=== PATIENT | male | born 1980 | race Caucasian/White ===

== ENCOUNTER 2019-07-07 12:10 | Inpatient (IN) | payer OTHER ==
[2019-07-07] VITALS (29 sets, daily range): BP systolic 104–172; BP diastolic 47–100
[~2019-07-07] VITALS: Ht 177.8 cm; Wt 111.4 kg
[~2019-07-07 12:10] MED LIST: AMLO10TA8 PO; ASPI-655 PO; ATOR40TA PO; IRBE1TAB3 PO; ISRA2.5C PO; METO-238 PO; Magnesium Oxide PO; NALT1TAB PO
[2019-07-07] MEDS ORDERED: CARDIZEM IV ONE ×3 (12:50→17:00)
[2019-07-07] MEDS ORDERED: CARDIZEM ONE ×3 (12:50→22:48)
[2019-07-07] MEDS ORDERED: CARDIZEM PO STA (12:53)
[2019-07-07] MEDS ORDERED: CARDIZEM IV STA ×3 (12:53→14:09)
--- NOTE | 2019-07-07 12:54 | PCM.EKG ---
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1980 Requested By: NIKKI LEGER Order Number: [id number] Reading MD: Nikki Leger Measurements Intervals [place] Rate: 172 P: [place]: QRS: 46 QRSD: 114 T: -28 QT: 307 QTc: 520 Interpretive Statements Atrial fibrillation Paired ventricular premature complexes Incomplete left bundle branch block Low voltage, extremity and precordial leads Minimal ST elevation, lateral leads Prolonged QT interval Baseline wander in lead(s) II,III,aVR,aVF,V6 No previous ECG available for comparison Electronically Signed On 07-13-2019 14:43:03 [employer] by Nikki Leger Please click the below link to view image of tracing.
[2019-07-07 13:00] LABS: BASOPHIL % 0.3 % (0.0-0.2); EOSINOPHIL % 0.1 % (0.0-5.0); LYMPHOCYTES # 1.7 10^3/uL (1.0-4.8); LYMPHOCYTES % 12.6 % (24.0-44.0); MEAN CORP HGB 32.8 pg (26-34); MONOCYTES # 1.6 10^3/uL (0.3-0.8); MONOCYTES % 11.9 % (5.0-12.0); NEUTROPHIL # 10.2 10^3/uL (1.8-7.7); NEUTROPHILS % 74.8 % (41.0-85.0)
--- NOTE | 2019-07-07 13:08 | DIREP ---
PROCEDURE:CHEST 1 VIEW COMPARISON:[facility], CR, XRAY CHEST SINGLE VW, 06/30/2016, 09:18 AM. INDICATIONS:hemoptysis, dyspnea FINDINGS: LUNGS/PLEURA:A right pleural effusion is present. The left lung is clear. No focal consolidation or pneumothorax otherwise noted. VASCULATURE:Normal. Unremarkable pulmonary vasculature. CARDIAC:Borderline cardiomegaly. MEDIASTINUM:Normal. No visible mass or adenopathy. BONES:Mild degenerative change. OTHER:Cardiac leads. CONCLUSION:Right pleural effusion. Dictated by: oJe Santos M.D. on 07/07/2019 at 01:06 PM
--- NOTE | 2019-07-07 13:23 | NUR ---
[facility] OF 1.92 CALLED AND REPORTED AT THIS TIME. DR. LEGER NOTIFIED.
[2019-07-07 13:27] LABS: ALANINE AMINOTRANSFERASE(ML) 33 U/L (12-78); ALKALINE PHOSPHATASE 104 U/L (50-136); ASPARTATE AMINO TRANSFERASE 24 U/L (0-35); CARBON DIOXIDE 24.7 mmol/L (20.0-32); GLUCOSE 115 mg/dL (70-110)
[2019-07-07] MEDS ORDERED: NS 100ML 100 ML IV ONE ×3 (13:49→22:49)
--- NOTE | 2019-07-07 14:27 | DIREP ---
PROCEDURE:CT PULMONARY ANGIOGRAM TECHNIQUE:Following the intravenous administration of contrast material, axial cuts were obtained through the chest. Sagittal and coronal MIP post-processing reconstructions are provided. Satisfactory pulmonary arterial contrast opacification was achieved. The images were viewed at lung and soft tissue settings. The study was reviewed on abdominal, lung, liver and bone windows PICC COMPARISON:[facility], , XRAY CHEST SINGLE VW, 07/07/2019, 12:44 PM. INDICATIONS:R/O PE, DYSPNEA, NEW ONSET AFIB FINDINGS: PULMONARY ARTERIES:No evidence for pulmonary embolism is seen. The CT venogram was not performed. LUNGS:Extensive right lower lobe pneumonia with a moderate-sized right-sided pleural effusion noted. CARDIAC:Normal size heart and normal pulmonary vascularity. THYROID:Normal. THORACIC AORTA:No aortic aneurysm or dissection is seen. The opacifications of aorta is slightly less than optimal. MEDIASTINUM:Small lymph nodes identified in the right hilum, and in the para-aortic region. PLEURA:Normal. BONES:Mild degenerative changes in the spine. OTHER:No additional findings. CONCLUSION: No evidence for pulmonary embolism. The CT venogram was not performed. No aortic aneurysm or dissection is seen. The opacifications of aorta is slightly less than optimal. Extensive right lower lobe pneumonia with a moderate right-sided effusion and lymph nodes identified in the right hilum, para-aortic region. Dictated by: Juma Galeana MD on 07/07/2019 at 02:15 PM
--- NOTE | 2019-07-07 15:36 | NUR ---
UPDATE PATIENTS CARDIZEM INFUSING AT TITRATED UP TO 15MG/HR AT THIS TIME CONTINUES TO HAVE TACHYCARDIA WITH HR AT 114. DR. LEGER NOTIFIED. PATIENT DENIES ANY CHEST PAIN AT THIS TIME AND IS FEELING A LITTLE BETTER THAN WHEN HE CAME TO THE ER.
--- NOTE | 2019-07-07 16:17 | NUR ---
HOSPITALIST ROXANEP SPEAKING WITH HOSPITALIST.
--- NOTE | 2019-07-07 16:32 | ER.PDOC ---
General Chief Complaint: Chest Pain-Cardiac Nature Stated Complaint: CHEST PAIN, FEVER, COUGH, Time seen by MD: 16:00 Source: patient History of Present Illness Initial Comments H/O AFIB, NON COMPLIANT WITH MEDS Timing/Duration: 24 hours Severity/Quality: moderate Radiation: no radiation Activities at Onset: emotional stress Modifying Factors: coughing, exercise Nitro Today/Relief: No Nitro Taken Today Associated Symptoms: cough, palpitations, shortness of breath Prior symptoms/Treatment: Similar symptoms previous Allergies: Coded Allergies: No Known Allergies (Unverified , 06/30/16) Home Meds Active Scripts Aspirin (ASPIRIN EC) 81 Mg Tablet., 81 MG PO DAILY for 30 Days Prov:DAVID DIAMOND MD 12/11/16 [Magnesium Oxide] 400 MG TABLET No Conflict Check, 400 MG PO BID for 30 Days Prov:DAVID DIAMOND MD 12/11/16 Past Medical History Medical History: hypertension, other Surgical History: cardiac cath Social History Alcohol Use: heavy Drug Use: none Reviewed Nursing Reviewed: Vital Signs, Abn. Noted All Other Systems: Reviewed and Negative Physical Exam General Appearance: No Apparent Distress, WD/WN HEENT: PERRL/EOMI, Normal ENT Inspection, TMs Normal, Pharynx Normal Neck: Non-Tender, Full Range of Motion, Supple, Normal Inspection Respiratory: rales Cardiovascular: Tachycardia, Irregularly Irregular Gastrointestinal: Normal Bowel Sounds, No Organomegaly, No Pulsatile Mass, Non Tender, Soft Extremities: Normal Range of Motion, Non-Tender, Normal Inspection, No Pedal Edema, No Calf Tenderness, Normal Capillary Refill Neurologic/Psychiatric: coal chemist II-XII NML as Tested, No Motor/Sensory Deficits, Alert, Normal Mood/Affect, Oriented x 3 Skin: Normal Color, Warm/Dry Results/Orders Results/Orders Orders - NIKKI LEGER MD Diltiazem Hcl (Cardizem) (07/07/19 12:50) Diltiazem Hcl (Cardizem) (07/07/19 12:50) Cbc With Auto Diff (07/07/19 12:52) Comprehensive Metabolic Panel (07/07/19 12:52) Creatine Kinase (07/07/19 12:52) Creatine Kinase Mb (07/07/19 12:52) Troponin I (07/07/19 12:52) Probnp B-Type Spanish Linguist (07/07/19 12:52) PT (07/07/19 12:52) Partial Thromboplastin Time. (07/07/19 12:52) Helicobacter Pylori (07/07/19 12:52) D-Dimer (07/07/19 12:52) Xr Chest 1v (07/07/19 12:52) Ekg-Routine (07/07/19 12:52) Diltiazem Hcl (Cardizem) (07/07/19 12:53) Diltiazem Hcl (Cardizem) (07/07/19 12:53) Diltiazem Hcl (Cardizem) (07/07/19 13:14) Diltiazem Hcl (Cardizem) (07/07/19 13:20) Cta Chest (07/07/19 13:40) Diltiazem Hcl (Cardizem) (07/07/19 13:48) 0.9 % Sodium Chloride (Ns 100ml) (07/07/19 13:49) Diltiazem Hcl (Cardizem) (07/07/19 14:09) Blood Culture (07/07/19 15:58) Ceftriaxone Sodium (Rocephin) (07/07/19 16:00) Vital Signs Date Time Temp Pulse Resp B/P (MAP) Pulse Ox O2 Delivery O2 Flow Rate FiO2 07/07/19 14:10 136 07/07/19 13:28 122 20 130/76 (94) 96 Room Air 07/07/19 13:20 155 07/07/19 13:10 148 20 129/75 (93) 97 Room Air 07/07/19 13:00 171 172/89 07/07/19 13:00 171 07/07/19 12:50 187 18 98 Room Air 07/07/19 12:31 99.3 60 18 07/07/19 12:31 99.3 60 18 172/89 (116) 97 Room Air 07/07/19 12:31 99.3 60 18 97 Administered Medications Medications (Trade) Dose Ordered Sig/Emre Route PRN Reason Start Time Stop Time Status Last Admin Dose Admin Diltiazem HCl (Cardizem) 20 mg STAT STAT IV 07/07/19 12:53 07/07/19 12:55 DC 07/07/19 13:00 20 MG Diltiazem HCl (Cardizem) 25 mg STAT STAT IV 07/07/19 13:20 07/07/19 13:30 DC 07/07/19 13:20 25 MG Diltiazem HCl (Cardizem) 30 mg STAT STAT PO 07/07/19 12:53 07/07/19 12:55 DC 07/07/19 13:00 30 MG Diltiazem HCl (Cardizem) 125 mg STAT STAT IV 07/07/19 14:09 07/07/19 14:11 DC 07/07/19 14:10 125 MG Laboratory Tests Test 07/07/19 12:50 White Blood Count 13.6 10^3/uL (4.5-11.0) H Red Blood Count 5.40 10^6/uL (4.50-5.90) Hemoglobin 17.7 g/dL (13.9-16.3) H Hematocrit 53.0 % (37.0-53.0) Mean Corpuscular Volume 98.1 fL (78-100) Mean Corpuscular Hemoglobin 32.8 pg (26-34) Mean Corpuscular Hemoglobin Concent 33.4 g/dL (33-37) Red Cell Distribution Width 15.0 % (11.5-14.5) H Platelet Count 212 10^3/uL (150-400) Mean Platelet Volume 9.5 fL (7.8-11.0) Neutrophils (%) (Auto) 74.8 % (41.0-85.0) Lymphocytes (%) (Auto) 12.6 % (24.0-44.0) L Monocytes (%) (Auto) 11.9 % (5.0-12.0) Neutrophils # (Auto) 10.2 10^3/uL (1.8-7.7) H Lymphocytes # (Auto) 1.7 10^3/uL (1.0-4.8) Monocytes # (Auto) 1.6 10^3/uL (0.3-0.8) H Absolute Immature Granulocyte (auto 0.04 10^3 u/L (0-2) Immature Granulocytes % 0.30 % (0.00-0.50) Eosinophils % 0.1 % (0.0-5.0) Basophils % 0.3 % (0.0-0.2) H Basophils # 0.0 10^3/uL (0.0-0.1) Eosinophil Count 0.0 10^3/uL (0.0-0.2) Prothrombin Time 12.2 SEC (9.4-11.5) H Prothrombin Time INR (Non-Therap) 1.2 Activated Partial Thromboplast Time 27.1 SEC (24.67-30.72) D-Dimer 1.92 mg/L (0.19-0.49) *H Sodium Level 135 mmol/L (132-145) Potassium Level 3.9 mmol/L (3.6-5.2) Chloride Level 98.0 mmol/L (96-109) Carbon Dioxide Level 24.7 mmol/L (20.0-32) Anion Gap 16.2 Blood Urea Nitrogen 8 mg/dL (7-18) Creatinine 1.20 mg/dL (0.59-1.40) Estimated GFR () 81.6 (>/=60) BUN/Creatinine Ratio 6.0 Glucose Level 115 mg/dL (70-110) H Calcium Level 9.0 mg/dL (8.4-10.5) Total Bilirubin 2.7 mg/dL (0.2-1.0) H Aspartate Amino Transferase (AST) 24 U/L (0-35) Alanine Aminotransferase (ALT) 33 U/L (12-78) Alkaline Phosphatase 104 U/L (50-136) Total Creatine Kinase 18 U/L (39-308) L Creatine Kinase MB < 0.5 ng/mL (0.5-3.6) L Troponin I < 0.02 ng/mL (0.00-0.05) Pro-B-Type Natriuretic Peptide 6401 pg/mL (0-125) H Total Protein 7.2 g/dL (6.4-8.2) Albumin 3.0 g/dL (3.4-5.0) L Globulin 4.2 Helicobacter pylori Screen NEGATIVE (NEGATIVE) EKG/XRAY/CT/US EKG Comments: AFIB, RVR Consult/PCP Time Consult/PCP Called: 14:55 Consult/PCP: DR HUMPHREY Departure Time of Disposition: 17:00 Disposition: 09 ADMITTED INPATIENT Impression: Primary Impression: A-fib Additional Impression: Pneumonia Condition: Improved Referrals: PCP,UNKNOWN (PCP) PRIMARY CARE PROVIDER Duration or Time Spent with Pa: 20m Problem Qualifiers ARSEN,NIKKI S MD Jul 07, 2019 16:32
[2019-07-07] MEDS ORDERED: ROCEPHIN ONE (16:47)
--- NOTE | 2019-07-07 16:53 | NUR ---
UPDATE CALLED REPORT TO SHELLY VANESSA IN ICU.
[2019-07-07] MEDS: ROCEPHIN 1 GM in NS 100ML 100 ML IV SCH (16:55)
[2019-07-07] MEDS ORDERED: ZITHROMAX 500 MG in NS 250ML 250 ML IV SCH (17:00)
--- NOTE | 2019-07-07 17:56 | NUR ---
ARRIVAL PATIENT ARRIVED TO UNIT VIA STRETCHER ON ROOM AIR AND CONNECTED TO PORTABLE TELEMONITOR. CARDIZEM DRIP AT 15MG/HR TO 20 GA TO RIGHT AC. PATIENT TRANSFERRED SELF INTO ICU BED. NO DISTRESS NOTED. PATIENT CONNECTED TO BEDSIDE MINDRAY, TELEMONITOR READING A FIB RATE OF 125. RALES HEARD THROUGHOUT LUNG STEWARD. PATIENT STATED COUGHING UP THICK SPUTUM.. DENIES NO CHEST PAIN. PATIENT ORIENTED TO ICU ROOM, ICU BED, AND CALL LIGHT. PATIENT INSTRUCTED TO CALL FOR ASSISTANCE WHEN UP TO AVOID TRIPPING. ADMISSION PACKET COMPLETED.
--- NOTE | 2019-07-07 18:24 | PCM.HP ---
HISTORY & PHYSICAL HISTORY & PHYSICAL DATE OF ADMISSION: 07/07/2019 CHIEF COMPLAINT: chest pain, sob HISTORY OF PRESENT ILLNESS: 39 y/o male hx of A fib, presents with 1-2 days of worsening R lateral chest and back pain. 10/10, worse with deep breath, and fever/chills. Pt has not been taking medications because he says he can't afford it (lost health insurance). ALLERGIES: NKA CURRENT MEDICATIONS: not taking them PAST MEDICAL HISTORY: A fib SOCIAL HISTORY: denies drugs, +etoh, +tobacco FAMILY HISTORY: non contributory REVIEW OF SYSTEMS: +fever, chills, and nausea. negative for all 11 point system except HPI. PHYSICAL EXAMINATION: GENERAL: NAD, alert, oriented VITAL SIGNS: 154/97 128 96% 16 afebrile HEENT: normocephalic, thyroid smooth LUNGS: decreased sounds on R base, no wheezes, symmetric excursions, non labored HEART: irregular, no murmur ABDOMEN: soft, obese, nontender, BS+ EXTREMITIES: no edema, or clubbing NEUROLOGIC: CN II-XII intact, [facility] DATA: Test 07/07/19 12:50 White Blood Count 13.6 10^3/uL (4.5-11.0) Red Blood Count 5.40 10^6/uL (4.50-5.90) Hemoglobin 17.7 g/dL (13.9-16.3) Hematocrit 53.0 % (37.0-53.0) Mean Corpuscular Volume 98.1 fL (78-100) Mean Corpuscular Hemoglobin 32.8 pg (26-34) Mean Corpuscular Hemoglobin Concent 33.4 g/dL (33-37) Red Cell Distribution Width 15.0 % (11.5-14.5) Platelet Count 212 10^3/uL (150-400) Mean Platelet Volume 9.5 fL (7.8-11.0) Neutrophils (%) (Auto) 74.8 % (41.0-85.0) Lymphocytes (%) (Auto) 12.6 % (24.0-44.0) Monocytes (%) (Auto) 11.9 % (5.0-12.0) Neutrophils # (Auto) 10.2 10^3/uL (1.8-7.7) Lymphocytes # (Auto) 1.7 10^3/uL (1.0-4.8) Monocytes # (Auto) 1.6 10^3/uL (0.3-0.8) Absolute Immature Granulocyte (auto 0.04 10^3 u/L (0-2) Immature Granulocytes % 0.30 % (0.00-0.50) Eosinophils % 0.1 % (0.0-5.0) Basophils % 0.3 % (0.0-0.2) Basophils # 0.0 10^3/uL (0.0-0.1) Eosinophil Count 0.0 10^3/uL (0.0-0.2) Prothrombin Time 12.2 SEC (9.4-11.5) Prothrombin Time INR (Non-Therap) 1.2 Activated Partial Thromboplast Time 27.1 SEC (24.67-30.72) D-Dimer 1.92 mg/L (0.19-0.49) Sodium Level 135 mmol/L (132-145) Potassium Level 3.9 mmol/L (3.6-5.2) Chloride Level 98.0 mmol/L (96-109) Carbon Dioxide Level 24.7 mmol/L (20.0-32) Anion Gap 16.2 Blood Urea Nitrogen 8 mg/dL (7-18) Creatinine 1.20 mg/dL (0.59-1.40) Estimated GFR () 81.6 (>/=60) BUN/Creatinine Ratio 6.0 Glucose Level 115 mg/dL (70-110) Calcium Level 9.0 mg/dL (8.4-10.5) Total Bilirubin 2.7 mg/dL (0.2-1.0) Aspartate Amino Transf (AST/SGOT) 24 U/L (0-35) Alanine Aminotransferase (ALT/SGPT) 33 U/L (12-78) Alkaline Phosphatase 104 U/L (50-136) Total Creatine Kinase 18 U/L (39-308) Creatine Kinase MB < 0.5 ng/mL (0.5-3.6) Troponin I < 0.02 ng/mL (0.00-0.05) Pro-B-Type Natriuretic Peptide 6401 pg/mL (0-125) Total Protein 7.2 g/dL (6.4-8.2) Albumin 3.0 g/dL (3.4-5.0) Globulin 4.2 Helicobacter pylori Screen NEGATIVE (NEGATIVE) IMPRESSION & PLAN: 1) CAP - Rocephin & Zithromax 2) A fib w/RVR - cardizem drip 3) DVT prophylaxis - SCDs JOHANNA HUMPHREY DO Jul 07, 2019 18:23
[2019-07-07] MEDS ORDERED: LOVENOX SQ SCH (18:30)
[2019-07-07] MEDS ORDERED: NS 1000ML 1,000 ML IV ONE (18:30)
[2019-07-07] MEDS ORDERED: NS 250ML 250 ML IV ONE (21:16)
[2019-07-07] MEDS ORDERED: GENASYME PO PRN (21:30)
[2019-07-07] MEDS ORDERED: XANAX PO PRN (21:30)
[2019-07-07] MEDS ORDERED: TYLENOL PO PRN (21:30)
[2019-07-07] MEDS ORDERED: ZOFRAN 4 MG/2 ML VIAL IV PRN (21:30)
[2019-07-07] MEDS ORDERED: BENADRYL PO PRN ×2 (21:30)
[2019-07-07] MEDS ORDERED: MIRALAX PO PRN (21:30)
[2019-07-07] MEDS ORDERED: ULTRAM PO PRN (21:30)
[2019-07-08] VITALS (93 sets, daily range): BP systolic 96–171; BP diastolic 46–116
--- NOTE | 2019-07-08 01:40 | NUR ---
CLARIFICATION ORDER- CARDIZEM GTT IS A CONTINUOUS INFUSION. SPOKE WITH CN, BECAUSE ER PUT IT IN A ONE TIME ORDER. TELEHEALTH CASE MANAGER PULLED CARDIZEM VIAL FROM PHARMACY. SN INFORMED THAT PHARMACY WILL FIX THIS ORDER. NEW BAG HUNG.
--- NOTE | 2019-07-08 03:00 | NUR ---
APNEA- OCCASIONAL 5 SECOND INTERVALS OF APNEA NOTED WHEN SN AT BEDSIDE. PATIENT IS SNORING AND WILL DESAT TO MID 80'S, THEN HAVE A COUGHING SPELL AND WILL BE BACK UP TO MID 90'S.
[2019-07-08] MEDS ORDERED: NS 100ML 100 ML IV ONE ×3 (03:23→15:22)
[2019-07-08 05:24] LABS: MEAN CORP HGB 32.5 pg (26-34)
[2019-07-08 05:33] LABS: CALCIUM 8.7 mg/dL (8.4-10.5); CARBON DIOXIDE 22.3 mmol/L (20.0-32)
[2019-07-08] MEDS ORDERED: NS 1000ML 1,000 ML ONE (08:40)
[2019-07-08] MEDS: ASPIRIN EC PO SCH (08:43)
[2019-07-08] MEDS: NS 1000ML 1,000 ML IV SCH (08:45)
[2019-07-08] MEDS ORDERED: ROCEPHIN 1 GM in NS 100ML 100 ML IV SCH (09:00)
--- NOTE | 2019-07-08 09:11 | PRM.PN ---
Progress Note Subjective Date: Jul 08, 2019 Time: 07:00 Physician Notes: Pt states he feels better, less chest pain, and reduced SOB. No acute events overnight, except periods of apnea and decreased sats observed Objective Review IO, Exams,& Results Vital Signs Date Time Temp Pulse Resp B/P (MAP) Pulse Ox O2 Delivery O2 Flow Rate FiO2 07/08/19 08:24 Room Air 07/08/19 06:15 117 14 137/79 (98) 93 07/08/19 04:00 98.8 Intake and Output 07/08/19 07:00 Intake Total 535 ml Balance 535 ml Intake Oral 240 ml Blood Product IV Normal Saline Flush 20 ml Other 275 ml # Voids 1 Laboratory Tests Test 07/07/19 12:50 07/08/19 05:16 White Blood Count 13.6 10^3/uL 12.6 10^3/uL Red Blood Count 5.40 10^6/uL 4.86 10^6/uL Hemoglobin 17.7 g/dL 15.8 g/dL Hematocrit 53.0 % 47.6 % Mean Corpuscular Volume 98.1 fL 97.9 fL Mean Corpuscular Hemoglobin 32.8 pg 32.5 pg Mean Corpuscular Hemoglobin Concent 33.4 g/dL 33.2 g/dL Red Cell Distribution Width 15.0 % 15.0 % Platelet Count 212 10^3/uL 189 10^3/uL Mean Platelet Volume 9.5 fL 9.5 fL Neutrophils (%) (Auto) 74.8 % Lymphocytes (%) (Auto) 12.6 % Monocytes (%) (Auto) 11.9 % Neutrophils # (Auto) 10.2 10^3/uL Lymphocytes # (Auto) 1.7 10^3/uL Monocytes # (Auto) 1.6 10^3/uL Absolute Immature Granulocyte (auto 0.04 10^3 u/L Immature Granulocytes % 0.30 % Eosinophils % 0.1 % Basophils % 0.3 % Basophils # 0.0 10^3/uL Eosinophil Count 0.0 10^3/uL Prothrombin Time 12.2 SEC Prothrombin Time INR (Non-Therap) 1.2 Activated Partial Thromboplast Time 27.1 SEC D-Dimer 1.92 mg/L Sodium Level 135 mmol/L 137 mmol/L Potassium Level 3.9 mmol/L 3.5 mmol/L Chloride Level 98.0 mmol/L 102.0 mmol/L Carbon Dioxide Level 24.7 mmol/L 22.3 mmol/L Anion Gap 16.2 16.2 Blood Urea Nitrogen 8 mg/dL 8 mg/dL Creatinine 1.20 mg/dL 0.88 mg/dL Estimated GFR () 81.6 116.7 BUN/Creatinine Ratio 6.0 9.0 Glucose Level 115 mg/dL 111 mg/dL Calcium Level 9.0 mg/dL 8.7 mg/dL Total Bilirubin 2.7 mg/dL Aspartate Amino Transf (AST/SGOT) 24 U/L Alanine Aminotransferase (ALT/SGPT) 33 U/L Alkaline Phosphatase 104 U/L Total Creatine Kinase 18 U/L Creatine Kinase MB < 0.5 ng/mL Troponin I < 0.02 ng/mL Pro-B-Type Natriuretic Peptide 6401 pg/mL Total Protein 7.2 g/dL Albumin 3.0 g/dL Globulin 4.2 Helicobacter pylori Screen NEGATIVE Magnesium Level 1.6 mg/dL Current Medications Medications (Trade) Dose Ordered Sig/Emre PRN Reason Start Time Stop Time Status Last Admin Acetaminophen (Tylenol) 650 mg Q4H PRN PAIN 07/07/19 21:30 08/06/19 21:29 Alprazolam (Xanax) 0.25 mg Q6H PRN ANXIETY 07/07/19 21:30 08/06/19 21:29 Aspirin (Aspirin Ec) 81 mg DAILY 07/08/19 09:00 08/07/19 08:59 07/08/19 08:43 Azithromycin 500 mg/Sodium Chloride 250 ml @ 175 mls/hr Q24HRS 07/07/19 17:00 08/06/19 16:59 07/07/19 21:40 Ceftriaxone Sodium 1 gm/ Sodium Chloride 100 ml @ 100 mls/hr Q24HRS 07/07/19 16:00 08/06/19 15:59 07/07/19 16:55 Diphenhydramine HCl (Benadryl) 25 mg Q6HR PRN INSOMNIA 07/07/19 21:30 08/06/19 21:29 Diphenhydramine HCl (Benadryl) 25 mg Q6HR PRN ITCHING 07/07/19 21:30 08/06/19 21:29 Enoxaparin Sodium (Lovenox) 40 mg Q24HRS 07/07/19 18:30 08/06/19 18:29 07/07/19 21:30 Ondansetron HCl (Zofran 4 Mg/2 ml Vial) 4 mg Q4H PRN NAUSEA / VOMITING 07/07/19 21:30 08/06/19 21:29 Polyethylene Glycol (Miralax) 17 gm DAILY PRN CONSTIPATION 07/07/19 21:30 08/06/19 21:29 Simethicone (Genasyme) 80 mg Q6HR PRN GAS 07/07/19 21:30 08/06/19 21:29 Sodium Chloride 1,000 ml @ 80 mls/hr [id number] 07/08/19 09:00 08/07/19 08:59 UNV 07/08/19 08:45 Tramadol HCl (Ultram) 50 mg Q4HR PRN PAIN 4 - 6 07/07/19 21:30 08/06/19 21:29 Maximo - JOHANNA HUMPHREY DO Aspirin (Aspirin Ec) (07/08/19 09:00) Scd's While In Bed (07/07/19 18:13) Enoxaparin Sodium (Lovenox) (07/07/19 18:30) Diphenhydramine Hcl (Benadryl) (07/07/19 21:30) Diphenhydramine Hcl (Benadryl) (07/07/19 21:30) Polyethylene Glycol 3350 (Miralax) (07/07/19 21:30) Simethicone (Genasyme) (07/07/19 21:30) Ondansetron Hcl/Pf (Zofran 4 Mg/2 Ml Via (07/07/19 21:30) Alprazolam (Xanax) (07/07/19 21:30) Tramadol Hcl (Ultram) (07/07/19 21:30) Acetaminophen (Tylenol) (07/07/19 21:30) 0.9 % Sodium Chloride (Ns 1000ml) (07/08/19 09:00) Heart: Normal S2, No murmurs, Gallops Abdomen: Normal bowel sounds, Soft, No tenderness Lungs: Clear to auscultation, Normal air movement Skin: No rashes, No breakdown, No significant lesion Assessment & Plan: Problems/Diagnosis: (1) Chest pain ICD Code: R07.9 - Chest pain, unspecified SNOMED: 94902086 Status: Acute (2) A-fib ICD Code: I48.91 - Unspecified atrial fibrillation SNOMED: 26626251 (3) CAP (community acquired pneumonia) ICD Code: J18.9 - Pneumonia, unspecified organism SNOMED: 292618214 Plan 1) CAP - Rocephin & Zithromax 2) A fib w/RVR - cardizem drip, cardiology consulted. rate controlled much better this AM 3) DVT prophylaxis - SCDs, JOHANNA Carpio DO Jul 08, 2019 09:11
--- NOTE | 2019-07-08 10:48 | NUR ---
Dr. Shoshana Anna at bedside discussing plan of care with patient. New orders received for MAURICE and cardiac catheterization tomorrow morning, Coreg 3.125mg po BID first dose now, Lisinopril 20mg po daily and to administer this afternoon, lasix 40mg IV daily and to wean down cardizem by 5mg as tolerated for a heart rate less than 110. Pt will need life vest at discharge, case management consulted. RBVO.
[2019-07-08] MEDS ORDERED: COREG ONE (10:49)
[2019-07-08] MEDS: COREG PO SCH ×2 (11:00→21:00)
[2019-07-08] MEDS ORDERED: MAGNESIUM SULFATE 50 ML IV ONE (11:00)
[2019-07-08] MEDS: LASIX IV SCH (11:30)
[2019-07-08] MEDS ORDERED: CARDIZEM ONE (12:27)
--- NOTE | 2019-07-08 12:45 | NUR ---
Cardizem gtt Cardizem gtt decreased to 10ml/hr for HR of [address] Shoshana [place].
[2019-07-08] MEDS ORDERED: CARDIZEM 125 MG in NS 100ML 100 ML IV SCH (13:00)
[2019-07-08 13:05] LABS: BASOPHIL % 0.3 % (0.0-0.2); EOSINOPHIL % 0.1 % (0.0-5.0); LYMPHOCYTES # 1.3 10^3/uL (1.0-4.8); LYMPHOCYTES % 11.8 % (24.0-44.0); MEAN CORP HGB 32.9 pg (26-34); MONOCYTES % 9.5 % (5.0-12.0); NEUTROPHIL # 8.4 10^3/uL (1.8-7.7); RED CELL DISTRIBUTION WIDTH 14.9 % (11.5-14.5)
[2019-07-08 13:17] LABS: CALCIUM 9.2 mg/dL (8.4-10.5); CARBON DIOXIDE 26.2 mmol/L (20.0-32)
--- NOTE | 2019-07-08 13:32 | CNH ---
DATE OF CONSULTATION: 07/08/2019 REASON FOR CONSULTATION: Atrial fibrillation with rapid ventricular response. HISTORY OF PRESENT ILLNESS: This is a 39-year-old male who presented to the Emergency Department of [facility] with symptoms of chest pain, which he describes as right sided chest pain, worse with deep breaths with associated chills. On presentation to the ED, EKG done shows atrial fibrillation with rapid ventricular response. He has a history of atrial fibrillation. He was started on Cardizem drip for rate control. He has a history of hypertension. His CHADS-VASc score is 1. EKG shows atrial fibrillation with rapid ventricular response. Chest CTA that was done on admission revealed extensive right lower lobe pneumonia with moderate right sided pleural effusion. Troponins were noted to be negative. PAST MEDICAL HISTORY: He has a past medical history of hypertension. History of atrial fibrillation as well. PAST SURGICAL HISTORY: He denies any past surgical history. ALLERGIES: He has no known drug allergies. SOCIAL HISTORY: He denies illicit drug use, but admits to excessive alcohol intake. Drinks whiskey as well as excessive tobacco use. FAMILY HISTORY: Admits to family history of premature CAD. Denies sudden cardiac . MEDICATIONS: He states that he has not been taking his home medications due to financial issues. REVIEW OF SYSTEMS: As per HPI and as per previous records. All systems reviewed and negative for interval change. PHYSICAL EXAMINATION: VITAL SIGNS: Blood pressure is 149/88, respiratory rate is 18, pulse is 118, pulse ox is 96% on room air. GENERAL: He is in no apparent distress, alert and oriented x 3. HEENT: Normocephalic, atraumatic. Extraocular muscles intact. Pupils are equally round, reactive to light and accommodation. HEART: S1, S2 irregular, positive +3/6 holosystolic murmur. No gallops, rubs or clicks. LUNGS: Decreased breath sounds bilaterally. ABDOMEN: Obese, soft, nontender, nondistended. EXTREMITIES: No cyanosis, no clubbing, no edema. NEUROLOGIC: No neurological deficits. Sensation is intact. IMPRESSION: 1. Atrial fibrillation with rapid ventricular response with a CHADS-VASc score of 1 -- hypertension. 2. Severe tricuspid regurgitation seen on 2D echo done this admission. 3. Left ventricular ejection fraction of 25-30%, seen on 2D echo done on this admission. 4. New cardiomyopathy. 5. Hypertension. 6. History of atrial fibrillation. 7. Community-acquired pneumonia. 8. Moderate size right sided pleural effusion seen on CTA chest. RECOMMENDATION: This is a 39-year-old male who is presenting with atrial fibrillation with rapid ventricular response. He has a CHADS-VASc score of 1. At this time, we will continue with the Cardizem drip for rate control to maintain heart rate less than 110. He is not a candidate for oral anticoagulation with a low CHADS-VASc score. His 2D echo revealed left ventricular ejection fraction of 25-30% with severe tricuspid regurgitation. Given his new cardiomyopathy in the setting of severe valvuloplasty, he is going to be set up for left heart catheterization tomorrow to rule out obstructive coronary artery disease. We would also set him up for a transesophageal echocardiogram to further evaluate his valvular disease. He is going to be n.p.o. after midnight for the procedure set up for tomorrow. In the meantime, we will continue to monitor his blood pressure and his heart rate. We will start him on oral cardiac medications including Coreg 3.125 p.o. b.i.d. as well as lisinopril 20 p.o. daily. Would also put him on Lasix 40 mg IV daily. Given his low ejection fraction, he certainly would benefit from a LifeVest before discharge. I will place a consult out to the psychologist social to arrange for a wearable cardioverter device (LifeVest). He also does have some financial issues and so we would arrange for the psychologist social to address financial issues he may have. He is going to need a repeat 2D echo to reevaluate his LVEF after 3 months of medication therapy. If his left ventricular ejection fraction remains equal to or less than 35% in 3 months' time, he will be set up for AICD implantation at that time. We will continue to monitor him on telemetry. Agree with antibiotics for treatment of pneumonia. Further recommendations will be made based on his overall clinical course. LA NENA MILLER D.O. DR: GENEVA/thom JOB# [id number] CARLOS ALBERTO
--- NOTE | 2019-07-08 14:02 | PCM.EKG ---
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
[2019-07-08] MEDS ORDERED: ROCEPHIN ONE (15:22)
[2019-07-08] MEDS: ROCEPHIN 1 GM in NS 100ML 100 ML IV SCH (15:27)
--- NOTE | 2019-07-08 16:20 | NUR ---
Cardizem Cardizem gtt decreased to 5ml/hr for HR of [address] Shoshana west.
[2019-07-08] MEDS ORDERED: ZESTRIL ONE (17:51)
[2019-07-08] MEDS: ZESTRIL PO SCH (17:56)
[2019-07-08] MEDS: LOVENOX SQ SCH (21:00)
[2019-07-08] MEDS ORDERED: NS 250ML 250 ML IV ONE (21:37)
[2019-07-08] MEDS: ZITHROMAX 500 MG in NS 250ML 250 ML IV SCH (21:40)
[2019-07-09] VITALS (60 sets, daily range): BP systolic 95–153; BP diastolic 45–113
[2019-07-09] MEDS: NS 1000ML 1,000 ML IV SCH ×3 (05:22→22:30)
--- NOTE | 2019-07-09 05:30 | NUR ---
PATIENT AMBULATED TO BATHROOM WITHOUT ANY DIFFICULTY. NORMAL BM PER PATIENT.
--- NOTE | 2019-07-09 06:00 | NUR ---
CHG BATH GIVEN, SHAVED FOR HEART CATH. LINEN CHANGED. IV RESTARTED TO RIGHT AC X 1 ATTEMPT.
[2019-07-09] MEDS ORDERED: XYLOCAINE ONE (07:23)
[2019-07-09] MEDS ORDERED: SUBLIMAZE ONE ×2 (07:23→08:45)
[2019-07-09] MEDS ORDERED: HEPARIN ONE (07:23)
[2019-07-09] MEDS ORDERED: CETACAINE SPRAY TP ONE (07:24)
[2019-07-09] MEDS ORDERED: VERSED ONE (07:32)
[2019-07-09] MEDS: ASPIRIN EC PO SCH (08:24)
[2019-07-09] MEDS: COREG PO SCH ×2 (08:24→21:00)
[2019-07-09] MEDS: ZESTRIL PO SCH (08:24)
[2019-07-09] MEDS: LASIX IV SCH (08:25)
--- NOTE | 2019-07-09 09:45 | NUR ---
DISCHARGE PLAN/LIFE VEST/MEDICATION ASSISTANCE CASE MANAGEMENT VISITED WITH PATIENT WITH EX , LEANDER, AT BEDSIDE WITH HIS PERMISSION. LIVES AT HOME ALONE. INDEPENDENT OF ADLS. PCP- IN [place]. DR. MILLER REQUESTED PATIENT TO HAVE A LIFE VEST BEFORE DISCHARGE. CM PRINTED ORDER FOR LIFE VEST AND LEFT ON CHART IN ICU FOR DR. MILLER TO SIGN WITH KATIE BRAVO AWARE OF NEED FOR SIGNATURE. CHARLES CONTACTED SANCHEZ NAIDU WITH LIFE [employer] @ [phone]. HE STATED THAT LIFE [facility] RECENTLY CHANGED THEIR BUCIO PAY/ASSISTANCE PROGRAM AND IT IS FOLLOWS: THE HOSPITAL CAN PAY A $3,300 LEASE FOR THE LIFE VEST FOR THE PATIENT IF THE PATIENT NEEDS TO DISCHARGE BEFORE THE APPROVAL FOR A LIFE VEST OR THE PATIENT CAN DISCHARGE WITHOUT THE LIFE VEST AND FOLLOW UP AN OUTPATIENT TO OBTAIN THE LIFE VEST IF IT IS NOT URGENT DETERMINED BY THE PHYSICIAN, OR THE PATIENT CAN FILL OUT THE APPLICATION FOR THE ASSISTANCE PROGRAM AND WILL NEED TO SHOW THE LAST PAY STUB, W2, OR TAX INFORMATION. THE APPROVAL PROCESS CAN TAKE UP TO 3 BUSINESS DAYS TO SEE IF THEY QUALIFY. THERE WILL BE A $250 DEPOSIT FOR THE EQUIPMENT AND THAT $250 IS RETURNED WHEN THE EQUIPMENT IS RETURNED AT THE END OF THE NEED IN 3-6MONTHS OR THE LENGTH OF NEED FOR THE DEVICE. CHARLES SPOKE WITH PATIENT AND LEANDER CONCERNING ALL OF THE ABOVE AND THEY ARE ABLE TO PAY THE $250 IF NEEDED FOR THE DEPOSIT. THE PATIENT JUST RECENTLY GOT A NEW JOB AT [employer] AND HAS NOT YET RECEIVED A PAYCHECK TO SUPPLY A PAY STUB, HE DID NOT FILE TAXES FOR 2018 EITHER AND DOES NOT HAVE W2 OR TAX INFORMATION. THE LAST DOCUMENTED WAGE HE RECEIVED WAS IN AUGUST 2018 BY [employer]. LEANDER IS WORKING WITH THE [employer] TO GET DOCUMENTATION OF INCOME FROM THEM. PATIENT WAS LEAVING FLOOR FOR HEART CATH STRETCHER. CHARLES CONTACTED SANCHEZ NAIDU WITH [employer] [facility] BACK AND STATED HE WOULD CALL PATIENT HIMSELF THIS AFTERNOON TO FOLLOW UP WITH HIM AND TALK ABOUT FORMS OF PROOF OF INCOME THAT WOULD QUALIFY. CM NOTIFIED PATIENT AND LEANDER OF SANCHEZ'S PLAN TO FOLLOW UP THIS AFTERNOON. CHARLES ALSO CONTACTED [facility] TO GET COUPON FOR ELIQUIS AND PATIENT ASSIST PROGRAM FOR FUTURE NEED AFTER FREE 30 DAY SUPPLY. DISCHARGE PLAN IS TO DISCHARGE HOME ALONE WITH FAMILY AVAILABLE TO CHECK ON HIM WHEN NEEDED. CM WILL CONTINUE TO FOLLOW FOR DISCHARGE NEEDS.
--- NOTE | 2019-07-09 09:52 | NUR ---
BILATERAL RADIAL SITES SHAVED FOR PRE-CATH PROCEDURE.
[2019-07-09] MEDS ORDERED: NS FLUSH ONE ×2 (09:55→10:05)
--- NOTE | 2019-07-09 10:20 | NUR ---
OFF UNIT TO INSURANCE DEFENSE ATTORNEY
[2019-07-09] MEDS ORDERED: NEXTERONE ONE (10:39)
[2019-07-09] MEDS ORDERED: NEXTERONE 360 MG/200 ML BAG 200 ML IV ONE ×2 (10:39→22:58)
--- NOTE | 2019-07-09 11:51 | PRM.PN ---
Progress Note Subjective Date: Jul 09, 2019 Time: 07:00 Physician Notes: Pt doing well, no acute events overnight. Cath and MAURICE scheduled with cardiology Objective Review IO, Exams,& Results Vital Signs Date Time Temp Pulse Resp B/P (MAP) Pulse Ox O2 Delivery O2 Flow Rate FiO2 07/09/19 09:45 106 24 138/100 (113) 94 07/09/19 08:30 98.1 07/09/19 07:21 Room Air Intake and Output 07/09/19 07:00 Intake Total 1547 ml Output Total 1350 ml Balance 197 ml Intake Oral 920 ml Electrolyte Solution 627 ml Output Urine Total 1350 ml Laboratory Tests Test 07/07/19 12:50 07/08/19 05:16 07/08/19 12:55 White Blood Count 13.6 10^3/uL 12.6 10^3/uL 10.7 10^3/uL Red Blood Count 5.40 10^6/uL 4.86 10^6/uL 5.02 10^6/uL Hemoglobin 17.7 g/dL 15.8 g/dL 16.5 g/dL Hematocrit 53.0 % 47.6 % 49.0 % Mean Corpuscular Volume 98.1 fL 97.9 fL 97.6 fL Mean Corpuscular Hemoglobin 32.8 pg 32.5 pg 32.9 pg Mean Corpuscular Hemoglobin Concent 33.4 g/dL 33.2 g/dL 33.7 g/dL Red Cell Distribution Width 15.0 % 15.0 % 14.9 % Platelet Count 212 10^3/uL 189 10^3/uL 207 10^3/uL Mean Platelet Volume 9.5 fL 9.5 fL 9.3 fL Neutrophils (%) (Auto) 74.8 % 78.0 % Lymphocytes (%) (Auto) 12.6 % 11.8 % Monocytes (%) (Auto) 11.9 % 9.5 % Neutrophils # (Auto) 10.2 10^3/uL 8.4 10^3/uL Lymphocytes # (Auto) 1.7 10^3/uL 1.3 10^3/uL Monocytes # (Auto) 1.6 10^3/uL 1.0 10^3/uL Absolute Immature Granulocyte (auto 0.04 10^3 u/L 0.03 10^3 u/L Immature Granulocytes % 0.30 % 0.30 % Eosinophils % 0.1 % 0.1 % Basophils % 0.3 % 0.3 % Basophils # 0.0 10^3/uL 0.0 10^3/uL Eosinophil Count 0.0 10^3/uL 0.0 10^3/uL Prothrombin Time 12.2 SEC 11.3 SEC Prothrombin Time INR (Non-Therap) 1.2 1.1 Activated Partial Thromboplast Time 27.1 SEC 27.4 SEC D-Dimer 1.92 mg/L Sodium Level 135 mmol/L 137 mmol/L 138 mmol/L Potassium Level 3.9 mmol/L 3.5 mmol/L 3.5 mmol/L Chloride Level 98.0 mmol/L 102.0 mmol/L 101.0 mmol/L Carbon Dioxide Level 24.7 mmol/L 22.3 mmol/L 26.2 mmol/L Anion Gap 16.2 16.2 14.3 Blood Urea Nitrogen 8 mg/dL 8 mg/dL 9 mg/dL Creatinine 1.20 mg/dL 0.88 mg/dL 1.00 mg/dL Estimated GFR () 81.6 116.7 100.7 BUN/Creatinine Ratio 6.0 9.0 9.0 Glucose Level 115 mg/dL 111 mg/dL 134 mg/dL Calcium Level 9.0 mg/dL 8.7 mg/dL 9.2 mg/dL Total Bilirubin 2.7 mg/dL Aspartate Amino Transf (AST/SGOT) 24 U/L Alanine Aminotransferase (ALT/SGPT) 33 U/L Alkaline Phosphatase 104 U/L Total Creatine Kinase 18 U/L Creatine Kinase MB < 0.5 ng/mL Troponin I < 0.02 ng/mL Pro-B-Type Natriuretic Peptide 6401 pg/mL Total Protein 7.2 g/dL Albumin 3.0 g/dL Globulin 4.2 Helicobacter pylori Screen NEGATIVE Magnesium Level 1.6 mg/dL Current Medications Medications (Trade) Dose Ordered Sig/Emre PRN Reason Start Time Stop Time Status Last Admin Acetaminophen (Tylenol) 650 mg Q4H PRN PAIN 07/07/19 21:30 08/06/19 21:29 Alprazolam (Xanax) 0.25 mg Q6H PRN ANXIETY 07/07/19 21:30 08/06/19 21:29 Aspirin (Aspirin Ec) 81 mg DAILY 07/08/19 09:00 08/07/19 08:59 07/09/19 08:24 Azithromycin 500 mg/Sodium Chloride 250 ml @ 175 mls/hr Q24HRS 07/08/19 21:00 08/07/19 20:59 07/08/19 21:40 Carvedilol (Coreg) 3.125 mg BID 07/08/19 11:00 08/07/19 10:59 07/09/19 08:24 Ceftriaxone Sodium 1 gm/ Sodium Chloride 100 ml @ 100 mls/hr Q24HRS 07/07/19 16:00 08/06/19 15:59 07/08/19 15:27 Diltiazem HCl 125 mg/Sodium Chloride 125 ml @ 0 mls/hr IV 07/08/19 13:00 08/07/19 12:59 Diphenhydramine HCl (Benadryl) 25 mg Q6HR PRN INSOMNIA 07/07/19 21:30 08/06/19 21:29 Enoxaparin Sodium (Lovenox) 40 mg Q24HRS 07/08/19 21:00 08/07/19 20:59 07/08/19 21:00 Furosemide (Lasix) 40 mg DAILY 07/08/19 11:30 08/07/19 11:29 07/09/19 08:25 Lisinopril (Zestril) 20 mg DAILY 07/09/19 09:00 08/08/19 08:59 07/09/19 08:24 Ondansetron HCl (Zofran 4 Mg/2 ml Vial) 4 mg Q4H PRN NAUSEA / VOMITING 07/07/19 21:30 08/06/19 21:29 Polyethylene Glycol (Miralax) 17 gm DAILY PRN CONSTIPATION 07/07/19 21:30 08/06/19 21:29 Simethicone (Genasyme) 80 mg Q6HR PRN GAS 07/07/19 21:30 08/06/19 21:29 Sodium Chloride 1,000 ml @ 80 mls/hr [id number] 07/08/19 09:00 08/07/19 08:59 07/09/19 05:22 Tramadol HCl (Ultram) 50 mg Q4HR PRN PAIN 4 - 6 07/07/19 21:30 08/06/19 21:29 Orders - KAM,JOHANNA DO Aspirin (Aspirin Ec) (07/08/19 09:00) Scd's While In Bed (07/07/19 18:13) Diphenhydramine Hcl (Benadryl) (07/07/19 21:30) Polyethylene Glycol 3350 (Miralax) (07/07/19 21:30) Simethicone (Genasyme) (07/07/19 21:30) Ondansetron Hcl/Pf (Zofran 4 Mg/2 Ml Via (07/07/19 21:30) Alprazolam (Xanax) (07/07/19 21:30) Tramadol Hcl (Ultram) (07/07/19 21:30) Acetaminophen (Tylenol) (07/07/19 21:30) 0.9 % Sodium Chloride (Ns 1000ml) (07/08/19 09:00) Diltiazem Hcl (Cardizem) (07/08/19 13:00) Enoxaparin Sodium (Lovenox) (07/08/19 21:00) Azithromycin (Zithromax) (07/08/19 21:00) Potassium Chloride (Potassium Chloride) (07/09/19 12:00) Basic Metabolic Panel (07/10/19 05:00) Heart: Normal S2, No murmurs, Gallops Abdomen: Normal bowel sounds, Soft, No tenderness Lungs: Clear to auscultation, Normal air movement Skin: No rashes, No breakdown, No significant lesion Assessment & Plan: Problems/Diagnosis: (1) A-fib Was this Present on Admission?: YES ICD Code: I48.91 - Unspecified atrial fibrillation SNOMED: 04108562 (2) CAP (community acquired pneumonia) Was this Present on Admission?: YES ICD Code: J18.9 - Pneumonia, unspecified organism SNOMED: 495453172 (3) Hypokalemia ICD Code: E87.6 - Hypokalemia SNOMED: 35450652 (4) Chest pain Was this Present on Admission?: YES ICD Code: R07.9 - Chest pain, unspecified SNOMED: 00219858 Status: Acute Plan 1) CAP - Rocephin & Zithromax 2) A fib w/RVR - cardizem drip, cardiology consulted. rate controlled much better this AM. cath and MAURICE scheduled 3) DVT prophylaxis - SCDs, JOHANNA Carpio DO Jul 09, 2019 11:51
[2019-07-09] MEDS ORDERED: POTASSIUM CHLORIDE PO ONE (12:00)
--- NOTE | 2019-07-09 12:15 | NUR ---
BACK ON UNIT FROM SOCIAL SERVICES ANALYST TR BAND INTACT WITH 12ML OF AIR. NO DRAINAGE OR HEMATOMA NOTED AT INSERTION SITE. PATIENT INSTRUCTED ON USE OF RIGHT ARM AND HAND. REPORT RECEIVED FROM Damaris DE RN.
--- NOTE | 2019-07-09 12:22 | NUR ---
LIFE VEST UPDATE SANCHEZ NAIDU WITH NEW PHONED CHARLES IN ICU AND STATED, "SINCE PATIENT'S FACE SHEET SHOWED HE HAS INSURANCE HE HAS THE APPROVAL TO COME FIT THE PATIENT. SOON HE CAN GET IN CONTACT WITH A NURSE TO COME FIT PATIENT TODAY OR TOMORROW THEY WILL FIT HIM AND HE CAN DISCHARGE FROM THE HOSPITAL IF NEEDED." CHARLES INFORMED SANCHEZ THAT PATIENT DOES NOT HAVE INSURANCE AND THAT THE FACE SHEET HAD NOT BEEN UPDATED. SANCHEZ STATED, "I AM GOING TO GO AHEAD AND GET HIM FITTED AND THEN WE WILL DEAL WITH THE APPLICATION AND THE $250 AFTER THE PATIENT IS DENIED. I AM 99% SURE THE PATIENT WILL QUALIFY FOR THE PATIENT ASSIST PROGRAM, BUT IT COULD TAKE A FEW DAYS AND WE ARE SHORT STAFFED WITH THE HOLIDAYS." CHARLES NOTIFIED KATIE BRAVO THAT SANCHEZ WOULD CALL THE PATIENT IN A "COUPLE OF HOURS TO INFORM PATIENT OF THE STEPS CONCERNED WITH THE LIFE VEST. CHARLES ALSO LEFT THE ELIQUIS 30 DAY FREE COUPON CARD, APPLICATION, AND PRESCRIPTION NEEDED FOR DR. SPIVEY TO SIGN IF HE DECIDES THE PATIENT IS DISCHARGING ON ELIQUIS.
--- NOTE | 2019-07-09 12:33 | PRM.PN ---
Subjective Subjective Date: Jul 09, 2019 Time: 12:27 Review of Systems Constitutional: No: Fever, Chills, Sweats, Weakness, Malaise, Other Eyes: No: Pain, Vision change, Conjunctivae inflammation, Eyelid inflammation, Other, Redness ENT: No: Ear pain, Ear discharge, Nose pain, Nose discharge, Nose congestion, Mouth pain, Mouth swelling, Throat pain, Throat swelling, Other Respiratory: No: Cough, Dry, Shortness of breath, SOB with excertion, Wheezing, Hemoptysis, Pleuritic Pain, Sputum, Wheezing, Other Cardiovascular: No: Chest Pain, Palpitations, Orthopnea, Paroxysmal Noc. Dyspnea, Edema, Lt Headedness, Other Gastrointestinal: No: Nausea, Vomiting, Abdominal Pain, Diarrhea, Constipation, Melena, Hematochezia, Other Musculoskeletal: No: other, neck pain, shoulder pain, arm pain, back pain, hand pain, leg pain, foot pain Neurological: No: Weakness, Numbness, Incoordination, Change in speech, Confusion, Seizures, Other Allergies: Coded Allergies: No Known Allergies (Unverified , 06/30/16) Scheduled Aspirin (Aspirin Ec), 81 MG PO DAILY [Magnesium Oxide], 400 MG PO BID Objective Vitals and I/O Vital Sign - Last 24 Hours 07/08/19 07/08/19 07/08/19 07/08/19 12:30 12:40 12:46 13:00 Temp 97.7 Pulse 100 129 103 Resp 18 20 18 B/P (MAP) 152/97 (115) 147/76 (99) 146/90 (108) Pulse Ox 97 96 O2 Delivery Room Air 07/08/19 07/08/19 07/08/19 07/08/19 13:15 13:30 13:45 14:01 Pulse 100 106 102 95 Resp 18 20 19 B/P (MAP) 147/52 (83) 147/87 (107) 133/83 (100) 112/72 (85) Pulse Ox 94 96 94 94 07/08/19 07/08/19 07/08/19 07/08/19 14:15 14:30 15:02 15:15 Pulse 104 108 105 102 Resp 17 17 15 16 B/P (MAP) 128/82 (97) 132/59 (83) 136/86 (103) 154/71 (98) Pulse Ox 96 94 97 92 07/08/19 07/08/19 07/08/19 07/08/19 15:30 16:17 16:22 16:30 Temp 98.0 Pulse 103 106 103 Resp 16 14 19 B/P (MAP) 128/84 (99) 154/86 (108) 159/97 (117) Pulse Ox 93 96 97 O2 Delivery Room Air 07/08/19 07/08/19 07/08/19 07/08/19 16:45 17:00 17:15 17:30 Pulse 111 111 117 113 Resp 17 14 18 14 B/P (MAP) 142/86 (104) 121/84 (96) 137/93 (108) 146/80 (102) Pulse Ox 93 93 93 94 07/08/19 07/08/19 07/08/19 07/08/19 17:45 17:56 18:00 18:16 Pulse 99 108 103 Resp 12 18 16 B/P (MAP) 135/86 (102) 139/85 139/85 (103) 137/93 (108) Pulse Ox 93 94 95 07/08/19 07/08/19 07/08/19 07/08/19 18:30 18:45 19:00 19:00 Pulse 104 96 114 Resp 19 20 B/P (MAP) 138/83 (101) 136/82 (100) 129/76 (93) Pulse Ox 93 96 95 O2 Delivery Room Air 07/08/19 07/08/19 07/08/19 07/08/19 19:15 19:30 19:45 20:00 Pulse 141 104 100 104 Resp 17 15 17 14 B/P (MAP) 144/82 (102) 132/50 (77) 146/94 (111) 135/96 (109) Pulse Ox 94 94 93 96 07/08/19 07/08/19 07/08/19 07/08/19 20:15 20:30 20:45 21:00 Pulse 110 108 115 112 Resp 22 20 15 B/P (MAP) 132/89 (103) 134/81 (98) 146/85 (105) 137/93 Pulse Ox 96 95 97 07/08/19 07/08/19 07/08/19 07/08/19 21:01 21:15 21:30 21:46 Pulse 104 103 106 110 Resp 25 13 10 19 B/P (MAP) 169/116 (133) 133/89 (104) 131/98 (109) 125/79 (94) Pulse Ox 95 95 96 97 07/08/19 07/08/19 07/08/19 07/08/19 22:00 22:15 22:30 22:45 Pulse 120 114 112 110 Resp 07 03 18 17 B/P (MAP) 148/57 (87) 148/92 (110) 104/54 (71) 108/70 (83) Pulse Ox 95 94 96 95 07/08/19 07/08/19 07/08/19 07/08/19 23:00 23:01 23:15 23:30 Pulse 85 76 103 105 Resp B/P (MAP) 133/96 (108) 124/85 (98) 121/102 (108) Pulse Ox 93 92 93 94 07/08/19 07/09/19 07/09/19 07/09/19 23:45 00:00 00:00 00:15 Temp 98.4 Pulse 109 104 100 Resp B/P (MAP) 120/81 (94) 133/83 (100) 124/76 (92) Pulse Ox 93 94 93 O2 Delivery Room Air 07/09/19 07/09/19 07/09/19 07/09/19 00:30 00:45 01:15 01:30 Pulse 103 94 97 101 Resp 15 21 21 B/P (MAP) 124/73 (90) 140/87 (104) 132/75 (94) 138/90 (106) Pulse Ox 93 88 97 97 07/09/19 07/09/19 07/09/19 07/09/19 01:45 02:00 02:01 02:17 Pulse 93 93 96 101 Resp 21 13 11 13 B/P (MAP) 133/100 (111) 153/76 (101) 137/87 (104) Pulse Ox 98 98 97 97 07/09/19 07/09/19 07/09/19 07/09/19 02:30 02:45 03:00 03:15 Pulse 99 104 94 103 Resp 25 14 20 14 B/P (MAP) 128/101 (110) 135/81 (99) 115/80 (92) 95/49 (64) Pulse Ox 98 97 95 94 07/09/19 07/09/19 07/09/1907/09/19 03:30 03:45 04:00 04:00 Pulse 98 104 105 Resp 24 20 21 B/P (MAP) 107/69 (82) 98/50 (66) 111/67 (82) Pulse Ox 94 94 94 O2 Delivery Room Air 07/09/19 07/09/19 07/09/19 07/09/19 04:15 04:30 04:45 05:00 Temp 98.1 Pulse 90 116 101 104 Resp 13 13 22 34 B/P (MAP) 98/45 (62) 120/74 (89) 133/79 (97) Pulse Ox 94 90 95 07/09/19 07/09/19 07/09/19 07/09/19 05:02 05:15 05:30 06:30 Pulse 107 72 101 116 Resp 23 23 10 15 B/P (MAP) 100/69 (79) 110/58 (75) 133/67 (89) 136/93 (107) Pulse Ox 97 94 97 96 07/09/19 07/09/19 07/09/19 07/09/19 06:45 07:00 07:16 07:21 Pulse 107 101 112 Resp 25 13 16 B/P (MAP) 136/75 (95) 140/98 (112) 135/100 (112) Pulse Ox 92 93 92 O2 Delivery Room Air 07/09/19 07/09/19 07/09/19 07/09/19 07:30 07:45 07:46 08:00 Pulse 126 115 112 96 Resp 21 27 17 B/P (MAP) 131/96 (108) 134/108 (117) 138/98 (111) Pulse Ox 96 96 94 99 07/09/19 07/09/19 07/09/19 07/09/19 08:15 08:24 08:24 08:25 Pulse 107 107 Resp 29 B/P (MAP) 144/66 (92) 144/66 144/66 144/66 Pulse Ox 93 07/09/19 07/09/19 07/09/19 07/09/19 08:30 08:45 09:00 09:16 Temp 98.1 Pulse 121 114 134 117 Resp 20 27 28 B/P (MAP) 130/77 (94) 133/89 (104) 134/89 (104) 141/93 (109) Pulse Ox 90 96 99 93 07/09/19 07/09/19 07/09/19 09:30 09:45 12:23 Pulse 113 106 Resp 25 24 B/P (MAP) 141/90 (107) 138/100 (113) Pulse Ox 94 94 O2 Delivery Room Air Intake and Output 07/08/19 07/08/19 07/09/19 15:00 23:00 07:00 Intake Total 1547 ml Output Total 1350 ml Balance 197 ml General: Alert, Oriented X3 HEENT: Atraumatic, PERRLA, EOMI Lungs: Clear to auscultation, Normal air movement Heart: Normal S1, Normal S2, No murmurs, Gallops Abdomen: Normal bowel sounds, Soft, No tenderness Extremities: No clubbing, No cyanosis Skin: No rashes, No breakdown, No significant lesion All Results(Lab/Rad) Laboratory Tests Test 07/08/19 12:55 White Blood Count 10.7 10^3/uL Red Blood Count 5.02 10^6/uL Hemoglobin 16.5 g/dL Hematocrit 49.0 % Mean Corpuscular Volume 97.6 fL Mean Corpuscular Hemoglobin 32.9 pg Mean Corpuscular Hemoglobin Concent 33.7 g/dL Red Cell Distribution Width 14.9 % Platelet Count 207 10^3/uL Mean Platelet Volume 9.3 fL Neutrophils (%) (Auto) 78.0 % Lymphocytes (%) (Auto) 11.8 % Monocytes (%) (Auto) 9.5 % Neutrophils # (Auto) 8.4 10^3/uL Lymphocytes # (Auto) 1.3 10^3/uL Monocytes # (Auto) 1.0 10^3/uL Absolute Immature Granulocyte (auto 0.03 10^3 u/L Immature Granulocytes % 0.30 % Eosinophils % 0.1 % Basophils % 0.3 % Basophils # 0.0 10^3/uL Eosinophil Count 0.0 10^3/uL Prothrombin Time 11.3 SEC Prothrombin Time INR (Non-Therap) 1.1 Activated Partial Thromboplast Time 27.4 SEC Sodium Level 138 mmol/L Potassium Level 3.5 mmol/L Chloride Level 101.0 mmol/L Carbon Dioxide Level 26.2 mmol/L Glucose Level 134 mg/dL Blood Urea Nitrogen 9 mg/dL Creatinine 1.00 mg/dL Calcium Level 9.2 mg/dL Anion Gap 14.3 Estimated GFR () 100.7 BUN/Creatinine Ratio 9.0 Current Medications Medications (Trade) Dose Ordered Sig/Emre Route PRN Reason Start Time Stop Time Status Last Admin Dose Admin Diltiazem HCl (Cardizem) 60 mg STK-MED ONCE .ROUTE 07/07/19 12:50 07/07/19 12:52 DC Diltiazem HCl (Cardizem) 25 mg STK-MED ONCE IV 07/07/19 12:50 07/07/19 12:52 DC Diltiazem HCl (Cardizem) 20 mg STAT STAT IV 07/07/19 12:53 07/07/19 12:55 DC 07/07/19 13:00 Diltiazem HCl (Cardizem) 30 mg STAT STAT PO 07/07/19 12:53 07/07/19 12:55 DC 07/07/19 13:00 Diltiazem HCl (Cardizem) 25 mg STK-MED ONCE IV 07/07/19 13:14 07/07/19 13:16 DC Diltiazem HCl (Cardizem) 25 mg STAT STAT IV 07/07/19 13:20 07/07/19 13:30 DC 07/07/19 13:20 Diltiazem HCl (Cardizem) 125 mg STK-MED ONCE .ROUTE 07/07/19 13:48 07/07/19 13:49 DC Sodium Chloride 100 ml @ ud STK-MED ONCE IV 07/07/19 13:49 07/07/19 13:51 DC Diltiazem HCl (Cardizem) 125 mg STAT STAT IV 07/07/19 14:09 07/07/19 14:11 DC 07/07/19 14:10 Ceftriaxone Sodium 1 gm/ Sodium Chloride 100 ml @ 100 mls/hr Q24HRS IV 07/07/19 16:00 08/06/19 15:59 07/08/19 15:27 Ceftriaxone Sodium (Rocephin) 1 gm STK-MED ONCE .ROUTE 07/07/19 16:47 07/07/19 16:48 DC Sodium Chloride 100 ml @ ud STK-MED ONCE IV 07/07/19 16:47 07/07/19 16:49 DC Diltiazem HCl (Cardizem) 125 mg OT ONCE IV 07/07/19 17:00 07/07/19 17:01 DC 07/07/19 23:00 Ceftriaxone Sodium 1 gm/ Sodium Chloride 100 ml @ 100 mls/hr DAILY IV 07/08/19 09:00 07/07/19 20:42 DC Azithromycin 500 mg/Sodium Chloride 250 ml @ 175 mls/hr Q24HRS IV 07/07/19 17:00 07/08/19 16:46 DC 07/07/19 21:40 Aspirin (Aspirin Ec) 81 mg DAILY PO 07/08/19 09:00 08/07/19 08:59 07/09/19 08:24 Enoxaparin Sodium (Lovenox) 40 mg Q24HRS SQ 07/07/19 18:30 07/08/19 15:03 DC 07/07/19 21:30 Sodium Chloride 1,000 ml @ 80 mls/hr [id number] ONCE IV 07/07/19 18:30 07/08/19 06:59 DC Sodium Chloride 250 ml @ ud STK-MED ONCE IV 07/07/19 21:16 07/07/19 21:18 DC Diphenhydramine HCl (Benadryl) 25 mg Q6HR PRN PO INSOMNIA 07/07/19 21:30 08/06/19 21:29 Diphenhydramine HCl (Benadryl) 25 mg Q6HR PRN PO ITCHING 07/07/19 21:30 07/08/19 09:12 DC Polyethylene Glycol (Miralax) 17 gm DAILY PRN PO CONSTIPATION 07/07/19 21:30 08/06/19 21:29 Simethicone (Genasyme) 80 mg Q6HR PRN PO GAS 07/07/19 21:30 08/06/19 21:29 Ondansetron HCl (Zofran 4 Mg/2 ml Vial) 4 mg Q4H PRN IV NAUSEA / VOMITING 07/07/19 21:30 08/06/19 21:29 Alprazolam (Xanax) 0.25 mg Q6H PRN PO ANXIETY 07/07/19 21:30 08/06/19 21:29 Tramadol HCl (Ultram) 50 mg Q4HR PRN PO PAIN 4 - 6 07/07/19 21:30 08/06/19 21:29 Acetaminophen (Tylenol) 650 mg Q4H PRN PO PAIN 07/07/19 21:30 08/06/19 21:29 Diltiazem HCl (Cardizem) 125 mg STK-MED ONCE .ROUTE 07/07/19 22:48 07/07/19 22:50 DC Sodium Chloride 100 ml @ ud STK-MED ONCE IV 07/07/19 22:49 07/07/19 22:51 DC Sodium Chloride 100 ml @ ud STK-MED ONCE IV 07/08/19 03:23 07/08/19 03:25 DC Sodium Chloride 1,000 ml @ ud STK-MED ONCE .ROUTE 07/08/19 08:40 07/08/19 08:41 DC Sodium Chloride 1,000 ml @ 80 mls/hr [id number] IV 07/08/19 09:00 08/07/19 08:59 07/09/19 05:22 Magnesium Sulfate 50 ml @ 50 mls/hr OT ONCE IV 07/08/19 11:00 07/08/19 11:59 DC 07/08/19 12:15 Carvedilol (Coreg) 3.125 mg STK-MED ONCE .ROUTE 07/08/19 10:49 07/08/19 10:51 DC Carvedilol (Coreg) 3.125 mg BID PO 07/08/19 11:00 08/07/19 10:59 07/09/19 08:24 Lisinopril (Zestril) 20 mg DAILY PO 07/09/19 09:00 08/08/19 08:59 07/09/19 08:24 Furosemide (Lasix) 40 mg DAILY IV 07/08/19 11:30 08/07/19 11:29 07/09/19 08:25 Diltiazem HCl (Cardizem) 125 mg STK-MED ONCE .ROUTE 07/08/19 12:27 07/08/19 12:29 DC Sodium Chloride 100 ml @ ud STK-MED ONCE IV 07/08/19 12:28 07/08/19 12:30 DC Diltiazem HCl 125 mg/Sodium Chloride 125 ml @ 0 mls/hr IV 07/08/19 13:00 08/07/19 12:59 Enoxaparin Sodium (Lovenox) 40 mg Q24HRS SQ 07/08/19 21:00 08/07/19 20:59 07/08/19 21:00 Sodium Chloride 100 ml @ ud STK-MED ONCE IV 07/08/19 15:22 07/08/19 15:24 DC Ceftriaxone Sodium (Rocephin) 1 gm STK-MED ONCE .ROUTE 07/08/19 15:22 07/08/19 15:24 DC Azithromycin 500 mg/Sodium Chloride 250 ml @ 175 mls/hr Q24HRS IV 07/08/19 21:00 08/07/19 20:59 07/08/19 21:40 Lisinopril (Zestril) 20 mg STK-MED ONCE .ROUTE 07/08/19 17:51 07/08/19 17:53 DC Sodium Chloride 250 ml @ ud STK-MED ONCE IV 07/08/19 21:37 07/08/19 21:39 DC Heparin Sodium/ Sodium Chloride 1,500 ml @ ud STK-MED ONCE IV 07/09/19 07:23 07/09/19 07:25 DC Heparin Sodium (Porcine) (Heparin) 5,000 unit STK-MED ONCE .ROUTE 07/09/19 07:23 07/09/19 07:25 DC Fentanyl Citrate (Sublimaze) 100 mcg STK-MED ONCE .ROUTE 07/09/19 07:23 07/09/19 07:25 DC Lidocaine HCl (Xylocaine) 20 mg STK-MED ONCE .ROUTE 07/09/19 07:23 07/09/19 07:25 DC Benzocaine/ Butamben/ Tetracaine HCl (Cetacaine [place]) 0.199808 sprays STK-MED ONCE TP 07/09/19 07:24 07/09/19 07:26 DC Fentanyl Citrate (Sublimaze) 100 mcg STK-MED ONCE .ROUTE 07/09/19 08:45 07/09/19 08:47 DC Amiodarone HCl (Nexterone) 150 mg STK-MED ONCE .ROUTE 07/09/19 10:39 07/09/19 10:41 DC Amiodarone HCL/ Dextrose 200 ml @ ud STK-MED ONCE IV 07/09/19 10:39 07/09/19 10:42 DC Potassium Chloride (Potassium Chloride) 60 meq OT ONCE PO 07/09/19 12:00 07/09/19 12:07 DC Assessment/Plan Assessment/Plan Assessment/Plan Patient underwent MAURICE today which revealed moderate TR with LVEF 25-30% LHC revealed 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 He will need lifevest before discharge--addiction social worker has been consulted Currently on amiodarone gtt for rate control Will switch to PO amiodarone in AM Will wean off cardizem gtt Continue coreg, lisinopril and aspirin Anticipate d/c tomorrow AFTER lifevest has been fitted. LA NENA MILLER DO Jul 09, 2019 12:33
--- NOTE | 2019-07-09 13:25 | [facility] ---
DATE OF SERVICE: 07/09/2019 INDICATION FOR PROCEDURE: New cardiomyopathy. This is a 39-year-old male who presented to [facility] with atrial fibrillation and rapid ventricular response. He is currently being treated for pneumonia as well. On presentation, a 2D echo shows a left ventricular ejection fraction of 25-30%. Given the new cardiomyopathy, he was setup for cardiac catheterization to rule out obstructive CAD. Informed consents were obtained and the patient was taken to the cardiac catheterization suite. DIAGNOSES: 1. New cardiomyopathy with an LVEF of 25-30% as seen on 2D echo. 2. Atrial fibrillation with rapid ventricular response. 3. Hypertension. 4. Hyperlipidemia. 5. Obesity. 6. Alcohol abuse. DESCRIPTION OF PROCEDURE: Access was obtained using a 6-Belarusian glide sheath to cannulate the right radial artery. Diagnostic angiography was carried out using the Embudo 4 catheter to engage the left main. The left main was noted to be short and angiographically normal. It bifurcates into the left anterior descending artery and the left circumflex artery. The left anterior descending artery was noted to have mild luminal irregularities. It runs in the interventricular groove to the apex to form a type 2 LAD. It gives off 2 diagonal branches. There are noted to have mild luminal irregularities. SOILA 2 flow is visualized in the left system suggestive of microvascular disease. Left circumflex artery is noted to be a nondominant with mild luminal irregularities. It gives off a high obtuse marginal branch. Obtuse marginal 1 branch that has mild luminal irregularities. This obtuse marginal 2 branch was also noted to have mild luminal irregularities. A Embudo 4 catheter was then used to engage the RCA. The RCA was noted to be dominant with mild luminal irregularities. It bifurcates distally to an RPL and RPDA branch, both noted to have mild luminal irregularities. Again, SOILA 2 flow was observed in the RCA suspicious of microvascular disease. The Embudo 4 catheter was then exchanged for a pigtail catheter, which was used to cross the aortic valve into the left ventricle. Left ventriculography was performed. LVEF was noted to be 30%. Upon pullback of the catheter, there was no gradient across the aortic valve. The pigtail catheter was then removed and hemostasis was established using the TR band. The patient left the lab engineer in stable condition. There were no complications. IMPRESSION: 1. 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 2. Nonobstructive coronary artery disease. 3. Selective coronary angiography. 4. Left ventriculography. 5. LVEF of 30%. 6. LVEDP of 14. 7. Hemostasis is established using a TR band. RECOMMENDATIONS: No coronary intervention is necessary at this time. Would optimize cardiac medications. The patient will certainly benefit from a LifeVest before discharge. Lifestyle modification factors including tobacco as well as alcohol cessation has been strongly advised. LA NENA MILLER D.O. DR: Yolanda JOB# [id number]
--- NOTE | 2019-07-09 16:27 | NUR ---
TR BAND REMOVED COVERED WITH 4X4 GAUZE AND TEGADERM HEMOSTATIC PATCH PER 'S ORDER IS UNAVAILABLE. NO HEMATOMA, BLEEDING REDNESS AT INSERTION SITE. Addendum: 07/09/19 at 1628 by Willem Arnold RN - LINK TRAINER OPERATOR SEE HEART CATH INTERVENTION
--- NOTE | 2019-07-09 17:00 | NUR ---
Gauze and tegaderm removed from radial insertion site. surgicel absorbable hemostat applied to site and covered with tegaderm.
[2019-07-09] MEDS: ROCEPHIN 1 GM in NS 100ML 100 ML IV SCH (17:23)
--- NOTE | 2019-07-09 18:20 | NUR ---
NEW THOMAS BELL CLERK AT BEDSIDE
--- NOTE | 2019-07-09 19:50 | NUR ---
Dr. Anna at bedside. Verbal order to continue cardizem and amiodarone drip. May titrate cardizem down if HR stays below 110bpm. Patient denies pain or needs at this time. Life vest in place.
[2019-07-09] MEDS: LOVENOX SQ SCH (21:00)
[2019-07-09] MEDS: ZITHROMAX 500 MG in NS 250ML 250 ML IV SCH (21:00)
[2019-07-10] VITALS (17 sets, daily range): BP systolic 76–138; BP diastolic 45–90
[2019-07-10] MEDS ORDERED: NS 100ML 100 ML IV ONE (00:04)
[2019-07-10] MEDS ORDERED: CARDIZEM ONE (00:05)
[2019-07-10] MEDS ORDERED: NEXTERONE 360 MG/200 ML BAG 200 ML IV ONE (04:53)
[2019-07-10 05:10] LABS: CALCIUM 8.5 mg/dL (8.4-10.5)
--- NOTE | 2019-07-10 07:15 | NUR ---
Dr. Ronal Villeda at bedside discussing plan of care with patient. No new orders received.
[2019-07-10] MEDS ORDERED: POTASSIUM CHLORIDE PO ONE (07:30)
--- NOTE | 2019-07-10 08:20 | PRM.DC ---
Discharge Summary Date of Discharge: Jul 10, 2019 Hospital Course Pt has hx of non-complaince with medications for heart failure, and was admitted for CAP, and AFIB w/RVR. Pt was admitted to ICU and placed on cardizem gtt. Cardiology was consulted: Patient underwent MAURICE which revealed moderate TR with LVEF 25-30% LHC revealed 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 He will need lifevest before discharge--elementary school social worker has been consulted Currently on amiodarone gtt for rate control Will switch to PO amiodarone on D/C wean off cardizem gtt Continue coreg, lisinopril and aspirin Patient History: FH: esophageal cancer 32 MOTHER, FH: suicide 33 FATHER, , Age:30's - 40 Scheduled Aspirin (Aspirin Ec), 81 MG PO DAILY [Magnesium Oxide], 400 MG PO BID Sepsis Evaluation @ Discharge 07/09/19 19:00 Course Sepsis Screening Results: Posi: NEGATIVE Sepsis Qualifier/Stage: NO DEFINITE RISK Duration or Total Time Spent w: 20m Vitals & review Data Vital Sign - Last 24 Hours 07/09/19 07/09/19 07/09/19 07/09/19 08:24 08:24 08:25 08:30 Temp 98.1 Pulse 107 121 Resp 20 B/P (MAP) 144/66 144/66 144/66 130/77 (94) Pulse Ox 90 07/09/19 07/09/19 07/09/19 07/09/19 08:45 09:00 09:16 09:30 Pulse 114 134 117 113 Resp 27 28 25 B/P (MAP) 133/89 (104) 134/89 (104) 141/93 (109) 141/90 (107) Pulse Ox 96 99 93 94 07/09/19 07/09/19 07/09/19 07/09/19 09:45 12:23 12:29 12:46 Pulse 106 98 119 Resp 24 22 B/P (MAP) 138/100 (113) 115/59 (77) 121/68 (85) Pulse Ox 94 96 92 O2 Delivery Room Air 07/09/19 07/09/19 07/09/19 07/09/19 13:00 13:15 13:30 13:47 Temp 98.6 Pulse 109 127 Resp 9 22 10 25 B/P (MAP) 115/75 (88) 108/72 (84) 143/67 (92) 127/113 (118) Pulse Ox 95 94 95 96 07/09/19 07/09/19 07/09/19 07/09/19 14:06 14:30 14:45 15:00 Pulse 122 98 100 107 Resp 19 17 B/P (MAP) 98/61 (73) 106/69 (81) 106/70 (82) Pulse Ox 95 96 95 94 07/09/19 07/09/19 07/09/19 07/09/19 15:30 15:45 16:00 16:15 Pulse 108 111 101 105 Resp 25 17 24 B/P (MAP) 122/75 (91) 116/71 (86) Pulse Ox 95 93 92 93 07/09/19 07/09/19 07/09/19 07/09/19 16:29 16:30 16:45 17:00 Temp 99.7 Pulse 108 96 99 Resp 21 B/P (MAP) 112/79 (90) 112/75 (87) Pulse Ox 92 93 94 O2 Delivery Room Air 07/09/19 07/09/19 07/09/19 07/09/19 17:15 17:30 17:45 18:00 Pulse 113 107 96 107 Resp 20 B/P (MAP) 127/83 (98) 128/87 (101) Pulse Ox 92 94 07/09/19 07/09/19 07/09/19 07/09/19 18:15 18:30 19:00 20:00 Pulse 115 111 110 Resp 21 67 B/P (MAP) 123/79 (94) Pulse Ox 94 94 97 O2 Delivery Room Air 07/09/19 07/09/19 07/09/19 07/09/19 20:02 20:31 21:00 21:00 Pulse 108 124 111 109 Resp 20 19 B/P (MAP) 151/84 (106) 108/68 (81) 123/79 Pulse Ox 97 95 95 07/09/19 07/09/19 07/09/19 07/09/19 21:01 21:32 21:42 22:00 Pulse 103 119 107 100 Resp 28 15 31 B/P (MAP) 130/95 (107) 113/69 (84) 110/69 (83) Pulse Ox 95 95 96 94 07/09/19 07/09/19 07/09/1919 22:30 23:00 23:30 00:00 Pulse 100 85 92 94 Resp 21 30 29 B/P (MAP) 115/83 (94) 111/72 (85) 109/56 (73) 119/78 (92) Pulse Ox 94 92 93 93 07/10/19 07/10/19 07/10/19 07/10/19 00:00 00:30 01:00 01:30 Pulse 96 95 113 Resp 12 9 29 B/P (MAP) 138/73 (94) 106/67 (80) 113/54 (73) Pulse Ox 94 93 92 O2 Delivery Room Air 07/10/19 07/10/19 07/10/19 07/10/19 02:00 02:01 02:30 02:33 Pulse 102 105 80 117 Resp 26 20 B/P (MAP) 76/45 (55) Pulse Ox 90 92 07/10/19 07/10/19 07/10/19 07/10/19 03:00 03:30 04:00 04:00 Pulse 99 101 102 Resp 22 22 22 Pulse Ox 91 93 90 O2 Delivery Room Air 07/10/19 07/10/19 07/10/19 07/10/19 04:08 04:30 04:32 05:07 Pulse 104 112 Resp 26 B/P (MAP) 109/67 (81) 128/76 (93) Pulse Ox 93 97 93 07/10/19 07/10/19 07/10/19 05:30 06:00 06:30 Pulse 103 100 102 Resp 25 97 Pulse Ox 96 94 Intake and Output 07/09/19 07/09/19 07/10/19 15:00 23:00 07:00 Intake Total 2013 ml 1700 ml Output Total 2625 ml 800 ml Balance -612 ml 900 ml Laboratory Tests Test 07/08/19 12:55 07/10/19 04:50 White Blood Count 10.7 10^3/uL Red Blood Count 5.02 10^6/uL Hemoglobin 16.5 g/dL Hematocrit 49.0 % Mean Corpuscular Volume 97.6 fL Mean Corpuscular Hemoglobin 32.9 pg Mean Corpuscular Hemoglobin Concent 33.7 g/dL Red Cell Distribution Width 14.9 % Platelet Count 207 10^3/uL Mean Platelet Volume 9.3 fL Neutrophils (%) (Auto) 78.0 % Lymphocytes (%) (Auto) 11.8 % Monocytes (%) (Auto) 9.5 % Neutrophils # (Auto) 8.4 10^3/uL Lymphocytes # (Auto) 1.3 10^3/uL Monocytes # (Auto) 1.0 10^3/uL Absolute Immature Granulocyte (auto 0.03 10^3 u/L Immature Granulocytes % 0.30 % Eosinophils % 0.1 % Basophils % 0.3 % Basophils # 0.0 10^3/uL Eosinophil Count 0.0 10^3/uL Prothrombin Time 11.3 SEC Prothrombin Time INR (Non-Therap) 1.1 Activated Partial Thromboplast Time 27.4 SEC Sodium Level 138 mmol/L 138 mmol/L Potassium Level 3.5 mmol/L 3.3 mmol/L Chloride Level 101.0 mmol/L 105.0 mmol/L Carbon Dioxide Level 26.2 mmol/L 23.0 mmol/L Glucose Level 134 mg/dL 112 mg/dL Blood Urea Nitrogen 9 mg/dL 10 mg/dL Creatinine 1.00 mg/dL 0.89 mg/dL Calcium Level 9.2 mg/dL 8.5 mg/dL Anion Gap 14.3 13.3 Estimated GFR () 100.7 115.1 BUN/Creatinine Ratio 9.0 11.0 Current Medications Medications (Trade) Dose Ordered Sig/Emre PRN Reason Start Time Stop Time Status Last Admin Acetaminophen (Tylenol) 650 mg Q4H PRN PAIN 07/07/19 21:30 08/06/19 21:29 Alprazolam (Xanax) 0.25 mg Q6H PRN ANXIETY 07/07/19 21:30 08/06/19 21:29 Aspirin (Aspirin Ec) 81 mg DAILY 07/08/19 09:00 08/07/19 08:59 07/09/19 08:24 Azithromycin 500 mg/Sodium Chloride 250 ml @ 175 mls/hr Q24HRS 07/08/19 21:00 08/07/19 20:59 07/09/19 21:00 Carvedilol (Coreg) 3.125 mg BID 07/08/19 11:00 08/07/19 10:59 07/09/19 21:00 Ceftriaxone Sodium 1 gm/ Sodium Chloride 100 ml @ 100 mls/hr Q24HRS 07/07/19 16:00 08/06/19 15:59 07/09/19 17:23 Diltiazem HCl 125 mg/Sodium Chloride 125 ml @ 0 mls/hr IV 07/08/19 13:00 08/07/19 12:59 07/10/19 05:07 Diphenhydramine HCl (Benadryl) 25 mg Q6HR PRN INSOMNIA 07/07/19 21:30 08/06/19 21:29 Enoxaparin Sodium (Lovenox) 40 mg Q24HRS 07/08/19 21:00 08/07/19 20:59 07/09/19 21:00 Furosemide (Lasix) 40 mg DAILY 07/08/19 11:30 08/07/19 11:29 07/09/19 08:25 Lisinopril (Zestril) 20 mg DAILY 07/09/19 09:00 08/08/19 08:59 07/09/19 08:24 Ondansetron HCl (Zofran 4 Mg/2 ml Vial) 4 mg Q4H PRN NAUSEA / VOMITING 07/07/19 21:30 08/06/19 21:29 Polyethylene Glycol (Miralax) 17 gm DAILY PRN CONSTIPATION 07/07/19 21:30 08/06/19 21:29 Simethicone (Genasyme) 80 mg Q6HR PRN GAS 07/07/19 21:30 08/06/19 21:29 Sodium Chloride 1,000 ml @ 80 mls/hr [id number] 07/08/19 09:00 08/07/19 08:59 07/09/19 21:26 Tramadol HCl (Ultram) 50 mg Q4HR PRN PAIN 4 - 6 07/07/19 21:30 08/06/19 21:29 LEVEL 1 SEPSIS INFECTION CRITE: ABX Therapy LEVEL 2-SIRS (LIST ALL THAT AP: HR>90/min Cardiovascular Evidence: Not Assessed or None Hematologic Evidence: None/Not assessed Hepatic Evidence: None/Not assessed Metabolic Evidence: None/Not assessed Neurological Evidence: None/Not assessed Respiratory Evidence: None/Not assessed Renal Evidence: None/Not assessed O2 Sat by Pulse Oximetry: 94 LAB RESULTS Laboratory Tests Test 07/10/19 04:50 Sodium Level 138 mmol/L Potassium Level 3.3 mmol/L Chloride Level 105.0 mmol/L Carbon Dioxide Level 23.0 mmol/L Glucose Level 112 mg/dL Blood Urea Nitrogen 10 mg/dL Creatinine 0.89 mg/dL Calcium Level 8.5 mg/dL Anion Gap 13.3 Estimated GFR () 115.1 BUN/Creatinine Ratio 11.0 Current Medications Medications (Trade) Dose Ordered Sig/Emre Route PRN Reason Start Time Stop Time Status Last Admin Dose Admin Diltiazem HCl (Cardizem) 60 mg STK-MED ONCE .ROUTE 07/07/19 12:50 07/07/19 12:52 DC Diltiazem HCl (Cardizem) 25 mg STK-MED ONCE IV 07/07/19 12:50 07/07/19 12:52 DC Diltiazem HCl (Cardizem) 20 mg STAT STAT IV 07/07/19 12:53 07/07/19 12:55 DC 07/07/19 13:00 Diltiazem HCl (Cardizem) 30 mg STAT STAT PO 07/07/19 12:53 07/07/19 12:55 DC 07/07/19 13:00 Diltiazem HCl (Cardizem) 25 mg STK-MED ONCE IV 07/07/19 13:14 07/07/19 13:16 DC Diltiazem HCl (Cardizem) 25 mg STAT STAT IV 07/07/19 13:20 07/07/19 13:30 DC 07/07/19 13:20 Diltiazem HCl (Cardizem) 125 mg STK-MED ONCE .ROUTE 07/07/19 13:48 07/07/19 13:49 DC Sodium Chloride 100 ml @ ud STK-MED ONCE IV 07/07/19 13:49 07/07/19 13:51 DC Diltiazem HCl (Cardizem) 125 mg STAT STAT IV 07/07/19 14:09 07/07/19 14:11 DC 07/07/19 14:10 Ceftriaxone Sodium 1 gm/ Sodium Chloride 100 ml @ 100 mls/hr Q24HRS IV 07/07/19 16:00 08/06/19 15:59 07/09/19 17:23 Ceftriaxone Sodium (Rocephin) 1 gm STK-MED ONCE .ROUTE 07/07/19 16:47 07/07/19 16:48 DC Sodium Chloride 100 ml @ ud STK-MED ONCE IV 07/07/19 16:47 07/07/19 16:49 DC Diltiazem HCl (Cardizem) 125 mg OT ONCE IV 07/07/19 17:00 07/07/19 17:01 DC 07/07/19 23:00 Ceftriaxone Sodium 1 gm/ Sodium Chloride 100 ml @ 100 mls/hr DAILY IV 07/08/19 09:00 07/07/19 20:42 DC Azithromycin 500 mg/Sodium Chloride 250 ml @ 175 mls/hr Q24HRS IV 07/07/19 17:00 07/08/19 16:46 DC 07/07/19 21:40 Aspirin (Aspirin Ec) 81 mg DAILY PO 07/08/19 09:00 08/07/19 08:59 07/09/19 08:24 Enoxaparin Sodium (Lovenox) 40 mg Q24HRS SQ 07/07/19 18:30 07/08/19 15:03 DC 07/07/19 21:30 Sodium Chloride 1,000 ml @ 80 mls/hr [id number] ONCE IV 07/07/19 18:30 07/08/19 06:59 DC Sodium Chloride 250 ml @ STK-MED ONCE IV 07/07/19 21:16 07/07/19 21:18 DC Diphenhydramine HCl (Benadryl) 25 mg Q6HR PRN PO INSOMNIA 07/07/19 21:30 08/06/19 21:29 Diphenhydramine HCl (Benadryl) 25 mg Q6HR PRN PO ITCHING 07/07/19 21:30 07/08/19 09:12 DC Polyethylene Glycol (Miralax) 17 gm DAILY PRN PO CONSTIPATION 07/07/19 21:30 08/06/19 21:29 Simethicone (Genasyme) 80 mg Q6HR PRN PO GAS 07/07/19 21:30 08/06/19 21:29 Ondansetron HCl (Zofran 4 Mg/2 ml Vial) 4 mg Q4H PRN IV NAUSEA / VOMITING 07/07/19 21:30 08/06/19 21:29 Alprazolam (Xanax) 0.25 mg Q6H PRN PO ANXIETY 07/07/19 21:30 08/06/19 21:29 Tramadol HCl (Ultram) 50 mg Q4HR PRN PO PAIN 4 - 6 07/07/19 21:30 08/06/19 21:29 Acetaminophen (Tylenol) 650 mg Q4H PRN PO PAIN 07/07/19 21:30 08/06/19 21:29 Diltiazem HCl (Cardizem) 125 mg STK-MED ONCE .ROUTE 07/07/19 22:48 07/07/19 22:50 DC Sodium Chloride 100 ml @ ud STK-MED ONCE IV 07/07/19 22:49 07/07/19 22:51 DC Sodium Chloride 100 ml @ ud STK-MED ONCE IV 07/08/19 03:23 07/08/19 03:25 DC Sodium Chloride 1,000 ml @ ud STK-MED ONCE .ROUTE 07/08/19 08:40 07/08/19 08:41 DC Sodium Chloride 1,000 ml @ 80 mls/hr [id number] IV 07/08/19 09:00 08/07/19 08:59 07/09/19 21:26 Magnesium Sulfate 50 ml @ 50 mls/hr OT ONCE IV 07/08/19 11:00 07/08/19 11:59 DC 07/08/19 12:15 Carvedilol (Coreg) 3.125 mg STK-MED ONCE .ROUTE 07/08/19 10:49 07/08/19 10:51 DC Carvedilol (Coreg) 3.125 mg BID PO 07/08/19 11:00 08/07/19 10:59 07/09/19 21:00 Lisinopril (Zestril) 20 mg DAILY PO 07/09/19 09:00 08/08/19 08:59 07/09/19 08:24 Furosemide (Lasix) 40 mg DAILY IV 07/08/19 11:30 08/07/19 11:29 07/09/19 08:25 Diltiazem HCl (Cardizem) 125 mg STK-MED ONCE .ROUTE 07/08/19 12:27 07/08/19 12:29 DC Sodium Chloride 100 ml @ ud STK-MED ONCE IV 07/08/19 12:28 07/08/19 12:30 DC Diltiazem HCl 125 mg/Sodium Chloride 125 ml @ 0 mls/hr IV 07/08/19 13:00 08/07/19 12:59 07/10/19 05:07 Enoxaparin Sodium (Lovenox) 40 mg Q24HRS SQ 07/08/19 21:00 08/07/19 20:59 07/09/19 21:00 Sodium Chloride 100 ml @ ud STK-MED ONCE IV 07/08/19 15:22 07/08/19 15:24 DC Ceftriaxone Sodium (Rocephin) 1 gm STK-MED ONCE .ROUTE 07/08/19 15:22 07/08/19 15:24 DC Azithromycin 500 mg/Sodium Chloride 250 ml @ 175 mls/hr Q24HRS IV 07/08/19 21:00 08/07/19 20:59 07/09/19 21:00 Lisinopril (Zestril) 20 mg STK-MED ONCE .ROUTE 07/08/19 17:51 07/08/19 17:53 DC Sodium Chloride 250 ml @ ud STK-MED ONCE IV 07/08/19 21:37 07/08/19 21:39 DC Heparin Sodium/ Sodium Chloride 1,500 ml @ ud STK-MED ONCE IV 07/09/19 07:23 07/09/19 07:25 DC Heparin Sodium (Porcine) (Heparin) 5,000 unit STK-MED ONCE .ROUTE 07/09/19 07:23 07/09/19 07:25 DC Fentanyl Citrate (Sublimaze) 100 mcg STK-MED ONCE .ROUTE 07/09/19 07:23 07/09/19 07:25 DC Lidocaine HCl (Xylocaine) 20 mg STK-MED ONCE .ROUTE 07/09/19 07:23 07/09/19 07:25 DC Benzocaine/ Butamben/ Tetracaine HCl (Cetacaine Evans) 0.403187 sprays STK-MED ONCE TP 07/09/19 07:24 07/09/19 07:26 DC Fentanyl Citrate (Sublimaze) 100 mcg STK-MED ONCE .ROUTE 07/09/19 08:45 07/09/19 08:47 DC Amiodarone HCl (Nexterone) 150 mg STK-MED ONCE .ROUTE 07/09/19 10:39 07/09/19 10:41 DC Amiodarone HCL/ Dextrose 200 ml @ ud STK-MED ONCE IV 07/09/19 10:39 07/09/19 10:42 DC Potassium Chloride (Potassium Chloride) 60 meq OT ONCE PO 07/09/19 12:00 07/09/19 12:07 DC 07/09/19 13:05 Amiodarone HCL/ Dextrose 200 ml @ ud STK-MED ONCE IV 07/09/19 22:58 07/09/19 23:01 DC Sodium Chloride 100 ml @ ud STK-MED ONCE IV 07/10/19 00:04 07/10/19 00:07 DC Diltiazem HCl (Cardizem) 125 mg STK-MED ONCE .ROUTE 07/10/19 00:05 07/10/19 00:07 DC Amiodarone HCL/ Dextrose 200 ml @ ud STK-MED ONCE IV 07/10/19 04:53 07/10/19 04:55 DC Potassium Chloride (Potassium Chloride) 80 meq STAT ONCE PO 07/10/19 07:30 07/10/19 07:31 UNV 07/10/19 07:21 Plan Problems: (1) CAP (community acquired pneumonia) Status: Acute ICD Code: J18.9 - Pneumonia, unspecified organism SNOMED: 510911609 (2) Hypokalemia Status: Resolved ICD Code: E87.6 - Hypokalemia SNOMED: 08325342 (3) A-fib ICD Code: I48.91 - Unspecified atrial fibrillation SNOMED: 62046009 Plan Patient underwent MAURICE which revealed moderate TR with LVEF 25-30% LHC revealed 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 needed lifevest before discharge converted to PO amiodarone Continue coreg, lisinopril and aspirin f/u with Cardiology JOHANNA HUMPHREY DO Jul 10, 2019 08:20
[2019-07-10] MEDS ORDERED: APIX5TAB PO (08:25)
[2019-07-10] MEDS ORDERED: CARV3.122 PO ×2 (08:25→11:57)
[2019-07-10] MEDS ORDERED: LISI-410 PO (08:25)
[2019-07-10] MEDS ORDERED: ASPI-655 PO (08:25)
[2019-07-10] MEDS ORDERED: AMIO200T4 PO (08:27)
[2019-07-10] MEDS: ASPIRIN EC PO SCH (08:30)
[2019-07-10] MEDS: ZESTRIL PO SCH (08:30)
[2019-07-10] MEDS: COREG PO SCH (08:31)
[2019-07-10] MEDS: LASIX IV SCH (08:31)
--- NOTE | 2019-07-10 10:11 | NUR ---
Dr. Shoshana Anna on phone to verify gtt instructions. Updated on current vital signs. New orders received to administer Eliquis 5mg po x1, Amiodarone 200mg po x1 and to stop admiodarone gtt and wean Cardizem gtt off. RBTO.
--- NOTE | 2019-07-10 10:25 | NUR ---
Amiodarone Amiodarone gtt off at this time per Dr. Shoshana west.
[2019-07-10] MEDS ORDERED: ELIQUIS PO SCH (10:30)
[2019-07-10] MEDS ORDERED: CORDARONE PO SCH (10:30)
--- NOTE | 2019-07-10 10:30 | NUR ---
Cardizem Cardizem gtt decreased to 5ml/hr.
[2019-07-10] MEDS: NS 1000ML 1,000 ML IV SCH (11:00)
[2019-07-10 11:03] LABS: CALCIUM 9.2 mg/dL (8.4-10.5); CARBON DIOXIDE 28.4 mmol/L (20.0-32)
--- NOTE | 2019-07-10 11:12 | NUR ---
Dr. Ronal Villeda notified of patients lab results. New order received to discharge patient. RBTO.
--- NOTE | 2019-07-10 11:20 | NUR ---
Cardizem Cardizem off at this time per Dr. Shoshana west.
--- NOTE | 2019-07-10 11:39 | NUR ---
DISCHARGE FOLLOW UP CM WENT THROUGH PROCESS FOR OF ACTIVATING Adimab 30 DAY FREE COUPON CARD WITH PATIENT. THE CARD IS NOW ACTIVATED AND HE KNOWS TO TAKE IT TO [facility] TO HEALTHCARE ACCOUNT MANAGER HIS MEDICATIONS. HIS MEDICATION FOR LISINOPRIL, COREG, AND AMIODARONE WILL BE $16. PATIENT STATED, "THAT ISN'T TOO BAD. I CAN DO THAT." AUDELIA CRUZ RN STATED SHE WOULD CALL THE MEDICATIONS INTO [facility] IN [place] FOR PT. CM ALSO WENT THROUGH PROCESS OF COMPLETING THE PATIENT APPLICATION FOR [employer] SUPERVISOR [employer] PATIENT ASSISTANCE PROGRAM AND LEFT CONTACT INFORMATION IF HE NEEDED ASSISTANCE AFTER DISCHARGE. PATIENT VOICED UNDERSTANDING. FOLLOW UP APPOINTMENT WAS MADE BY CHARLES WITH DR. MILLER FOR SATURDAY, June, AND DOCUMENTED IN NOTES. CM ALSO SPOKE WITH MICHELET DONNELLY FACE MAN FOR PM TO SET UP PAYMENT PLAN FOR PATIENT CONCERNING CARDIOLOGY OFFICE VISITS. DENIES FURTHER QUESTIONS AT THIS TIME. CM WILL CONTINUE TO FOLLOW FOR DISCHARGE NEEDS.
--- NOTE | 2019-07-10 12:00 | NUR ---
Discharge Discharge instructions given to pt. Educated pt on importance of follow up apt with Dr. Anna, pt verbalized understanding. Educated pt on post-heart cath discharge instructions related to right radial site, pt verbalized understanding. Educated pt on new medications and side effects, pt verbalized understanding. Instructed pt to wear lifevest at all times besides when showering, pt verbalized understanding. Discontinued IVs, catheter tips intact. No edema, redness, heat or pain noted. Covered site with cotton ball and coban. Answered all of pts questions. Excuse from work note provided. Medications called in to [facility]. Pt transferred off unit via wheelchair to private vehicle. No s/s of distress noted.
== END 2019-07-10 12:00 | disposition home or self-care (01) | DRG 286 ==
LOC: ER 12:10 → UNDOADMIN 16:23 → ICU 16:23
PROVIDERS: ADMIT Internal Medicine; ATTEND Internal Medicine
PROC: 4A023N7 Measurement of Cardiac Sampling and Pressure, Left Heart, Percutaneous Approach (ICD-10-PCS; principal; 2019-07-09)
PROC: B2111ZZ Fluoroscopy of Multiple Coronary Arteries using Low Osmolar Contrast (ICD-10-PCS; 2019-07-09)
PROC: B2151ZZ Fluoroscopy of Left Heart using Low Osmolar Contrast (ICD-10-PCS; 2019-07-09)
DX: I25.10 Atherosclerotic heart disease of native coronary artery without angina pectoris (principal); J18.9 Pneumonia, unspecified organism; I48.20 Chronic atrial fibrillation, unspecified; I42.6 Alcoholic cardiomyopathy; I50.9 Heart failure, unspecified; I11.0 Hypertensive heart disease with heart failure; I07.1 Rheumatic tricuspid insufficiency; E87.6 Hypokalemia; E78.5 Hyperlipidemia, unspecified; E66.9 Obesity, unspecified; F10.10 Alcohol abuse, uncomplicated; Z71.41 Alcohol abuse counseling and surveillance of alcoholic; Z91.14 Patient's other noncompliance with medication regimen; Z79.01 Long term (current) use of anticoagulants; Z82.49 Family history of ischemic heart disease and other diseases of the circulatory system; Z68.35 Body mass index [BMI] 35.0-35.9, adult
CPT/HCPCS: 36415; 71045; 71275; 80048; 80053; 82550; 82553; 83735; 83880; 84484; 85025; 85027; 85379; 85610; 85730; 86677; 87040; 93005; 93306; 93318; 93458; 99152; 99153; 99285; C1769; C1887; C1894; G0378; J0282; J0456; J0696; J1644; J1650; J1940; J2250; J3010; J3475; J3490; J7030; J7050; Q9965; Q9967

== ENCOUNTER 2019-11-27 06:49 | Inpatient (IN) | payer OTHER, SELFPAY ==
[2019-11-27] VITALS (59 sets, daily range): BP systolic 97–156; BP diastolic 52–112
[~2019-11-27] VITALS: Ht 175.3 cm; Wt 102.1 kg
[~2019-11-27 06:49] MED LIST changes: +AMIO200T4 PO; +APIX5TAB PO; +CARV3.122 PO; +LISI-410 PO; +SOTA80TA PO
[2019-11-27] MEDS ORDERED: OMEP20TA62 PO (07:05)
[2019-11-27] MEDS ORDERED: CARDIZEM ONE (07:06)
--- NOTE | 2019-11-27 07:06 | NUR ---
ARRIVAL PATIENT ARRIVED TO ED2 AMBULATORY, C/O OF AFIB TODAY WITH MINIMAL SHORTNESS OF BREATH, DOES HAVE A HISTORY AND SEE DOCTOR ANGELA, CAME TO THE ED FOR EVAL, DOCTOR SHEMAR IN ROOM AT THIS TIME TALKING WITH PATIENT.
[2019-11-27] MEDS ORDERED: CARDIZEM IV STA (07:10)
[2019-11-27] MEDS ORDERED: LANOXIN IV STA (07:13)
--- NOTE | 2019-11-27 07:13 | PCM.EKG ---
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
--- NOTE | 2019-11-27 07:15 | ER.PDOC ---
General Chief Complaint: Chest Pain-Cardiac Nature Stated Complaint: A-FIB Time seen by MD: 07:12 Source: patient Exam Limitations: no limitations History of Present Illness Initial Comments Palpitations this morning, patient has chronic A fib. Timing/Duration: 4-6 hours Quality: fast, irregular Activities at Onset: none Associated Symptoms: chest pain/discomfort Prior symptoms/Treatment: Similar symptoms previous, Recenly Seen, Treated by Doctor, Recently Hospitalized Allergies: Coded Allergies: No Known Allergies (Unverified , 06/30/16) Home Meds Active Scripts Sotalol Hcl (SOTALOL) 80 Mg Tablet, 0.5 TAB PO BID, #30 TAB 3 Refills Prov:LA NENA ANNA DO 07/30/19 Apixaban (Eliquis) 5 Mg Tablet, 5 MG PO BID for 30 Days, #60 3 Refills Prov:JOHANNA HUMPHREY DO 07/10/19 Lisinopril (LISINOPRIL) 20 Mg Tablet, 20 MG PO DAILY for 30 Days, #30 TAB Prov:JOHANNA HUMPHREY DO 07/10/19 Reported Medications Omeprazole Magnesium (PRILOSEC OTC) 20 Mg Tablet.dr, 1 TAB PO QD for 30 Days, #3 0 TAB 0 Refills 11/27/19 Past Medical History Medical History: cardiac problems, hypertension Surgical History: cardiac cath Social History Alcohol Use: occassionally Drug Use: marijuana Constitutional: no symptoms reported Respiratory: no symptoms reported Cardiovascular: see HPI Gastrointestinal: no symptoms reported Genitourinary: no symptoms reported All Other Systems: Reviewed and Negative Physical Exam General Appearance: No Apparent Distress, WD/WN Neck: Non-Tender, Full Range of Motion, Supple, Normal Inspection Respiratory: chest non-tender, lungs clear, normal breath sounds, no respiratory distress, no accessory muscle use Cardiovascular: No Edema, No Gallop, No JVD, No Murmur, Tachycardia, Irregularly Irregular Gastrointestinal: Normal Bowel Sounds, No Organomegaly, No Pulsatile Mass, Non Tender, Soft Extremities: Normal Range of Motion, Non-Tender, Normal Inspection, No Pedal Edema, No Calf Tenderness, Normal Capillary Refill Neurologic/Psychiatric: neurology hospitalist II-XII NML as Tested, No Motor/Sensory Deficits, Alert, Normal Mood/Affect, Oriented x 3 Skin: Normal Color, Warm/Dry Results/Orders Results/Orders Vital Signs Date Time Temp Pulse Resp B/P (MAP) Pulse Ox O2 Delivery O2 Flow Rate FiO2 11/27/19 07:04 98.5 157 21 156/107 (123) 100 Room Air 11/27/19 07:01 98.5 157 21 100 11/27/19 07:01 98.5 157 21 EKG/XRAY/CT/US EKG Comments: A fib with RVR XRAY: chest (No active disease) Departure Time of Disposition: 08:22 Disposition: ADMITTED INPATIENT Impression: Primary Impression: Atrial fibrillation with rapid ventricular response Condition: Stable Referrals: PCP,UNKNOWN (PCP) PRIMARY CARE PROVIDER Comments Admitted to Dr. Brothers, spoke with Dr. Anna who will consult. Duration or Time Spent with Pa: 60 min Critical Care Note Total Time (mins): 60 JONY STATON MD November 27, 2019 07:15
[2019-11-27 07:17] LABS: BASOPHIL # 0.1 10^3/uL (0.0-0.1); BASOPHIL % 1.1 % (0.0-0.2); EOSINOPHIL # 0.1 10^3/uL (0.0-0.2); EOSINOPHIL % 1.1 % (0.0-5.0); LYMPHOCYTES # 1.88 10^3/uL1 (1.0-4.8); LYMPHOCYTES % 30.1 % (24.0-44.0); MONOCYTES % 15.7 % (5.0-12.0); NEUTROPHIL # 3.2 10^3/uL (1.8-7.7); NEUTROPHILS % 51.7 % (41.0-85.0); PLATELET COUNT 205 10^3/uL (150-400)
--- NOTE | 2019-11-27 07:34 | DIREP ---
PROCEDURE:CHEST 1 VIEW COMPARISON:[facility], CR, XRAY CHEST SINGLE VW, 07/07/2019, 12:44 PM. [facility], CR, XRAY CHEST SINGLE VW, 06/30/2016, 09:18 AM. INDICATIONS:Palpitations FINDINGS: LUNGS/PLEURA:No significant pulmonary parenchymal abnormalities. No effusions. VASCULATURE:Normal. Unremarkable pulmonary vasculature. CARDIAC:Normal. No cardiac silhouette abnormality or cardiomegaly. MEDIASTINUM:Normal. No visible mass or adenopathy. BONES:Normal. No fracture or visible bony lesion. OTHER:Negative. CONCLUSION:No acute airspace disease Dictated by: Monico Nix DO on 11/27/2019 at 07:32 AM
[2019-11-27 07:39] LABS: ALANINE AMINOTRANSFERASE(ML) 64 U/L (12-78); ALKALINE PHOSPHATASE 66 U/L (50-136); ASPARTATE AMINO TRANSFERASE 108 U/L (0-35); CARBON DIOXIDE 24.2 mmol/L (20.0-32); GLUCOSE 104 mg/dL (70-110)
--- NOTE | 2019-11-27 08:03 | NUR ---
DR ANGELA MOORE MBA ON THE PHONE WITH DR MILLER.
--- NOTE | 2019-11-27 08:11 | NUR ---
SAMMIE DOCTOR SHEMAR ON THE PHONE WITH DOCTOR COCHRAN DISCUSSING ADMISSION.
--- NOTE | 2019-11-27 08:45 | NUR ---
ARRIVED TO ICU VIA STRETCHER. AMBULATED TO BED. NO DISTRESS NOTED. CONNECTED TO BEDSIDE MONITOR. RECEIVED REPORT FROM Damaris ALLISON RN. ASSUMED CARE. ADMISSION ASSESSMENT COMPLETED CHARTED.
[2019-11-27] MEDS: BETAPACE PO SCH ×2 (09:46→21:00)
--- NOTE | 2019-11-27 10:11 | NUR ---
DR. MILLER AT BEDSIDE. NEW ORDERS RECEIVED FOR ECHO, LASIX 20MG IV OT, CONTINUE HOME MEDICATIONS, ALCOHOL LEVEL. RBVO.
[2019-11-27] MEDS ORDERED: LASIX IV STA (10:29)
[2019-11-27] MEDS: ELIQUIS PO SCH ×2 (11:00→21:00)
[2019-11-27] MEDS: ZESTRIL PO SCH (11:00)
--- NOTE | 2019-11-27 12:52 | PCM.HP ---
HISTORY & PHYSICAL HISTORY & PHYSICAL DATE: November 27, 2019 Patient is admitted to ICU as an inpatient ADMITTING DIAGNOSES: Rapid atrial fibrillation, nonischemic cardiomyopathy, hypertension CHIEF COMPLAINT: Palpitations HISTORY OF PRESENT ILLNESS: 39-year-old gentleman with atrial fibrillation and nonischemic cardiomyopathy who presents to the ER feeling that his heart is racing and having palpitations. He was found to be in rapid A. fib at the time and medications were initiated in the ER. He denies any chest pain to me currently and he feels fine. He states that he does wear a LifeVest at home since June 2019 and is scheduled to be seen by his line helper Dr. Anna. PAST MEDICAL HISTORY: Hypertension, nonischemic cardiomyopathy, atrial fibrillation PAST SURGICAL HISTORY: Heart caths ALLERGIES: No known drug allergies MEDICATIONS: I have reviewed his home medication list in General Compression SOCIAL HISTORY: He does have a history of alcohol use, he does smoke FAMILY HISTORY: Noncontributory for this admission PHYSICAL EXAMINATION: VITAL SIGNS: Temperature 98.4, pulse 100 and it is irregular, respirations 15, blood pressure 139/90, O2 sat of 97% HEENT: Oropharynx is clear, moist mucous membranes NECK: Supple HEART: S1 and S2 audible, irregular rhythm LUNGS: CTA bilaterally ABDOMEN: Bowel sounds present, soft abdomen, no masses EXTREMITIES: No pitting edema, no cyanosis, 2+ distal pulses noted LABORATORY DATA: CBC normal, sodium 135, potassium 4.5, BUN 23, creatinine 1.63, AST 108, total bilirubin 1.3, proBNP 2703, troponin I less than 0.02, coags normal, serum alcohol level less than 3 EKG in the ER: Atrial fibrillation with rapid ventricular response noted Chest x-ray: No acute cardiopulmonary issues noted ASSESSMENT: We have this young gentleman with rapid A. fib with underlying nonischemic cardiomyopathy PLAN: His heart rate is improved at this point and will continue his home medications. Cardiology has been consulted and echo has been performed. EDGAR COCHRAN MD November 27, 2019 12:52
--- NOTE | 2019-11-27 15:05 | NUR ---
DISCHARGE PLAN CASE MANAGEMENT VISITED WITH PATIENT CONCERNING DISCHARGE PLAN AND NEEDS. LIVES AT HOME ALONE. INDEPENDENT OF ADLS. HE HAS DME INCLUDING A LIFE VEST. PATIENT STATED, "I ONLY WEAR IT WHEN IM WORKING." PATIENT ALSO STATED, "I GET MY ELIQUIS FOR FREE. IT IS DELIVERED TO MY HOUSE EVERY MONTH. I DO TAKE MY MEDICATIONS." DENIES OTHER NEEDS AT THIS TIME. DISCHARGE PLAN IS TO DISCHARGE HOME AND CONTINUE SELF CARE. CM LEFT CONTACT INFORMATION AT BEDSIDE AND WILL CONTINUE TO FOLLOW FOR DISCHARGE NEEDS.
[2019-11-27] MEDS: CARDIZEM PO SCH ×2 (15:27→21:00)
--- NOTE | 2019-11-27 16:06 | CNH ---
DATE OF CONSULTATION: 11/27/2019 REASON FOR CONSULTATION: Atrial fibrillation with rapid ventricular response/acute decompensated heart failure. HISTORY OF PRESENT ILLNESS: This is a 39-year-old male well known to my service, who presented to the Emergency Department with symptoms of persistent palpitations with associated shortness of breath. On presentation to the ED, EKG revealed atrial fibrillation with rapid ventricular response. He denies any chest pain. His BNP was noted to be 2703. Troponin was negative x 1. He was given 20 mg of Cardizem IV in the ED that brought his rate down to the 90s to 110. Consultation has been placed to Cardiology service for evaluation. PAST MEDICAL HISTORY: Significant for: 1. Nonischemic cardiomyopathy -- the patient was put on a LifeVest 06/2019, but has been noncompliant with LifeVest usage. He is currently not wearing his LifeVest. 2. Chronic atrial fibrillation. 3. Hypertension. 4. Chronic systolic heart failure. 5. Anxiety/depression. 6. Hyperlipidemia. 7. Obstructive sleep apnea. 8. GERD. PAST SURGICAL HISTORY: Cardiac catheterization done 06/2019, which revealed nonischemic cardiomyopathy with left ventricular ejection fraction noted to be 25-30% in 06/2019. ALLERGIES: No known drug allergies. MEDICATIONS: He takes at home include sotalol 40 mg p.o. b.i.d., Eliquis 5 mg b.i.d., Prilosec 20 mg OTC, lisinopril 20 mg daily. SOCIAL HISTORY: Uses alcohol socially. Denies illicit drug use. Admits to tobacco use. FAMILY HISTORY: Admits the family history of premature CAD, but denies sudden cardiac . REVIEW OF SYSTEMS: As per HPI and as per previous records. All systems reviewed and negative for interval change. PHYSICAL EXAMINATION: VITAL SIGNS: Blood pressure is 114/52, respiratory rate is 20, pulse is 115, O2 sat is 97% on room air. GENERAL: He is in no apparent distress, alert and oriented x 3. HEENT: Normocephalic, atraumatic. Extraocular muscles intact. Pupils equally round, reactive to light and accommodation. No thyromegaly. No jugular venous distention is seen. HEART: S1, S2. No gallops, murmurs, rubs, or clicks. LUNGS: Decreased breath sounds bilaterally. ABDOMEN: Soft, nontender, nondistended. Positive bowel sounds in all 4 quadrants. Obese. EXTREMITIES: No cyanosis, no clubbing, no edema. NEUROLOGIC: No neurological deficits. Sensation is intact. IMPRESSION: 1. Atrial fibrillation with rapid ventricular response. 2. Mild decompensated systolic heart failure. 3. Nonischemic cardiomyopathy with a left ventricular ejection fraction of 25-30%, seen on 2D echo done 06/2019. 4. Left heart catheterization done 06/2019 revealed nonobstructive coronary artery disease. 5. History of chronic systolic heart failure. 6. Hypertension. 7. Anxiety/depression. 8. Obesity. 9. Hyperlipidemia. 10. Obstructive sleep apnea. 11. Gastroesophageal reflux disease. RECOMMENDATION: This is a 39-year-old male who presented to [facility] with persistent palpitations and shortness of breath, was found to be in rapid atrial fibrillation with mildly decompensated heart failure. Lasix 20 mg IV has been given. He is going to be started on his home medications including sotalol 40 mg p.o. b.i.d. as well as Eliquis 5 mg p.o. b.i.d. I am also going to start him on Cardizem 60 mg p.o. t.i.d. for optimization of his rate control meds. He has a known history of nonischemic cardiomyopathy with an LVEF of 25-30%. He was initially put on a LifeVest in 06/2019; however, he is extremely noncompliant with LifeVest usage. I will repeat a 2D echo this admission to reevaluate his LVEF. If his LVEF is less than or equal to 35%, he would benefit from AICD implantation. In the interim, I will continue his cardiac medications. He will be kept in the ICU for close monitoring. Further recommendations will be made based on his overall clinical course. LA NENA MILLER D.O. DR: GENEVA/thom JOB# [id number]
--- NOTE | 2019-11-27 18:38 | NUR ---
REPORT GIVEN TO ONCOMING SHIFT. RELINQUISHED CARE.
--- NOTE | 2019-11-27 18:40 | NUR ---
SBAR REPORT RECEIVED FROM KYUNG BRAVO. INTRODUCED SELF, ASSUMED CARE. NO NEEDS VOICED AT THIS TIME.
[2019-11-28] VITALS (50 sets, daily range): BP systolic 84–154; BP diastolic 38–113
--- NOTE | 2019-11-28 06:48 | NUR ---
RECEIVED REPORT FROM Damaris CELAYA RN. [facility].
[2019-11-28] MEDS ORDERED: PROTONIX PO SCH (09:00)
[2019-11-28] MEDS: ELIQUIS PO SCH (09:41)
[2019-11-28] MEDS: BETAPACE PO SCH (09:41)
[2019-11-28] MEDS: CARDIZEM PO SCH (09:42)
[2019-11-28] MEDS: ZESTRIL PO SCH (09:42)
--- NOTE | 2019-11-28 11:20 | NUR ---
DR. COCHRAN AT BEDSIDE NEW ORDERS RECEIVED TO DISCHARGE.
[2019-11-28] MEDS ORDERED: DILT60TA3 PO (11:37)
--- NOTE | 2019-11-28 11:40 | PRM.DC ---
DISCHARGE SUMMARY DISCHARGE SUMMARY DATE OF ADMISSION: November 27, 2019 DATE OF DISCHARGE: November 28, 2019 ADMITTING DIAGNOSES: Rapid atrial fibrillation with history of nonischemic cardiomyopathy DISCHARGE DIAGNOSES: Atrial fibrillation with history of nonischemic cardiomyopathy DISCHARGE DISPOSITION: Patient is discharged to home DISCHARGE CONDITION: Stable HOSPITAL COURSE: 39-year-old gentleman with history of nonischemic cardiomyopathy and chronic atrial fibrillation who came in in rapid A. fib. He has been taking his regular cardiac medications at home and cardiology was consulted and started him on Cardizem. His heart rate is improved and he is having no chest pains. An echo showed an EF around 40% which is improved from 25% from the last time he was in for rapid A. fib. At this point he feels fine and wants to go home. DIET: Cardiac ACTIVITY: As tolerated MEDICATIONS: 1. Resume home medications 2. Cardizem 60 mg p.o. 3 times daily FOLLOW-UP: Follow-up with Dr. Anna in 2 weeks EDGAR COCHRAN MD November 28, 2019 11:40
--- NOTE | 2019-11-28 12:08 | NUR ---
DISCHARGE INSTRUCTIONS AND NEW PRESCRIPTION REVIEWED. VERBALIZED UNDERSTANDING. PRESCRIPTION CALLED IN TO [facility]. IV CATHETER DISCONTINUED. PATIENT DRESSED SELF AND GATHERED BELONGINGS.
--- NOTE | 2019-11-28 12:15 | NUR ---
DISCHARGE TRANSPORTED TO PASSENGER SIDE OF PRIVATE VEHICLE. NO DISTRESS NOTED.
--- NOTE | 2019-11-28 12:27 | NUR ---
PATIENT CALLED UNIT AND STATED [facility] DID NOT HAVE PRESCRIPTION IN STOCK. ASKED TO CALL PRESCRIPTION IN TO [facility]. CALLED [facility] AND LEFT VOICEMAIL. CALLED [facility] TO CANCEL PRESCRIPTION.
== END 2019-11-28 12:08 | disposition home or self-care (01) | DRG 308 ==
LOC: ER 06:49 → ICU 08:23
PROVIDERS: ADMIT Internal Medicine Interventional Cardiology; ATTEND Internal Medicine Interventional Cardiology
DX: I48.20 Chronic atrial fibrillation, unspecified (principal); I50.23 Acute on chronic systolic (congestive) heart failure; E66.9 Obesity, unspecified; I42.8 Other cardiomyopathies; E78.5 Hyperlipidemia, unspecified; F12.90 Cannabis use, unspecified, uncomplicated; F32.9 Major depressive disorder, single episode, unspecified; F41.9 Anxiety disorder, unspecified; G47.33 Obstructive sleep apnea (adult) (pediatric); I11.0 Hypertensive heart disease with heart failure; I25.10 Atherosclerotic heart disease of native coronary artery without angina pectoris; K21.9 Gastro-esophageal reflux disease without esophagitis; Z82.49 Family history of ischemic heart disease and other diseases of the circulatory system; Z87.891 Personal history of nicotine dependence; Z91.19 Patient's noncompliance with other medical treatment and regimen; Z68.33 Body mass index [BMI] 33.0-33.9, adult
CPT/HCPCS: 36415; 71045; 80053; 80320; 82550; 82553; 83880; 84484; 85025; 85610; 85730; 93005; 93306; 99291; G0378; J1160; J1940; J3490

== ENCOUNTER 2021-02-10 09:22 | Observation (INO) | payer OTHER ==
[~2021-02-10] VITALS: Ht 177.8 cm; Wt 98.9 kg
[~2021-02-10 09:22] MED LIST changes: -AMIO200T4 PO; +AMIO200T6 PO; +AMLO-170 PO; -AMLO10TA8 PO; -ASPI-655 PO; +ASPI-929 PO; +DILT60TA3 PO; -LISI-410 PO; +LISI20TA21 PO; +OMEP20TA62 PO
[2021-02-10] MEDS ORDERED: BETAPACE PO ONE (09:23)
[2021-02-10 09:25] VITALS: BP 137/86
[2021-02-10] MEDS ORDERED: LANOXIN ONE (09:38)
[2021-02-10] MEDS ORDERED: NS 1000ML 1,000 ML ONE (09:39)
[2021-02-10] MEDS ORDERED: CARDIZEM IV ONE (09:39)
[2021-02-10] MEDS ORDERED: CARDIZEM IV STA (09:44)
[2021-02-10] MEDS ORDERED: LOVENOX SQ STA (09:44)
[2021-02-10] MEDS ORDERED: NS 1000ML 1,000 ML IV STA (09:44)
[2021-02-10] MEDS ORDERED: CARDIZEM 125 MG in NS 100ML 100 ML IV STA (09:44)
[2021-02-10] MEDS ORDERED: LANOXIN IV STA (09:44)
[2021-02-10] MEDS ORDERED: LOVENOX SQ ONE (09:55)
[2021-02-10] MEDS ORDERED: CARDIZEM ONE ×2 (09:55→10:36)
[2021-02-10] MEDS ORDERED: NS 100ML 100 ML IV ONE (09:55)
[2021-02-10 09:57] LABS: BASOPHIL % 0.7 % (0.0-0.2); EOSINOPHIL # 0.1 10^3/uL (0.0-0.2); EOSINOPHIL % 1.2 % (0.0-5.0); LYMPHOCYTES # 1.71 10^3/uL1 (1.0-4.8); LYMPHOCYTES % 29.5 % (24.0-44.0); MEAN CORP HGB 34.3 pg (26-34); MONOCYTES # 0.6 10^3/uL (0.3-0.8); MONOCYTES % 10.2 % (5.0-12.0); NEUTROPHIL # 3.4 10^3/uL (1.8-7.7); NEUTROPHILS % 58.2 % (41.0-85.0); PLATELET COUNT 183 10^3/uL (150-400); RED CELL DISTRIBUTION WIDTH 13.7 % (11.5-14.5)
[2021-02-10] MEDS ORDERED: LOPRESSER ONE (09:59)
[2021-02-10] MEDS ORDERED: LOPRESSER IVP STA (09:59)
--- NOTE | 2021-02-10 10:03 | PCM.EKG ---
[facility] Test Date: 2021-02-10 Test Time: 09:55:19 Pat Name: DANAY BLANKENSHIP Department: Room: 330 Gender: M Director Of Video Analytics: CRYSTAL : 1980 Requested By: JONY STATON Order Number: [id number] Reading MD: Jony STATON Measurements Intervals [place] Rate: 137 P: OK: QRS: 51 QRSD: 80 T: 24 QT: 322 QTc: 487 Interpretive Statements Atrial fibrillation Baseline wander in lead(s) V4 Compared to ECG 11/27/2019 06:51:15 Early repolarization no longer present Electronically Signed On 02-11-2021 19:40:29 CDT by Jony STATON Please click the below link to view image of tracing.
--- NOTE | 2021-02-10 10:23 | DIREP ---
PROCEDURE:CHEST 1 VIEW COMPARISON:[facility], CR, XRAY CHEST SINGLE VW, 11/27/2019, 07:11 AM. [facility], CT, CTA CHEST, 07/07/2019, 01:54 PM. [facility], CR, XRAY CHEST SINGLE VW, 07/07/2019, 12:44 PM. INDICATIONS:Palpitations FINDINGS: LUNGS/PLEURA:No significant pulmonary parenchymal abnormalities. No effusions. VASCULATURE:Normal. Unremarkable pulmonary vasculature. CARDIAC:Normal. No cardiac silhouette abnormality or cardiomegaly. MEDIASTINUM:Normal. No visible mass or adenopathy. BONES:Normal. No fracture or visible bony lesion. OTHER:EKG leads overlie the chest. CONCLUSION:No acute cardiopulmonary abnormalities. There is no significant change as compared with the previous examination. Dictated by: Jarett Garcia M.D. on 02/10/2021 at 10:19 AM
[2021-02-10 10:25] LABS: ALANINE AMINOTRANSFERASE(ML) 21 U/L (12-78); ALKALINE PHOSPHATASE 111 U/L (50-136); ASPARTATE AMINO TRANSFERASE 29 U/L (0-35); CALCIUM 8.7 mg/dL (8.4-10.5); CARBON DIOXIDE 24.4 mmol/L (20.0-32); GLUCOSE 106 mg/dL (70-110)
[2021-02-10] MEDS ORDERED: ZOFRAN ODT ONE (10:36)
[2021-02-10 11:11] VITALS: BP 128/105
--- NOTE | 2021-02-10 11:49 | ER.PDOC ---
General Chief Complaint: Palpitations Stated Complaint: A-FIB Time seen by MD: 09:45 Source: patient Exam Limitations: no limitations History of Present Illness Initial Comments Palpitations today, patient stopped taking his medications for A. fib since 3 weeks ago. He is not able to afford his medications. No chest pain or shortness of breath. Quality: fast Activities at Onset: none Associated Symptoms: denies symptoms Prior symptoms/Treatment: Similar symptoms previous, Recenly Seen, Treated by Doctor, Recently Hospitalized Allergies: Coded Allergies: No Known Allergies (Unverified , 06/30/16) Home Meds Active Scripts Diltiazem Hcl (CARDIZEM) 60 Mg Tablet, 60 MG PO TID, #90 TAB 6 Refills Prov:EDGAR COCHRAN MD 11/28/19 Sotalol Hcl (SOTALOL) 80 Mg Tablet, 0.5 TAB PO BID, #30 TAB 3 Refills Prov:LA NENA MILLER DO 07/30/19 Apixaban (Eliquis) 5 Mg Tablet, 5 MG PO BID for 30 Days, #60 3 Refills Prov:JOHANNA HUMPHREY DO 07/10/19 Lisinopril (LISINOPRIL) 20 Mg Tablet, 20 MG PO DAILY for 30 Days, #30 TAB Prov:JOHANNA HUMPHREY DO 07/10/19 Reported Medications Omeprazole Magnesium (PRILOSEC OTC) 20 Mg Tablet.dr, 1 TAB PO QD for 30 Days, #30 TAB 0 Refills 11/27/19 Past Medical History Medical History: arrhythmia Surgical History: no surgical history Family History Significant Family History: no pertinent family hx Social History Alcohol Use: occassionally Drug Use: none Constitutional: no symptoms reported Respiratory: no symptoms reported Cardiovascular: see HPI Gastrointestinal: no symptoms reported Genitourinary: no symptoms reported All Other Systems: Reviewed and Negative Physical Exam General Appearance: No Apparent Distress, WD/WN Neck: Non-Tender, Full Range of Motion, Supple, Normal Inspection Respiratory: chest non-tender, lungs clear, normal breath sounds, no respiratory distress, no accessory muscle use Cardiovascular: Normal Peripheral Pulses, Tachycardia, Irregularly Irregular Gastrointestinal: Normal Bowel Sounds, No Organomegaly, No Pulsatile Mass, Non Tender, Soft Extremities: Normal Range of Motion, Non-Tender, Normal Inspection, No Pedal Edema, No Calf Tenderness, Normal Capillary Refill 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, No Motor/Sensory Deficits, Alert, Normal Mood/Affect, Oriented x 3 Skin: Normal Color, Warm/Dry Lymphatic: No Adenopathy Results/Orders Results/Orders Orders - JONY STATON MD Digoxin (Lanoxin) (02/10/21 09:38) Diltiazem Hcl (Cardizem) (02/10/21 09:39) 0.9 % Sodium Chloride (Ns 1000ml) (02/10/21 09:39) Diltiazem Hcl (Cardizem) (02/10/21 09:44) Diltiazem Hcl (Cardizem) (02/10/21 09:44) Enoxaparin Sodium (Lovenox) (02/10/21 09:44) Digoxin (Lanoxin) (02/10/21 09:44) Cbc With Auto Diff (02/10/21 09:44) Comprehensive Metabolic Panel (02/10/21 09:44) Creatine Kinase (02/10/21 09:44) Creatine Kinase Mb (02/10/21 09:44) Troponin I (02/10/21 09:44) Probnp B-Type Polo Coach (02/10/21 09:44) PT (02/10/21 09:44) Partial Thromboplastin Time. (02/10/21 09:44) Xr Chest 1v (02/10/21 09:44) Ekg-Routine (02/10/21 09:44) 0.9 % Sodium Chloride (Ns 1000ml) (02/10/21 09:44) 0.9 % Sodium Chloride (Ns 100ml) (02/10/21 09:55) Enoxaparin Sodium (Lovenox) (02/10/21 09:55) Diltiazem Hcl (Cardizem) (02/10/21 09:55) Metoprolol Tartrate (Lopresser) (02/10/21 09:59) Metoprolol Tartrate (Lopresser) (02/10/21 09:59) Diltiazem Hcl (Cardizem) (02/10/21 10:36) Ondansetron (Zofran Odt) (02/10/21 10:36) Covid19 Antigen Sia Mckenna (02/10/21 10:42) Vital Signs Date Time Temp Pulse Resp B/P (MAP) Pulse Ox O2 Delivery O2 Flow Rate FiO2 02/10/21 11:11 98.7 120 18 128/105 (113) 95 Room Air 02/10/21 10:11 122 130/86 02/10/21 10:11 122 02/10/21 09:54 145 02/10/21 09:25 98.7 166 20 99 02/10/21 09:25 98.7 166 18 02/10/21 09:25 98.7 166 18 137/86 (103) 99 Room Air Administered Medications Medications (Trade) Dose Ordered Sig/Emre Route PRN Reason Start Time Stop Time Status Last Admin Dose Admin Digoxin (Lanoxin) 250 mcg STAT STAT IV 02/10/21 09:44 02/10/21 09:49 DC 02/10/21 09:54 250 MCG Diltiazem HCl (Cardizem) 20 mg STAT STAT IV 02/10/21 09:44 02/10/21 09:49 DC 02/10/21 09:54 20 MG Diltiazem HCl 125 mg/Sodium Chloride 125 ml @ 0 mls/hr STAT IV 02/10/21 09:44 02/10/21 09:49 DC 02/10/21 10:11 5 MLS/HR Enoxaparin Sodium (Lovenox) 100 mg STAT STAT SQ 02/10/21 09:44 02/10/21 09:49 DC 02/10/21 10:10 100 MG Metoprolol Tartrate (Lopresser) 5 mg STAT STAT IVP 02/10/21 09:59 02/10/21 10:00 DC 02/10/21 10:11 5 MG Sodium Chloride 1,000 ml @ 100 mls/hr Q10H STAT IV 02/10/21 09:44 02/10/21 19:43 02/10/21 09:54 100 MLS/HR Laboratory Tests Test 02/10/21 09:44 02/10/21 10:53 White Blood Count 5.8 10^3/uL (4.5-11.0) Red Blood Count 4.81 10^6/uL (4.50-5.90) Hemoglobin 16.5 g/dL (13.9-16.3) H Hematocrit 49.5 % (37.0-53.0) Mean Corpuscular Volume 102.9 fL (78-100) H Mean Corpuscular Hemoglobin 34.3 pg (26-34) H Mean Corpuscular Hemoglobin Concent 33.3 g/dL (33-36.5) Red Cell Distribution Width 13.7 % (11.5-14.5) Platelet Count 183 10^3/uL (150-400) Mean Platelet Volume 8.9 fL (7.8-11.0) Neutrophils (%) (Auto) 58.2 % (41.0-85.0) Lymphocytes (%) (Auto) 29.5 % (24.0-44.0) Monocytes (%) (Auto) 10.2 % (5.0-12.0) Neutrophils # (Auto) 3.4 10^3/uL (1.8-7.7) Lymphocytes # (Auto) 1.71 10^3/uL1 (1.0-4.8) Monocytes # (Auto) 0.6 10^3/uL (0.3-0.8) Absolute Immature Granulocyte (auto 0.01 10^3 u/L (0-2) Absolute Eosinophils (auto) 0.1 10^3/uL (0.0-0.2) Immature Granulocytes % 0.20 % (0.00-0.50) Eosinophils % 1.2 % (0.0-5.0) Basophils % 0.7 % (0.0-0.2) H Basophils # 0.0 10^3/uL (0.0-0.1) Prothrombin Time 11.0 SEC (9.6-12.0) Prothrombin Time INR (Non-Therap) 1.0 Activated Partial Thromboplast Time 24.1 SEC (24.67-30.72) Sodium Level 143 mmol/L (132-145) Potassium Level 3.9 mmol/L (3.6-5.2) Chloride Level 106.0 mmol/L (96-109) Carbon Dioxide Level 24.4 mmol/L (20.0-32) Anion Gap 16.5 Blood Urea Nitrogen 6 mg/dL (7-18) L Creatinine 0.86 mg/dL (0.59-1.40) Estimated GFR () 119.2 (>/=60) Est GFR (CKD-EPI)(Non-Afr Ecuadorean) 98.5 (>/=60) BUN/Creatinine Ratio 6.0 Glucose Level 106 mg/dL (70-110) Calcium Level 8.7 mg/dL (8.4-10.5) Total Bilirubin 1.0 mg/dL (0.2-1.0) Aspartate Amino Transferase (AST) 29 U/L (0-35) Alanine Aminotransferase (ALT) 21 U/L (12-78) Alkaline Phosphatase 111 U/L (50-136) Total Creatine Kinase 55 U/L (39-308) Creatine Kinase MB 0.7 ng/mL (0.5-3.6) Troponin I < 0.02 ng/mL (0.00-0.05) Pro-B-Type Natriuretic Peptide 1047 pg/mL (0-125) H Total Protein 7.4 g/dL (6.4-8.2) Albumin 3.5 g/dL (3.4-5.0) Globulin 3.9 Albumin/Globulin Ratio 0.897 SARS-CoV-2 Antigen (Rapid) NEGATIVE (NEGATIVE) EKG/XRAY/CT/US EKG: no ST T wave changes EKG Comments: HR 137, A fib with RVR XRAY: chest (No active disease) ER DEPART Departure Time of Disposition: 11:47 Disposition: 01 HOME / SELF CARE / HOMELESS Impression: Primary Impression: Atrial fibrillation with rapid ventricular response Additional Impression: Non compliance with medical treatment Condition: Stable Referrals: PCP,UNKNOWN (PCP) PRIMARY CARE PROVIDER Comments Admitted to Dr. Millan Duration or Time Spent with Pa: 60 min Critical Care Note Total Time (mins): 60 Problem Qualifiers JONY STATON MD Feb 10, 2021 11:49
[2021-02-10 11:56] VITALS: BP 125/68
[2021-02-10] MEDS ORDERED: BETAPACE PO STA (12:14)
[2021-02-10] MEDS ORDERED: CARDIZEM PO STA (12:14)
[2021-02-10 12:53] VITALS: BP 137/94
[2021-02-10] MEDS: PROTONIX PO SCH (13:44)
--- NOTE | 2021-02-10 13:47 | PCM.HP ---
History of Present Illness Reason for Visit: Palpitations History of Present Illness 40-year-old male with past medical history of atrial fibrillation, cigarette smoker, noncompliance with medications presented to the emergency room with palpitations that started earlier today. Patient was found to be in A. fib with RVR. Heart rate was in the 180s. Patient was given IVDiltiazemin the emergency room. Patient then was started on IV diltiazem drip. Patient admits that he stopped taking his medications 3 weeks ago. He said that he got Covid 19 3 weeks ago and since then he stopped taking his heart medications. COVID-19 test today is negative. Patient is not hypoxic. Chest x-ray unremarkable. IV dil tiazem drip stopped and patient was started on Oral diltiazem, and sotalol. Patient is being admitted hospital for further management Past Medical History Cardiac: AFIB, CAD Past Surgical History: No pertinent hx Past Social History Smoke: 1 pack per day Alcohol: social Travel Hx EBOLA RISK:Travel to/contact w: No Review of Systems Constitutional: No: Fever, Chills Eyes: No: Pain ENT: No: Ear pain, Ear discharge Respiratory: No: Cough, Dry, Shortness of breath Cardiovascular: Palpitations; No: Chest Pain Gastrointestinal: No: Nausea Genitourinary: No Dysuria Musculoskeletal: No: other, neck pain Skin: No: Rash, Lesions Neurological: No: Weakness, Numbness Allergies: Coded Allergies: No Known Allergies (Unverified , 06/30/16) Scheduled Apixaban (Eliquis), 5 MG PO BID Diltiazem Hcl (Cardizem), 60 MG PO TID Lisinopril (Lisinopril), 20 MG PO DAILY Omeprazole Magnesium (Prilosec Otc), 1 TAB PO QD, (Reported) Sotalol Hcl (Sotalol), 0.5 TAB PO BID Exam Vital Signs Vital Signs Date Time Temp Pulse Resp B/P (MAP) Pulse Ox O2 Delivery O2 Flow Rate FiO2 02/10/21 12:58 Room Air 02/10/21 12:53 98.2 85 18 137/94 (108) 96 General Appearance: Alert, Oriented X3 HEENT: Atraumatic, PERRLA Respiratory: Clear to auscultation, Normal air movement Cardiovascular: Other Abdominal: Normal bowel sounds, Soft, No tenderness Extremities: No clubbing, No cyanosis Skin: No rash, No lesions Neuro: Normal gait, Normal speech Psych/Mental Status: Mental status NL, Mood NL Assessment/Plan Assessment/Plan Assessment/Plan 40-year-old male with past medical history of atrial fibrillation, cigarette smoker, noncompliance with medications presented to the emergency room with palpitations that started earlier today. Patient was found to be in A. fib with RVR. Heart rate was in the 180s. Patient was given IVDiltiazemin the emergency room. Patient then was started on IV diltiazem drip. Patient admits that he stopped taking his medications 3 weeks ago. He said that he got Covid 19 3 weeks ago and since then he stopped taking his heart medications. COVID-19 test today is negative. Patient is not hypoxic. Chest x-ray unremarkable. IV diltiazem drip stopped and patient was started on Oral diltiazem, and sotalol. Patient is being admitted hospital for further management Problems: (1) Atrial fibrillation with rapid ventricular response ICD Code: I48.91 - Unspecified atrial fibrillation SNOMED: 665014248477539 (2) Non compliance with medical treatment Status: Acute ICD Code: Z91.19 - Patient's noncompliance with other medical treatment and regimen SNOMED: 0472911 (3) History of COVID-19 ICD Code: Z86.16 - Personal history of COVID-19 SNOMED: 428031948, [id number] (4) Cigarette smoker ICD Code: F17.210 - Nicotine dependence, cigarettes, uncomplicated SNOMED: 43763384 Patient History: FH: esophageal cancer 32 MOTHER, FH: suicide 33 FATHER, , Age:30's - 40 Plan Plan Admit Telemetry monitoring Restart the patient on cardiac medications sotalol and Cardizem Anticoagulation with Eliquis We will monitor patient overnight, Possible discharge in a.m. if remains stable. CONSTANZA CUNNINGHAM MD Feb 10, 2021 13:47
[2021-02-10] MEDS: CARDIZEM PO SCH ×2 (15:20→20:24)
[2021-02-10 17:36] VITALS: BP 119/87
[2021-02-10] MEDS ORDERED: ELIQUIS PO ONE (19:52)
[2021-02-10] MEDS ORDERED: BETAPACE ONE (19:53)
[2021-02-10 20:03] VITALS: BP 139/98
[2021-02-10] MEDS: BETAPACE PO SCH (20:24)
[2021-02-10] MEDS: ELIQUIS PO SCH (20:24)
[2021-02-11 00:27] VITALS: BP 125/92
[2021-02-11 04:25] VITALS: BP 115/74
[2021-02-11 06:31] LABS: BASOPHIL % 0.4 % (0.0-0.2); EOSINOPHIL # 0.1 10^3/uL (0.0-0.2); EOSINOPHIL % 1.9 % (0.0-5.0); LYMPHOCYTES # 1.51 10^3/uL1 (1.0-4.8); LYMPHOCYTES % 31.8 % (24.0-44.0); MEAN CORP HGB 34.7 pg (26-34); MONOCYTES # 0.4 10^3/uL (0.3-0.8); MONOCYTES % 9.1 % (5.0-12.0); NEUTROPHIL # 2.7 10^3/uL (1.8-7.7); NEUTROPHILS % 56.8 % (41.0-85.0); PLATELET COUNT 161 10^3/uL (150-400); RED CELL DISTRIBUTION WIDTH 13.5 % (11.5-14.5)
[2021-02-11] MEDS ORDERED: ZESTRIL PO SCH (09:00)
[2021-02-11 09:20] VITALS: BP 135/74
[2021-02-11] MEDS: PROTONIX PO SCH (09:31)
[2021-02-11] MEDS: ELIQUIS PO SCH (09:31)
[2021-02-11] MEDS: CARDIZEM PO SCH (09:31)
[2021-02-11] MEDS: BETAPACE PO SCH (09:31)
[2021-02-11] MEDS ORDERED: LISI20TA21 PO (11:32)
[2021-02-11] MEDS ORDERED: SOTA80TA PO (11:32)
[2021-02-11] MEDS ORDERED: DILT60TA3 PO (11:32)
[2021-02-11] MEDS ORDERED: APIX5TAB PO (11:32)
[2021-02-11] MEDS ORDERED: OMEP20TA62 PO (11:32)
--- NOTE | 2021-02-11 11:39 | PRM.DC ---
Discharge Summary Date of Discharge: Feb 11, 2021 Time of Request to Discharge: 09:00 Hospital Course 40-year-old male with past medical history of atrial fibrillation, cigarette smoker, noncompliance with medications presented to the emergency room with palpitations that started earlier today. Patient was found to be in A. fib with RVR. Heart rate was in the 180s. Patient was given IVDiltiazemin the emergency room. Patient then was started on IV diltiazem drip. Patient admits that he stopped taking his medications 3 weeks ago. He said that he got Covid 19 3 weeks ago and since then he stopped taking his heart medications. COVID-19 test today is negative. Patient is not hypoxic. Chest x-ray unremarkable. IV diltiazem drip stopped and patient was started on Oral diltiazem, and sotalol. Patient Was admitted hospital for further management Patient was restarted on his home medications. Heart rate remains under control. This morning patient is feeling better, denies palpitations or chest pain. Prescriptions given to the patient and patient was advised the importance of compliance. Patient need to establish care with a primary care physician, list will be provided to the patient of primary care physicians. Also to follow this cardiology in 2 to 3 weeks. Patient discharged home. Patient discharged in stable condition. Activity as tolerated. Diet cardiac. Patient History: FH: esophageal cancer 32 MOTHER, FH: suicide 33 FATHER, , Age:30's - 40 Exam/Vitals Blood pressure 115/75, heart rate 90, respiratory rate 18, temperature 98. General: Alert, Oriented X3 HEENT: Atraumatic, PERRLA Neck: Supple, No JVD Lungs: Clear to auscultation, Normal air movement Heart: Other (Irregularly irregular) Abdomen: Normal bowel sounds, Soft, No tenderness Extremities: No clubbing, No cyanosis Skin: No breakdown, No significant lesion Neuro: Strength at 5/5 X4 ext, Normal tone Psych/Mental Status: Mental status NL, Mood NL Scheduled Apixaban (Eliquis), 5 MG PO BID Diltiazem Hcl (Cardizem), 60 MG PO TID Lisinopril (Lisinopril), 20 MG PO DAILY Omeprazole Magnesium (Prilosec Otc), 1 TAB PO QD Sotalol Hcl (Sotalol), 0.5 TAB PO BID Sepsis Evaluation @ Discharge 02/11/21 10:34 Plan Problems: (1) Atrial fibrillation with rapid ventricular response ICD Code: I48.91 - Unspecified atrial fibrillation SNOMED: 260463886925917 (2) Non compliance with medical treatment Status: Acute ICD Code: Z91.19 - Patient's noncompliance with other medical treatment and regimen SNOMED: 9361012 (3) History of COVID-19 ICD Code: Z86.16 - Personal history of COVID-19 SNOMED: 430914730, [id number] Discharge Date: Feb 11, 2021 Discharge Disposition: Stable Plan 40-year-old male with past medical history of atrial fibrillation, cigarette smoker, noncompliance with medications presented to the emergency room with palpitations that started earlier today. Patient was found to be in A. fib with RVR. Heart rate was in the 180s. Patient was given IVDiltiazemin the emergency room. Patient then was started on IV diltiazem drip. Patient admits that he stopped taking his medications 3 weeks ago. He said that he got Covid 19 3 weeks ago and since then he stopped taking his heart medications. COVID-19 test today is negative. Patient is not hypoxic. Chest x-ray unremarkable. IV diltiazem drip stopped and patient was started on Oral diltiazem, and sotalol. Patient Was admitted hospital for further management Patient was restarted on his home medications. Heart rate remains under control . This morning patient is feeling better, denies palpitations or chest pain. Prescriptions given to the patient and patient was advised the importance of compliance. Patient need to establish care with a primary care physician, list will be provided to the patient of primary care physicians. Also to follow this cardiology in 2 to 3 weeks. Patient discharged home. Patient discharged in stable condition. Activity as tolerated. Diet cardiac. CONSTANZA CUNNINGHAM MD Feb 11, 2021 11:39
[2021-02-11 13:22] LABS: CALCIUM 8.7 mg/dL (8.4-10.5)
== END 2021-02-11 14:45 | disposition home or self-care (01) ==
LOC: ER 09:22 → MS 11:55
PROVIDERS: ADMIT Internal Medicine; ATTEND Internal Medicine
DX: I48.20 Chronic atrial fibrillation, unspecified (principal); Z20.822 Contact with and (suspected) exposure to COVID-19; I25.10 Atherosclerotic heart disease of native coronary artery without angina pectoris; F17.210 Nicotine dependence, cigarettes, uncomplicated; Z91.19 Patient's noncompliance with other medical treatment and regimen; Z86.16 Personal history of COVID-19; Z91.14 Patient's other noncompliance with medication regimen; Z79.899 Other long term (current) drug therapy
CPT/HCPCS: 36415 ×2; 71045; 80048; 80053; 82550; 82553; 83880; 84484; 85025 ×2; 85610; 85730; 87426; 93005; 96365; 96372; 96375; 99291; G0378 ×27; J1160; J1650; J3490 ×2; J7030

== ENCOUNTER 2021-04-20 06:50 | Inpatient (IN) | payer OTHER ==
[~2021-04-20] VITALS: Ht 177.8 cm; Wt 99.0 kg
--- NOTE | 2021-04-20 07:53 | NUR ---
1ST CALL ATTEMPTED TO CALL PATIENT, NOT IN WAITING AREA, ADMITTED STATES PATIENT STEPPED OUTSIDE WILL NOTIFY ED WHEN PATIENT RETURNS
[2021-04-20 08:15] VITALS: BP 153/75
[2021-04-20] MEDS ORDERED: DUO 0.5-3(2.5) MG/3 ML IH STA (08:34)
[2021-04-20 08:42] LABS: BASOPHIL # 0.1 10^3/uL (0.0-0.1); EOSINOPHIL # 0.2 10^3/uL (0.0-0.2); EOSINOPHIL % 2.9 % (0.0-5.0); LYMPHOCYTES # 2.07 10^3/uL1 (1.0-4.8); MEAN CORP HGB 35.4 pg (26-34); MONOCYTES # 0.7 10^3/uL (0.3-0.8); MONOCYTES % 9.1 % (5.0-12.0); NEUTROPHIL # 4.1 10^3/uL (1.8-7.7); RED CELL DISTRIBUTION WIDTH 14.6 % (11.5-14.5)
[2021-04-20] MEDS ORDERED: DUO 0.5-3(2.5) MG/3 ML IH ONE (08:52)
[2021-04-20 09:05] LABS: ALANINE AMINOTRANSFERASE(ML) 31 U/L (12-78); ALKALINE PHOSPHATASE 183 U/L (50-136); ASPARTATE AMINO TRANSFERASE 54 U/L (0-35); CALCIUM 8.8 mg/dL (8.4-10.5); CARBON DIOXIDE 29.9 mmol/L (20.0-32); GLUCOSE 87 mg/dL (70-110)
--- NOTE | 2021-04-20 09:14 | NUR ---
CRITICAL LAB D-DIMER 6.09, DOCTOR NOTIFIED
--- NOTE | 2021-04-20 09:44 | ER.PDOC ---
General Chief Complaint: Extremities Stated Complaint: SWOLLEN RT LEG Time seen by MD: 08:32 Source: patient Exam Limitations: no limitations History of Present Illness Initial Comments 40-year-old male presenting with right lower extremity swelling, hemoptysis, and left-sided chest pain. Patient explains that he was diagnosed with COVID-19 a few months ago. Since then he had been okay and then he noticed that his left leg was swelling and that he had some pain to the left side. Patient states that he also has a history of A. fib and is supposed be on Eliquis but has not taken his medication due to the lloyd of the prescription drugs. Patient also endorses shortness of breath on exertion. Denies any history of PEs or DVTs in the past. No anticoagulation use at this time. States that lower extremity swelling and pain worsens with exertion or utilization. No other complaints at this time patient denies any travel, recent surgery, no hormone use, no history of cancer Modifying Factors: improves with activity Associated Symptoms: chest pain, edema Allergies: Coded Allergies: No Known Allergies (Unverified , 06/30/16) Home Meds Active Scripts Diltiazem Hcl (CARDIZEM) 60 Mg Tablet, 60 MG PO TID, #90 TAB 6 Refills Prov:CONSTANZA CUNNINGHAM MD 02/11/21 Omeprazole Magnesium (PRILOSEC OTC) 20 Mg Tablet.dr, 1 TAB PO QD for 30 Days, #30 TAB 0 Refills Prov:CONSTANZA CUNNIGNHAM MD 02/11/21 Sotalol Hcl (SOTALOL) 80 Mg Tablet, 0.5 TAB PO BID, #30 TAB 3 Refills Prov:CONSTANZA CUNNINGHAM MD 02/11/21 Apixaban (Eliquis) 5 Mg Tablet, 5 MG PO BID for 30 Days, #60 TAB 3 Refills Prov:CONSTANZA CUNNINGHAM MD 02/11/21 Lisinopril (LISINOPRIL) 20 Mg Tablet, 20 MG PO DAILY for 30 Days, #30 TAB Prov:CONSTANZA CUNNINGHAM MD 02/11/21 Past Medical History Medical History: arrhythmia, hypertension Surgical History: cardiac cath Social History Alcohol Use: rarely Drug Use: marijuana Review of Systems Respiratory: see HPI Cardiovascular: see HPI Musculoskeletal: see HPI Physical Exam General Appearance: No Apparent Distress, WD/WN HEENT: PERRL/EOMI, Normal ENT Inspection, TMs Normal, Pharynx Normal Neck: Non-Tender, Full Range of Motion, Supple, Normal Inspection Respiratory: chest non-tender, no respiratory distress, no accessory muscle use, wheezing Cardiovascular: Normal Peripheral Pulses, No JVD, Tachycardia, Irregularly Irregular Gastrointestinal: Normal Bowel Sounds, No Organomegaly, No Pulsatile Mass, Non Tender, Soft Rectal: Normal Exam Extremities: Normal Range of Motion, Non-Tender, Normal Inspection, Normal Capillary Refill, Calf Tenderness, Pedal Edema (Nonpitting edema to the right lower extremity, right lower extremity is double the size of the left. Some dusky color toThe leg) Neurologic/Psychiatric: Alert, Normal Mood/Affect, Oriented x 3 Skin: Warm/Dry, Cyanosis (to right leg ) Lymphatic: No Adenopathy Results/Orders Results/Orders Orders - EJESIEME,COLT C DO Cbc With Auto Diff (04/20/21 08:28) Comprehensive Metabolic Panel (04/20/21 08:28) Troponin I (04/20/21 08:28) Probnp B-Type Ore Washer (04/20/21 08:28) PT (04/20/21 08:28) Partial Thromboplastin Time. (04/20/21 08:28) D-Dimer (04/20/21 08:28) Ekg-Routine (04/20/21 08:28) Saline Lock (04/20/21 08:28) Cta Chest (04/20/21 08:28) Us Bilat Lower Ext Venous Dopp (04/20/21 08:28) Ipratropium/Albuterol Sulfate (Duo 0.5-3 (04/20/21 08:34) Ipratropium/Albuterol Sulfate (Duo 0.5-3 (04/20/21 08:52) Covid19 Antigen Sia Mckenna (04/20/21 10:02) Heparin Sodium,Porcine/D5w (Heparin-D5w (04/20/21 10:53) Heparin Sodium,Porcine/D5w (Heparin-D5w (04/20/21 11:00) Heparin Sodium,Porcine (Heparin Sodium) (04/20/21 10:58) Diltiazem Hcl (Cardizem) (04/20/21 11:00) Heparin Sodium,Porcine/D5w (Heparin-D5w (04/20/21 11:09) Heparin Sodium,Porcine (Heparin) (04/20/21 11:09) Routine Vital Signs (04/20/21 11:09) Bedrest (04/20/21 11:09) Regular Diet (04/20/21 Lunch) Dietary Screen (04/20/21 Dinner) Intake & Output (04/20/21 11:09) Troponin I (04/20/21 11:09) PT (04/21/21 05:00) Partial Thromboplastin Time. (04/21/21 05:00) Admit Orders (04/20/21 11:09) Bed Alarm (04/20/21 11:09) Request For Echo (04/20/21 11:09) Vital Signs Date Time Temp Pulse Resp B/P (MAP) Pulse Ox O2 Delivery O2 Flow Rate FiO2 04/20/21 10:48 77 148/72 (97) 99 04/20/21 08:15 98.7 70 18 95 04/20/21 08:15 98.7 70 18 153/75 (101) 95 Room Air 04/20/21 08:15 98.7 70 18 Administered Medications Medications (Trade) Dose Ordered Sig/Emre Route PRN Reason Start Time Stop Time Status Last Admin Dose Admin Albuterol/ Ipratropium (Duo 0.5-3(2.5) Mg/3 ml) 3 ml STAT STAT IH 04/20/21 08:34 04/20/21 08:35 DC 04/20/21 08:52 3 ML Laboratory Tests Test 04/20/21 08:27 04/20/21 10:09 White Blood Count 7.1 10^3/uL (4.5-11.0) Red Blood Count 5.40 10^6/uL (4.50-5.90) Hemoglobin 19.1 g/dL (13.9-16.3) H Hematocrit 58.1 % (37.0-53.0) H Mean Corpuscular Volume 107.6 fL (78-100) H Mean Corpuscular Hemoglobin 35.4 pg (26-34) H Mean Corpuscular Hemoglobin Concent 32.9 g/dL (33-36.5) L Red Cell Distribution Width 14.6 % (11.5-14.5) H Platelet Count 387 10^3/uL (150-400) Mean Platelet Volume 8.1 fL (7.8-11.0) Neutrophils (%) (Auto) 57.0 % (41.0-85.0) Lymphocytes (%) (Auto) 29.0 % (24.0-44.0) Monocytes (%) (Auto) 9.1 % (5.0-12.0) Neutrophils # (Auto) 4.1 10^3/uL (1.8-7.7) Lymphocytes # (Auto) 2.07 10^3/uL1 (1.0-4.8) Monocytes # (Auto) 0.7 10^3/uL (0.3-0.8) Absolute Immature Granulocyte (auto 0.03 10^3 u/L (0-2) Absolute Eosinophils (auto) 0.2 10^3/uL (0.0-0.2) Immature Granulocytes % 0.40 % (0.00-0.50) Eosinophils % 2.9 % (0.0-5.0) Basophils % 2.0 % (0.0-0.2) H Basophils # 0.1 10^3/uL (0.0-0.1) Prothrombin Time 10.6 SEC (9.6-12.0) Prothrombin Time INR (Non-Therap) 1.0 Activated Partial Thromboplast Time 23.9 SEC (24.67-30.72) D-Dimer 6.09 mg/L (0.19-0.49) *H Sodium Level 143 mmol/L (132-145) Potassium Level 3.3 mmol/L (3.6-5.2) L Chloride Level 105.0 mmol/L (96-109) Carbon Dioxide Level 29.9 mmol/L (20.0-32) Anion Gap 11.4 Blood Urea Nitrogen 5 mg/dL (7-18) L Creatinine 0.78 mg/dL (0.59-1.40) Estimated GFR () 133.4 (>/=60) Est GFR (CKD-EPI)(Non-Afr Stateless) 110.2 (>/=60) BUN/Creatinine Ratio 6.0 Glucose Level 87 mg/dL (70-110) Calcium Level 8.8 mg/dL (8.4-10.5) Total Bilirubin 0.3 mg/dL (0.2-1.0) Aspartate Amino Transferase (AST) 54 U/L (0-35) H Alanine Aminotransferase (ALT) 31 U/L (12-78) Alkaline Phosphatase 183 U/L (50-136) H Troponin I < 0.02 ng/mL (0.00-0.05) Pro-B-Type Natriuretic Peptide 296 pg/mL (0-125) H Total Protein 7.9 g/dL (6.4-8.2) Albumin 3.0 g/dL (3.4-5.0) L Globulin 4.9 Albumin/Globulin Ratio 0.612 SARS-CoV-2 Antigen (Rapid) NEGATIVE (NEGATIVE) Progress Progress PT has a large DVT and PE. Will place on heparin , diltiazem for a fib and monitor Time is 11:[address] Ismael Bryson who will admit the patient at this time to inpatient telemetry. Informed him of patient's heparin drip and bolus of diltiazem. Informed patient of his admission. Patient resting complaint bed, no chest pain, no respiratory distress. Normal BP at this time EKG/XRAY/CT/US EKG: rhythm (Atrial fibrillation with rapid ventricular response, QTC 508, no STEMI, normal axis) ER DEPART Departure Time of Disposition: 11:17 Disposition: 09 ADMITTED INPATIENT Impression: Primary Impression: Pulmonary embolism Additional Impressions: Right leg DVT Atrial fibrillation with RVR Condition: Improved Referrals: PCP,UNKNOWN (PCP) PRIMARY CARE PROVIDER Duration or Time Spent with Pa: 45 min Problem Qualifiers COLT ROSAS DO Apr 20, 2021 09:44
--- NOTE | 2021-04-20 10:16 | PCM.EKG ---
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
--- NOTE | 2021-04-20 10:32 | DIREP ---
PROCEDURE:US VENOUS IMAGING BILAT COMPARISON:None. INDICATIONS:concern for DVT, Right leg swelling TECHNIQUE:The lower extremities were evaluated utilizing de la torre scale images with segmental compression, color Doppler, and spectral Doppler with respiratory variation and augmentation. FINDINGS: RIGHT External iliac vein: Not shown. Common femoral vein:Partially occlusive thrombus Profunda femoris: Partially occlusive thrombus Superficial femoral vein:Partially occlusive thrombus Popliteal vein:Partially occlusive thrombus Posterior tibial vein:Partially occlusive thrombus Peroneal vein: Patent Greater saphenous vein:Partially occlusive thrombus Subcutaneous edema is noted in the right lower extremity. Waveforms: Within normal limits. LEFT External iliac vein: Not shown. Common femoral vein:Patent Profunda femoris: Patent Superficial femoral vein:Patent Popliteal vein:Patent Posterior tibial vein:Patent Peroneal vein: Patent Anterior tibial vein:Patent Greater saphenous vein:Patent Waveforms: Within normal limits. CONCLUSION: 1. Findings are positive for DVT in the veins of the right lower extremity, as described above. Dictated by: FREDY Physician on 04/20/2021 at 10:01 AM jorge luis
[2021-04-20 10:48] VITALS: BP 148/72
[2021-04-20] MEDS ORDERED: HEPARIN-D5W 20,000 UNIT/500 ML 500 ML IV STA (10:53)
[2021-04-20] MEDS ORDERED: HEPARIN SODIUM IV STA (10:58)
--- NOTE | 2021-04-20 10:58 | DIREP ---
PROCEDURE:CTA - CHEST (NON CORONARY) COMPARISON:[facility], CT, CTA CHEST, 07/07/2019, 01:54 PM. [facility], US, US VENOUS IMAGING BILAT, 04/20/2021, 09:10 AM. INDICATIONS:concern for PE, DVT, COUGHING UP BLOOD TECHNIQUE:After obtaining the patient's consent, CTA images were obtained without and with non-ionic intravenous contrast material. Multi-planar MIP/3-D images were created to optimize visualization of vascular anatomy. FINDINGS: VASCULATURE:Filling defects compatible with pulmonary emboli in the bilateral lower lobes and left upper lobe pulmonary arteries. THORACIC AORTA:Normal. LUNGS:Rounded infiltrates in the right upper lobe, left upper lobe/lingula, and left lower lobe. MEDIASTINUM/AUDREY:Normal. CARDIAC:Normal. PLEURA:Small left pleural effusion. CHEST WALL:Normal. LIMITED ABDOMEN:Normal. BONES:Normal. OTHER:Normal. CONCLUSION:Pulmonary emboli in the bilateral lower lobes and left upper lobe pulmonary arteries. Rounded infiltrates in the right upper lobe, left upper lobe/lingula, and left lower lobe, may be due to multifocal pneumonia or less likely, pulmonary infarction. Small left pleural effusion. Dictated by: Kurt Sumner M.D. on 04/20/2021 at 10:45 AM
[2021-04-20] MEDS ORDERED: CARDIZEM IV STA (11:00)
[2021-04-20] MEDS ORDERED: HEPARIN-D5W 20,000 UNIT/500 ML 500 ML IV SCH (11:00)
[2021-04-20] MEDS ORDERED: HEPARIN-D5W 20,000 UNIT/500 ML 500 ML IV ONE (11:09)
[2021-04-20] MEDS ORDERED: HEPARIN ONE (11:09)
[2021-04-20] MEDS ORDERED: CARDIZEM IV ONE (11:15)
[2021-04-20 14:49] VITALS: BP 148/68
--- NOTE | 2021-04-20 15:00 | NUR ---
ARRIVAL PATIENT ARRIVED ON MED-SURG UNIT AT THIS TIME TO ROOM #329. RECEIVED REPORT, ASSUMED CARE FOR PATIENT AT THIS TIME.
[2021-04-20] MEDS ORDERED: TYLENOL PO PRN (16:30)
[2021-04-20] MEDS ORDERED: AMBIEN PO PRN (16:30)
[2021-04-20] MEDS ORDERED: NORCO 5MG PO PRN (16:30)
--- NOTE | 2021-04-20 16:40 | PCM.HP ---
History of Present Illness Reason for Visit: Shortness of breath History of Present Illness 40-year-old male presenting with right lower extremity swelling, hemoptysis, and left-sided chest pain. Patient explains that he was diagnosed with COVID-19 a few months ago. Since then he had been okay and then he noticed that his left leg was swelling and that he had some pain to the left side. Patient states that he also has a history of A. fib and is supposed be on Eliquis but has not taken his medication due to the lloyd of the prescription drugs. Patient also endorses shortness of breath on exertion. Denies any history of PEs or DVTs in the past. No anticoagulation use at this time. States that lower extremity swelling and pain worsens with exertion or utilization. No other complaints at this time patient denies any travel, recent surgery, no hormone use, no history of cancer Work-up in the emergency room patient was found to have significant swelling of the right lower extremity, initial work including venous ultrasound patient was found to have deep venous thrombosis of the right lower extremity, CTA of the chest showed bilateral pulmonary embolism. Patient was found to be in A. fib with RVR, given IV diltiazem in the ED. Heart rate was controlled. Patient started on IV heparin drip. Patient admitted to the hospital for further management. Patient has history of A. fib, supposed to be on Eliquis but he cannot afford it. Past Medical History Cardiac: AFIB, CAD, HTN Past Surgical History: No pertinent hx Past Social History Smoke: 1 pack per day Alcohol: social Travel Hx EBOLA RISK:Travel to/contact w: No Review of Systems Respiratory: Shortness of breath, SOB with excertion Cardiovascular: Chest Pain, Palpitations, Other Musculoskeletal: other (Right leg swelling and pain) Allergies: Coded Allergies: No Known Allergies (Unverified , 06/30/16) Scheduled Apixaban (Eliquis), 5 MG PO BID Diltiazem Hcl (Cardizem), 60 MG PO TID Lisinopril (Lisinopril), 20 MG PO DAILY Omeprazole Magnesium (Prilosec Otc), 1 TAB PO QD Sotalol Hcl (Sotalol), 0.5 TAB PO BID VTE VTE Risk Total Score: 1 VTE Risk Score VTE Risk: Score 0-1 = Low Risk (Aggressive mobilization; early ambulation; no VTE prophylaxis required) Score 2: Moderate Risk (Intermittent/Pneumatic Compression Device OR Lovenox/Heparin/Coumadin) Score 3-4: High Risk (Intermittent/Pneumatic Compression Device AND Lovenox/Heparin/Coumadin) Score > or =5: Highest Risk (Intermittent/Pneumatic Compression Device AND Lovenox/Heparin/Coumadin) VTE VTE Present on Admission: No Currently receiving anticoagul: Yes VTE Risk Total Score: 1 Exam Vital Signs Vital Signs Date Time Temp Pulse Resp B/P (MAP) Pulse Ox O2 Delivery O2 Flow Rate FiO2 04/20/21 14:49 75 148/68 (94) 98 04/20/21 08:15 98.7 18 04/20/21 08:15 Room Air General Appearance: Alert, Oriented X3, moderate distress HEENT: Atraumatic, PERRLA Respiratory: Other (Fair bilateral air entry) Cardiovascular: Other (Irregular irregular) Abdominal: Normal bowel sounds, Soft Extremities: No clubbing, Other (Right leg swollen, tender and warm) Skin: Other (Erythema of the right leg) Neuro: Normal speech, Strength at 5/5 X4 ext, Sensation intact Psych/Mental Status: Mental status NL, Mood NL Assessment/Plan Assessment/Plan Assessment/Plan 40-year-old male with history of atrial fibrillation, CAD, presented emergency room with right leg swelling and chest pain, hemoptysis. Work-up patient was fo und to have PE, DVT, A. fib with RVR. Plan Admit Continue IV heparin drip Continue home medications including diltiazem, sotalol Telemetry monitoring Reconcile home meds GI prophylaxis DVT prophylaxis patient on heparin We will consult case management, patient cannot afford Eliquis, I discussed with the patient that the patient probably will need warfarin but he will need to go to the lab to get his INR checked, patient will need long-term anticoagulation because of his A. fib and the new diagnosis of DVT and PE. Problems: (1) Pulmonary embolism ICD Code: I26.99 - Other pulmonary embolism without acute cor pulmonale SNOMED: 12188239 (2) Right leg DVT Status: Acute ICD Code: I82.401 - Acute embolism and thrombosis of unspecified deep veins of right lower extremity SNOMED: 227662514 (3) Atrial fibrillation with RVR ICD Code: I48.91 - Unspecified atrial fibrillation SNOMED: 941199142100135 Patient History: FH: esophageal cancer 32 MOTHER, FH: suicide 33 FATHER, , Age:30's - 40 CONSTANZA CUNNINGHAM MD Apr 20, 2021 16:40
[2021-04-20 16:49] VITALS: BP 136/90
[2021-04-20] MEDS ORDERED: CARDIZEM PO SCH (18:00)
[2021-04-20] MEDS ORDERED: NS 100ML 100 ML IV ONE (18:35)
[2021-04-20] MEDS ORDERED: ROCEPHIN ONE (18:35)
[2021-04-20] MEDS ORDERED: NS 250ML 250 ML ONE (18:35)
[2021-04-20] MEDS: ROCEPHIN 1,000 MG in NS 100ML 100 ML IV SCH (18:52)
--- NOTE | 2021-04-20 18:53 | NUR ---
REPORT REPORT GIVEN TO TERRA TRACY. COMMUNICATED THAT HEPARIN DRIP IS CURRENTLY GOING AT 1,100 AND THE NEXT APTT IS DUE AT 2130. RELINQUISHED CARE FOR PATIENT AT THIS TIME.
[2021-04-20 20:18] VITALS: BP 142/94
[2021-04-20] MEDS: BETAPACE PO SCH (20:24)
[2021-04-20] MEDS: CARDIZEM PO SCH (20:25)
--- NOTE | 2021-04-20 22:22 | NUR ---
HEPARIN DRIP aPTT IS 27 INCREASED HEPARIN BY 100 UNITS ACCORDING TO PROTOCOL NOW RUNNING AT 1200 UNITS @ 30mL/hr WITNESSED BY BROCK RN NEXT aPTT LAB DRAW ORDERED FOR 21904/21/21
[2021-04-21 00:10] VITALS: BP 150/99
--- NOTE | 2021-04-21 03:20 | NUR ---
HEPARIN DRIP aPTT IS 29.2 INCREASED HEPARIN BY 100 UNITS ACCORDING TO PROTOCOL NOW RUNNING AT 1300 UNITS @ 32.5mL/hr WITNESSED BY SHELLY CRUZ NEXT aPTT LAB DRAW ORDERED FOR 71904/21/21
[2021-04-21 04:31] VITALS: BP 133/98
[2021-04-21 07:28] LABS: BASOPHIL # 0.1 10^3/uL (0.0-0.1); BASOPHIL % 1.1 % (0.0-0.2); EOSINOPHIL # 0.1 10^3/uL (0.0-0.2); EOSINOPHIL % 1.7 % (0.0-5.0); LYMPHOCYTES # 1.29 10^3/uL1 (1.0-4.8); LYMPHOCYTES % 20.2 % (24.0-44.0); MONOCYTES # 0.6 10^3/uL (0.3-0.8); MONOCYTES % 8.6 % (5.0-12.0); NEUTROPHIL # 4.3 10^3/uL (1.8-7.7); NEUTROPHILS % 68.1 % (41.0-85.0); PLATELET COUNT 308 10^3/uL (150-400); RED CELL DISTRIBUTION WIDTH 13.9 % (11.5-14.5)
[2021-04-21 07:34] VITALS: BP 143/97
[2021-04-21 07:44] LABS: CALCIUM 8.2 mg/dL (8.4-10.5); CARBON DIOXIDE 30.2 mmol/L (20.0-32)
[2021-04-21] MEDS: PROTONIX PO SCH (09:40)
[2021-04-21] MEDS: BETAPACE PO SCH ×2 (09:40→20:37)
[2021-04-21] MEDS: ZESTRIL PO SCH (09:41)
[2021-04-21] MEDS: CARDIZEM PO SCH ×3 (09:41→20:37)
[2021-04-21 12:25] VITALS: BP 139/79
[2021-04-21] MEDS ORDERED: LOVENOX SQ ONE (13:40)
[2021-04-21] MEDS: LOVENOX SQ SCH ×2 (13:41→20:36)
--- NOTE | 2021-04-21 14:54 | PRM.PN ---
Subjective Subjective Date: Apr 21, 2021 Time: 09:00 Subjective Chest pain improved, hemoptysis improved. Still having right leg pain but better. Currently patient is on IV heparin drip. Patient History: FH: esophageal cancer 32 MOTHER, FH: suicide 33 FATHER, , Age:30's - 40 VTE VTE Risk Total Score: 1 VTE Risk Score VTE Risk: Score 0-1 = Low Risk (Aggressive mobilization; early ambulation; no VTE prophylaxis required) Score 2: Moderate Risk (Intermittent/Pneumatic Compression Device OR Lovenox/Heparin/Coumadin) Score 3-4: High Risk (Intermittent/Pneumatic Compression Device AND Lovenox/Heparin/Coumadin) Score > or =5: Highest Risk (Intermittent/Pneumatic Compression Device AND Lovenox/Heparin/Coumadin) Antico:Hep/LMWH/Coum/Xarelto: Yes Review of Systems Respiratory: Shortness of breath, SOB with excertion Cardiovascular: Chest Pain, Palpitations, Other Musculoskeletal: other (Right leg swelling and pain) Allergies: Coded Allergies: No Known Allergies (Unverified , 06/30/16) Scheduled Apixaban (Eliquis), 5 MG PO BID Diltiazem Hcl (Cardizem), 60 MG PO TID Lisinopril (Lisinopril), 20 MG PO DAILY Omeprazole Magnesium (Prilosec Otc), 1 TAB PO QD Sotalol Hcl (Sotalol), 0.5 TAB PO BID Objective Vitals and I/O Vital Sign - Last 24 Hours 04/20/21 04/20/21 04/20/21 04/20/21 16:49 18:21 19:34 20:18 Temp 98.3 98.4 Pulse 120 72 Resp 20 18 B/P (MAP) 142/94 (110) Pulse Ox 97 94 O2 Delivery Room Air Room Air Nasal [place] 04/20/21 04/20/21 04/21/21 04/21/21 20:25 21:00 00:10 04:31 Temp 98.0 98.1 Pulse 74 101 76 Resp 18 18 B/P (MAP) 144/90 150/99 (116) 133/98 (110) Pulse Ox 97 95 O2 Delivery Room Air Room Air 04/21/21 04/21/21 04/21/21 04/21/21 07:34 08:00 09:41 09:41 Temp 98.4 Pulse 73 73 Resp 18 B/P (MAP) 143/97 (112) 143/97 143/97 Pulse Ox 98 O2 Delivery Room Air 04/21/21 12:25 Temp 98.0 Pulse 98 Resp 16 B/P (MAP) 139/79 (99) Pulse Ox 99 Intake and Output 04/21/21 07:00 Intake Total 370 ml Output Total 400 ml Balance -30 ml General: Alert, Oriented X3, moderate distress HEENT: Atraumatic, PERRLA Lungs: Other (Fair bilateral air entry) Heart: Other (Irregular irregular) Abdomen: Normal bowel sounds, Soft Extremities: No clubbing, Other (Right leg swollen, tender and warm) Neuro: Normal speech, Strength at 5/5 X4 ext, Sensation intact Psych/Mental Status: Mental status NL, Mood NL All Results(Lab/Rad) Laboratory Tests Test 04/20/21 17:05 04/20/21 21:37 04/21/21 02:29 04/21/21 07:18 Activated Partial Thromboplast Time 25.9 SEC 27.0 SEC 29.2 SEC 26.7 SEC White Blood Count 6.4 10^3/uL Red Blood Count 5.05 10^6/uL Hemoglobin 17.7 g/dL Hematocrit 53.2 % Mean Corpuscular Volume 105.3 fL Mean Corpuscular Hemoglobin 35.0 pg Mean Corpuscular Hemoglobin Concent 33.3 g/dL Red Cell Distribution Width 13.9 % Platelet Count 308 10^3/uL Mean Platelet Volume 8.4 fL Neutrophils (%) (Auto) 68.1 % Lymphocytes (%) (Auto) 20.2 % Monocytes (%) (Auto) 8.6 % Neutrophils # (Auto) 4.3 10^3/uL Lymphocytes # (Auto) 1.29 10^3/uL1 Monocytes # (Auto) 0.6 10^3/uL Absolute Immature Granulocyte (auto 0.02 10^3 u/L Absolute Eosinophils (auto) 0.1 10^3/uL Immature Granulocytes % 0.30 % Eosinophils % 1.7 % Basophils % 1.1 % Basophils # 0.1 10^3/uL Sodium Level 139 mmol/L Potassium Level 4.0 mmol/L Chloride Level 103.0 mmol/L Carbon Dioxide Level 30.2 mmol/L Anion Gap 9.8 Blood Urea Nitrogen 4 mg/dL Creatinine 0.88 mg/dL Estimated GFR () 116.1 Est GFR (CKD-EPI)(Non-Afr [place]) 95.9 BUN/Creatinine Ratio 4.0 Glucose Level 109 mg/dL Calcium Level 8.2 mg/dL Total Bilirubin 0.8 mg/dL Aspartate Amino Transf (AST/SGOT) 30 U/L Alanine Aminotransferase (ALT/SGPT) 19 U/L Alkaline Phosphatase 152 U/L Total Protein 6.5 g/dL Albumin 2.4 g/dL Globulin 4.1 Albumin/Globulin Ratio 0.585 Test 04/21/21 12:17 Activated Partial Thromboplast Time 25.2 SEC Current Medications Medications (Trade) Dose Ordered Sig/Emre Route PRN Reason Start Time Stop Time Status Last Admin Dose Admin Albuterol/ Ipratropium (Duo 0.5-3(2.5) Mg/3 ml) 3 ml STAT STAT IH 04/20/21 08:34 04/20/21 08:35 DC 04/20/21 08:52 Albuterol/ Ipratropium (Duo 0.5-3(2.5) Mg/3 ml) 3 ml STK-MED ONCE IH 04/20/21 08:52 04/20/21 08:52 DC Heparin Sodium/ Dextrose 500 ml @ 0 mls/hr TITRATE STAT IV 04/20/21 10:53 04/20/21 10:58 DC 04/20/21 11:23 Heparin Sodium/ Dextrose 500 ml @ 0 mls/hr TITRATE IV 04/20/21 11:00 04/21/21 09:24 DC Heparin Sodium (Porcine) (Heparin Sodium) 1,764 unit OT STAT IV 04/20/21 10:58 04/20/21 11:00 DC 04/20/21 11:24 Diltiazem HCl (Cardizem) 25 mg STAT STAT IV 04/20/21 11:00 04/20/21 11:02 DC 04/20/21 11:24 Heparin Sodium/ Dextrose 500 ml @ ud STK-MED ONCE IV 04/20/21 11:09 04/20/21 11:09 DC Heparin Sodium (Porcine) (Heparin) 5,000 unit STK-MED ONCE .ROUTE 04/20/21 11:09 04/20/21 11:09 DC Diltiazem HCl (Cardizem) 50 mg STK-MED ONCE IV 04/20/21 11:15 04/20/21 11:16 DC Acetaminophen (Tylenol) 1,000 mg Q6H PRN PO PAIN 1 - 3 04/20/21 16:30 05/20/21 16:29 Zolpidem Tartrate (Ambien) 5 mg HS PRN PO INSOMNIA 04/20/21 16:30 05/20/21 16:29 Acetaminophen/ Hydrocodone Bitart ([place] 5mg) 1 ea Q4H PRN PO PAIN 4 - 6 04/20/21 16:30 05/20/21 16:29 Diltiazem HCl (Cardizem) 30 mg Q6HR PO 04/20/21 18:00 04/20/21 16:36 DC Diltiazem HCl (Cardizem) 60 mg TID PO 04/20/21 21:00 05/20/21 20:59 04/21/21 09:41 Lisinopril (Zestril) 20 mg DAILY PO 04/21/21 09:00 05/21/21 08:59 04/21/21 09:41 Sotalol HCl (Betapace) 40 mg BID PO 04/20/21 21:00 05/20/21 20:59 04/21/21 09:40 Pantoprazole Sodium (Protonix) 40 mg DAILY PO 04/21/21 09:00 05/21/21 08:59 04/21/21 09:40 Ceftriaxone Sodium 1000 mg/ Sodium Chloride 100 ml @ 100 mls/hr Q24HRS IV 04/20/21 17:00 05/20/21 16:59 04/20/21 18:52 Sodium Chloride 100 ml @ ud STK-MED ONCE IV 04/20/21 18:35 04/20/21 18:35 DC Ceftriaxone Sodium (Rocephin) 1,000 mg STK-MED ONCE .ROUTE 04/20/21 18:35 04/20/21 18:35 DC Sodium Chloride 250 ml @ ud STK-MED ONCE .ROUTE 04/20/21 18:35 04/20/21 18:36 DC Enoxaparin Sodium (Lovenox) 100 mg Q12HR SQ 04/21/21 21:00 05/21/21 20:59 04/21/21 13:41 Enoxaparin Sodium (Lovenox) 100 mg STK-MED ONCE SQ 04/21/21 13:40 04/21/21 13:40 DC Warfarin Sodium (Coumadin) 7.5 mg DAILY24 PO 04/21/21 14:30 05/21/21 14:29 UNV Assessment/Plan Assessment/Plan Assessment/Plan 40-year-old male with history of atrial fibrillation, CAD, presented emergency room with right leg swelling and chest pain, hemoptysis. Work-up patient was found to have PE, DVT, A. fib with RVR. Plan We will switch the patient to Lovenox We will start the patient on warfarin, Daily INR/CBC We will continue Lovenox until INR therapeutic Problems: (1) Right leg DVT Status: Acute ICD Code: I82.401 - Acute embolism and thrombosis of unspecified deep veins of right lower extremity SNOMED: 744050598 (2) Pulmonary embolism ICD Code: I26.99 - Other pulmonary embolism without acute cor pulmonale SNOMED: 23575531 (3) Atrial fibrillation with RVR ICD Code: I48.91 - Unspecified atrial fibrillation SNOMED: 590021131860901 (4) CAD (coronary artery disease) ICD Code: I25.10 - Atherosclerotic heart disease of [place] coronary artery without angina pectoris SNOMED: 04846267 CONSTANZA CUNNINGHAM MD Apr 21, 2021 14:54
[2021-04-21 15:23] VITALS: BP 135/79
[2021-04-21] MEDS ORDERED: COUMADIN ONE ×2 (15:32)
[2021-04-21] MEDS: COUMADIN PO SCH (15:33)
[2021-04-21] MEDS: ROCEPHIN 1,000 MG in NS 100ML 100 ML IV SCH (17:20)
[2021-04-21 20:29] VITALS: BP 130/94
[2021-04-22 00:05] VITALS: BP 137/93
--- NOTE | 2021-04-22 01:55 | PCM.ECHO ---
APPROVED REPORT EXAM: Comprehensive 2D, Doppler, and color-flow Echocardiogram. Patient Location: IN-PATIENT Indications Large Pulmonary Embolism, assess RV 2D Dimensions LVOT Diameter 2.38 (1.8-2.4cm) LVEF(%) 57.80 (>50%) M-Mode Dimensions RVDd 2.20 (2.1-3.2cm) Left Atrium(MM) 4.85 (2.5-4.0cm) IVSd 1.20 (0.7-1.1cm) Aortic Root 3.70 (2.2-3.7cm) LVDd 4.90 (4.0-5.6cm) Aortic Cusp Exc 2.25 (1.5-2.0cm) PWd 0.60 (0.7-1.1cm) MV EPSS 0.62 (<0.5cm) IVSs 1.50 cm FS (%) 27.95 % LVDs 3.50 (2.0-3.8cm) ESV(Teich) 52.12 ml PWs 1.30 cm LVEF(%) 53.99 (>50%) Volumes Biplane 2D LV Volumes Biplane 2D LA Volumes LVEDv A4C 135.01 mL LA ESV Index LVESv A4C 56.98 mL Aortic Valve AoV Peak Ok. 1.10 m/s AoV VTI 19.70 cm AO Peak GR. 5.10 mmHg AO Mean GR. 3.05 mmHg LVOT VTI 18.59 cm LVOT Peak Ok. 0.86 m/s GABBY(VTI)/BSA 4.19 cm2/m2 GABBY (VTI) 4.19 cm2 AI P 1/2 Time 579.60 ms Mitral Valve MR Peak Gr. 13.35mmHg TDI Lateral E' P. V 0.06m/s Medial E' P. V 0.07m/s Pulmonary Valve PV Peak Velocity 0.80m/s PV Peak Grad. 2.70mmHg RVOT VTI 17.37cm Tricuspid Valve TR P. Velocity 1.55m/s RAP ESTIMATE 10.00mmHg TR Peak Gr. 9.86mmHg RVSP 19.86mmHg LEFT VENTRICLE The left ventricle is normal size. The left ventricular systolic function is normal. The left ventricular ejection fraction is within the normal range. There is normal left ventricular wall thickness. There is normal LV segmental wall motion. There is no ventricular septal defect visualized. No left ventricle thrombus noted on this study. LVEF is 55-60%. RIGHT VENTRICLE The right ventricle is normal size. The right ventricular systolic function is normal. There is normal right ventricular wall thickness. ATRIA The left atrium size is normal. The right atrium size is normal. The interatrial septum is intact with no evidence for an atrial septal defect. AORTIC VALVE The aortic valve is normal in structure. There is no aortic valvular stenosis. Moderate to severe aortic regurgitation There is no aortic valvular vegetation. MITRAL VALVE The mitral valve is normal in structure. There is no mitral valve stenosis. Mild mitral regurgitation. There is no evidence of mitral valve vegetations. TRICUSPID VALVE The tricuspid valve is normal in structure. There is no tricuspid valve stenosis. Mild tricuspid regurgitation. There is no tricuspid valve vegetations. PULMONIC VALVE Pulmonic valve is not well visualized. There is no pulmonic valvular stenosis. There is no pulmonic valvular regurgitation. GREAT VESSELS The aortic root is normal in size. Pulmonary artery is not well visualized. Aortic arch is not well visualized. The IVC is normal in size and collapses >50% with inspiration. PERICARDIUM There is no pericardial effusion. There is no pleural effusion. Other Information Study Quality: Fair <Conclusion> The left ventricular systolic function is normal. LVEF is 55-60%. Mild mitral regurgitation. Moderate to severe aortic regurgitation Mild tricuspid regurgitation. Electronically signed by : LA NENA MILLER. 04/22/2021 01:54:43
[2021-04-22 04:02] VITALS: BP 128/91
[2021-04-22 06:22] LABS: BASOPHIL # 0.1 10^3/uL (0.0-0.1); BASOPHIL % 1.1 % (0.0-0.2); EOSINOPHIL # 0.2 10^3/uL (0.0-0.2); EOSINOPHIL % 2.4 % (0.0-5.0); LYMPHOCYTES # 1.84 10^3/uL1 (1.0-4.8); MEAN CORP HGB 35.5 pg (26-34); MONOCYTES # 0.5 10^3/uL (0.3-0.8); MONOCYTES % 8.6 % (5.0-12.0); NEUTROPHIL # 3.5 10^3/uL (1.8-7.7); NEUTROPHILS % 57.9 % (41.0-85.0); PLATELET COUNT 309 10^3/uL (150-400)
[2021-04-22 06:34] LABS: CALCIUM 8.5 mg/dL (8.4-10.5); CARBON DIOXIDE 28.7 mmol/L (20.0-32)
[2021-04-22 08:07] VITALS: BP 134/92
[2021-04-22] MEDS: CARDIZEM PO SCH ×3 (09:00→20:42)
[2021-04-22] MEDS: LOVENOX SQ SCH ×2 (09:48→20:38)
[2021-04-22] MEDS: ZESTRIL PO SCH (09:49)
[2021-04-22] MEDS: PROTONIX PO SCH (09:49)
[2021-04-22] MEDS: BETAPACE PO SCH ×2 (09:50→20:39)
[2021-04-22 14:10] VITALS: BP 125/98
[2021-04-22] MEDS: COUMADIN PO SCH (15:45)
--- NOTE | 2021-04-22 16:16 | PRM.PN ---
Subjective Subjective Date: Apr 22, 2021 Time: 09:00 Subjective Patient is feeling better, chest pain improved, currently on Lovenox, warfarin started yesterday. Patient unable to afford Eliquis or new oral anticoagulants. Patient History: FH: esophageal cancer 32 MOTHER, FH: suicide 33 FATHER, , Age:30's - 40 VTE VTE Risk Total Score: 1 VTE Risk Score VTE Risk: Score 0-1 = Low Risk (Aggressive mobilization; early ambulation; no VTE prophylaxis required) Score 2: Moderate Risk (Intermittent/Pneumatic Compression Device OR Lovenox/Heparin/Coumadin) Score 3-4: High Risk (Intermittent/Pneumatic Compression Device AND Lovenox/Heparin/Coumadin) Score > or =5: Highest Risk (Intermittent/Pneumatic Compression Device AND Lovenox/Heparin/Coumadin) Antico:Hep/LMWH/Coum/Xarelto: Yes Review of Systems Respiratory: Shortness of breath, SOB with excertion Cardiovascular: Chest Pain, Palpitations, Other Musculoskeletal: other (Right leg swelling and pain) Allergies: Coded Allergies: No Known Allergies (Unverified , 06/30/16) Scheduled Apixaban (Eliquis), 5 MG PO BID Diltiazem Hcl (Cardizem), 60 MG PO TID Lisinopril (Lisinopril), 20 MG PO DAILY Omeprazole Magnesium (Prilosec Otc), 1 TAB PO QD Sotalol Hcl (Sotalol), 0.5 TAB PO BID Objective Vitals and I/O Vital Sign - Last 24 Hours 04/21/21 04/21/21 04/22/21 04/22/21 20:29 20:37 00:05 02:18 Temp 98.2 98.3 Pulse 80 80 67 Resp 18 16 B/P (MAP) 130/94 (106) 130/94 137/93 (108) Pulse Ox 99 96 O2 Delivery Room Air 04/22/21 04/22/21 04/22/21 04/22/21 04:02 08:07 09:00 09:49 Temp 98.4 98.0 Pulse 68 58 64 Resp 16 16 B/P (MAP) 128/91 (103) 134/92 (106) 134/92 134/92 Pulse Ox 97 98 O2 Delivery Room Air 04/22/21 04/22/21 04/22/21 09:58 14:10 15:00 Temp 98.4 Pulse 58 58 Resp 18 B/P (MAP) 125/98 (107) 125/98 Pulse Ox 99 O2 Delivery Room Air Room Air Intake and Output 04/22/21 07:00 Intake Total 2350 ml Balance 2350 ml General: Alert, Oriented X3, moderate distress HEENT: Atraumatic, PERRLA Lungs: Other (Fair bilateral air entry) Heart: Other (Irregular irregular) Abdomen: Normal bowel sounds, Soft Extremities: No clubbing, Other (Right leg swollen, tender and warm) Neuro: Normal speech, Strength at 5/5 X4 ext, Sensation intact Psych/Mental Status: Mental status NL, Mood NL All Results(Lab/Rad) Laboratory Tests Test 04/20/21 17:05 04/20/21 21:37 04/21/21 02:29 04/21/21 07:18 Activated Partial Thromboplast Time 25.9 SEC 27.0 SEC 29.2 SEC 26.7 SEC White Blood Count 6.4 10^3/uL Red Blood Count 5.05 10^6/uL Hemoglobin 17.7 g/dL Hematocrit 53.2 % Mean Corpuscular Volume 105.3 fL Mean Corpuscular Hemoglobin 35.0 pg Mean Corpuscular Hemoglobin Concent 33.3 g/dL Red Cell Distribution Width 13.9 % Platelet Count 308 10^3/uL Mean Platelet Volume 8.4 fL Neutrophils (%) (Auto) 68.1 % Lymphocytes (%) (Auto) 20.2 % Monocytes (%) (Auto) 8.6 % Neutrophils # (Auto) 4.3 10^3/uL Lymphocytes # (Auto) 1.29 10^3/uL1 Monocytes # (Auto) 0.6 10^3/uL Absolute Immature Granulocyte (auto 0.02 10^3 u/L Absolute Eosinophils (auto) 0.1 10^3/uL Immature Granulocytes % 0.30 % Eosinophils % 1.7 % Basophils % 1.1 % Basophils # 0.1 10^3/uL Sodium Level 139 mmol/L Potassium Level 4.0 mmol/L Chloride Level 103.0 mmol/L Carbon Dioxide Level 30.2 mmol/L Anion Gap 9.8 Blood Urea Nitrogen 4 mg/dL Creatinine 0.88 mg/dL Estimated GFR () 116.1 Est GFR (CKD-EPI)(Non-Afr [place]) 95.9 BUN/Creatinine Ratio 4.0 Glucose Level 109 mg/dL Calcium Level 8.2 mg/dL Total Bilirubin 0.8 mg/dL Aspartate Amino Transf (AST/SGOT) 30 U/L Alanine Aminotransferase (ALT/SGPT) 19 U/L Alkaline Phosphatase 152 U/L Total Protein 6.5 g/dL Albumin 2.4 g/dL Globulin 4.1 Albumin/Globulin Ratio 0.585 Test 04/21/21 12:17 Activated Partial Thromboplast Time 25.2 SEC Current Medications Medications (Trade) Dose Ordered Sig/Emre Route PRN Reason Start Time Stop Time Status Last Admin Dose Admin Albuterol/ Ipratropium (Duo 0.5-3(2.5) Mg/3 ml) 3 ml STAT STAT IH 04/20/21 08:34 04/20/21 08:35 DC 04/20/21 08:52 Albuterol/ Ipratropium (Duo 0.5-3(2.5) Mg/3 ml) 3 ml STK-MED ONCE IH 04/20/21 08:52 04/20/21 08:52 DC Heparin Sodium/ Dextrose 500 ml @ 0 mls/hr TITRATE STAT IV 04/20/21 10:53 04/20/21 10:58 DC 04/20/21 11:23 Heparin Sodium/ Dextrose 500 ml @ 0 mls/hr TITRATE IV 04/20/21 11:00 04/21/21 09:24 DC Heparin Sodium (Porcine) (Heparin Sodium) 1,764 unit OT STAT IV 04/20/21 10:58 04/20/21 11:00 DC 04/20/21 11:24 Diltiazem HCl (Cardizem) 25 mg STAT STAT IV 04/20/21 11:00 04/20/21 11:02 DC 04/20/21 11:24 Heparin Sodium/ Dextrose 500 ml @ ud STK-MED ONCE IV 04/20/21 11:09 04/20/21 11:09 DC Heparin Sodium (Porcine) (Heparin) 5,000 unit STK-MED ONCE .ROUTE 04/20/21 11:09 04/20/21 11:09 DC Diltiazem HCl (Cardizem) 50 mg STK-MED ONCE IV 04/20/21 11:15 04/20/21 11:16 DC Acetaminophen (Tylenol) 1,000 mg Q6H PRN PO PAIN 1 - 3 04/20/21 16:30 05/20/21 16:29 Zolpidem Tartrate (Ambien) 5 mg HS PRN PO INSOMNIA 04/20/21 16:30 05/20/21 16:29 Acetaminophen/ Hydrocodone Bitart ([place] 5mg) 1 ea Q4H PRN PO PAIN 4 - 6 04/20/21 16:30 05/20/21 16:29 Diltiazem HCl (Cardizem) 30 mg Q6HR PO 04/20/21 18:00 04/20/21 16:36 DC Diltiazem HCl (Cardizem) 60 mg TID PO 04/20/21 21:00 05/20/21 20:59 04/21/21 09:41 Lisinopril (Zestril) 20 mg DAILY PO 04/21/21 09:00 05/21/21 08:59 04/21/21 09:41 Sotalol HCl (Betapace) 40 mg BID PO 04/20/21 21:00 05/20/21 20:59 04/21/21 09:40 Pantoprazole Sodium (Protonix) 40 mg DAILY PO 04/21/21 09:00 05/21/21 08:59 04/21/21 09:40 Ceftriaxone Sodium 1000 mg/ Sodium Chloride 100 ml @ 100 mls/hr Q24HRS IV 04/20/21 17:00 05/20/21 16:59 04/20/21 18:52 Sodium Chloride 100 ml @ ud STK-MED ONCE IV 04/20/21 18:35 04/20/21 18:35 DC Ceftriaxone Sodium (Rocephin) 1,000 mg STK-MED ONCE .ROUTE 04/20/21 18:35 04/20/21 18:35 DC Sodium Chloride 250 ml @ ud STK-MED ONCE .ROUTE 04/20/21 18:35 04/20/21 18:36 DC Enoxaparin Sodium (Lovenox) 100 mg Q12HR SQ 04/21/21 21:00 05/21/21 20:59 04/21/21 13:41 Enoxaparin Sodium (Lovenox) 100 mg STK-MED ONCE SQ 10/8/21 13:40 04/21/21 13:40 DC Warfarin Sodium (Coumadin) 7.5 mg DAILY24 PO 04/21/21 14:30 05/21/21 14:29 UNV Assessment/Plan Assessment/Plan Assessment/Plan 40-year-old male with history of atrial fibrillation, CAD, presented emergency room with right leg swelling and chest pain, hemoptysis. Work-up patient was found to have PE, DVT, A. fib with RVR. Plan Started on warfarin, patient cannot afford to pay for [employer], for now Check INR daily Continue current meds Plan patient to be discharged home once INR is therapeutic, patient will be discharged on oral warfarin Problems: (1) Pulmonary embolism ICD Code: I26.99 - Other pulmonary embolism without acute cor pulmonale SNOMED: 78794070 (2) Right leg DVT Status: Acute ICD Code: I82.401 - Acute embolism and thrombosis of unspecified deep veins of right lower extremity SNOMED: 391887504 (3) CAD (coronary artery disease) ICD Code: I25.10 - Atherosclerotic heart disease of [place] coronary artery without angina pectoris SNOMED: 56247359 (4) Atrial fibrillation with RVR ICD Code: I48.91 - Unspecified atrial fibrillation SNOMED: 919776096466541 (5) Atrial fibrillation with rapid ventricular response ICD Code: I48.91 - Unspecified atrial fibrillation SNOMED: [id number] CONSTANZA CUNNINGHAM MD Apr 22, 2021 16:16
[2021-04-22] MEDS ORDERED: NS 100ML 100 ML IV ONE (16:25)
[2021-04-22] MEDS: ROCEPHIN 1,000 MG in NS 100ML 100 ML IV SCH (17:00)
[2021-04-22 20:00] VITALS: BP 123/86
[2021-04-23 00:01] VITALS: BP 123/80
[2021-04-23 04:00] VITALS: BP 122/79
[2021-04-23 07:35] VITALS: BP 119/77
[2021-04-23 07:41] LABS: BASOPHIL # 0.1 10^3/uL (0.0-0.1); BASOPHIL % 1.3 % (0.0-0.2); EOSINOPHIL # 0.1 10^3/uL (0.0-0.2); EOSINOPHIL % 2.3 % (0.0-5.0); LYMPHOCYTES # 1.69 10^3/uL1 (1.0-4.8); LYMPHOCYTES % 30.2 % (24.0-44.0); MEAN CORP HGB 36.1 pg (26-34); MONOCYTES # 0.6 10^3/uL (0.3-0.8); MONOCYTES % 10.2 % (5.0-12.0); NEUTROPHIL # 3.1 10^3/uL (1.8-7.7); PLATELET COUNT 283 10^3/uL (150-400); RED CELL DISTRIBUTION WIDTH 14.2 % (11.5-14.5)
[2021-04-23 07:58] LABS: CALCIUM 8.5 mg/dL (8.4-10.5); CARBON DIOXIDE 29.1 mmol/L (20.0-32)
[2021-04-23] MEDS: PROTONIX PO SCH (08:29)
[2021-04-23] MEDS: LOVENOX SQ SCH ×2 (08:29→20:26)
[2021-04-23] MEDS: ZESTRIL PO SCH (08:29)
[2021-04-23] MEDS: BETAPACE PO SCH ×2 (08:29→20:26)
[2021-04-23] MEDS: CARDIZEM PO SCH ×3 (08:29→20:26)
[2021-04-23 10:55] VITALS: BP 118/75
[2021-04-23] MEDS: COUMADIN PO SCH (14:30)
[2021-04-23 16:40] VITALS: BP 122/76
[2021-04-23] MEDS: ROCEPHIN 1,000 MG in NS 100ML 100 ML IV SCH (17:01)
--- NOTE | 2021-04-23 18:49 | PRM.PN ---
Subjective Subjective Date: Apr 23, 2021 Time: 09:20 Subjective Patient resting in bed in no acute distress. Reports the "swelling in my leg is 10 x better today". Denies any shortness of breath, chest pain or palpitation Patient History: FH: esophageal cancer 32 MOTHER, FH: suicide 33 FATHER, , Age:30's - 40 VTE VTE Risk Total Score: 1 VTE Risk Score VTE Risk: Score 0-1 = Low Risk (Aggressive mobilization; early ambulation; no VTE prophylaxis required) Score 2: Moderate Risk (Intermittent/Pneumatic Compression Device OR Lovenox/Heparin/Coumadin) Score 3-4: High Risk (Intermittent/Pneumatic Compression Device AND Lovenox/Heparin/Coumadin) Score > or =5: Highest Risk (Intermittent/Pneumatic Compression Device AND Lovenox/Heparin/Coumadin) Antico:Hep/LMWH/Coum/Xarelto: Yes Review of Systems Constitutional: No: Fever, Chills, Sweats, Weakness Eyes: No: Pain, Vision change ENT: No: Ear pain, Ear discharge, Nose pain, Nose discharge, Mouth pain Respiratory: Shortness of breath, SOB with excertion Cardiovascular: Chest Pain, Palpitations, Other Gastrointestinal: No: Nausea, Vomiting, Abdominal Pain, Diarrhea, Constipation, Melena, Hematochezia Genitourinary: No Dysuria, No Frequency, No Hematuria Musculoskeletal: other (Right leg swelling and pain) Skin: Other (right leg swelling) Neurological: No: Weakness, Numbness, Incoordination Allergies: Coded Allergies: No Known Allergies (Unverified , 06/30/16) Scheduled Apixaban (Eliquis), 5 MG PO BID Diltiazem Hcl (Cardizem), 60 MG PO TID Lisinopril (Lisinopril), 20 MG PO DAILY Omeprazole Magnesium (Prilosec Otc), 1 TAB PO QD Sotalol Hcl (Sotalol), 0.5 TAB PO BID Objective Vitals and I/O Vital Sign - Last 24 Hours 04/23/21 04/23/21 04/23/21 04/23/21 07:35 08:29 08:29 10:25 Temp 98.3 Pulse 68 68 Resp 15 B/P (MAP) 119/77 (91) 119/77 119/77 Pulse Ox 100 O2 Delivery Room Air 04/23/21 04/23/21 04/23/21 10:55 15:50 16:40 Temp 97.9 98.4 Pulse 64 64 60 Resp 16 16 B/P (MAP) 118/75 (89) 118/75 122/76 (91) Pulse Ox 100 95 O2 Delivery Room Air General: Alert, Oriented X3, No acute distress, moderate distress HEENT: Atraumatic, PERRLA Lungs: Other (Fair bilateral air entry) Heart: Other (Irregular irregular) Abdomen: Normal bowel sounds, Soft Extremities: No clubbing, Other (Right leg swollen, tender and warm) Neuro: Normal speech, Strength at 5/5 X4 ext, Sensation intact Psych/Mental Status: Mental status NL, Mood NL All Results(Lab/Rad) Laboratory Tests Test 04/20/21 17:05 04/20/21 21:37 04/21/21 02:29 04/21/21 07:18 Activated Partial Thromboplast Time 25.9 SEC 27.0 SEC 29.2 SEC 26.7 SEC White Blood Count 6.4 10^3/uL Red Blood Count 5.05 10^6/uL Hemoglobin 17.7 g/dL Hematocrit 53.2 % Mean Corpuscular Volume 105.3 fL Mean Corpuscular Hemoglobin 35.0 pg Mean Corpuscular Hemoglobin Concent 33.3 g/dL Red Cell Distribution Width 13.9 % Platelet Count 308 10^3/uL Mean Platelet Volume 8.4 fL Neutrophils (%) (Auto) 68.1 % Lymphocytes (%) (Auto) 20.2 % Monocytes (%) (Auto) 8.6 % Neutrophils # (Auto) 4.3 10^3/uL Lymphocytes # (Auto) 1.29 10^3/uL1 Monocytes # (Auto) 0.6 10^3/uL Absolute Immature Granulocyte (auto 0.02 10^3 u/L Absolute Eosinophils (auto) 0.1 10^3/uL Immature Granulocytes % 0.30 % Eosinophils % 1.7 % Basophils % 1.1 % Basophils # 0.1 10^3/uL Sodium Level 139 mmol/L Potassium Level 4.0 mmol/L Chloride Level 103.0 mmol/L Carbon Dioxide Level 30.2 mmol/L Anion Gap 9.8 Blood Urea Nitrogen 4 mg/dL Creatinine 0.88 mg/dL Estimated GFR () 116.1 Est GFR (CKD-EPI)(Non-Afr Hungarian) 95.9 BUN/Creatinine Ratio 4.0 Glucose Level 109 mg/dL Calcium Level 8.2 mg/dL Total Bilirubin 0.8 mg/dL Aspartate Amino Transf (AST/SGOT) 30 U/L Alanine Aminotransferase (ALT/SGPT) 19 U/L Alkaline Phosphatase 152 U/L Total Protein 6.5 g/dL Albumin 2.4 g/dL Globulin 4.1 Albumin/Globulin Ratio 0.585 Test 04/21/21 12:17 Activated Partial Thromboplast Time 25.2 SEC Current Medications Medications (Trade) Dose Ordered Sig/Emre Route PRN Reason Start Time Stop Time Status Last Admin Dose Admin Albuterol/ Ipratropium (Duo 0.5-3(2.5) Mg/3 ml) 3 ml STAT STAT IH 04/20/21 08:34 04/20/21 08:35 DC 04/20/21 08:52 Albuterol/ Ipratropium (Duo 0.5-3(2.5) Mg/3 ml) 3 ml STK-MED ONCE IH 04/20/21 08:52 04/20/21 08:52 DC Heparin Sodium/ Dextrose 500 ml @ 0 mls/hr TITRATE STAT IV 04/20/21 10:53 04/20/21 10:58 DC 04/20/21 11:23 Heparin Sodium/ Dextrose 500 ml @ 0 mls/hr TITRATE IV 04/20/21 11:00 04/21/21 09:24 DC Heparin Sodium (Porcine) (Heparin Sodium) 1,764 unit OT STAT IV 04/20/21 10:58 04/20/21 11:00 DC 04/20/21 11:24 Diltiazem HCl (Cardizem) 25 mg STAT STAT IV 04/20/21 11:00 04/20/21 11:02 DC 04/20/21 11:24 Heparin Sodium/ Dextrose 500 ml @ ud STK-MED ONCE IV 04/20/21 11:09 04/20/21 11:09 DC Heparin Sodium (Porcine) (Heparin) 5,000 unit STK-MED ONCE .ROUTE 04/20/21 11:09 04/20/21 11:09 DC Diltiazem HCl (Cardizem) 50 mg STK-MED ONCE IV 04/20/21 11:15 04/20/21 11:16 DC Acetaminophen (Tylenol) 1,000 mg Q6H PRN PO PAIN 1 - 3 04/20/21 16:30 05/20/21 16:29 Zolpidem Tartrate (Ambien) 5 mg HS PRN PO INSOMNIA 04/20/21 16:30 05/20/21 16:29 Acetaminophen/ Hydrocodone Bitart ([place] 5mg) 1 ea Q4H PRN PO PAIN 4 - 6 04/20/21 16:30 05/20/21 16:29 Diltiazem HCl (Cardizem) 30 mg Q6HR PO 04/20/21 18:00 04/20/21 16:36 DC Diltiazem HCl (Cardizem) 60 mg TID PO 04/20/21 21:00 05/20/21 20:59 04/21/21 09:41 Lisinopril (Zestril) 20 mg DAILY PO 04/21/21 09:00 05/21/21 08:59 04/21/21 09:41 Sotalol HCl (Betapace) 40 mg BID PO 04/20/21 21:00 05/20/21 20:59 04/21/21 09:40 Pantoprazole Sodium (Protonix) 40 mg DAILY PO 04/21/21 09:00 05/21/21 08:59 04/21/21 09:40 Ceftriaxone Sodium 1000 mg/ Sodium Chloride 100 ml @ 100 mls/hr Q24HRS IV 04/20/21 17:00 05/20/21 16:59 04/20/21 18:52 Sodium Chloride 100 ml @ ud STK-MED ONCE IV 04/20/21 18:35 04/20/21 18:35 DC Ceftriaxone Sodium (Rocephin) 1,000 mg STK-MED ONCE .ROUTE 04/20/21 18:35 04/20/21 18:35 DC Sodium Chloride 250 ml @ ud STK-MED ONCE .ROUTE 04/20/21 18:35 04/20/21 18:36 DC Enoxaparin Sodium (Lovenox) 100 mg Q12HR SQ 04/21/21 21:00 05/21/21 20:59 04/21/21 13:41 Enoxaparin Sodium (Lovenox) 100 mg STK-MED ONCE SQ 04/21/21 13:40 04/21/21 13:40 DC Warfarin Sodium (Coumadin) 7.5 mg DAILY24 PO 04/21/21 14:30 05/21/21 14:29 UNV Course Sepsis Screening Results: Posi: NEGATIVE Sepsis Qualifier/Stage: NO DEFINITE RISK DATE SEEN BY PHYSICIAN: Apr 23, 2021 TIME SEEN BY PROVIDER: 09:20 Duration or Total Time Spent w: 45 min Vitals & review Data Vital Sign - Last 24 Hours 04/23/21 04/23/21 04/23/21 04/23/21 07:35 08:29 08:29 10:25 Temp 98.3 Pulse 68 68 Resp 15 B/P (MAP) 119/77 (91) 119/77 119/77 Pulse Ox 100 O2 Delivery Room Air 04/23/21 04/23/21 04/23/21 10:55 15:50 16:40 Temp 97.9 98.4 Pulse 64 64 60 Resp 16 16 B/P (MAP) 118/75 (89) 118/75 122/76 (91) Pulse Ox 100 95 O2 Delivery Room Air Laboratory Tests Test 04/22/21 05:12 04/23/21 06:39 White Blood Count 6.1 10^3/uL 5.6 10^3/uL Red Blood Count 4.53 10^6/uL 4.49 10^6/uL Hemoglobin 16.1 g/dL 16.2 g/dL Hematocrit 47.9 % 48.6 % Mean Corpuscular Volume 105.7 fL 108.2 fL Mean Corpuscular Hemoglobin 35.5 pg 36.1 pg Mean Corpuscular Hemoglobin Concent 33.6 g/dL 33.3 g/dL Red Cell Distribution Width 14.0 % 14.2 % Platelet Count 309 10^3/uL 283 10^3/uL Mean Platelet Volume 9.1 fL 9.2 fL Neutrophils (%) (Auto) 57.9 % 56.0 % Lymphocytes (%) (Auto) 30.0 % 30.2 % Monocytes (%) (Auto) 8.6 % 10.2 % Neutrophils # (Auto) 3.5 10^3/uL 3.1 10^3/uL Lymphocytes # (Auto) 1.84 10^3/uL1 1.69 10^3/uL1 Monocytes # (Auto) 0.5 10^3/uL 0.6 10^3/uL Absolute Immature Granulocyte (auto 0.03 10^3 u/L 0.04 10^3 u/L Absolute Eosinophils (auto) 0.2 10^3/uL 0.1 10^3/uL Immature Granulocytes % 0.50 % 0.70 % Eosinophils % 2.4 % 2.3 % Basophils % 1.1 % 1.3 % Basophils # 0.1 10^3/uL 0.1 10^3/uL Prothrombin Time 11.0 SEC 11.3 SEC Prothrombin Time INR (Non-Therap) 1.0 1.1 Sodium Level 138 mmol/L 141 mmol/L Potassium Level 3.7 mmol/L 3.7 mmol/L Chloride Level 103.0 mmol/L 106.0 mmol/L Carbon Dioxide Level 28.7 mmol/L 29.1 mmol/L Glucose Level 100 mg/dL 90 mg/dL Blood Urea Nitrogen 5 mg/dL 5 mg/dL Creatinine 0.83 mg/dL 1.04 mg/dL Calcium Level 8.5 mg/dL 8.5 mg/dL Anion Gap 10.0 9.6 Estimated GFR () 124.2 95.7 Est GFR (CKD-EPI)(Non-Afr Hungarian) 102.6 79.1 BUN/Creatinine Ratio 6.0 4.0 Current Medications Medications (Trade) Dose Ordered Sig/Emre PRN Reason Start Time Stop Time Status Last Admin Diltiazem HCl (Cardizem) 60 mg TID 04/20/21 21:00 05/20/21 20:59 04/23/21 15:50 Enoxaparin Sodium (Lovenox) 100 mg Q12HR 04/21/21 21:00 05/21/21 20:59 04/23/21 08:29 Lisinopril (Zestril) 20 mg DAILY 04/21/21 09:00 05/21/21 08:59 04/23/21 08:29 Nicotine (Nicotine 7mg Patch) 1 each DAILY 04/24/21 09:00 05/24/21 08:59 UNV Pantoprazole Sodium (Protonix) 40 mg DAILY 04/21/21 09:00 05/21/21 08:59 04/23/21 08:29 Sotalol HCl (Betapace) 40 mg BID 04/20/21 21:00 05/20/21 20:59 04/23/21 08:29 Warfarin Sodium (Coumadin) 7.5 mg DAILY24 04/21/21 14:30 05/21/21 14:29 04/23/21 14:30 LEVEL 1 SEPSIS INFECTION CRITE: Cough/Shortness of Breath LEVEL 2-SIRS (LIST ALL THAT AP: None/Not assessed Cardiovascular Evidence: Not Assessed or None Hematologic Evidence: None/Not assessed Hepatic Evidence: None/Not assessed Metabolic Evidence: None/Not assessed Neurological Evidence: None/Not assessed Respiratory Evidence: None/Not assessed Renal Evidence: None/Not assessed O2 Sat by Pulse Oximetry: 95 Assessment/Plan Assessment/Plan Assessment/Plan 40-year-old male with history of atrial fibrillation, CAD, admitted for right leg swelling and chest pain, hemoptysis. Work-up patient was found to have PE, DVT, A. fib with RVR. ASSESSMENT PE, DVT, A. fib with RVR. PLAN Started on warfarin, patient cannot afford to pay for Eliquis On Rocephin 1g qd Continue Lovenox, for now continue Sotatol for arrhythmia continue Lisinopril Check INR daily (INR 1.1 on 04/23/21) Continue current meds Disposition: Plan patient to be discharged home once INR is therapeutic, patient will be discharged on oral warfarin JOCE BHAGAT NP Apr 23, 2021 18:49
[2021-04-23] MEDS: NICOTINE 7MG PATCH TD SCH (19:38)
[2021-04-23 20:57] VITALS: BP 148/98
[2021-04-24 00:21] VITALS: BP 137/86
[2021-04-24 03:56] VITALS: BP 131/81
[2021-04-24 06:18] LABS: BASOPHIL # 0.1 10^3/uL (0.0-0.1); BASOPHIL % 1.2 % (0.0-0.2); EOSINOPHIL # 0.2 10^3/uL (0.0-0.2); EOSINOPHIL % 2.6 % (0.0-5.0); LYMPHOCYTES % 29.2 % (24.0-44.0); MEAN CORP HGB 34.7 pg (26-34); MONOCYTES # 0.7 10^3/uL (0.3-0.8); MONOCYTES % 11.5 % (5.0-12.0); NEUTROPHIL # 3.2 10^3/uL (1.8-7.7); NEUTROPHILS % 55.2 % (41.0-85.0); PLATELET COUNT 285 10^3/uL (150-400); RED CELL DISTRIBUTION WIDTH 14.2 % (11.5-14.5)
[2021-04-24 06:19] LABS: CARBON DIOXIDE 28.1 mmol/L (20.0-32)
[2021-04-24 06:20] LABS: CALCIUM 8.7 mg/dL (8.4-10.5)
[2021-04-24 08:27] VITALS: BP 132/88
[2021-04-24] MEDS: CARDIZEM PO SCH ×3 (09:00→20:53)
[2021-04-24] MEDS: LOVENOX SQ SCH ×2 (09:00→20:52)
[2021-04-24] MEDS: PROTONIX PO SCH (09:00)
[2021-04-24] MEDS: BETAPACE PO SCH ×2 (09:00→20:52)
[2021-04-24] MEDS: ZESTRIL PO SCH (09:00)
[2021-04-24 11:38] VITALS: BP 131/88
[2021-04-24] MEDS: COUMADIN PO SCH (14:30)
[2021-04-24] MEDS: ROCEPHIN 1,000 MG in NS 100ML 100 ML IV SCH (17:04)
[2021-04-24] MEDS ORDERED: NS 250ML 250 ML ONE (17:05)
[2021-04-24 17:37] VITALS: BP 131/90
--- NOTE | 2021-04-24 18:25 | PRM.PN ---
Subjective Subjective Date: Apr 24, 2021 Time: 09:15 Subjective Patient resting in bed in no acute distress. Reports the "swelling in my leg is 10 x better today". Denies any shortness of breath, chest pain or palpitation Patient History: FH: esophageal cancer 32 MOTHER, FH: suicide 33 FATHER, , Age:30's - 40 VTE VTE Risk Total Score: 1 VTE Risk Score VTE Risk: Score 0-1 = Low Risk (Aggressive mobilization; early ambulation; no VTE prophylaxis required) Score 2: Moderate Risk (Intermittent/Pneumatic Compression Device OR Lovenox/Heparin/Coumadin) Score 3-4: High Risk (Intermittent/Pneumatic Compression Device AND Lovenox/Heparin/Coumadin) Score > or =5: Highest Risk (Intermittent/Pneumatic Compression Device AND Lovenox/Heparin/Coumadin) Antico:Hep/LMWH/Coum/Xarelto: Yes Review of Systems Constitutional: No: Fever, Chills, Sweats, Weakness Eyes: No: Pain, Vision change ENT: No: Ear pain, Ear discharge, Nose pain, Nose discharge, Mouth pain Respiratory: Shortness of breath, SOB with excertion Cardiovascular: Chest Pain, Palpitations, Other Gastrointestinal: No: Nausea, Vomiting, Abdominal Pain, Diarrhea, Constipation, Melena, Hematochezia Genitourinary: No Dysuria, No Frequency, No Hematuria Musculoskeletal: other (Right leg swelling and pain) Skin: Other (right leg swelling) Neurological: No: Weakness, Numbness, Incoordination Allergies: Coded Allergies: No Known Allergies (Unverified , 06/30/16) Scheduled Apixaban (Eliquis), 5 MG PO BID Diltiazem Hcl (Cardizem), 60 MG PO TID Lisinopril (Lisinopril), 20 MG PO DAILY Omeprazole Magnesium (Prilosec Otc), 1 TAB PO QD Sotalol Hcl (Sotalol), 0.5 TAB PO BID Objective Vitals and I/O Vital Sign - Last 24 Hours 04/24/21 04/24/21 04/24/21 04/24/21 08:27 09:00 09:00 11:38 Temp 97.8 98.1 Pulse 57 57 59 Resp 17 18 B/P (MAP) 132/88 (103) 132/88 132/88 131/88 (102) Pulse Ox 98 97 04/24/21 04/24/21 04/24/21 13:15 15:53 17:37 Temp 98.2 Pulse 59 58 Resp 18 B/P (MAP) 131/88 131/90 (104) Pulse Ox 98 O2 Delivery Room Air Intake and Output 04/24/21 07:00 Intake Total 240 ml Balance 240 ml General: Alert, Oriented X3, No acute distress, moderate distress HEENT: Atraumatic, PERRLA Lungs: Other (Fair bilateral air entry) Heart: Other (Irregular irregular) Abdomen: Normal bowel sounds, Soft Extremities: No clubbing, Other (Right leg swollen, tender and warm) Neuro: Normal speech, Strength at 5/5 X4 ext, Sensation intact Psych/Mental Status: Mental status NL, Mood NL All Results(Lab/Rad) Laboratory Tests Test 04/20/21 17:05 04/20/21 21:37 04/21/21 02:29 04/21/21 07:18 Activated Partial Thromboplast Time 25.9 SEC 27.0 SEC 29.2 SEC 26.7 SEC White Blood Count 6.4 10^3/uL Red Blood Count 5.05 10^6/uL Hemoglobin 17.7 g/dL Hematocrit 53.2 % Mean Corpuscular Volume 105.3 fL Mean Corpuscular Hemoglobin 35.0 pg Mean Corpuscular Hemoglobin Concent 33.3 g/dL Red Cell Distribution Width 13.9 % Platelet Count 308 10^3/uL Mean Platelet Volume 8.4 fL Neutrophils (%) (Auto) 68.1 % Lymphocytes (%) (Auto) 20.2 % Monocytes (%) (Auto) 8.6 % Neutrophils # (Auto) 4.3 10^3/uL Lymphocytes # (Auto) 1.29 10^3/uL1 Monocytes # (Auto) 0.6 10^3/uL Absolute Immature Granulocyte (auto 0.02 10^3 u/L Absolute Eosinophils (auto) 0.1 10^3/uL Immature Granulocytes % 0.30 % Eosinophils % 1.7 % Basophils % 1.1 % Basophils # 0.1 10^3/uL Sodium Level 139 mmol/L Potassium Level 4.0 mmol/L Chloride Level 103.0 mmol/L Carbon Dioxide Level 30.2 mmol/L Anion Gap 9.8 Blood Urea Nitrogen 4 mg/dL Creatinine 0.88 mg/dL Estimated GFR () 116.1 Est GFR (CKD-EPI)(Non-Afr British) 95.9 BUN/Creatinine Ratio 4.0 Glucose Level 109 mg/dL Calcium Level 8.2 mg/dL Total Bilirubin 0.8 mg/dL Aspartate Amino Transf (AST/SGOT) 30 U/L Alanine Aminotransferase (ALT/SGPT) 19 U/L Alkaline Phosphatase 152 U/L Total Protein 6.5 g/dL Albumin 2.4 g/dL Globulin 4.1 Albumin/Globulin Ratio 0.585 Test 04/21/21 12:17 Activated Partial Thromboplast Time 25.2 SEC Current Medications Medications (Trade) Dose Ordered Sig/Emre Route PRN Reason Start Time Stop Time Status Last Admin Dose Admin Albuterol/ Ipratropium (Duo 0.5-3(2.5) Mg/3 ml) 3 ml STAT STAT IH 04/20/21 08:34 04/20/21 08:35 DC 04/20/21 08:52 Albuterol/ Ipratropium (Duo 0.5-3(2.5) Mg/3 ml) 3 ml STK-MED ONCE IH 04/20/21 08:52 04/20/21 08:52 DC Heparin Sodium/ Dextrose 500 ml @ 0 mls/hr TITRATE STAT IV 04/20/21 10:53 04/20/21 10:58 DC 04/20/21 11:23 Heparin Sodium/ Dextrose 500 ml @ 0 mls/hr TITRATE IV 04/20/21 11:00 04/21/21 09:24 DC Heparin Sodium (Porcine) (Heparin Sodium) 1,764 unit OT STAT IV 04/20/21 10:58 04/20/21 11:00 DC 04/20/21 11:24 Diltiazem HCl (Cardizem) 25 mg STAT STAT IV 04/20/21 11:00 04/20/21 11:02 DC 04/20/21 11:24 Heparin Sodium/ Dextrose 500 ml @ ud STK-MED ONCE IV 04/20/21 11:09 04/20/21 11:09 DC Heparin Sodium (Porcine) (Heparin) 5,000 unit STK-MED ONCE .ROUTE 04/20/21 11:09 04/20/21 11:09 DC Diltiazem HCl (Cardizem) 50 mg STK-MED ONCE IV 04/20/21 11:15 04/20/21 11:16 DC Acetaminophen (Tylenol) 1,000 mg Q6H PRN PO PAIN 1 - 3 04/20/21 16:30 05/20/21 16:29 Zolpidem Tartrate (Ambien) 5 mg HS PRN PO INSOMNIA 04/20/21 16:30 05/20/21 16:29 Acetaminophen/ Hydrocodone Bitart ([place] 5mg) 1 ea Q4H PRN PO PAIN 4 - 6 04/20/21 16:30 05/20/21 16:29 Diltiazem HCl (Cardizem) 30 mg Q6HR PO 04/20/21 18:00 04/20/21 16:36 DC Diltiazem HCl (Cardizem) 60 mg TID PO 04/20/21 21:00 05/20/21 20:59 04/21/21 09:41 Lisinopril (Zestril) 20 mg DAILY PO 04/21/21 09:00 05/21/21 08:59 04/21/21 09:41 Sotalol HCl (Betapace) 40 mg BID PO 04/20/21 21:00 05/20/21 20:59 04/21/21 09:40 Pantoprazole Sodium (Protonix) 40 mg DAILY PO 04/21/21 09:00 05/21/21 08:59 04/21/21 09:40 Ceftriaxone Sodium 1000 mg/ Sodium Chloride 100 ml @ 100 mls/hr Q24HRS IV 04/20/21 17:00 05/20/21 16:59 04/20/21 18:52 Sodium Chloride 100 ml @ ud STK-MED ONCE IV 04/20/21 18:35 04/20/21 18:35 DC Ceftriaxone Sodium (Rocephin) 1,000 mg STK-MED ONCE .ROUTE 04/20/21 18:35 04/20/21 18:35 DC Sodium Chloride 250 ml @ ud STK-MED ONCE .ROUTE 04/20/21 18:35 04/20/21 18:36 DC Enoxaparin Sodium (Lovenox) 100 mg Q12HR SQ 04/21/21 21:00 05/21/21 20:59 04/21/21 13:41 Enoxaparin Sodium (Lovenox) 100 mg STK-MED ONCE SQ 04/21/21 13:40 04/21/21 13:40 DC Warfarin Sodium (Coumadin) 7.5 mg DAILY24 PO 04/21/21 14:30 05/21/21 14:29 UNV Course Sepsis Screening Results: Posi: NEGATIVE Sepsis Qualifier/Stage: NO DEFINITE RISK DATE SEEN BY PHYSICIAN: Apr 24, 2021 TIME SEEN BY PROVIDER: 09:15 Duration or Total Time Spent w: 20 Vitals & review Data Vital Sign - Last 24 Hours 04/23/21 04/23/21 04/23/21 04/23/21 07:35 08:29 08:29 10:25 Temp 98.3 Pulse 68 68 Resp 15 B/P (MAP) 119/77 (91) 119/77 119/77 Pulse Ox 100 O2 Delivery Room Air 04/23/21 04/23/21 04/23/21 10:55 15:50 16:40 Temp 97.9 98.4 Pulse 64 64 60 Resp 16 16 B/P (MAP) 118/75 (89) 118/75 122/76 (91) Pulse Ox 100 95 O2 Delivery Room Air Laboratory Tests Test 04/22/21 05:12 04/23/21 06:39 White Blood Count 6.1 10^3/uL 5.6 10^3/uL Red Blood Count 4.53 10^6/uL 4.49 10^6/uL Hemoglobin 16.1 g/dL 16.2 g/dL Hematocrit 47.9 % 48.6 % Mean Corpuscular Volume 105.7 fL 108.2 fL Mean Corpuscular Hemoglobin 35.5 pg 36.1 pg Mean Corpuscular Hemoglobin Concent 33.6 g/dL 33.3 g/dL Red Cell Distribution Width 14.0 % 14.2 % Platelet Count 309 10^3/uL 283 10^3/uL Mean Platelet Volume 9.1 fL 9.2 fL Neutrophils (%) (Auto) 57.9 % 56.0 % Lymphocytes (%) (Auto) 30.0 % 30.2 % Monocytes (%) (Auto) 8.6 % 10.2 % Neutrophils # (Auto) 3.5 10^3/uL 3.1 10^3/uL Lymphocytes # (Auto) 1.84 10^3/uL1 1.69 10^3/uL1 Monocytes # (Auto) 0.5 10^3/uL 0.6 10^3/uL Absolute Immature Granulocyte (auto 0.03 10^3 u/L 0.04 10^3 u/L Absolute Eosinophils (auto) 0.2 10^3/uL 0.1 10^3/uL Immature Granulocytes % 0.50 % 0.70 % Eosinophils % 2.4 % 2.3 % Basophils % 1.1 % 1.3 % Basophils # 0.1 10^3/uL 0.1 10^3/uL Prothrombin Time 11.0 SEC 11.3 SEC Prothrombin Time INR (Non-Therap) 1.0 1.1 Sodium Level 138 mmol/L 141 mmol/L Potassium Level 3.7 mmol/L 3.7 mmol/L Chloride Level 103.0 mmol/L 106.0 mmol/L Carbon Dioxide Level 28.7 mmol/L 29.1 mmol/L Glucose Level 100 mg/dL 90 mg/dL Blood Urea Nitrogen 5 mg/dL 5 mg/dL Creatinine 0.83 mg/dL 1.04 mg/dL Calcium Level 8.5 mg/dL 8.5 mg/dL Anion Gap 10.0 9.6 Estimated GFR () 124.2 95.7 Est GFR (CKD-EPI)(Non-Afr British) 102.6 79.1 BUN/Creatinine Ratio 6.0 4.0 Current Medications Medications (Trade) Dose Ordered Sig/Emre PRN Reason Start Time Stop Time Status Last Admin Diltiazem HCl (Cardizem) 60 mg TID 04/20/21 21:00 05/20/21 20:59 04/23/21 15:50 Enoxaparin Sodium (Lovenox) 100 mg Q12HR 04/21/21 21:00 05/21/21 20:59 04/23/21 08:29 Lisinopril (Zestril) 20 mg DAILY 04/21/21 09:00 05/21/21 08:59 04/23/21 08:29 Nicotine (Nicotine 7mg Patch) 1 each DAILY 04/24/21 09:00 05/24/21 08:59 UNV Pantoprazole Sodium (Protonix) 40 mg DAILY 04/21/21 09:00 05/21/21 08:59 04/23/21 08:29 Sotalol HCl (Betapace) 40 mg BID 04/20/21 21:00 05/20/21 20:59 04/23/21 08:29 Warfarin Sodium (Coumadin) 7.5 mg DAILY24 04/21/21 14:30 05/21/21 14:29 04/23/21 14:30 LEVEL 1 SEPSIS INFECTION CRITE: Flu-Pneumonia LEVEL 2-SIRS (LIST ALL THAT AP: None/Not assessed Cardiovascular Evidence: Not Assessed or None Hematologic Evidence: None/Not assessed Hepatic Evidence: None/Not assessed Metabolic Evidence: None/Not assessed Neurological Evidence: None/Not assessed Respiratory Evidence: None/Not assessed Renal Evidence: None/Not assessed O2 Sat by Pulse Oximetry: 98 Assessment/Plan Assessment/Plan Assessment/Plan 40-year-old male with history of atrial fibrillation, CAD, admitted for right leg swelling and chest pain, hemoptysis. Work-up patient was found to have PE, DVT, A. fib with RVR. ASSESSMENT PE, DVT, A. fib with RVR. PLAN Started on warfarin, patient cannot afford to pay for [employer] On Rocephin 1g qd Continue Lovenox, for now continue Sotatol for arrhythmia continue Lisinopril Check INR daily (INR 1.1 on 04/23/21) Continue current meds Disposition: Plan patient to be discharged home once INR is therapeutic, patient will be discharged on oral warfarin JOCE BHAGAT NP Apr 24, 2021 18:25
[2021-04-25 04:00] VITALS: BP 132/85
[2021-04-25 04:43] VITALS: BP 137/93
[2021-04-25 05:18] LABS: BASOPHIL # 0.1 10^3/uL (0.0-0.1); BASOPHIL % 0.9 % (0.0-0.2); EOSINOPHIL # 0.1 10^3/uL (0.0-0.2); EOSINOPHIL % 2.2 % (0.0-5.0); LYMPHOCYTES # 2.09 10^3/uL1 (1.0-4.8); LYMPHOCYTES % 32.3 % (24.0-44.0); MEAN CORP HGB 35.7 pg (26-34); MONOCYTES # 0.7 10^3/uL (0.3-0.8); NEUTROPHIL # 3.5 10^3/uL (1.8-7.7); NEUTROPHILS % 53.6 % (41.0-85.0); PLATELET COUNT 278 10^3/uL (150-400); RED CELL DISTRIBUTION WIDTH 13.9 % (11.5-14.5)
[2021-04-25] MEDS: CARDIZEM PO SCH ×2 (08:45→14:36)
[2021-04-25] MEDS: NICOTINE 7MG PATCH TD SCH (08:45)
[2021-04-25] MEDS: PROTONIX PO SCH (08:45)
[2021-04-25] MEDS: BETAPACE PO SCH (08:45)
[2021-04-25] MEDS: LOVENOX SQ SCH (08:45)
[2021-04-25] MEDS: ZESTRIL PO SCH (08:45)
[2021-04-25 08:54] VITALS: BP 135/86
[2021-04-25 12:05] VITALS: BP 152/96
[2021-04-25] MEDS: COUMADIN PO SCH (14:37)
[2021-04-25] MEDS ORDERED: WARF10TA PO (14:49)
--- NOTE | 2021-04-25 15:03 | NUR ---
DISCHARGE PLANNING CM VISITED WITH PATIENT ABOUT DISCHARGE PLANS AND NEEDS. PATIENT CURRENTLY LIVES HOME WITH HIS BROTHER AND IND WITH [facility] PRIOR TO HOSPITAL VISIT. NO DME IN PLACE. PATIENT DOES NOT HAVE A PCP AND PCP LIST GIVEN. PATIENT REPORTS EX JUST SET HIM UP WITH [facility] ATTENDANT IN [place] - YOUSIF TREVINO NP. PATIENT ALSO GIVEN INFORMATION ON [facility] FOR RESOURCES. PLAN TO DISCHARGE HOME TO SELF CARE AND STAY WITH HIS BROTHER AND FOLLOW UP WITH YOUSIF TREVINO NP.
--- NOTE | 2021-04-25 15:10 | PRM.DC ---
Discharge Summary Date of Discharge: Apr 25, 2021 Time of Request to Discharge: 15:05 Reason for Visit: Shortness of breath Patient History: FH: esophageal cancer 32 MOTHER, FH: suicide 33 FATHER, , Age:30's - 40 General: Alert, Oriented X3, Cooperative, No acute distress HEENT: Atraumatic, Mucous membr. moist/pink Neck: Supple, No thyromegaly Lungs: Clear to auscultation Heart: Normal S1, Normal S2, Other (non pitting edema +1 RLE, [place] in color) Abdomen: Normal bowel sounds, No tenderness Extremities: No clubbing, No cyanosis, Normal pulses, Other (Edema +1 RLE) Skin: No rashes, No breakdown Neuro: Normal gait, Normal speech, Normal tone Psych/Mental Status: Mental status NL, Mood NL Scheduled Apixaban (Eliquis), 5 MG PO BID Diltiazem Hcl (Cardizem), 60 MG PO TID Lisinopril (Lisinopril), 20 MG PO DAILY Omeprazole Magnesium (Prilosec Otc), 1 TAB PO QD Sotalol Hcl (Sotalol), 0.5 TAB PO BID Warfarin Sodium (Warfarin Sodium), 10 MG PO DAILY24 Sepsis Evaluation @ Discharge Vital Sign - Last 24 Hours 04/23/21 04/23/21 04/23/21 04/23/21 07:35 08:29 08:29 10:25 Temp 98.3 Pulse 68 68 Resp 15 B/P (MAP) 119/77 (91) 119/77 119/77 Pulse Ox 100 O2 Delivery Room Air 04/23/21 04/23/21 04/23/21 10:55 15:50 16:40 Temp 97.9 98.4 Pulse 64 64 60 Resp 16 16 B/P (MAP) 118/75 (89) 118/75 122/76 (91) Pulse Ox 100 95 O2 Delivery Room Air Laboratory Tests Test 04/22/21 05:12 04/23/21 06:39 White Blood Count 6.1 10^3/uL 5.6 10^3/uL Red Blood Count 4.53 10^6/uL 4.49 10^6/uL Hemoglobin 16.1 g/dL 16.2 g/dL Hematocrit 47.9 % 48.6 % Mean Corpuscular Volume 105.7 fL 108.2 fL Mean Corpuscular Hemoglobin 35.5 pg 36.1 pg Mean Corpuscular Hemoglobin Concent 33.6 g/dL 33.3 g/dL Red Cell Distribution Width 14.0 % 14.2 % Platelet Count 309 10^3/uL 283 10^3/uL Mean Platelet Volume 9.1 fL 9.2 fL Neutrophils (%) (Auto) 57.9 % 56.0 % Lymphocytes (%) (Auto) 30.0 % 30.2 % Monocytes (%) (Auto) 8.6 % 10.2 % Neutrophils # (Auto) 3.5 10^3/uL 3.1 10^3/uL Lymphocytes # (Auto) 1.84 10^3/uL1 1.69 10^3/uL1 Monocytes # (Auto) 0.5 10^3/uL 0.6 10^3/uL Absolute Immature Granulocyte (auto 0.03 10^3 u/L 0.04 10^3 u/L Absolute Eosinophils (auto) 0.2 10^3/uL 0.1 10^3/uL Immature Granulocytes % 0.50 % 0.70 % Eosinophils % 2.4 % 2.3 % Basophils % 1.1 % 1.3 % Basophils # 0.1 10^3/uL 0.1 10^3/uL Prothrombin Time 11.0 SEC 11.3 SEC Prothrombin Time INR (Non-Therap) 1.0 1.1 Sodium Level 138 mmol/L 141 mmol/L Potassium Level 3.7 mmol/L 3.7 mmol/L Chloride Level 103.0 mmol/L 106.0 mmol/L Carbon Dioxide Level 28.7 mmol/L 29.1 mmol/L Glucose Level 100 mg/dL 90 mg/dL Blood Urea Nitrogen 5 mg/dL 5 mg/dL Creatinine 0.83 mg/dL 1.04 mg/dL Calcium Level 8.5 mg/dL 8.5 mg/dL Anion Gap 10.0 9.6 Estimated GFR () 124.2 95.7 Est GFR (CKD-EPI)(Non-Afr Argentine) 102.6 79.1 BUN/Creatinine Ratio 6.0 4.0 Current Medications Medications (Trade) Dose Ordered Sig/Emre PRN Reason Start Time Stop Time Status Last Admin Diltiazem HCl (Cardizem) 60 mg TID 04/20/21 21:00 05/20/21 20:59 04/23/21 15:50 Enoxaparin Sodium (Lovenox) 100 mg Q12HR 04/21/21 21:00 05/21/21 20:59 04/23/21 08:29 Lisinopril (Zestril) 20 mg DAILY 04/21/21 09:00 05/21/21 08:59 04/23/21 08:29 Nicotine (Nicotine 7mg Patch) 1 each DAILY 04/24/21 09:00 05/24/21 08:59 UNV Pantoprazole Sodium (Protonix) 40 mg DAILY 04/21/21 09:00 05/21/21 08:59 04/23/21 08:29 Sotalol HCl (Betapace) 40 mg BID 04/20/21 21:00 05/20/21 20:59 04/23/21 08:29 Warfarin Sodium (Coumadin) 7.5 mg DAILY24 04/21/21 14:30 05/21/21 14:29 04/23/21 14:30 Stroke Discharge Summary Discharge on Antcoagulation Th: Yes Course Sepsis Screening Results: Posi: NEGATIVE Sepsis Qualifier/Stage: NO DEFINITE RISK DATE SEEN BY PHYSICIAN: Apr 25, 2021 TIME SEEN BY PROVIDER: 15:09 Duration or Total Time Spent w: 25 Vitals & review Data Vital Sign - Last 24 Hours 04/23/21 04/23/21 04/23/21 04/23/21 07:35 08:29 08:29 10:25 Temp 98.3 Pulse 68 68 Resp 15 B/P (MAP) 119/77 (91) 119/77 119/77 Pulse Ox 100 O2 Delivery Room Air 04/23/21 04/23/21 04/23/21 10:55 15:50 16:40 Temp 97.9 98.4 Pulse 64 64 60 Resp 16 16 B/P (MAP) 118/75 (89) 118/75 122/76 (91) Pulse Ox 100 95 O2 Delivery Room Air Laboratory Tests Test 04/22/21 05:12 04/23/21 06:39 White Blood Count 6.1 10^3/uL 5.6 10^3/uL Red Blood Count 4.53 10^6/uL 4.49 10^6/uL Hemoglobin 16.1 g/dL 16.2 g/dL Hematocrit 47.9 % 48.6 % Mean Corpuscular Volume 105.7 fL 108.2 fL Mean Corpuscular Hemoglobin 35.5 pg 36.1 pg Mean Corpuscular Hemoglobin Concent 33.6 g/dL 33.3 g/dL Red Cell Distribution Width 14.0 % 14.2 % Platelet Count 309 10^3/uL 283 10^3/uL Mean Platelet Volume 9.1 fL 9.2 fL Neutrophils (%) (Auto) 57.9 % 56.0 % Lymphocytes (%) (Auto) 30.0 % 30.2 % Monocytes (%) (Auto) 8.6 % 10.2 % Neutrophils # (Auto) 3.5 10^3/uL 3.1 10^3/uL Lymphocytes # (Auto) 1.84 10^3/uL1 1.69 10^3/uL1 Monocytes # (Auto) 0.5 10^3/uL 0.6 10^3/uL Absolute Immature Granulocyte (auto 0.03 10^3 u/L 0.04 10^3 u/L Absolute Eosinophils (auto) 0.2 10^3/uL 0.1 10^3/uL Immature Granulocytes % 0.50 % 0.70 % Eosinophils % 2.4 % 2.3 % Basophils % 1.1 % 1.3 % Basophils # 0.1 10^3/uL 0.1 10^3/uL Prothrombin Time 11.0 SEC 11.3 SEC Prothrombin Time INR (Non-Therap) 1.0 1.1 Sodium Level 138 mmol/L 141 mmol/L Potassium Level 3.7 mmol/L 3.7 mmol/L Chloride Level 103.0 mmol/L 106.0 mmol/L Carbon Dioxide Level 28.7 mmol/L 29.1 mmol/L Glucose Level 100 mg/dL 90 mg/dL Blood Urea Nitrogen 5 mg/dL 5 mg/dL Creatinine 0.83 mg/dL 1.04 mg/dL Calcium Level 8.5 mg/dL 8.5 mg/dL Anion Gap 10.0 9.6 Estimated GFR () 124.2 95.7 Est GFR (CKD-EPI)(Non-Afr Argentine) 102.6 79.1 BUN/Creatinine Ratio 6.0 4.0 Current Medications Medications (Trade) Dose Ordered Sig/Emre PRN Reason Start Time Stop Time Status Last Admin Diltiazem HCl (Cardizem) 60 mg TID 04/20/21 21:00 05/20/21 20:59 04/23/21 15:50 Enoxaparin Sodium (Lovenox) 100 mg Q12HR 04/21/21 21:00 05/21/21 20:59 04/23/21 08:29 Lisinopril (Zestril) 20 mg DAILY 04/21/21 09:00 05/21/21 08:59 04/23/21 08:29 Nicotine (Nicotine 7mg Patch) 1 each DAILY 04/24/21 09:00 05/24/21 08:59 UNV Pantoprazole Sodium (Protonix) 40 mg DAILY 04/21/21 09:00 05/21/21 08:59 04/23/21 08:29 Sotalol HCl (Betapace) 40 mg BID 04/20/21 21:00 05/20/21 20:59 04/23/21 08:29 Warfarin Sodium (Coumadin) 7.5 mg DAILY24 04/21/21 14:30 05/21/21 14:29 04/23/21 14:30 LEVEL 1 SEPSIS INFECTION CRITE: Flu-Pneumonia LEVEL 2-SIRS (LIST ALL THAT AP: None/Not assessed Cardiovascular Evidence: Not Assessed or None Hematologic Evidence: None/Not assessed Hepatic Evidence: None/Not assessed Metabolic Evidence: None/Not assessed Neurological Evidence: None/Not assessed Respiratory Evidence: None/Not assessed Renal Evidence: None/Not assessed O2 Sat by Pulse Oximetry: 98 Plan Discharge Disposition: Stable LEOLA,PRUDENCE C IP ARCHITECT Apr 25, 2021 15:10
[2021-04-25 16:03] VITALS: BP 151/85
--- NOTE | 2021-04-25 16:35 | NUR ---
DISCHARGE PT DISCHARGED AT THIS TIME IN STABLE CONDITION TO PRIVATE AUTO. PT IS AMBULATORY. PT PROVIDED TEACHING REGARDING F/U APPTS TO BE MADE WITH PCP FOR PT/INR LABS. DISCHARGED ON WARFARIN 10 MG PO QD. CALLED IN TO [facility]. LABS AND VITALS REVIEWED WITH PT. IV DISCONTINUED. PT TOLERATED WELL. PRESSURE HELD FOR 1 MINUTE TO STOP BLEEDING. DRESSED WITH GAUZE AND COBAN. PT STATES NO FURTHER QUESTIONS AT THIS TIME. THIS NURSE RELINQUISHES CARE AT THIS TIME.
[2021-04-25 16:42] VITALS: BP 151/85
== END 2021-04-25 16:35 | disposition home or self-care (01) | DRG 299 ==
LOC: ER 06:50 → MS 14:19
PROVIDERS: ADMIT Internal Medicine; ATTEND Internal Medicine
DX: I82.401 Acute embolism and thrombosis of unspecified deep veins of right lower extremity (principal); I26.99 Other pulmonary embolism without acute cor pulmonale; F12.90 Cannabis use, unspecified, uncomplicated; F17.210 Nicotine dependence, cigarettes, uncomplicated; Z20.822 Contact with and (suspected) exposure to COVID-19; I10 Essential (primary) hypertension; I25.10 Atherosclerotic heart disease of native coronary artery without angina pectoris; I48.91 Unspecified atrial fibrillation; Z80.0 Family history of malignant neoplasm of digestive organs; Z79.01 Long term (current) use of anticoagulants
CPT/HCPCS: 36415; 71275; 80048; 80053; 83880; 84484; 85025; 85379; 85610; 85730; 87426; 93005; 93306; 93970; 99285; G0378; J0696; J1644; J1650; J3490; J7050; Q9965

== ENCOUNTER 2021-12-14 10:15 | Inpatient (IN) | payer OTHER, SELFPAY ==
[~2021-12-14] VITALS: Ht 175.3 cm; Wt 127.1 kg
[2021-12-14] VITALS (41 sets, daily range): BP systolic 86–185; BP diastolic 45–109
[~2021-12-14 10:15] MED LIST changes: +AMIO200T55 PO; -AMIO200T6 PO; +WARF10TA PO
--- NOTE | 2021-12-14 10:15 | NUR ---
ARRIVAL PATIENT ARRIVED TO ED4 AMBULATORY, C/O SHORTNESS OF BREATH AND BILATERAL LEG SWELLING, PATIENT STATES HE HAS BEEN OUT OF HIS MEDICATIONS AND LIVING IN HIS CAR FOR THE PAST SEVERAL WEEKS, TODAY THE SWELLING SHORTNESS OF BREATH CONTINUES TO GET WORSE, DECIDED TO COME TO THE ED FOR EVAL, VITAL SIGNS TAKEN AND DOCTOR CARLOS NOTIFIED OF PATIENT'S ARRIVAL.
--- NOTE | 2021-12-14 10:49 | PCM.EKG ---
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
[2021-12-14 10:50] LABS: BASOPHIL # 0.1 10^3/uL (0.0-0.1); BASOPHIL % 0.6 % (0.0-0.2); EOSINOPHIL # 0.1 10^3/uL (0.0-0.2); EOSINOPHIL % 1.5 % (0.0-5.0); LYMPHOCYTES # 1.97 10^3/uL1 (1.0-4.8); LYMPHOCYTES % 24.6 % (24.0-44.0); MEAN CORP HGB 33.4 pg (26-34); MONOCYTES # 0.7 10^3/uL (0.3-0.8); MONOCYTES % 8.4 % (5.0-12.0); NEUTROPHIL # 5.2 10^3/uL (1.8-7.7); NEUTROPHILS % 64.8 % (41.0-85.0); PLATELET COUNT 176 10^3/uL (150-400)
[2021-12-14] MEDS ORDERED: CARDIZEM IV STA (10:51)
[2021-12-14] MEDS ORDERED: LASIX IV STA ×2 (10:51→17:13)
--- NOTE | 2021-12-14 10:57 | DIREP ---
PROCEDURE:CHEST 1 VIEW COMPARISON:[facility], CT, CTA CHEST, 04/20/2021, 10:25 AM. [facility], CR, XRAY CHEST SINGLE VW, 02/10/2021, 09:39 AM. INDICATIONS:sob FINDINGS: LUNGS/PLEURA:No significant pulmonary parenchymal abnormalities. No effusions. VASCULATURE:Normal. Unremarkable pulmonary vasculature. CARDIAC:Moderate cardiomegaly. MEDIASTINUM:Normal. No visible mass or adenopathy. BONES:Normal. No fracture or visible bony lesion. OTHER:Negative. CONCLUSION:Cardiomegaly. Otherwise no acute cardiopulmonary abnormalities. Dictated by: Jarett Garcia M.D. on 12/14/2021 at 10:54 AM
[2021-12-14] MEDS ORDERED: VENTOLIN IH ONE ×2 (11:00→11:06)
[2021-12-14] MEDS ORDERED: LASIX ONE (11:01)
[2021-12-14] MEDS ORDERED: CARDIZEM ONE (11:01)
[2021-12-14] MEDS ORDERED: CORDARONE ONE (11:15)
[2021-12-14 11:18] LABS: CARBON DIOXIDE 25.4 mmol/L (20.0-32)
--- NOTE | 2021-12-14 11:22 | NUR ---
CRITICAL LAB DDIMER 2.16, NOTIFIED AT THIS TIME.
[2021-12-14] MEDS ORDERED: CORDARONE IV ONE (11:30)
[2021-12-14] MEDS ORDERED: NEXTERONE 360 MG/200 ML BAG 200 ML IV ONE (11:44)
[2021-12-14] MEDS: NEXTERONE 360 MG/200 ML BAG 200 ML IV SCH ×2 (11:48→21:19)
--- NOTE | 2021-12-14 11:55 | NUR ---
ANGELA GONZALEZ ATTEMPTED TO CONTACT DOCTOR ANGELA, AWAITING CALL BACK
--- NOTE | 2021-12-14 11:56 | NUR ---
CONSTANZA GONZALEZ ON THE PHONE WITH DOCTOR APODACA AT THIS TIME
[2021-12-14] MEDS ORDERED: LOVENOX SQ STA (11:57)
[2021-12-14] MEDS ORDERED: LOVENOX SQ ONE (12:04)
--- NOTE | 2021-12-14 12:09 | ER.PDOC ---
General Chief Complaint: Dyspnea/Respdistress Stated Complaint: SOB/SWELLING TRAVEL OUT OF US: No Time seen by MD: 10:30 Source: patient Exam Limitations: no limitations History of Present Illness Initial Comments 41-year-old male with history of atrial fibrillation comes here with several weeks of worsening leg edema as well as progressive shortness of breath. The edema is in both legs. The shortness of breath is progressive and worse with activity and laying down. He is got history of A. fib but unfortunately not taking any medication right now. No fever and no cough. No chest pain. The patient has seen one of the local solar energy technician in the past. Shortness of breath described as 8 out of 10 in intensity. 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 fib, obesity) Surgical History: cardiac cath LMP (females 10-50): N/A Not applicalbe Family History Significant Family History: no pertinent family hx Social History Smoking: non-smoker Alcohol Use: none Drug Use: marijuana Reviewed Nursing Reviewed: Vital Signs, Abn. Noted, Nursing Assessment Review of Systems Constitutional: denies no symptoms reported, denies see HPI, denies chills, denies diaphoresis, denies fever, denies malaise, denies weakness, denies other EENTM: denies no symptoms reported, denies see HPI, denies eye pain, denies blurred vision, denies tearing, denies double vision, denies ear pain, denies ear discharge, denies nose pain, denies nose congestion, denies throat pain, denies throat swelling, denies mouth pain, denies mouth swelling, denies other Respiratory: denies no symptoms reported, denies see HPI, denies cough; orthopnea, shortness of breath; denies stridor; wheezing; denies other Cardiovascular: denies no symptoms reported, denies see HPI, denies chest pain, denies edema, denies palpitations, denies syncope, denies other Gastrointestinal: denies no symptoms reported, denies see HPI, denies abdominal pain, denies constipation, denies diarrhea, denies nausea, denies vomiting, denies other Genitourinary: denies no symptoms reported, denies see HPI, denies discharge, denies dysuria, denies frequency, denies hematuria, denies pain, denies other Musculoskeletal: denies no symptoms reported, denies see HPI, denies back pain, denies gout, denies joint pain, denies joint swelling, denies muscle pain, denies muscle stiffness, denies neck pain, denies other Skin: denies no symptoms reported, denies see HPI, denies change in color, denies change in hair/nails, denies dryness, denies lesions, denies lumps, denies rash, denies other Psychiatric/Neurological: denies no symptoms reported, denies see HPI, denies anxiety, denies depressed, denies emotional problems, denies headache, denies numbness, denies paresthesia, denies pre-existing deficit, denies seizure, denie s tingling, denies tremors, denies weakness, denies other Hematologic/Lymphatic: denies no symptoms reported, denies see HPI, denies anemia, denies blood clots, denies easy bleeding, denies easy bruising, denies swollen glands, denies other Immunological/Allergic: denies no symptoms reported, denies see HPI, denies food allergy, denies grass allergy, denies mold allergy, denies pollen allergy, denies HIV/AIDS, denies transplant All Other Systems: Reviewed and Negative Physical Exam General Appearance: Moderate Distress EENT: eyes nml inspection, nml ENT inspection, pharynx nml Neck: Non-Tender, Full Range of Motion, Supple, Normal Inspection Respiratory: chest non-tender, no accessory muscle use, decreased breath sounds, crackles, rales, wheezing CVS: tachycardia, slow capillary refill (Weak pulses, irregular rhythm) Gastrointestinal: Normal Bowel Sounds, No Organomegaly, No Pulsatile Mass, Non Tender, Soft Back: Normal Inspection, No CVA Tenderness Extremities: Normal Range of Motion, Non-Tender, Pedal Edema, Slow Capillary Refill Neurologic/Psychiatric: deburring technician II-XII NML as Tested, No Motor/Sensory Deficits, Alert, Normal Mood/Affect, Oriented x 3 Skin: Normal Color, Warm/Dry, Cyanosis Lymphatic: No Adenopathy Results/Orders Results/Orders Orders - LADI GONZALEZ MD Cbc With Auto Diff (12/14/21 10:34) Comprehensive Metabolic Panel (12/14/21 10:34) Probnp B-Type Shared Services Representative (12/14/21 10:34) D-Dimer (12/14/21 10:34) Xr Chest 1v (12/14/21 10:34) PT (12/14/21 10:34) Partial Thromboplastin Time. (12/14/21 10:34) Ekg-Routine (12/14/21 10:34) Troponin I High Sensitivity (12/14/21 10:34) Thyroid Stimulating Horm(Ml) (12/14/21 10:34) Diltiazem Hcl (Cardizem) (12/14/21 10:51) Furosemide (Lasix) (12/14/21 10:51) Albuterol Sulfate (Ventolin) (12/14/21 11:00) Furosemide (Lasix) (12/14/21 11:01) Diltiazem Hcl (Cardizem) (12/14/21 11:01) Albuterol Sulfate (Ventolin) (12/14/21 11:06) Amiodarone Hcl (Cordarone) (12/14/21 11:30) Amiodarone Hcl (Cordarone) (12/14/21 11:15) Amiodarone In Dextrose,Iso-Osm (Nexteron (12/14/21 12:00) Amiodarone In Dextrose,Iso-Osm (Nexteron (12/14/21 11:44) Drug Scrn Med W Confirmation (12/14/21 11:46) Enoxaparin Sodium (Lovenox) (12/14/21 11:57) Resuscitation Status (12/14/21 11:57) Routine Vital Signs (12/14/21 11:57) Bedrest (12/14/21 11:57) Cardiac Diet (12/14/21 Dinner) Intake & Output (12/14/21 11:57) Troponin I High Sensitivity (12/14/21 16:00) Troponin I High Sensitivity (12/14/21 18:00) Magnesium (12/14/21 11:57) Vital Signs Date Time Temp Pulse Resp B/P (MAP) Pulse Ox O2 Delivery O2 Flow Rate FiO2 12/14/21 11:55 97.6 143 20 120/98 (105) 99 Room Air* 0 21 12/14/21 11:24 97.6 132 24 142/90 (107) 99 Room Air* 0 21 12/14/21 11:07 150/105 12/14/21 11:04 187 12/14/21 11:00 144 24 98 Room Air* 0 21 12/14/21 11:00 148 22 98 Room Air* 0 21 12/14/21 10:15 97.6 69 24 12/14/21 10:15 97.6 69 24 185/72 (109) 100 Room Air* 0 12/14/21 10:15 97.6 69 24 100 Administered Medications Medications (Trade) Dose Ordered Sig/Emre Route PRN Reason Start Time Stop Time Status Last Admin Dose Admin Albuterol Sulfate (Ventolin) 2.5 mg OT ONCE IH 12/14/21 11:00 12/14/21 11:01 DC 12/14/21 11:12 2.5 MG Amiodarone HCl (Cordarone) 150 mg OT ONCE IV 12/14/21 11:30 12/14/21 11:31 DC 12/14/21 11:19 150 MG Amiodarone HCL/ Dextrose 200 ml @ 0 mls/hr IV 12/14/21 12:00 01/13/22 11:59 12/14/21 11:48 34 MLS/HR Diltiazem HCl (Cardizem) 20 mg STAT STAT IV 12/14/21 10:51 12/14/21 10:53 DC 12/14/21 11:04 20 MG Furosemide (Lasix) 40 mg STAT STAT IV 12/14/21 10:51 12/14/21 10:53 DC 12/14/21 11:07 40 MG Laboratory Tests Test 12/14/21 10:44 White Blood Count 8.0 10^3/uL (4.5-11.0) Red Blood Count 5.09 10^6/uL (4.50-5.90) Hemoglobin 17.0 g/dL (13.9-16.3) H Hematocrit 51.2 % (37.0-53.0) Mean Corpuscular Volume 100.6 fL (78-100) H Mean Corpuscular Hemoglobin 33.4 pg (26-34) Mean Corpuscular Hemoglobin Concent 33.2 g/dL (33-36.5) Red Cell Distribution Width 15.0 % (11.5-14.5) H Platelet Count 176 10^3/uL (150-400) Mean Platelet Volume 10.2 fL (7.8-11.0) Neutrophils (%) (Auto) 64.8 % (41.0-85.0) Lymphocytes (%) (Auto) 24.6 % (24.0-44.0) Monocytes (%) (Auto) 8.4 % (5.0-12.0) Neutrophils # (Auto) 5.2 10^3/uL (1.8-7.7) Lymphocytes # (Auto) 1.97 10^3/uL1 (1.0-4.8) Monocytes # (Auto) 0.7 10^3/uL (0.3-0.8) Absolute Immature Granulocyte (auto 0.01 10^3 u/L (0-2) Absolute Eosinophils (auto) 0.1 10^3/uL (0.0-0.2) Immature Granulocytes % 0.10 % (0.00-0.50) Eosinophils % 1.5 % (0.0-5.0) Basophils % 0.6 % (0.0-0.2) H Basophils # 0.1 10^3/uL (0.0-0.1) Prothrombin Time 13.8 SEC (9.1-11.5) H Prothrombin Time INR (Non-Therap) 1.4 Activated Partial Thromboplast Time 25.2 SEC (22.5-33.1) D-Dimer 2.16 mg/L (0.19-0.49) *H Sodium Level 136 mmol/L (132-145) Potassium Level 4.3 mmol/L (3.6-5.2) Chloride Level 104.0 mmol/L (96-109) Carbon Dioxide Level 25.4 mmol/L (20.0-32) Anion Gap 10.9 Blood Urea Nitrogen 17 mg/dL (7-18) Creatinine 1.22 mg/dL (0.59-1.40) Estimated GFR () 79.2 (>/=60) Est GFR (CKD-EPI)(Non-Afr Luxembourger) 65.5 (>/=60) BUN/Creatinine Ratio 13.0 Glucose Level 115 mg/dL (70-110) H Calcium Level 8.7 mg/dL (8.4-10.5) Total Bilirubin 1.9 mg/dL (0.2-1.0) H Aspartate Amino Transferase (AST) 20 U/L (0-35) Alanine Aminotransferase (ALT) 14 U/L (12-78) Alkaline Phosphatase 117 U/L (50-136) Troponin I High Sensitivity 24 ng/L (0-75) Pro-B-Type Natriuretic Peptide 43006 pg/mL (0-125) H Total Protein 6.7 g/dL (6.4-8.2) Albumin 3.2 g/dL (3.4-5.0) L Globulin 3.5 Albumin/Globulin Ratio 0.914 Thyroid Stimulating Hormone (TSH) 5.218 mIU/mL (0.358-3.740) Progress Progress Patient will need to be admitted to the ICU on amiodarone drip. No improvement with IV Cardizem. Given some IV Lasix. Case discussed with cardiology and also the hospitalist. EKG/XRAY/CT/US EKG Comments: A. fib rate 165, QRS 87, lateral T wave inversions XRAY Comments: Chest x-ray showed no acute disease ER DEPART Departure Time of Disposition: 12:09 Disposition: 09 ADMITTED INPATIENT Impression: Primary Impression: Congestive heart failure Additional Impressions: A-fib Atrial fibrillation with RVR Condition: Critical Referrals: PCP,UNKNOWN (PCP) PRIMARY CARE PROVIDER Duration or Time Spent with Pa: 60 Critical Care Note Total Time (mins): 60 Comments 60 minutes total critical care which include multiple bedside visits. Physical exam. Ordering labs and medications. Reviewed the result of this labs and imaging. Discussed with the admitting and consulting doctors. Problem Qualifiers LADI GONZALEZ MD Dec 14, 2021 12:09
--- NOTE | 2021-12-14 13:15 | NUR ---
ARRIVAL REPORT RECEIVED FROM JB BRAVO. TRANSFERRED FROM ER TO ICU ROOM 2 VIA WHEEL CHAIR. AMBULATED FROM WHEEL CHAIR TO BED WITHOUT ASSISTANCE AND WITHOUT DIFFICULTY. CONNECTED TO BEDSIDE MONITORING. CONTINUES TO BE IN A-FIB WITH RATE IN THE 120'S. ORIENTED TO ROOM AND DISCUSSED PLAN OF CARE. DENIES NEEDS OR CONCERNS. NO S/S OF ACUTE DISTRESS NOTED.
--- NOTE | 2021-12-14 13:56 | PCM.HP ---
History of Present Illness Reason for Visit: Shortness of breath and edema History of Present Illness 41-year-old male with history of atrial fibrillation comes here with several weeks of worsening leg edema as well as progressive shortness of breath. The edema is in both legs. The shortness of breath is progressive and worse with activity and laying down. He is got history of A. fib but unfortunately not taking any medication right now. No fever and no cough. No chest pain. The patient has seen one of the local deck lid fitter in the past. Shortness of breath described as 8 out of 10 in intensity. And work-up in the emergency room patient was found to be in atrial fibrillation with RVR. Patient was also found to have significant leg edema and, short of breath, orthopneic.Denies chest pain, nausea vomiting fever or chills.Initially patient was given diltiazem, remained in A. fib with RVR. Patient was started on IV amiodarone drip. Given IV Lasix. Placed on supplemental oxygen. Patient admitted to intensive care unit for further management.Biblical Studies Professor consulted. Past Medical History Cardiac: AFIB, CAD, HTN Past Surgical History: No pertinent hx Past Social History Smoke: 1 pack per day Alcohol: social Travel Hx EBOLA RISK:Travel to/contact w: No Review of Systems Respiratory: Shortness of breath, SOB with excertion, Other (Edema) Cardiovascular: Chest Pain, Palpitations, Other Gastrointestinal: Other (Abdominal distention) Musculoskeletal: other (Edema) Skin: Other Other Review of other 14 systems negative except was mentioned above. Allergies: Coded Allergies: No Known Allergies (Unverified , 06/30/16) Scheduled Diltiazem Hcl (Cardizem), 60 MG PO TID Lisinopril (Lisinopril), 20 MG PO DAILY Omeprazole Magnesium (Prilosec Otc), 1 TAB PO QD Sotalol Hcl (Sotalol), 0.5 TAB PO BID Warfarin Sodium (Warfarin Sodium), 10 MG PO DAILY24 VTE VTE Risk Total Score: 1 VTE Risk Score VTE Risk: Score 0-1 = Low Risk (Aggressive mobilization; early ambulation; no VTE prophylaxis required) Score 2: Moderate Risk (Intermittent/Pneumatic Compression Device OR Lovenox/Heparin/Coumadin) Score 3-4: High Risk (Intermittent/Pneumatic Compression Device AND Lovenox/Heparin/Coumadin) Score > or =5: Highest Risk (Intermittent/Pneumatic Compression Device AND Lovenox/Heparin/Coumadin) Antico:Hep/LMWH/Coum/Xarelto: Yes VTE VTE Present on Admission: Yes Currently receiving anticoagul: Yes VTE Risk Total Score: 1 Antico:Hep/LMWH/Coum/Xarelto: Yes Exam Vital Signs Vital Signs Date Time Temp Pulse Resp B/P (MAP) Pulse Ox O2 Delivery O2 Flow Rate FiO2 12/14/21 13:32 125 15 134/73 (93) 99 Room Air* 0 21 12/14/21 12:49 97.6 General Appearance: Alert, Oriented X3, moderate distress, Other (Orthopneic) HEENT: Atraumatic, PERRLA Respiratory: Other (Bibasilar crackles, respirations labored) Cardiovascular: Other (Irregular irregular tachycardic) Abdominal: No tenderness, Other (Distended) Extremities: No clubbing, No cyanosis, Other (Bilateral edema) Skin: No lesions Neuro: Normal speech, Normal tone Psych/Mental Status: Mental status NL, Mood NL Assessment/Plan Assessment/Plan Assessment/Plan 41-year-old male with history of atrial fibrillation comes here with several we eks of worsening leg edema as well as progressive shortness of breath. The edema is in both legs. The shortness of breath is progressive and worse with activity and laying down. He is got history of A. fib but unfortunately not taking any medication right now. No fever and no cough. No chest pain. The patient has seen one of the local deck lid fitter in the past. Shortness of breath described as 8 out of 10 in intensity. And work-up in the emergency room patient was found to be in atrial fibrillation with RVR. Patient was also found to have significant leg edema and, short of breath, orthopneic.Denies chest pain, nausea vomiting fever or chills.Initially patient was given diltiazem, remained in A. fib with RVR. Patient was started on IV amiodarone drip. Given IV Lasix. Placed on supplemental oxygen. Patient admitted to intensive care unit for further management.Biblical Studies Professor consulted. Plan AdmitTo ICU Telemetry monitoring Continue with IV amiodarone IV diuresis Monitor kidney function urine output Monitor and correct electrolytes Anticoagulation Biblical Studies Professor consulted for evaluation further commendations Venous Doppler of lower extremities GI prophylaxisSpine DVT prophylaxis low molecular weight Expect length of stay more than 1 midnight Patient presenting with potentially life-threatening condition.Critical care time spent examining the patient, reviewing chart, history, images, labs, discussing the case with SENIOR MECHANICAL PROJECT ENGINEER and documentation 71 minutes. Case discussed with patient and family. Problems: (1) Atrial fibrillation with rapid ventricular response ICD Code: I48.91 - Unspecified atrial fibrillation SNOMED: 820297530891240 (2) Acute exacerbation of congestive heart failure ICD Code: I50.9 - Heart failure, unspecified SNOMED: 686235517, 81107536205320 (3) Noncompliance with medications ICD Code: Z91.14 - Patient's other noncompliance with medication regimen SNOMED: 154995055 (4) CAD (coronary artery disease) ICD Code: I25.10 - Atherosclerotic heart disease of [place] coronary artery without angina pectoris SNOMED: 26991941 Patient History: FH: esophageal cancer 32 MOTHER, FH: suicide 33 FATHER, , Age:30's - 40 CONSTANZA CUNNINGHAM MD Dec 14, 2021 13:56
[2021-12-14] MEDS ORDERED: BETAPACE PO STA (14:00)
[2021-12-14] MEDS ORDERED: TYLENOL PO PRN (14:00)
[2021-12-14] MEDS ORDERED: LOVENOX SQ SCH (14:00)
--- NOTE | 2021-12-14 14:00 | NUR ---
ORDER CHANGES TELEPHONE ORDERS RECEIVED FROM DR. MILLER TO DECREASE AMIODARONE TO 0.5 MG/MIN AND BEGIN SOTOLOL 80MG PO NOW AND BID. DISCONTINUE AMIODARONE WITHIN 1-2 HOURS AFTER DECREASING RATE AND GIVING SOTOLOL. MAINTAIN HEART RATE UNDER 120. 1415 - AMIODARONE RATE DECREASED TO 17ML/HR
--- NOTE | 2021-12-14 14:58 | NUR ---
AMIODARONE DR. MILLER AT BEDSIDE. ORDERS RECEIVED TO CONTINUE AMIODARONE @ 0.5MG INFUSION UNTIL HEART RATE IS SUSTAINED LESS THAN 120/MIN
--- NOTE | 2021-12-14 16:15 | NUR ---
DISCHARGE PLANNING CM VISITED WITH PATIENT ABOUT DISCHARGE PLANS AND NEEDS. PATIENT CURRENTLY LIVES IN HIS TRUCK AND IS IND OF ADL'S. 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 HE HAS NO DME IN PLACE. PATIENT ORDERED A LIFE VEST IN A PRIOR VISIT AND HE STATED HE TURNED IT BACK IN AND HE DID NOT NEED IT. PATIENT DOES NOT HAVE A PCP, SO PROVIDER LIST GIVEN. PATIENT STATED HE HAS APPLIED FOR DISABILITY. PATIENT WAS GIVEN A PACKET WITH INFORMATION ON [facility], [employer] AND [employer] $4.00 LIST. NO FURTHER NEEDS NOTED. DISCHARGE PLAN IS FOR PATIENT TO D/C BACK TO LIVING IN HIS TRUCK. CM WILL CONTINUE TO MONITOR FOR ANY ADDITIONAL NEEDS OR RESOURCE INFORMATION.
--- NOTE | 2021-12-14 19:38 | NUR ---
TELEPHONE ORDER FOR FLUID RESTRICTION PER DR MILLER - 1500ML PER 24HRS. PER MD TO D/C AMIODARONE GTT WHEN HEART RATE IS CONSISTENTLY BELOW 120. TELEPHONE ORDER RBAV.
[2021-12-14] MEDS: ELIQUIS PO SCH (20:29)
[2021-12-14] MEDS ORDERED: BETAPACE PO SCH (21:00)
[2021-12-14] MEDS ORDERED: TUMS PO PRN (21:30)
--- NOTE | 2021-12-14 21:56 | NUR ---
VOMITING: PT IS VOMITING. MD NOTIFIED. TELEPHONE ORDER PER DR CRUZ FOR ZOFRAN 4MG IV Q6HR PRN. TELEPHONE ORDER RBAV.
[2021-12-14] MEDS ORDERED: ZOFRAN IV PRN (22:00)
[2021-12-15] VITALS (16 sets, daily range): BP systolic 104–173; BP diastolic 60–115
[2021-12-15] MEDS ORDERED: BETAPACE PO STA (01:05)
--- NOTE | 2021-12-15 01:05 | NUR ---
TELEPHONE ORDER PER DR MILLER TO D/C AMIODARONE GTT. ADMIN 40MG SOTALOL OT PO NOW AND CHANGE ORDER TO 120MG PO BID. TELEPHONE ORDER RBAV.
[2021-12-15 04:51] LABS: BASOPHIL # 0.1 10^3/uL (0.0-0.1); BASOPHIL % 0.5 % (0.0-0.2); EOSINOPHIL % 0.2 % (0.0-5.0); LYMPHOCYTES # 1.75 10^3/uL1 (1.0-4.8); LYMPHOCYTES % 17.9 % (24.0-44.0); MEAN CORP HGB 32.7 pg (26-34); MONOCYTES # 0.9 10^3/uL (0.3-0.8); MONOCYTES % 9.3 % (5.0-12.0); NEUTROPHIL # 7.1 10^3/uL (1.8-7.7); NEUTROPHILS % 72.1 % (41.0-85.0); PLATELET COUNT 167 10^3/uL (150-400); RED CELL DISTRIBUTION WIDTH 15.4 % (11.5-14.5)
[2021-12-15 04:54] LABS: CARBON DIOXIDE 17.7 mmol/L (20.0-32)
--- NOTE | 2021-12-15 06:30 | NUR ---
REPORT TO ONCOMING SHIFT. PT CARE RELINQUISHED.
[2021-12-15] MEDS ORDERED: ZESTRIL PO SCH (09:00)
[2021-12-15] MEDS: ELIQUIS PO SCH ×2 (09:21→20:21)
[2021-12-15] MEDS: LASIX IV SCH (09:21)
[2021-12-15] MEDS: PROTONIX PO SCH (09:21)
[2021-12-15] MEDS: BETAPACE PO SCH ×2 (09:22→20:21)
--- NOTE | 2021-12-15 09:38 | NUR ---
Decreased from 3lpm to 2lpm nc; spo2 98%; pat does not wear 02 at home Addendum: 12/15/21 at 0939 by Sophia De Santiago RRT, Contract RT Amended: Links added.
--- NOTE | 2021-12-15 11:26 | PRM.PN ---
Subjective Subjective Date: Dec 15, 2021 Time: 09:00 Subjective Patient is feeling somewhat better this morning. Less shortness of breath. Patient was seen by pre press proofer and was started on sotalol, oral anticoagulant, and lisinopril.Creatinine went up to 1.8 today. Patient History: FH: esophageal cancer 32 MOTHER, FH: suicide 33 FATHER, , Age:30's - 40 VTE VTE Risk Total Score: >5 VTE Risk Score VTE Risk: Score 0-1 = Low Risk (Aggressive mobilization; early ambulation; no VTE prophylaxis required) Score 2: Moderate Risk (Intermittent/Pneumatic Compression Device OR Lovenox/Heparin/Coumadin) Score 3-4: High Risk (Intermittent/Pneumatic Compression Device AND Lovenox/Heparin/Coumadin) Score > or =5: Highest Risk (Intermittent/Pneumatic Compression Device AND Lovenox/Heparin/Coumadin) Antico:Hep/LMWH/Coum/Xarelto: Yes Review of Systems Respiratory: Shortness of breath, SOB with excertion, Other (Edema) Cardiovascular: Chest Pain, Palpitations, Other Gastrointestinal: Other (Abdominal distention) Musculoskeletal: other (Edema) Skin: Other Allergies: Coded Allergies: No Known Allergies (Unverified , 06/30/16) Scheduled Diltiazem Hcl (Cardizem), 60 MG PO TID Lisinopril (Lisinopril), 20 MG PO DAILY Omeprazole Magnesium (Prilosec Otc), 1 TAB PO QD Sotalol Hcl (Sotalol), 0.5 TAB PO BID Warfarin Sodium (Warfarin Sodium), 10 MG PO DAILY24 Objective Vitals and I/O Vital Sign - Last 24 Hours 12/14/21 12/14/21 12/14/21 12/14/21 11:24 11:55 12:49 13:28 Temp 97.6 97.6 97.6 Pulse 132 143 123 135 Resp 24 20 20 37 B/P (MAP) 142/90 (107) 120/98 (105) 128/91 (103) 132/106 (115) Pulse Ox 99 99 97 99 O2 Delivery Room Air* Room Air* Room Air* Room Air* O2 Flow Rate 0 0 0 0 FiO2 21 21 21 21 12/14/21 12/14/21 12/14/21 12/14/21 13:30 13:32 13:45 14:00 Pulse 136 125 122 113 Resp 39 15 21 27 B/P (MAP) 134/73 (93) 121/95 (104) 114/81 (92) Pulse Ox 98 99 97 97 O2 Delivery Room Air* Room Air* Room Air* Room Air* O2 Flow Rate 0 0 0 0 FiO2 21 21 21 21 12/14/21 12/14/21 12/14/21 12/14/21 14:15 14:30 14:45 14:46 Pulse 119 119 125 Resp 27 20 18 B/P (MAP) 119/90 (100) 109/87 (94) 134/96 (109) Pulse Ox 99 98 96 O2 Delivery Room Air* Room Air* Room Air* Room Air O2 Flow Rate 0 0 0 FiO2 12/14/21 12/14/21 12/14/21 12/14/21 15:00 15:15 15:26 16:00 Pulse 136 130 125 Resp 26 16 22 B/P (MAP) 101/75 (84) 98/52 (67) 131/98 (109) Pulse Ox 97 98 99 O2 Delivery Room Air* Room Air* Room Air* Room Air O2 Flow Rate 0 0 0 FiO2 21 12/14/21 12/14/21 12/14/21 12/14/21 16:00 16:01 16:15 16:30 Pulse 121 117 113 122 Resp 21 12 11 30 B/P (MAP) 106/87 (93) 120/77 (91) Pulse Ox 98 98 97 O2 Delivery Room Air* Room Air* Room Air* Room Air* O2 Flow Rate 0 0 0 0 FiO2 21 12/14/21 12/14/21 12/14/21 12/14/21 16:31 16:45 17:00 17:15 Pulse 119 116 134 113 Resp 22 18 11 16 B/P (MAP) 113/72 (86) 91/47 (62) 93/45 (61) 113/75 (88) Pulse Ox 97 98 99 99 O2 Delivery Room Air* Room Air* Room Air* Room Air* O2 Flow Rate 0 0 0 0 FiO2 21 12/14/21 12/14/21 12/14/21 12/14/21 17:20 17:22 17:22 17:30 Pulse 103 109 106 Resp 23 28 14 B/P (MAP) 113/67 (82) 114/74 114/74 (87) Pulse Ox 91 94 O2 Delivery Room Air* Room Air* Room Air* O2 Flow Rate 0 0 0 FiO2 12/14/21 12/14/21 12/14/21 12/14/21 17:32 17:45 17:47 17:52 Pulse 121 113 118 110 Resp 20 18 11 16 B/P (MAP) 107/84 (92) Pulse Ox 92 92 90 92 O2 Delivery Room Air* Room Air* Room Air* Room Air* O2 Flow Rate 0 0 0 0 FiO2 21 12/14/21 12/14/21 12/14/21 12/14/21 17:54 17:56 18:00 18:02 Pulse 120 112 115 117 Resp 34 26 23 21 B/P (MAP) 97/65 (76) 136/64 (88) Pulse Ox 96 95 94 97 O2 Delivery Room Air* Room Air* Room Air* Room Air* O2 Flow Rate 0 0 0 0 FiO2 12/14/21 12/14/21 12/14/21 12/14/21 18:05 18:45 19:00 19:15 Pulse 128 124 115 110 Resp 30 22 9 23 B/P (MAP) 111/75 (87) 101/83 (89) 86/71 (76) 104/64 (77) Pulse Ox 97 100 O2 Delivery Room Air* Room Air* Room Air* Room Air* O2 Flow Rate 0 0 0 0 FiO2 12/14/21 12/14/21 12/14/21 12/14/21 19:30 19:45 20:02 20:15 Pulse 114 111 119 Resp 21 35 33 B/P (MAP) 136/109 (118) 136/92 (107) 102/84 (90) O2 Delivery Room Air* Room Air* Room Air* Room Air O2 Flow Rate 0 0 0 FiO2 12/14/21 12/14/21 12/14/21 12/14/21 20:15 20:30 20:45 21:00 Temp 97.9 Pulse 114 112 109 122 Resp 21 56 24 25 B/P (MAP) 109/88 (95) 112/56 (74) 110/82 (91) 101/82 (88) Pulse Ox 96 94 O2 Delivery Room Air* Room Air* Room Air* Room Air* O2 Flow Rate 0 0 0 0 FiO2 21 21 21 21 12/14/21 12/14/21 12/14/21 12/14/21 21:16 21:40 21:46 22:34 Pulse 121 120 116 127 Resp 13 10 22 24 B/P (MAP) 105/83 (90) 111/70 (84) 105/64 (78) 111/85 (94) Pulse Ox 93 O2 Delivery Room Air* Room Air* Room Air* Nasal Cannula* O2 Flow Rate 0 0 0 2 FiO2 21 21 28 12/14/21 12/14/21 12/14/21 12/15/21 23:22 23:30 23:56 00:02 Temp 97.7 Pulse 115 110 116 Resp 22 14 25 B/P (MAP) 112/71 (85) Pulse Ox 87 95 87 O2 Delivery Nasal Cannula Nasal Cannula* Nasal Cannula* Nasal Cannula* O2 Flow Rate 2.00 2 2 2 FiO2 28 28 28 12/15/21 12/15/21 12/15/21 12/15/21 00:45 01:00 01:03 01:45 Pulse 130 133 135 109 Resp 17 37 18 24 B/P (MAP) 173/92 (119) 112/73 (86) Pulse Ox 93 87 90 O2 Delivery Nasal Cannula* Nasal Cannula* Nasal Cannula* Nasal Cannula* O2 Flow Rate 2 2 2 2 FiO2 28 28 28 28 12/15/21 12/15/21 12/15/21 12/15/21 02:02 02:15 02:30 02:45 Pulse 113 112 101 99 Resp 22 32 15 B/P (MAP) 113/60 (77) Pulse Ox 85 93 88 89 O2 Delivery Nasal Cannula* Nasal Cannula* Nasal Cannula* Nasal Cannula* O2 Flow Rate 2 2 2 2 FiO2 28 28 28 28 12/15/21 12/15/21 12/15/21 12/15/21 03:00 03:15 03:30 03:40 Pulse 101 111 111 Resp 21 26 18 B/P (MAP) 128/93 (105) Pulse Ox 88 89 78 O2 Delivery Nasal Cannula* Nasal Cannula* Nasal Cannula* Nasal Cannula O2 Flow Rate 3 3 3 3.00 FiO2 32 32 32 12/15/21 12/15/21 12/15/21 12/15/21 03:45 04:00 04:30 04:45 Temp 97.8 Pulse 109 97 109 106 Resp 15 19 25 20 B/P (MAP) 147/115 (126) Pulse Ox 85 94 96 O2 Delivery Nasal Cannula* Nasal Cannula* Nasal Cannula* Nasal Cannula* O2 Flow Rate 3 3 3 3 FiO2 32 32 32 32 12/15/21 12/15/21 12/15/21 12/15/21 05:00 05:15 05:30 05:45 Pulse 94 103 93 96 Resp 24 34 23 27 B/P (MAP) 107/71 (83) Pulse Ox 87 93 81 92 O2 Delivery Nasal Cannula* Nasal Cannula* Nasal Cannula* Nasal Cannula* O2 Flow Rate 3 3 3 3 FiO2 32 32 32 32 12/15/21 12/15/21 12/15/21 12/15/21 06:00 06:15 06:30 06:45 Pulse 100 112 113 89 Resp 21 27 32 15 Pulse Ox 87 89 93 96 O2 Delivery Nasal Cannula* Nasal Cannula* Nasal Cannula* Nasal Cannula* O2 Flow Rate 3 3 3 3 FiO2 32 32 32 32 12/15/21 12/15/21 12/15/21 12/15/21 07:00 07:01 07:15 07:30 Pulse 81 90 92 92 Resp 13 6 B/P (MAP) 105/75 (85) Pulse Ox 95 100 94 100 O2 Delivery Nasal Cannula* Nasal Cannula* Nasal Cannula* Nasal Cannula* O2 Flow Rate 3 3 3 3 FiO2 32 32 32 32 12/15/21 12/15/21 12/15/21 12/15/21 07:45 08:00 08:00 08:01 Pulse 112 99 103 Resp 30 7 15 B/P (MAP) 119/71 (87) Pulse Ox 96 99 99 O2 Delivery Nasal Cannula* Nasal Cannula* Nasal Cannula Nasal Cannula* O2 Flow Rate 2 2 3.00 2 FiO2 28 28 28 12/15/21 12/15/21 12/15/21 12/15/21 08:15 08:30 08:45 09:00 Pulse 93 96 112 104 Resp 20 25 B/P (MAP) 104/76 (85) Pulse Ox 96 87 94 95 O2 Delivery Nasal Cannula* Nasal Cannula* Nasal Cannula* Nasal Cannula* O2 Flow Rate 2 2 2 2 FiO2 28 28 28 28 12/15/21 12/15/21 12/15/21 12/15/21 09:15 09:21 09:30 09:33 Pulse 95 97 93 Resp 6 18 18 B/P (MAP) 104/76 Pulse Ox 98 95 98 O2 Delivery Nasal Cannula* Nasal Cannula* Nasal Cannula* O2 Flow Rate 2 2 3 FiO2 28 28 32 12/15/21 12/15/21 12/15/21 12/15/21 09:45 10:00 10:15 10:30 Pulse 93 98 92 93 Resp 23 20 19 29 B/P (MAP) 115/77 (90) Pulse Ox 96 90 99 95 O2 Delivery Nasal Cannula* Nasal Cannula* Nasal Cannula* Nasal Cannula* O2 Flow Rate 2 2 2 2 FiO2 28 28 28 28 12/15/21 10:45 Pulse 117 Resp 19 Pulse Ox 95 O2 Delivery Nasal Cannula* O2 Flow Rate 2 FiO2 28 Intake and Output 12/15/21 07:00 Intake Total 1748 ml Output Total 1000 ml Balance 748 ml General: Alert, Oriented X3, moderate distress, Other (Orthopneic) HEENT: Atraumatic, PERRLA Lungs: Other (Bibasilar crackles, respirations labored) Heart: Other (Irregular irregular tachycardic) Abdomen: No tenderness, Other (Distended) Extremities: No clubbing, No cyanosis, Other (Bilateral edema) Neuro: Normal speech, Normal tone Psych/Mental Status: Mental status NL, Mood NL All Results(Lab/Rad) Laboratory Tests Test 12/14/21 12:14 12/14/21 16:16 12/15/21 04:05 Urine Opiates Screen NEGATIVE Urine Methadone Screen NEGATIVE Urine Barbiturates Screen NEGATIVE Urine Phencyclidine Screen NEGATIVE Ur Amphetamine/Methamphetamine NEGATIVE Urine MDMA Screen (Ecstasy) NEGATIVE Urine Benzodiazepines Screen NEGATIVE Urine Cocaine Metabolite Screen NEGATIVE Ur Tetrahydrocannabinol (THC) Scrn PRESUMPTIVE POSITIVE Troponin I High Sensitivity 27 ng/L White Blood Count 9.8 10^3/uL Red Blood Count 5.02 10^6/uL Hemoglobin 16.4 g/dL Hematocrit 50.7 % Mean Corpuscular Volume 101.0 fL Mean Corpuscular Hemoglobin 32.7 pg Mean Corpuscular Hemoglobin Concent 32.3 g/dL Red Cell Distribution Width 15.4 % Platelet Count 167 10^3/uL Mean Platelet Volume 10.7 fL Neutrophils (%) (Auto) 72.1 % Lymphocytes (%) (Auto) 17.9 % Monocytes (%) (Auto) 9.3 % Neutrophils # (Auto) 7.1 10^3/uL Lymphocytes # (Auto) 1.75 10^3/uL1 Monocytes # (Auto) 0.9 10^3/uL Absolute Immature Granulocyte (auto 0.01 10^3 u/L Absolute Eosinophils (auto) 0.0 10^3/uL Immature Granulocytes % 0.10 % Eosinophils % 0.2 % Basophils % 0.5 % Basophils # 0.1 10^3/uL Sodium Level 133 mmol/L Potassium Level 4.8 mmol/L Chloride Level 103.0 mmol/L Carbon Dioxide Level 17.7 mmol/L Anion Gap 17.1 Blood Urea Nitrogen 21 mg/dL Creatinine 1.81 mg/dL Estimated GFR () 50.2 Est GFR (CKD-EPI)(Non-Afr [place]) 41.5 BUN/Creatinine Ratio 11.0 Glucose Level 111 mg/dL Calcium Level 8.8 mg/dL Total Bilirubin 1.8 mg/dL Aspartate Amino Transf (AST/SGOT) 39 U/L Alanine Aminotransferase (ALT/SGPT) 20 U/L Alkaline Phosphatase 102 U/L Total Protein 6.2 g/dL Albumin 2.8 g/dL Globulin 3.4 Albumin/Globulin Ratio 0.823 Current Medications Medications (Trade) Dose Ordered Sig/Emre Route PRN Reason Start Time Stop Time Status Last Admin Dose Admin Diltiazem HCl (Cardizem) 20 mg STAT STAT IV 12/14/21 10:51 12/14/21 10:53 DC 12/14/21 11:04 Furosemide (Lasix) 40 mg STAT STAT IV 12/14/21 10:51 12/14/21 10:53 DC 12/14/21 11:07 Albuterol Sulfate (Ventolin) 2.5 mg OT ONCE IH 12/14/21 11:00 12/14/21 11:01 DC 12/14/21 11:12 Furosemide (Lasix) 40 mg STK-MED ONCE .ROUTE 12/14/21 11:01 12/14/21 11:02 DC Diltiazem HCl (Cardizem) 125 mg STK-MED ONCE .ROUTE 12/14/21 11:01 12/14/21 11:02 DC Albuterol Sulfate (Ventolin) 2.5 mg STK-MED ONCE IH 12/14/21 11:06 12/14/21 11:06 DC Amiodarone HCl (Cordarone) 150 mg OT ONCE IV 12/14/21 11:30 12/14/21 11:31 DC 12/14/21 11:19 Amiodarone HCl (Cordarone) 150 mg STK-MED ONCE .ROUTE 12/14/21 11:15 12/14/21 11:15 DC Amiodarone HCL/ Dextrose 200 ml @ 0 mls/hr IV 12/14/21 12:00 01/13/22 11:59 12/14/21 21:19 Amiodarone HCL/ Dextrose 200 ml @ ud STK-MED ONCE IV 12/14/21 11:44 12/14/21 11:44 DC Enoxaparin Sodium (Lovenox) 100 mg STAT STAT SQ 12/14/21 11:57 12/14/21 12:02 DC 12/14/21 12:06 Enoxaparin Sodium (Lovenox) 100 mg STK-MED ONCE SQ 12/14/21 12:04 12/14/21 12:04 DC Acetaminophen (Tylenol) 1,000 mg Q6H PRN PO PAIN 1 - 3 12/14/21 14:00 01/13/22 13:59 12/15/21 00:49 Pantoprazole Sodium (Protonix) 40 mg DAILY PO 12/15/21 09:00 01/14/22 08:59 12/15/21 09:21 Enoxaparin Sodium (Lovenox) 120 mg Q12H SQ 12/14/21 14:00 12/14/21 14:04 DC Sotalol HCl (Betapace) 80 mg STAT STAT PO 12/14/21 14:00 12/14/21 14:31 DC 12/14/21 14:16 Sotalol HCl (Betapace) 80 mg BID PO 12/14/21 21:00 12/15/21 01:07 DC 12/14/21 20:29 Furosemide (Lasix) 40 mg STAT STAT IV 12/14/21 17:13 12/14/21 20:33 DC 12/14/21 17:22 Furosemide (Lasix) 40 mg DAILY IV 12/15/21 09:00 01/14/22 08:59 12/15/21 09:21 Lisinopril (Zestril) 20 mg DAILY PO 12/15/21 09:00 7/3/22 08:59 Calcium Carbonate/ Glycine (Tums) 500 mg Q4HR PRN PO HEARTBURN 12/14/21 21:30 12/15/21 11:00 DC 12/14/21 21:19 Ondansetron HCl (Zofran) 4 mg Q6HR PRN IV NAUSEA / VOMITING 12/14/21 22:00 01/13/22 21:59 12/14/21 22:24 Sotalol HCl (Betapace) 120 mg BID PO 12/15/21 09:00 01/14/22 08:59 12/15/21 09:22 Sotalol HCl (Betapace) 40 mg STAT STAT PO 12/15/21 01:05 12/15/21 01:51 DC 12/15/21 01:10 Assessment/Plan Assessment/Plan Assessment/Plan 41-year-old male with history of atrial fibrillation comes here with several weeks of worsening leg edema as well as progressive shortness of breath. The edema is in both legs. The shortness of breath is progressive and worse with activity and laying down. He is got history of A. fib but unfortunately not taking any medication right now. No fever and no cough. No chest pain. The patient has seen one of the local pre press proofer in the past. Shortness of breath described as 8 out of 10 in intensity. And work-up in the emergency room patient was found to be in atrial fibrillation with RVR. Patient was also found to have significant leg edema and, short of breath, orthopneic.Denies chest pain, nausea vomiting fever or chills.Initially patient was given diltiazem, remained in A. fib with RVR. Patient was started on IV amiodarone drip. Given IV Lasix. Placed on supplemental oxygen. Patient admitted to intensive care unit for further management.Gis Programmer consulted. Plan Patient started on sotalol Blood pressure is soft, will hold lisinopril for now Continue IV diuresis Continue to monitor kidney function urine output Monitor and correct electrolytes Venous Doppler of lower extremities Appreciate cardiology input and help GI and DVT prophylaxis Case discussed with HOTEL CASINO FLOORPERSON Problems: (1) Atrial fibrillation with RVR ICD Code: I48.91 - Unspecified atrial fibrillation SNOMED: 591759982871595 (2) CAD (coronary artery disease) ICD Code: I25.10 - Atherosclerotic heart disease of [place] coronary artery without angina pectoris SNOMED: 25038096 (3) Acute exacerbation of congestive heart failure ICD Code: I50.9 - Heart failure, unspecified SNOMED: 326956700, 15688500878690 (4) Noncompliance with medications ICD Code: Z91.14 - Patient's other noncompliance with medication regimen SNOMED: 346293554 (5) History of COVID-19 ICD Code: Z86.16 - Personal history of COVID-19 SNOMED: 145822175, [id number] CONSTANZA CUNNINGHAM MD Dec 15, 2021 11:26
--- NOTE | 2021-12-15 11:58 | DIREP ---
PROCEDURE:US VENOUS IMAGING BILAT COMPARISON:[facility], [place], US VENOUS IMAGING BILAT, 04/20/2021, 09:10 AM. INDICATIONS:bilateral lower extremity edema TECHNIQUE:The lower extremities were evaluated utilizing de la torre scale images with segmental compression, color Doppler, and spectral Doppler with respiratory variation and augmentation. FINDINGS: RIGHT Common femoral vein:Patent Profunda femoris: Occlusive thrombus Superficial femoral vein:Occlusive thrombus Popliteal vein:Occlusive thrombus Posterior tibial vein:Patent Peroneal vein: Patent Greater saphenous vein:Patent LEFT Common femoral vein:Patent Profunda femoris: Patent Superficial femoral vein:Patent Popliteal vein:Partially occlusive thrombus Posterior tibial vein:Patent Peroneal vein: Patent Greater saphenous vein:Patent CONCLUSION: 1. Right femoral-popliteal occlusive DVT. 2. Left popliteal partially occlusive DVT. Dictated by: Hollie Peters MD on 12/15/2021 at 11:53 AM
--- NOTE | 2021-12-15 14:38 | PRM.PN ---
Subjective Subjective Date: Dec 15, 2021 Time: 14:32 Subjective He denies any chest pain . He states his shortness of breath is significantly better from yesterday and is no longer feeling palpitations like before. VTE VTE Risk Total Score: >5 VTE Risk Score VTE Risk: Score 0-1 = Low Risk (Aggressive mobilization; early ambulation; no VTE prophylaxis required) Score 2: Moderate Risk (Intermittent/Pneumatic Compression Device OR Lovenox/Heparin/Coumadin) Score 3-4: High Risk (Intermittent/Pneumatic Compression Device AND Lovenox/Heparin/Coumadin) Score > or =5: Highest Risk (Intermittent/Pneumatic Compression Device AND Lovenox/Heparin/Coumadin) Antico:Hep/LMWH/Coum/Xarelto: Yes Review of Systems Constitutional: Weakness, Other (fatigue); No: Fever, Sweats Eyes: No: Pain ENT: No: Ear pain, Nose pain, Throat pain Respiratory: SOB with excertion; No: Cough, Shortness of breath, Other Cardiovascular: No: Chest Pain, Palpitations, Paroxysmal Noc. Dyspnea, Other Gastrointestinal: No: Nausea, Abdominal Pain Genitourinary: No Frequency, No Incontinence Musculoskeletal: No: neck pain, shoulder pain, arm pain Neurological: Weakness Allergies: Coded Allergies: No Known Allergies (Unverified , 06/30/16) Scheduled Diltiazem Hcl (Cardizem), 60 MG PO TID Lisinopril (Lisinopril), 20 MG PO DAILY Omeprazole Magnesium (Prilosec Otc), 1 TAB PO QD Sotalol Hcl (Sotalol), 0.5 TAB PO BID Warfarin Sodium (Warfarin Sodium), 10 MG PO DAILY24 Objective Vitals and I/O Vital Sign - Last 24 Hours 12/14/21 12/14/21 12/14/21 12/14/21 14:45 14:46 15:00 15:15 Pulse 125 136 130 Resp 18 26 16 B/P (MAP) 134/96 (109) 101/75 (84) 98/52 (67) Pulse Ox 96 97 98 O2 Delivery Room Air* Room Air Room Air* Room Air* O2 Flow Rate 0 0 0 FiO2 12/14/21 12/14/21 12/14/21 12/14/21 15:26 16:00 16:00 16:01 Pulse 125 121 117 Resp 22 21 12 B/P (MAP) 131/98 (109) 106/87 (93) Pulse Ox 99 98 98 O2 Delivery Room Air* Room Air Room Air* Room Air* O2 Flow Rate 0 0 0 FiO2 21 12/14/21 12/14/21 12/14/21 12/14/21 16:15 16:30 16:31 16:45 Pulse 113 122 119 116 Resp 11 30 22 18 B/P (MAP) 120/77 (91) 113/72 (86) 91/47 (62) Pulse Ox 97 97 98 O2 Delivery Room Air* Room Air* Room Air* Room Air* O2 Flow Rate 0 0 0 0 FiO2 12/14/21 12/14/21 12/14/21 12/14/21 17:00 17:15 17:20 17:22 Pulse 134 113 103 Resp 11 16 23 B/P (MAP) 93/45 (61) 113/75 (88) 113/67 (82) 114/74 Pulse Ox 99 99 91 O2 Delivery Room Air* Room Air* Room Air* O2 Flow Rate 0 0 0 FiO2 12/14/21 12/14/21 12/14/21 12/14/21 17:22 17:30 17:32 17:45 Pulse 109 106 121 113 Resp 28 14 20 18 B/P (MAP) 114/74 (87) 107/84 (92) Pulse Ox 94 92 92 O2 Delivery Room Air* Room Air* Room Air* Room Air* O2 Flow Rate 0 0 0 0 FiO2 12/14/21 12/14/21 12/14/21 12/14/21 17:47 17:52 17:54 17:56 Pulse 118 110 120 112 Resp 11 16 34 26 B/P (MAP) 97/65 (76) Pulse Ox 90 92 96 95 O2 Delivery Room Air* Room Air* Room Air* Room Air* O2 Flow Rate 0 0 0 0 FiO2 21 12/14/21 12/14/21 12/14/21 12/14/21 18:00 18:02 18:05 18:45 Pulse 115 117 128 124 Resp 23 21 30 22 B/P (MAP) 136/64 (88) 111/75 (87) 101/83 (89) Pulse Ox 94 97 97 O2 Delivery Room Air* Room Air* Room Air* Room Air* O2 Flow Rate 0 0 0 0 FiO2 21 12/14/21 12/14/21 12/14/21 12/14/21 19:00 19:15 19:30 19:45 Pulse 115 110 114 111 Resp 9 23 21 35 B/P (MAP) 86/71 (76) 104/64 (77) 136/109 (118) 136/92 (107) Pulse Ox 100 O2 Delivery Room Air* Room Air* Room Air* Room Air* O2 Flow Rate 0 0 0 0 FiO2 21 12/14/21 12/14/21 12/14/21 12/14/21 20:02 20:15 20:15 20:30 Temp 97.9 Pulse 119 114 112 Resp 33 21 56 B/P (MAP) 102/84 (90) 109/88 (95) 112/56 (74) Pulse Ox 96 O2 Delivery Room Air* Room Air Room Air* Room Air* O2 Flow Rate 0 0 0 FiO2 12/14/21 12/14/21 12/14/21 12/14/21 20:45 21:00 21:16 21:40 Pulse 109 122 121 120 Resp 24 25 13 10 B/P (MAP) 110/82 (91) 101/82 (88) 105/83 (90) 111/70 (84) Pulse Ox 94 O2 Delivery Room Air* Room Air* Room Air* Room Air* O2 Flow Rate 0 0 0 0 FiO2 12/14/21 12/14/21 12/14/21 12/14/21 21:46 22:34 23:22 23:30 Pulse 116 127 115 Resp 22 24 22 B/P (MAP) 105/64 (78) 111/85 (94) Pulse Ox 93 87 O2 Delivery Room Air* Nasal Cannula* Nasal Cannula Nasal Cannula* O2 Flow Rate 0 2 2.00 2 FiO2 21 28 12/14/21 12/15/21 12/15/21 12/15/21 23:56 00:02 00:45 01:00 Temp 97.7 Pulse 110 116 130 133 Resp 14 25 17 37 B/P (MAP) 112/71 (85) 173/92 (119) Pulse Ox 95 87 93 87 O2 Delivery Nasal Cannula* Nasal Cannula* Nasal Cannula* Nasal Cannula* O2 Flow Rate 2 2 2 2 FiO2 28 28 28 28 12/15/21 12/15/21 12/15/21 12/15/21 01:03 01:45 02:02 02:15 Pulse 135 109 113 112 Resp 18 24 22 32 B/P (MAP) 112/73 (86) 113/60 (77) Pulse Ox 90 85 93 O2 Delivery Nasal Cannula* Nasal Cannula* Nasal Cannula* Nasal Cannula* O2 Flow Rate 2 2 2 2 FiO2 28 28 28 28 12/15/21 12/15/21 12/15/21 12/15/21 02:30 02:45 03:00 03:15 Pulse 101 99 101 111 Resp 26 B/P (MAP) 128/93 (105) Pulse Ox 88 89 88 89 O2 Delivery Nasal Cannula* Nasal Cannula* Nasal Cannula* Nasal Cannula* O2 Flow Rate 2 2 3 3 FiO2 28 28 32 32 12/15/21 12/15/21 12/15/21 12/15/21 03:30 03:40 03:45 04:00 Temp 97.8 Pulse 111 109 97 Resp 19 B/P (MAP) 147/115 (126) Pulse Ox 78 85 O2 Delivery Nasal Cannula* Nasal Cannula Nasal Cannula* Nasal Cannula* O2 Flow Rate 3 3.00 3 3 FiO2 32 32 32 12/15/21 12/15/21 12/15/21 12/15/21 04:30 04:45 05:00 05:15 Pulse 109 106 94 103 Resp 24 34 B/P (MAP) 107/71 (83) Pulse Ox 94 96 87 93 O2 Delivery Nasal Cannula* Nasal Cannula* Nasal Cannula* Nasal Cannula* O2 Flow Rate 3 3 3 3 FiO2 32 32 32 32 12/15/21 12/15/21 12/15/21 12/15/21 05:30 05:45 06:00 06:15 Pulse 93 96 100 112 Resp 23 27 21 27 Pulse Ox 81 92 87 89 O2 Delivery Nasal Cannula* Nasal Cannula* Nasal Cannula* Nasal Cannula* O2 Flow Rate 3 3 3 3 FiO2 32 32 32 32 12/15/21 12/15/21 12/15/21 12/15/21 06:30 06:45 07:00 07:01 Pulse 113 89 81 90 Resp 32 15 13 B/P (MAP) 105/75 (85) Pulse Ox 93 96 95 100 O2 Delivery Nasal Cannula* Nasal Cannula* Nasal Cannula* Nasal Cannula* O2 Flow Rate 3 3 3 3 FiO2 32 32 32 32 6/3/22 6/3/22 6/3/22 6/3/22 07:15 07:30 07:45 08:00 Pulse 92 92 112 99 Resp 6 30 7 Pulse Ox 94 100 96 99 O2 Delivery Nasal Cannula* Nasal Cannula* Nasal Cannula* Nasal Cannula* O2 Flow Rate 3 3 2 2 FiO2 32 32 28 28 12/15/21 12/15/21 12/15/21 12/15/21 08:00 08:01 08:15 08:30 Pulse 103 93 96 Resp 15 20 B/P (MAP) 119/71 (87) Pulse Ox 99 96 87 O2 Delivery Nasal Cannula Nasal Cannula* Nasal Cannula* Nasal Cannula* O2 Flow Rate 3.00 2 2 2 FiO2 28 28 28 12/15/21 12/15/21 12/15/21 12/15/21 08:45 09:00 09:15 09:21 Pulse 112 104 95 Resp 25 6 B/P (MAP) 104/76 (85) 104/76 Pulse Ox 94 95 98 O2 Delivery Nasal Cannula* Nasal Cannula* Nasal Cannula* O2 Flow Rate 2 2 2 FiO2 28 28 28 12/15/21 12/15/21 12/15/21 12/15/21 09:30 09:33 09:45 10:00 Pulse 97 93 93 98 Resp 18 18 23 20 B/P (MAP) 115/77 (90) Pulse Ox 95 98 96 90 O2 Delivery Nasal Cannula* Nasal Cannula* Nasal Cannula* Nasal Cannula* O2 Flow Rate 2 3 2 2 FiO2 28 32 28 28 12/15/21 12/15/21 12/15/21 12/15/21 10:15 10:30 10:45 11:00 Pulse 92 93 117 102 Resp 19 29 19 13 B/P (MAP) 105/69 (81) Pulse Ox 99 95 95 96 O2 Delivery Nasal Cannula* Nasal Cannula* Nasal Cannula* Nasal Cannula* O2 Flow Rate 2 2 2 2 FiO2 28 28 28 28 12/15/21 12/15/21 12/15/21 12/15/21 11:15 11:30 11:45 12:00 Pulse 97 99 113 110 Resp 19 11 19 50 B/P (MAP) 115/65 (82) Pulse Ox 96 96 96 94 O2 Delivery Nasal Cannula* Nasal Cannula* Nasal Cannula* Nasal Cannula* O2 Flow Rate 2 2 2 2 FiO2 28 28 28 28 12/15/21 12/15/21 12/15/21 12/15/21 12:15 12:30 12:45 13:00 Pulse 118 98 90 94 Resp 18 20 14 23 B/P (MAP) 113/71 (85) Pulse Ox 93 95 96 95 O2 Delivery Nasal Cannula* Nasal Cannula* Nasal Cannula* Nasal Cannula* O2 Flow Rate 2 2 2 2 FiO2 28 28 28 28 12/15/21 12/15/21 13:15 13:51 Pulse 94 102 Resp 27 22 Pulse Ox 95 97 O2 Delivery Nasal Cannula* Nasal Cannula* O2 Flow Rate 2 2 FiO2 28 28 Intake and Output 12/15/21 07:00 Intake Total 1748 ml Output Total 1000 ml Balance 748 ml General: Alert, Oriented X3, No acute distress HEENT: Atraumatic, PERRLA, Mucous membr. moist/pink Neck: Supple Lungs: Normal air movement, Other (02 @ 2LNC ; scattered crackles) Heart: Regular rate Abdomen: No tenderness Extremities: No clubbing, Other (Bilateral lower extremity edema) Skin: No rashes Neuro: Normal speech, Normal tone Psych/Mental Status: Mental status NL, Mood NL All Results(Lab/Rad) Laboratory Tests Test 12/14/21 12:14 12/14/21 16:16 12/15/21 04:05 Urine Opiates Screen NEGATIVE Urine Methadone Screen NEGATIVE Urine Barbiturates Screen NEGATIVE Urine Phencyclidine Screen NEGATIVE Ur Amphetamine/Methamphetamine NEGATIVE Urine MDMA Screen (Ecstasy) NEGATIVE Urine Benzodiazepines Screen NEGATIVE Urine Cocaine Metabolite Screen NEGATIVE Ur Tetrahydrocannabinol (THC) Scrn PRESUMPTIVE POSITIVE Troponin I High Sensitivity 27 ng/L White Blood Count 9.8 10^3/uL Red Blood Count 5.02 10^6/uL Hemoglobin 16.4 g/dL Hematocrit 50.7 % Mean Corpuscular Volume 101.0 fL Mean Corpuscular Hemoglobin 32.7 pg Mean Corpuscular Hemoglobin Concent 32.3 g/dL Red Cell Distribution Width 15.4 % Platelet Count 167 10^3/uL Mean Platelet Volume 10.7 fL Neutrophils (%) (Auto) 72.1 % Lymphocytes (%) (Auto) 17.9 % Monocytes (%) (Auto) 9.3 % Neutrophils # (Auto) 7.1 10^3/uL Lymphocytes # (Auto) 1.75 10^3/uL1 Monocytes # (Auto) 0.9 10^3/uL Absolute Immature Granulocyte (auto 0.01 10^3 u/L Absolute Eosinophils (auto) 0.0 10^3/uL Immature Granulocytes % 0.10 % Eosinophils % 0.2 % Basophils % 0.5 % Basophils # 0.1 10^3/uL Sodium Level 133 mmol/L Potassium Level 4.8 mmol/L Chloride Level 103.0 mmol/L Carbon Dioxide Level 17.7 mmol/L Anion Gap 17.1 Blood Urea Nitrogen 21 mg/dL Creatinine 1.81 mg/dL Estimated GFR () 50.2 Est GFR (CKD-EPI)(Non-Afr Nauruan) 41.5 BUN/Creatinine Ratio 11.0 Glucose Level 111 mg/dL Calcium Level 8.8 mg/dL Total Bilirubin 1.8 mg/dL Aspartate Amino Transf (AST/SGOT) 39 U/L Alanine Aminotransferase (ALT/SGPT) 20 U/L Alkaline Phosphatase 102 U/L Total Protein 6.2 g/dL Albumin 2.8 g/dL Globulin 3.4 Albumin/Globulin Ratio 0.823 Current Medications Medications (Trade) Dose Ordered Sig/Emre Route PRN Reason Start Time Stop Time Status Last Admin Dose Admin Diltiazem HCl (Cardizem) 20 mg STAT STAT IV 12/14/21 10:51 12/14/21 10:53 DC 12/14/21 11:04 Furosemide (Lasix) 40 mg STAT STAT IV 12/14/21 10:51 12/14/21 10:53 DC 12/14/21 11:07 Albuterol Sulfate (Ventolin) 2.5 mg OT ONCE IH 12/14/21 11:00 12/14/21 11:01 DC 12/14/21 11:12 Furosemide (Lasix) 40 mg STK-MED ONCE .ROUTE 12/14/21 11:01 12/14/21 11:02 DC Diltiazem HCl (Cardizem) 125 mg STK-MED ONCE .ROUTE 12/14/21 11:01 12/14/21 11:02 DC Albuterol Sulfate (Ventolin) 2.5 mg STK-MED ONCE IH 12/14/21 11:06 12/14/21 11:06 DC Amiodarone HCl (Cordarone) 150 mg OT ONCE IV 12/14/21 11:30 12/14/21 11:31 DC 12/14/21 11:19 Amiodarone HCl (Cordarone) 150 mg STK-MED ONCE .ROUTE 12/14/21 11:15 12/14/21 11:15 DC Amiodarone HCL/ Dextrose 200 ml @ 0 mls/hr IV 12/14/21 12:00 01/13/22 11:59 12/14/21 21:19 Amiodarone HCL/ Dextrose 200 ml @ ud STK-MED ONCE IV 12/14/21 11:44 12/14/21 11:44 DC Enoxaparin Sodium (Lovenox) 100 mg STAT STAT SQ 12/14/21 11:57 12/14/21 12:02 DC 12/14/21 12:06 Enoxaparin Sodium (Lovenox) 100 mg STK-MED ONCE SQ 12/14/21 12:04 12/14/21 12:04 DC Acetaminophen (Tylenol) 1,000 mg Q6H PRN PO PAIN 1 - 3 12/14/21 14:00 01/13/22 13:59 12/15/21 00:49 Pantoprazole Sodium (Protonix) 40 mg DAILY PO 12/15/21 09:00 01/14/22 08:59 12/15/21 09:21 Enoxaparin Sodium (Lovenox) 120 mg Q12H SQ 12/14/21 14:00 12/14/21 14:04 DC Sotalol HCl (Betapace) 80 mg STAT STAT PO 12/14/21 14:00 12/14/21 14:31 DC 12/14/21 14:16 Sotalol HCl (Betapace) 80 mg BID PO 12/14/21 21:00 12/15/21 01:07 DC 12/14/21 20:29 Furosemide (Lasix) 40 mg STAT STAT IV 12/14/21 17:13 12/14/21 20:33 DC 12/14/21 17:22 Furosemide (Lasix) 40 mg DAILY IV 12/15/21 09:00 01/14/22 08:59 12/15/21 09:21 Lisinopril (Zestril) 20 mg DAILY PO 12/15/21 09:00 01/14/22 08:59 Calcium Carbonate/ Glycine (Tums) 500 mg Q4HR PRN PO HEARTBURN 12/14/21 21:30 12/15/21 11:00 DC 12/14/21 21:19 Ondansetron HCl (Zofran) 4 mg Q6HR PRN IV NAUSEA / VOMITING 12/14/21 22:00 01/13/22 21:59 12/14/21 22:24 Sotalol HCl (Betapace) 120 mg BID PO 12/15/21 09:00 01/14/22 08:59 12/15/21 09:22 Sotalol HCl (Betapace) 40 mg STAT STAT PO 12/15/21 01:05 12/15/21 01:51 DC 12/15/21 01:10 Assessment/Plan Assessment/Plan Assessment/Plan 1. Hx of Nonischemic cardiomyopathy 2. Chronic atrial fibrillation 3. Hypertension. 4. Acute on Chronic systolic heart failure. 5. Anxiety/depression. 6. Hyperlipidemia. 7. Obstructive sleep apnea. 8. GERD 9. Non compliance with medications 10. Non compliance with outpatient office visits 11. Tobacco use 12. Most recent echo done April 2021 showed LVEF of 55-60% Dr. Miller: Continue cardiac meds:Lisinopril 20 mg PO daily, Lasix 40 mg IV daily, KCL 20 meq daily, Sotalol 120 mg PO BID, and Eliquis 5 mg PO BID. Heart rate is currently controlled. (Goal is <120bpm) Fluid restriction to 1.5L/day Strict I and O's Daily weights Na restriction 2D echo is not available at the hospital at this time. Would benefit from SGLT2 inh and Entresto-however cannot afford meds due to financial burden No invasive w/up planned at this time Patient agrees to follow up in clinic upon discharge. Lifestyle modification factors have been strongly advised. Will sign off. Duration Duration or Time Spent with Pa: 30 JULITA SHAFFER APRN, NP Dec 15, 2021 14:38 LA NENA MILLER DO Dec 15, 2021 16:59
--- NOTE | 2021-12-15 18:40 | NUR ---
REPORT RECEIVED FROM SHELLY MENDOZA. ASSUMED PT CARE.
--- NOTE | 2021-12-15 20:13 | CNH ---
DATE OF CONSULTATION: 12/14/2021 DICTATOR NAME: LA NENA MILLER DO REASON FOR CONSULTATION: Atrial fibrillation with rapid ventricular response/acute decompensated heart failure secondary to systolic and diastolic dysfunction. HISTORY OF PRESENT ILLNESS: This is a 41-year-old male who presented to the Emergency Room with progressively worsening shortness of breath with orthopnea and paroxysmal nocturnal dyspnea. He was also experiencing persistent palpitations. He has a history of chronic congestive heart failure secondary to systolic and diastolic dysfunction as well as chronic AFib. He is noncompliant to medication as well as noncompliant to office followup visits. Upon presentation to the ED, his proBNP was noted to be 12,450. High-sensitive troponin was negative x2. EKG revealed atrial fibrillation with rapid ventricular response with a heart rate of 165 beats per minute. A consultation has been placed to Cardiology service for evaluation for AFib with RVR as well as decompensated heart failure. PAST MEDICAL HISTORY: Significant for: 1. Chronic congestive heart failure. 2. Chronic atrial fibrillation. 3. Nonischemic dilated cardiomyopathy. 4. Hypertension. 5. Anxiety/depression. 6. Hyperlipidemia. 7. Obstructive sleep apnea. 8. GERD. PAST SURGICAL HISTORY: 1. Cardiac catheterization done 06/2019 revealed nonischemic cardiomyopathy with a left ventricular ejection fraction of 25-30%. 2. Repeat 2D echo, however, revealed left ventricular ejection fraction of 55-60%. This was done 04/2021. ALLERGIES: No known drug allergies. MEDICATIONS: The patient is noncompliant to home medications, however, he is supposed to be on sotalol 80 mg p.o. b.i.d., Eliquis 5 mg p.o. b.i.d., Lasix 40 mg p.o. every day. SOCIAL HISTORY: He uses alcohol socially. Denies illicit drug use. Admits to tobacco abuse. FAMILY HISTORY: He admits to family history of premature coronary artery disease, but denies sudden cardiac . REVIEW OF SYSTEMS: As per HPI and as per previous records. All systems are reviewed and negative for interval change. PHYSICAL EXAMINATION: VITAL SIGNS: Blood pressure is 110/82, respiratory rate is 24, pulse is 109, temperature is 97.9, pulse oximetry is 96% on room air. GENERAL: He is in no apparent distress, alert and oriented x3. HEENT: Normocephalic, atraumatic. Extraocular muscles intact. Pupils equally round, reactive to light and accommodation. CARDIAC: S1, S2 irregularly irregular. No gallops, murmurs, rubs, or clicks. LUNGS: Clear to auscultation bilaterally. No wheezing, rhonchi or rales. ABDOMEN: Soft, nontender, nondistended, obese. Positive bowel sounds in all 4 quadrants. EXTREMITIES: No cyanosis, no clubbing, +2 pitting edema bilaterally. NEUROLOGIC: No neurological deficits. Sensation is intact. IMPRESSION: 1. Acute decompensated heart failure secondary to unknown etiology at this time. 2. Atrial fibrillation with rapid ventricular response. 3. History of nonischemic dilated cardiomyopathy. 4. Left ventricular ejection fraction of 55-60% on 2D echo done 04/2021. 5. Left heart catheterization done 06/2019 revealed nonobstructive coronary artery disease. 6. Hypertension. 7. Anxiety/depression. 8. Chronic congestive heart failure. 9. Hyperlipidemia. 10. Obstructive sleep apnea. 11. Gastroesophageal reflux disease. 12. Morbid obesity. 13. Family history of premature coronary artery disease. 14. Tobacco abuse. RECOMMENDATIONS: This is a 41-year-old male who presented to the Emergency Room with progressively worsening shortness of breath with orthopnea and paroxysmal nocturnal dyspnea. He was also noted to be in atrial fibrillation with rapid ventricular response. The patient has a long history of poor medication compliance as well as poor compliance to follow up in the office setting. He states that he ran out of his meds about 2-3 weeks ago. I am going to restart him on sotalol 80 mg p.o. b.i.d. He is currently on amiodarone drip. I would wean him off amiodarone drip. I would also restart him on oral anticoagulation. He will be started on Eliquis 5 mg p.o. b.i.d. I would recommend strict I's and O's, daily weights, fluid as well as sodium restriction. He will be started on Lasix 40 mg IV every day as well as lisinopril 20 mg p.o. every day. A 2D echocardiography is not available at the hospital at this time. Most recent echo done 04/2021 revealed left ventricular ejection fraction of 55-60%. High sensitive troponin is negative x2. He denies any angina. His heart rate goal is less than 120 beats per minute. If his heart rate is controlled by the morning, he can be discharged home from my standpoint to follow up with me in the office in 2-3 weeks. I have written out a prescription for all his cardiac medications. No invasive cardiac workup is planned at this time. Madhav COOPER D.O. DR: KA/MUK TID: [id number] RECEIPT: [id number]
[2021-12-16 04:40] VITALS: BP 126/74
[2021-12-16 05:37] LABS: BASOPHIL # 0.1 10^3/uL (0.0-0.1); EOSINOPHIL # 0.1 10^3/uL (0.0-0.2); EOSINOPHIL % 1.7 % (0.0-5.0); LYMPHOCYTES # 2.38 10^3/uL1 (1.0-4.8); LYMPHOCYTES % 30.5 % (24.0-44.0); MEAN CORP HGB 32.6 pg (26-34); MONOCYTES # 0.8 10^3/uL (0.3-0.8); MONOCYTES % 10.2 % (5.0-12.0); NEUTROPHIL # 4.4 10^3/uL (1.8-7.7); NEUTROPHILS % 56.3 % (41.0-85.0); PLATELET COUNT 171 10^3/uL (150-400); RED CELL DISTRIBUTION WIDTH 15.2 % (11.5-14.5)
[2021-12-16 05:52] LABS: CARBON DIOXIDE 24.7 mmol/L (20.0-32)
--- NOTE | 2021-12-16 06:48 | NUR ---
REPORT TO ONCOMING SHIFT. PT CARE RELINQUISHED.
[2021-12-16] MEDS ORDERED: MAGNESIUM SULFATE 50 ML IV ONE (08:00)
[2021-12-16 08:15] VITALS: BP 116/76
[2021-12-16] MEDS: ELIQUIS PO SCH ×2 (09:00→20:44)
[2021-12-16] MEDS: BETAPACE PO SCH ×2 (09:00→20:45)
[2021-12-16] MEDS: LASIX IV SCH (09:00)
[2021-12-16] MEDS: PROTONIX PO SCH (09:00)
--- NOTE | 2021-12-16 09:34 | PRM.PN ---
Subjective Subjective Date: Dec 16, 2021 Time: 09:00 Subjective Patient is breathing better this morning. Heart rate low 100s/high 90s. Magnesium is low at 1.7. Creatinine is trending up 2.02.Patient in negative fluid balance.Venous Doppler positive for bilateral DVT. Patient History: FH: esophageal cancer 32 MOTHER, FH: suicide 33 FATHER, , Age:30's - 40 Review of Systems Constitutional: Weakness, Other (fatigue); No: Fever, Sweats Eyes: No: Pain ENT: No: Ear pain, Nose pain, Throat pain Respiratory: SOB with excertion; No: Cough, Shortness of breath, Other Cardiovascular: No: Chest Pain, Palpitations, Paroxysmal Noc. Dyspnea, Other Gastrointestinal: No: Nausea, Abdominal Pain Genitourinary: No Frequency, No Incontinence Musculoskeletal: No: neck pain, shoulder pain, arm pain Neurological: Weakness Allergies: Coded Allergies: No Known Allergies (Unverified , 06/30/16) Scheduled Diltiazem Hcl (Cardizem), 60 MG PO TID Lisinopril (Lisinopril), 20 MG PO DAILY Omeprazole Magnesium (Prilosec Otc), 1 TAB PO QD Sotalol Hcl (Sotalol), 0.5 TAB PO BID Warfarin Sodium (Warfarin Sodium), 10 MG PO DAILY24 Objective Vitals and I/O Vital Sign - Last 24 Hours 12/15/21 12/15/21 12/15/21 12/15/21 09:30 09:33 09:45 10:00 Pulse 97 93 93 98 Resp 18 18 23 20 B/P (MAP) 115/77 (90) Pulse Ox 95 98 96 90 O2 Delivery Nasal Cannula* Nasal Cannula* Nasal Cannula* Nasal Cannula* O2 Flow Rate 2 3 2 2 FiO2 28 32 28 28 12/15/21 12/15/21 12/15/21 12/15/21 10:15 10:30 10:45 11:00 Pulse 92 93 117 102 Resp 19 29 19 13 B/P (MAP) 105/69 (81) Pulse Ox 99 95 95 96 O2 Delivery Nasal Cannula* Nasal Cannula* Nasal Cannula* Nasal Cannula* O2 Flow Rate 2 2 2 2 FiO2 28 28 28 28 12/15/21 12/15/21 12/15/21 12/15/21 11:15 11:30 11:45 12:00 Pulse 97 99 113 110 Resp 19 11 19 50 B/P (MAP) 115/65 (82) Pulse Ox 96 96 96 94 O2 Delivery Nasal Cannula* Nasal Cannula* Nasal Cannula* Nasal Cannula* O2 Flow Rate 2 2 2 2 FiO2 28 28 28 28 12/15/21 12/15/21 12/15/21 12/15/21 12:15 12:30 12:45 13:00 Pulse 118 98 90 94 Resp 18 20 14 23 B/P (MAP) 113/71 (85) Pulse Ox 93 95 96 95 O2 Delivery Nasal Cannula* Nasal Cannula* Nasal Cannula* Nasal Cannula* O2 Flow Rate 2 2 2 2 FiO2 28 28 28 28 12/15/21 12/15/21 12/15/21 12/15/21 13:15 13:30 13:45 13:51 Pulse 94 100 106 102 Resp 27 16 22 Pulse Ox 95 97 91 97 O2 Delivery Nasal Cannula* Nasal Cannula* Nasal Cannula* Nasal Cannula* O2 Flow Rate 2 2 2 2 FiO2 28 28 28 12/15/21 12/15/21 12/15/21 12/15/21 14:00 14:01 14:15 14:30 Pulse 99 102 101 86 Resp 19 26 27 19 B/P (MAP) 120/71 (87) Pulse Ox 91 92 88 95 O2 Delivery Nasal Cannula* Nasal Cannula* Nasal Cannula* Nasal Cannula* O2 Flow Rate 2 2 2 2 FiO2 28 28 28 28 12/15/21 12/15/21 12/15/21 12/15/21 14:45 15:00 15:02 15:15 Temp 97.5 Pulse 90 83 95 99 Resp 19 25 8 10 Pulse Ox 82 O2 Delivery Nasal Cannula* Nasal Cannula* Nasal Cannula* Nasal Cannula* O2 Flow Rate 2 2 2 2 FiO2 28 28 28 28 12/15/21 12/15/21 12/15/21 12/15/21 15:30 15:45 16:00 16:02 Pulse 106 96 96 91 Resp 28 19 28 20 O2 Delivery Nasal Cannula* Nasal Cannula* Nasal Cannula* Nasal Cannula* O2 Flow Rate 2 2 2 2 FiO2 28 28 28 28 12/15/21 12/15/21 12/15/21 12/15/21 16:15 16:30 19:15 19:53 Temp 98.0 Pulse 90 92 90 92 Resp 17 16 18 16 B/P (MAP) 124/89 (101) Pulse Ox 99 99 O2 Delivery Nasal Cannula* Nasal Cannula* Nasal Cannula* Nasal Cannula* O2 Flow Rate 2 2 2 3 FiO2 28 28 28 32 12/15/21 12/15/21 12/16/21 12/16/21 20:06 23:31 04:40 08:20 Temp 98.2 97.7 Pulse 91 96 71 Resp 16 14 18 B/P (MAP) 124/90 (101) 126/74 (91) Pulse Ox 98 98 89 O2 Delivery Nasal Cannula Nasal Cannula* Nasal Cannula* Room Air* O2 Flow Rate 2.00 2 2 0 FiO2 28 28 21 12/16/21 09:00 B/P (MAP) 117/76 Intake and Output 12/16/21 07:00 Intake Total 1160 ml Output Total 1700 ml Balance -540 ml General: Alert, Oriented X3, No acute distress HEENT: Atraumatic, PERRLA, Mucous membr. moist/pink Neck: Supple Lungs: Normal air movement, Other (02 @ 2LNC ; scattered crackles) Heart: Regular rate Abdomen: No tenderness Extremities: No clubbing, Other (Bilateral lower extremity edema) Skin: No rashes Neuro: Normal speech, Normal tone Psych/Mental Status: Mental status NL, Mood NL All Results(Lab/Rad) Laboratory Tests Test 12/14/21 12:14 12/14/21 16:16 12/15/21 04:05 Urine Opiates Screen NEGATIVE Urine Methadone Screen NEGATIVE Urine Barbiturates Screen NEGATIVE Urine Phencyclidine Screen NEGATIVE Ur Amphetamine/Methamphetamine NEGATIVE Urine MDMA Screen (Ecstasy) NEGATIVE Urine Benzodiazepines Screen NEGATIVE Urine Cocaine Metabolite Screen NEGATIVE Ur Tetrahydrocannabinol (THC) Scrn PRESUMPTIVE POSITIVE Troponin I High Sensitivity 27 ng/L White Blood Count 9.8 10^3/uL Red Blood Count 5.02 10^6/uL Hemoglobin 16.4 g/dL Hematocrit 50.7 % Mean Corpuscular Volume 101.0 fL Mean Corpuscular Hemoglobin 32.7 pg Mean Corpuscular Hemoglobin Concent 32.3 g/dL Red Cell Distribution Width 15.4 % Platelet Count 167 10^3/uL Mean Platelet Volume 10.7 fL Neutrophils (%) (Auto) 72.1 % Lymphocytes (%) (Auto) 17.9 % Monocytes (%) (Auto) 9.3 % Neutrophils # (Auto) 7.1 10^3/uL Lymphocytes # (Auto) 1.75 10^3/uL1 Monocytes # (Auto) 0.9 10^3/uL Absolute Immature Granulocyte (auto 0.01 10^3 u/L Absolute Eosinophils (auto) 0.0 10^3/uL Immature Granulocytes % 0.10 % Eosinophils % 0.2 % Basophils % 0.5 % Basophils # 0.1 10^3/uL Sodium Level 133 mmol/L Potassium Level 4.8 mmol/L Chloride Level 103.0 mmol/L Carbon Dioxide Level 17.7 mmol/L Anion Gap 17.1 Blood Urea Nitrogen 21 mg/dL Creatinine 1.81 mg/dL Estimated GFR () 50.2 Est GFR (CKD-EPI)(Non-Afr [place]) 41.5 BUN/Creatinine Ratio 11.0 Glucose Level 111 mg/dL Calcium Level 8.8 mg/dL Total Bilirubin 1.8 mg/dL Aspartate Amino Transf (AST/SGOT) 39 U/L Alanine Aminotransferase (ALT/SGPT) 20 U/L Alkaline Phosphatase 102 U/L Total Protein 6.2 g/dL Albumin 2.8 g/dL Globulin 3.4 Albumin/Globulin Ratio 0.823 Current Medications Medications (Trade) Dose Ordered Sig/Emre Route PRN Reason Start Time Stop Time Status Last Admin Dose Admin Diltiazem HCl (Cardizem) 20 mg STAT STAT IV 12/14/21 10:51 12/14/21 10:53 DC 12/14/21 11:04 Furosemide (Lasix) 40 mg STAT STAT IV 12/14/21 10:51 12/14/21 10:53 DC 12/14/21 11:07 Albuterol Sulfate (Ventolin) 2.5 mg OT ONCE IH 12/14/21 11:00 12/14/21 11:01 DC 12/14/21 11:12 Furosemide (Lasix) 40 mg STK-MED ONCE .ROUTE 12/14/21 11:01 12/14/21 11:02 DC Diltiazem HCl (Cardizem) 125 mg STK-MED ONCE .ROUTE 12/14/21 11:01 12/14/21 11:02 DC Albuterol Sulfate (Ventolin) 2.5 mg STK-MED ONCE IH 12/14/21 11:06 12/14/21 11:06 DC Amiodarone HCl (Cordarone) 150 mg OT ONCE IV 12/14/21 11:30 12/14/21 11:31 DC 12/14/21 11:19 Amiodarone HCl (Cordarone) 150 mg STK-MED ONCE .ROUTE 12/14/21 11:15 12/14/21 11:15 DC Amiodarone HCL/ Dextrose 200 ml @ 0 mls/hr IV 12/14/21 12:00 01/13/22 11:59 12/14/21 21:19 Amiodarone HCL/ Dextrose 200 ml @ ud STK-MED ONCE IV 12/14/21 11:44 12/14/21 11:44 DC Enoxaparin Sodium (Lovenox) 100 mg STAT STAT SQ 12/14/21 11:57 12/14/21 12:02 DC 12/14/21 12:06 Enoxaparin Sodium (Lovenox) 100 mg STK-MED ONCE SQ 12/14/21 12:04 12/14/21 12:04 DC Acetaminophen (Tylenol) 1,000 mg Q6H PRN PO PAIN 1 - 3 12/14/21 14:00 01/13/22 13:59 12/15/21 00:49 Pantoprazole Sodium (Protonix) 40 mg DAILY PO 12/15/21 09:00 01/14/22 08:59 12/15/21 09:21 Enoxaparin Sodium (Lovenox) 120 mg Q12H SQ 12/14/21 14:00 12/14/21 14:04 DC Sotalol HCl (Betapace) 80 mg STAT STAT PO 12/14/21 14:00 12/14/21 14:31 DC 12/14/21 14:16 Sotalol HCl (Betapace) 80 mg BID PO 12/14/21 21:00 12/15/21 01:07 DC 12/14/21 20:29 Furosemide (Lasix) 40 mg STAT STAT IV 12/14/21 17:13 12/14/21 20:33 DC 12/14/21 17:22 Furosemide (Lasix) 40 mg DAILY IV 12/15/21 09:00 01/14/22 08:59 12/15/21 09:21 Lisinopril (Zestril) 20 mg DAILY PO 12/15/21 09:00 01/14/22 08:59 Calcium Carbonate/ Glycine (Tums) 500 mg Q4HR PRN PO HEARTBURN 12/14/21 21:30 12/15/21 11:00 DC 12/14/21 21:19 Ondansetron HCl (Zofran) 4 mg Q6HR PRN IV NAUSEA / VOMITING 12/14/21 22:00 01/13/22 21:59 12/14/21 22:24 Sotalol HCl (Betapace) 120 mg BID PO 12/15/21 09:00 01/14/22 08:59 12/15/21 09:22 Sotalol HCl (Betapace) 40 mg STAT STAT PO 12/15/21 01:05 12/15/21 01:51 DC 12/15/21 01:10 Assessment/Plan Assessment/Plan Assessment/Plan Seen by cardiology appreciate input: 1. Hx of Nonischemic cardiomyopathy 2. Chronic atrial fibrillation 3. Hypertension. 4. Acute on Chronic systolic heart failure. 5. Anxiety/depression. 6. Hyperlipidemia. 7. Obstructive sleep apnea. 8. GERD 9. Non compliance with medications 10. Non compliance with outpatient office visits 11. Tobacco use 12. Most recent echo done April 2021 showed LVEF of 55-60% Dr. Anna: Continue cardiac meds:Lisinopril 20 mg PO daily, Lasix 40 mg IV daily, KCL 20 meq daily, Sotalol 120 mg PO BID, and Eliquis 5 mg PO BID. Heart rate is currently controlled. (Goal is <120bpm) Fluid restriction to 1.5L/day Strict I and O's Daily weights Na restriction 2D echo is not available at the hospital at this time. Would benefit from SGLT2 inh and Entresto-however cannot afford meds due to financial burden No invasive w/up planned at this time Patient agrees to follow up in clinic upon discharge. Lifestyle modification factors have been strongly advised. Plan 12/16/21 We will keep the patient an extra night to continue to monitor kidney function. Creatinine trending up today. We will switch IV Lasix to p.o. Will hold SHARONA inhibitor Strict I's and O's Replace magnesium Monitor and correct electrolytes Anticoagulation, Eliquis no invasive work-up planned at this time as per deodorizer operator Discussed with the patient regarding importance of compliance with his medications. Possible discharge in a.m. if if kidney function/creatinine stabilize And clinically stable. Problems: (1) Atrial fibrillation with RVR ICD Code: I48.91 - Unspecified atrial fibrillation SNOMED: 405634260617787 (2) Acute exacerbation of congestive heart failure ICD Code: I50.9 - Heart failure, unspecified SNOMED: 105950668, 58401575551341 (3) Noncompliance with medications ICD Code: Z91.14 - Patient's other noncompliance with medication regimen SNOMED: 047295959 (4) Hypomagnesemia ICD Code: E83.42 - Hypomagnesemia SNOMED: 323780238 (5) DVT (deep venous thrombosis) ICD Code: I82.409 - Acute embolism and thrombosis of unspecified deep veins of unspecified lower extremity SNOMED: 207966115 CONSTANZA CUNNINGHAM MD Dec 16, 2021 09:33
--- NOTE | 2021-12-16 10:08 | DIET.OP ---
Nutrition Asmt/Malnutrit 2-17 Actual Date of Review: Dec 16, 2021 Actual Time Reviewed Asmt: 10:01 Nutritional Screening: Malnutr/Diet Consult Diagnosis: Atrial Fibrilaiton w/RVR, Acure Exacerbation of CHF, CAD Pertinent Medical Hx/Surgical: GERD, Sleep Apnea, Hyperlipidemia, HTN Subjective Information: 41 yo m, presented w/worsening leg edema last two weeks, SOB, is noncompliant with meds, has negative fluid balance per MD notes Current Diet Order/Nutrition S: Cardiac, 1500 ml fluid restriction Patient /S.O: Not Indicated Pertinent Meds Protonix, Tylenol, Lasix, Zofran, Betapace Pertinent Labs Hgb 16.0, Hct 49.2, Na+ 14, K+ 4.3, BUN 29H, Cr 2.02, Glu 101, Ca+ 8.5, TP 6.0L, Alb 2.9L Height (Inches): 69 Current Weight: 276 %IBW: 173 Recent Weight Change: No Weight Status: Morbid Obese GI Comments Dx of GERD Cultural/Ethnic/Moravian Judith: unknown Usual Diet at Home: unable to obtain Skin Integrity/Comment: Yes (skin intact, significant BLE edema per MD notes) Current %PO: Good(75-100%) (88% 4 meals) BEE in Kcals: Use Current Weight Calories/Kcals/K-14 Kcals Calculated: 0720-6940 Protein: Use Current Weight Protein g/k.0-1.3 Protein Calculated: 125-162 Fluid: ml: 9864-7136 or per MD order current 1500 ml fluid restriction Nutritional Problem: Nutr. Problems Present Problems: Overweight/Obesity Etiology: Excessive Energy Intake Signs/Symptoms: BMI above normative for age gender, morbid obesity 40.8 Fluid Accumulation (Severe): Mod to Severe Retention Protein-Calorie Malnutrition: N/A Is there a minimum of two crit: No Malnutrition related to morbid: BMI>or equal to 40 Malnutrition Related to Morbid: No RD Comments: PO intake good, BLE edema, 1500 ml fluid restriction Expected Outcomes stable w/adequate hydration, labs WNL, skin integrity, nutrition needs met within 3 days Serum Albumin g/dl: 2.4-3.0 Moderate) Malnutrtion/Nutrition Risk Edu: No low nutrition risk RD Follow-Up Date: Dec 23, 2021 Notificiation Needed?: No CHEPE HILLMAN Dec 16, 2021 10:08
[2021-12-16 12:35] VITALS: BP 126/75
[2021-12-16 16:03] VITALS: BP 111/77
--- NOTE | 2021-12-16 18:00 | NUR ---
transfer pt transferred to room 330 via w/c, no s/s fo distress noted. report given to selene benavides rn. relinquished care of pt.
[2021-12-16 20:14] VITALS: BP 124/93
[2021-12-17 00:49] VITALS: BP 101/70
[2021-12-17 04:36] VITALS: BP 110/78
[2021-12-17 06:08] LABS: CARBON DIOXIDE 26.3 mmol/L (20.0-32)
[2021-12-17 07:09] VITALS: BP 107/71
[2021-12-17] MEDS ORDERED: LASIX PO SCH (09:00)
[2021-12-17] MEDS: BETAPACE PO SCH (09:25)
[2021-12-17] MEDS: PROTONIX PO SCH (09:26)
[2021-12-17] MEDS: ELIQUIS PO SCH (09:26)
[2021-12-17] MEDS ORDERED: FURO40TA4 PO (09:43)
[2021-12-17] MEDS ORDERED: APIX5TAB PO (09:43)
--- NOTE | 2021-12-17 09:45 | PRM.DC ---
Discharge Summary HPI and Diagnostic Evaluation Pt seen and examined today. He is doing well and is eager to go home. Renal function improved today. Plan to f/u with cardiology tomorrow in office and discuss ECHO. He will be prescribed medications and will f/u with cardiology tomorrow. No acute events overnight. Patient History: FH: esophageal cancer 32 MOTHER, FH: suicide 33 FATHER, , Age:30's - 40 Allergies: Coded Allergies: No Known Allergies (Unverified , 06/30/16) Findings General: Alert, Oriented X3, No acute distress HEENT: Atraumatic, PERRLA, Mucous membr. moist/pink Neck: Supple Lungs: Normal air movement, RA Heart: tachycardic in 110's, irregularly irregular rhythm Abdomen: No tenderness Extremities: No clubbing, Other (Bilateral lower extremity edema) Skin: No rashes Neuro: Normal speech, Normal tone Psych/Mental Status: Mental status NL, Mood NL Scheduled Apixaban (Eliquis), 5 MG PO BID Diltiazem Hcl (Cardizem), 60 MG PO TID Furosemide (Furosemide), 40 MG PO DAILY Lisinopril (Lisinopril), 20 MG PO DAILY Omeprazole Magnesium (Prilosec Otc), 1 TAB PO QD Potassium Chloride (Potassium Chloride), 20 MEQ PO DAILY24 Sotalol Hcl (Sotalol), 0.5 TAB PO BID Warfarin Sodium (Warfarin Sodium), 10 MG PO DAILY24 Consultations Cardiology - Dr Anna Procedures Laboratory Tests Test 12/14/21 00:00 12/14/21 10:44 12/14/21 12:14 12/14/21 16:16 SARS-CoV-2 Antigen (Rapid) NEGATIVE (NEGATIVE) White Blood Count 8.0 10^3/uL (4.5-11.0) Red Blood Count 5.09 10^6/uL (4.50-5.90) Hemoglobin 17.0 g/dL (13.9-16.3) Hematocrit 51.2 % (37.0-53.0) Mean Corpuscular Volume 100.6 fL (78-100) Mean Corpuscular Hemoglobin 33.4 pg (26-34) Mean Corpuscular Hemoglobin Concent 33.2 g/dL (33-36.5) Red Cell Distribution Width 15.0 % (11.5-14.5) Platelet Count 176 10^3/uL (150-400) Mean Platelet Volume 10.2 fL (7.8-11.0) Neutrophils (%) (Auto) 64.8 % (41.0-85.0) Lymphocytes (%) (Auto) 24.6 % (24.0-44.0) Monocytes (%) (Auto) 8.4 % (5.0-12.0) Neutrophils # (Auto) 5.2 10^3/uL (1.8-7.7) Lymphocytes # (Auto) 1.97 10^3/uL1 (1.0-4.8) Monocytes # (Auto) 0.7 10^3/uL (0.3-0.8) Absolute Immature Granulocyte (auto 0.01 10^3 u/L (0-2) Absolute Eosinophils (auto) 0.1 10^3/uL (0.0-0.2) Immature Granulocytes % 0.10 % (0.00-0.50) Eosinophils % 1.5 % (0.0-5.0) Basophils % 0.6 % (0.0-0.2) Basophils # 0.1 10^3/uL (0.0-0.1) Prothrombin Time 13.8 SEC (9.1-11.5) Prothrombin Time INR (Non-Therap) 1.4 Activated Partial Thromboplast Time 25.2 SEC (22.5-33.1) D-Dimer 2.16 mg/L (0.19-0.49) Sodium Level 136 mmol/L (132-145) Potassium Level 4.3 mmol/L (3.6-5.2) Chloride Level 104.0 mmol/L (96-109) Carbon Dioxide Level 25.4 mmol/L (20.0-32) Anion Gap 10.9 Blood Urea Nitrogen 17 mg/dL (7-18) Creatinine 1.22 mg/dL (0.59-1.40) Estimated GFR () 79.2 (>/=60) Est GFR (CKD-EPI)(Non-Afr [place]) 65.5 (>/=60) BUN/Creatinine Ratio 13.0 Glucose Level 115 mg/dL (70-110) Calcium Level 8.7 mg/dL (8.4-10.5) Magnesium Level 1.8 mg/dL (1.8-2.4) Total Bilirubin 1.9 mg/dL (0.2-1.0) Aspartate Amino Transf (AST/SGOT) 20 U/L (0-35) Alanine Aminotransferase (ALT/SGPT) 14 U/L (12-78) Alkaline Phosphatase 117 U/L (50-136) Troponin I High Sensitivity 24 ng/L (0-75) 27 ng/L (0-75) Pro-B-Type Natriuretic Peptide 17159 pg/mL (0-125) Total Protein 6.7 g/dL (6.4-8.2) Albumin 3.2 g/dL (3.4-5.0) Globulin 3.5 Albumin/Globulin Ratio 0.914 Thyroid Stimulating Hormone (TSH) 5.218 mIU/mL (0.358-3.740) Urine Opiates Screen NEGATIVE (c/o300ng/mL) Urine Methadone Screen NEGATIVE (c/o300ng/mL) Urine Barbiturates Screen NEGATIVE (c/o200ng/mL) Urine Phencyclidine Screen NEGATIVE (c/o 25ng/mL) Ur Amphetamine/Methamphetamine NEGATIVE (eg3684om/mL) Urine MDMA Screen (Ecstasy) NEGATIVE (c/o300ng/mL) Urine Benzodiazepines Screen NEGATIVE (c/o200ng/mL) Urine Cocaine Metabolite Screen NEGATIVE (c/o300ng/mL) Ur Tetrahydrocannabinol (THC) Scrn PRESUMPTIVE POSITIVE (c/o Test 12/15/21 04:05 12/16/21 05:00 12/17/21 05:25 White Blood Count 9.8 10^3/uL (4.5-11.0) 7.8 10^3/uL (4.5-11.0) Red Blood Count 5.02 10^6/uL (4.50-5.90) 4.91 10^6/uL (4.50-5.90) Hemoglobin 16.4 g/dL (13.9-16.3) 16.0 g/dL (13.9-16.3) Hematocrit 50.7 % (37.0-53.0) 49.2 % (37.0-53.0) Mean Corpuscular Volume 101.0 fL (78-100) 100.2 fL (78-100) Mean Corpuscular Hemoglobin 32.7 pg (26-34) 32.6 pg (26-34) Mean Corpuscular Hemoglobin Concent 32.3 g/dL (33-36.5) 32.5 g/dL (33-36.5) Red Cell Distribution Width 15.4 % (11.5-14.5) 15.2 % (11.5-14.5) Platelet Count 167 10^3/uL (150-400) 171 10^3/uL (150-400) Mean Platelet Volume 10.7 fL (7.8-11.0) 10.0 fL (7.8-11.0) Neutrophils (%) (Auto) 72.1 % (41.0-85.0) 56.3 % (41.0-85.0) Lymphocytes (%) (Auto) 17.9 % (24.0-44.0) 30.5 % (24.0-44.0) Monocytes (%) (Auto) 9.3 % (5.0-12.0) 10.2 % (5.0-12.0) Neutrophils # (Auto) 7.1 10^3/uL (1.8-7.7) 4.4 10^3/uL (1.8-7.7) Lymphocytes # (Auto) 1.75 10^3/uL1 (1.0-4.8) 2.38 10^3/uL1 (1.0-4.8) Monocytes # (Auto) 0.9 10^3/uL (0.3-0.8) 0.8 10^3/uL (0.3-0.8) Absolute Immature Granulocyte (auto 0.01 10^3 u/L (0-2) 0.02 10^3 u/L (0-2) Absolute Eosinophils (auto) 0.0 10^3/uL (0.0-0.2) 0.1 10^3/uL (0.0-0.2) Immature Granulocytes % 0.10 % (0.00-0.50) 0.30 % (0.00-0.50) Eosinophils % 0.2 % (0.0-5.0) 1.7 % (0.0-5.0) Basophils % 0.5 % (0.0-0.2) 1.0 % (0.0-0.2) Basophils # 0.1 10^3/uL (0.0-0.1) 0.1 10^3/uL (0.0-0.1) Sodium Level 133 mmol/L (132-145) 134 mmol/L (132-145) 135 mmol/L (132-145) Potassium Level 4.8 mmol/L (3.6-5.2) 4.3 mmol/L (3.6-5.2) 3.9 mmol/L (3.6-5.2) Chloride Level 103.0 mmol/L (96-109) 103.0 mmol/L (96-109) 102.0 mmol/L (96-109) Carbon Dioxide Level 17.7 mmol/L (20.0-32) 24.7 mmol/L (20.0-32) 26.3 mmol/L (20.0-32) Anion Gap 17.1 10.6 10.6 Blood Urea Nitrogen 21 mg/dL (7-18) 29 mg/dL (7-18) 32 mg/dL (7-18) Creatinine 1.81 mg/dL (0.59-1.40) 2.02 mg/dL (0.59-1.40) 1.71 mg/dL (0.59-1.40) Estimated GFR () 50.2 (>/=60) 44.3 (>/=60) 53.6 (>/=60) Est GFR (CKD-EPI)(Non-Afr [place]) 41.5 (>/=60) 36.6 (>/=60) 44.3 (>/=60) BUN/Creatinine Ratio 11.0 14.0 18.0 Glucose Level 111 mg/dL (70-110) 101 mg/dL (70-110) 85 mg/dL (70-110) Calcium Level 8.8 mg/dL (8.4-10.5) 8.5 mg/dL (8.4-10.5) 8.4 mg/dL (8.4-10.5) Total Bilirubin 1.8 mg/dL (0.2-1.0) 1.1 mg/dL (0.2-1.0) Aspartate Amino Transf (AST/SGOT) 39 U/L (0-35) 43 U/L (0-35) Alanine Aminotransferase (ALT/SGPT) 20 U/L (12-78) 28 U/L (12-78) Alkaline Phosphatase 102 U/L (50-136) 96 U/L (50-136) Total Protein 6.2 g/dL (6.4-8.2) 6.0 g/dL (6.4-8.2) Albumin 2.8 g/dL (3.4-5.0) 2.9 g/dL (3.4-5.0) Globulin 3.4 3.1 Albumin/Globulin Ratio 0.823 0.935 Magnesium Level 1.7 mg/dL (1.8-2.4) 1.8 mg/dL (1.8-2.4) Hospital Course 41 year old male who was admitted on 12/14/21 for acute on chronic systolic CHF and found to be in Afib with RVR. He was started on IV diuretics, beta jaren, CCB and admitted to the ICU. Cardiology was consulted. Over the course of stay he has had appropriate I/O and BP and HR are improved on regimen. There is a significant hx of medical non compliance prior to admission but pt is more willing to f/u with providers and take appropriate medications after discharge. He will be discharged today on eliquis BID, lasix 40mg PO qD with 20mEq of KCl, along with diltiazem and sotalol. SHARONA-I held during this time. Kidney function improved over course of stay. He has an appointment with cardiology tomorrow in the office (no ECHO available to be done in-house at this time). Plan of discharge discussed with the pt Medications printed and will be sent to pharmacy Precautions discussed Pt to f/u with cardiology tomorrow and needs to find a PCP Condition/Impression stable Activity nonstrenuous Diet cardiac, fluid restriction, salt restriction Assessment Chronic Afib - eliquis, sotalol 120mg BID, diltiazem 60mg TID Acute on chronic systolic CHF - lasix 40mg PO and KCl 20mEq, ECHO not available in house at this time, f/u with cardiology for ECHO discussion tomorrow, cont fluid restrictions Medication non-compliance - lengthy discussion with pt concerning need for compliance Tobacco use - cessation stressed today. HTN - Sotalol (SHARONA-I held as lasix started) and diltiazem Acute kidney failure- improved after holding SHARONA-I. needs to monitored in outpatient setting. GERD - omeprazole Stressed need for PCP as well. Precautions discussed Pt agreed to plan All questions answered Pt to be discharged to home today, f/u with cardiology tomorrow. TANIA JOSHUA MD Dec 17, 2021 09:45
[2021-12-17] MEDS ORDERED: POTA-148 PO (10:01)
[2021-12-17 10:46] VITALS: BP 107/71
--- NOTE | 2021-12-17 11:12 | NUR ---
discharge Patient being discharged home at this time in stable condition. Patient denies any additional resources at this time. Patient was assisted downstairs to private auto. Relinquished care for patient at this time.
== END 2021-12-17 13:03 | disposition home or self-care (01) | DRG 291 ==
LOC: ER 10:15 → ICU 12:10 → MS 12-16 17:18
PROVIDERS: ADMIT Internal Medicine; ATTEND Internal Medicine
DX: I11.0 Hypertensive heart disease with heart failure (principal); I50.43 Acute on chronic combined systolic (congestive) and diastolic (congestive) heart failure; I48.20 Chronic atrial fibrillation, unspecified; N17.9 Acute kidney failure, unspecified; E66.01 Morbid (severe) obesity due to excess calories; I25.10 Atherosclerotic heart disease of native coronary artery without angina pectoris; I42.0 Dilated cardiomyopathy; E78.5 Hyperlipidemia, unspecified; I48.91 Unspecified atrial fibrillation; F17.210 Nicotine dependence, cigarettes, uncomplicated; F32.A Depression, unspecified; F41.9 Anxiety disorder, unspecified; G47.33 Obstructive sleep apnea (adult) (pediatric); K21.9 Gastro-esophageal reflux disease without esophagitis; Z79.01 Long term (current) use of anticoagulants; Z79.899 Other long term (current) drug therapy; Z82.49 Family history of ischemic heart disease and other diseases of the circulatory system; Z91.14 Patient's other noncompliance with medication regimen
CPT/HCPCS: 36415; 71045; 80048; 80053; 80307; 83735; 83880; 84443; 84484; 85025; 85379; 85610; 85730; 87426; 93005; 94640; 99291; G0378; J0282; J1650; J1940; J2405; J3475; J7613; 93970; J3490

== ENCOUNTER → 2021-12-18 | Outpatient (CLI) | payer OTHER, SELFPAY ==
[~2021-12-18] MED LIST changes: +FURO40TA4 PO; +POTA-148 PO
--- NOTE | 2021-12-18 16:47 | PCM.ECHO ---
APPROVED REPORT EXAM: Comprehensive 2D, Doppler, and color-flow Echocardiogram. Patient Location: OUT-PATIENT Indications Atrial Fibrillation Congenital Heart Disease 2D Dimensions LVOT Diameter 2.21 (1.8-2.4cm) LVEF(%) 18.94 (>50%) M-Mode Dimensions RVDd 2.65 (2.1-3.2cm) Left Atrium(MM) 5.25 (2.5-4.0cm) IVSd 1.30 (0.7-1.1cm) Aortic Root 2.65 (2.2-3.7cm) LVDd 5.90 (4.0-5.6cm) Aortic Cusp Exc 1.90 (1.5-2.0cm) PWd 0.75 (0.7-1.1cm) MV EPSS 1.51 (<0.5cm) IVSs 1.15 cm FS (%) 10.85 % LVDs 5.25 (2.0-3.8cm) ESV(Teich) 133.18 ml PWs 1.15 cm LVEF(%) 23.23 (>50%) Volumes Biplane 2D LV Volumes Biplane 2D LA Volumes LVEDv A4C 170.61 mL LA ESV Index LVESv A4C 138.30 mL Aortic Valve AoV Peak Ok. 0.80 m/s AoV VTI 13.30 cm AO Peak GR. 2.70 mmHg AO Mean GR. 1.75 mmHg LVOT VTI 13.51 cm LVOT Peak Ok. 0.66 m/s GABBY(VTI)/BSA 3.89 cm2/m2 GABBY (VTI) 3.89 cm2 AI P 1/2 Time 309.60 ms Mitral Valve MR Peak Gr. 46.30mmHg Pulmonary Valve PV Peak Velocity 0.65m/s PV Peak Grad. 1.75mmHg RVOT VTI 9.50cm Tricuspid Valve TR P. Velocity 2.25m/s RAP ESTIMATE 10.00mmHg TR Peak Gr. 20.68mmHg RVSP 30.68mmHg LEFT VENTRICLE The left ventricle is normal size. Left ventricular systolic function is severely decreased. There is normal left ventricular wall thickness. There is global hypokinesis of the left ventricle. Severe diastolic dysfunction is present (restrictive filling). There is no ventricular septal defect visualized. No left ventricle thrombus noted on this study. LVEF is 15-20%. RIGHT VENTRICLE The right ventricle is normal size. Right ventricular systolic function is severely reduced. There is normal right ventricular wall thickness. ATRIA The left atrium size is normal. Right atrium is moderately dilated. The interatrial septum is intact with no evidence for an atrial septal defect. AORTIC VALVE The aortic valve is normal in structure. There is no aortic valvular stenosis. Moderate to severe aortic regurgitation There is no aortic valvular vegetation. MITRAL VALVE The mitral valve is normal in structure. There is no mitral valve stenosis. Moderate to severe mitral regurgitation There is no evidence of mitral valve vegetations. TRICUSPID VALVE The tricuspid valve is normal in structure. There is no tricuspid valve stenosis. Moderate to severe tricuspid regurgitation Moderate pulmonary hypertension. There is no tricuspid valve vegetations. PULMONIC VALVE Pulmonic valve is not well visualized. There is no pulmonic valvular stenosis. There is no pulmonic valvular regurgitation. GREAT VESSELS The aortic root is normal in size. Pulmonary artery is not well visualized. Aortic arch is not well visualized. The IVC is normal in size and collapses >50% with inspiration. PERICARDIUM There is no pericardial effusion. There is no pleural effusion. Other Information Study Quality: Fair <Conclusion> Left ventricular systolic function is severely decreased. LVEF is 15-20%. There is global hypokinesis of the left ventricle. Severe diastolic dysfunction is present (restrictive filling). Right atrium is moderately dilated. Moderate to severe aortic regurgitation Moderate to severe mitral regurgitation Moderate to severe tricuspid regurgitation Moderate pulmonary hypertension. Electronically signed by : LA NENA MILLER. 12/18/2021 16:47:12
== END | disposition home or self-care (01) ==
LOC: RAD 13:24
PROVIDERS: ATTEND Internal Medicine Interventional Cardiology
DX: I08.3 Combined rheumatic disorders of mitral, aortic and tricuspid valves (principal); I27.20 Pulmonary hypertension, unspecified
CPT/HCPCS: 93306

== ENCOUNTER 2021-12-20 15:20 | Inpatient (IN) | payer SELFPAY ==
[~2021-12-20] VITALS: Ht 175.3 cm; Wt 118.2 kg
[2021-12-20] VITALS (34 sets, daily range): BP systolic 76–158; BP diastolic 27–112
--- NOTE | 2021-12-20 15:25 | NUR ---
ARRIVAL PT ARRIVED AMBULATORY FROM DR. DIAMOND'S OFFICE TO ICU1 . ORDERS REVIEWED WITH PATIENT. HOOKED UP TO ALL MONITORS. ORIENTED TO ICU. CALL LIGHT WITHIN REACH.
[2021-12-20] MEDS ORDERED: LANOXIN IV STA (15:26)
[2021-12-20] MEDS ORDERED: CORDARONE 150 MG in D5W 100ML 100 ML IV ONE (15:30)
[2021-12-20] MEDS ORDERED: LANOXIN IV SCH (15:30)
[2021-12-20 15:57] LABS: BASOPHIL # 0.1 10^3/uL (0.0-0.1); BASOPHIL % 0.8 % (0.0-0.2); EOSINOPHIL # 0.2 10^3/uL (0.0-0.2); EOSINOPHIL % 2.7 % (0.0-5.0); LYMPHOCYTES # 1.91 10^3/uL1 (1.0-4.8); LYMPHOCYTES % 30.9 % (24.0-44.0); MEAN CORP HGB 32.2 pg (26-34); MONOCYTES # 0.7 10^3/uL (0.3-0.8); NEUTROPHIL # 3.4 10^3/uL (1.8-7.7); NEUTROPHILS % 54.4 % (41.0-85.0); PLATELET COUNT 189 10^3/uL (150-400); RED CELL DISTRIBUTION WIDTH 14.9 % (11.5-14.5)
[2021-12-20] MEDS ORDERED: HEPARIN IV STA (16:14)
[2021-12-20] MEDS ORDERED: CORDARONE ONE (16:19)
[2021-12-20 16:21] LABS: CARBON DIOXIDE 26.6 mmol/L (20.0-32)
[2021-12-20] MEDS: HEPARIN-D5W 20,000 UNIT/500 ML 500 ML IV SCH (16:33)
[2021-12-20] MEDS: NEXTERONE 360 MG/200 ML BAG 200 ML IV SCH ×2 (16:49→22:30)
[2021-12-20] MEDS ORDERED: MAGNESIUM SULFATE 50 ML IV ONE (18:30)
--- NOTE | 2021-12-20 18:35 | NUR ---
REPORT RECEIVED FROM SHELLY MENDOZA. ASSUMED PT CARE.
[2021-12-20] MEDS ORDERED: NS 250ML 250 ML ONE (18:59)
[2021-12-20] MEDS ORDERED: ATIVAN PO SCH (21:00)
[2021-12-20] MEDS: COREG PO SCH (21:04)
--- NOTE | 2021-12-20 22:09 | DIREP ---
PROCEDURE:CHEST 2 VIEWS COMPARISON:[facility], CR, XRAY CHEST SINGLE VW, 12/14/2021, 10:40 AM. INDICATIONS:chf FINDINGS: LUNGS/PLEURA:Mild hazy opacity in the right lung base, differential includes pneumonia, atelectasis or possibly asymmetric edema. Left lung is clear. VASCULATURE:Normal vascularity CARDIAC:Normal size heart MEDIASTINUM:Normal. No visible mass or adenopathy. BONES:Distal right clavicle resection. OTHER:EKG leads on the chest CONCLUSION:Mild hazy opacity in the right lung base suggesting pneumonia or atelectasis. Dictated by: Get Lovelace M.D. on 12/20/2021 at 10:06 PM
[2021-12-21] VITALS (93 sets, daily range): BP systolic 89–147; BP diastolic 44–108
--- NOTE | 2021-12-21 05:06 | HPH ---
ADMIT DATE: 12/20/2021 DICTATOR NAME: Serg Ortiz MD CHIEF COMPLAINT: Recurrent syncope, rapid irregular heartbeat, marked shortness of breath, leg edema. HISTORY OF PRESENT ILLNESS: The patient is a 41-year-old white male who has known history of nonischemic dilated cardiomyopathy, chronic systolic heart failure and is primarily Dr. Anna's patient, I used to see him about 5 to 6 years ago and apparently he had hypertension, hypertensive heart disease and had chronic diastolic heart failure with obesity and he was lost to followup. At the present time, he was admitted on 12/14/2021 with rapid atrial fibrillation and apparently poorly managed with Cardizem with less than 20% ejection fraction along with low dose sotalol, Lasix and lisinopril 20 mg once a day, has been running a rate of 130 to 140 with shortness of breath and leg edema and presented to the office, having had blackout twice and was in overt failure and was in 2:1 atrial flutter with a ventricular rate of 130 with a flutter rate of 260 with regular RR intervals and in view of unstable rhythm with 20% ejection fraction, was admitted in ICU for IV amiodarone drip and full heparinization with history of DVT in both lower extremities for rate control and subsequently DC cardioversion, which easily converted flutter and restored regular sinus rhythm and eventually optimized his medical therapy for chronic systolic heart failure. ALLERGIES: None known. MEDICATIONS: He has been on Cardizem 60 mg twice a day, sotalol 80 mg half tablet twice a day. He is on Lasix 40-80 mg once a day, potassium 1 tablet daily, lisinopril 20 mg once a day and he has been on Eliquis 5 mg twice a day and omeprazole 20 mg once a day. PAST MEDICAL HISTORY: History of hypertension, hypertensive heart disease, longstanding. He has had significant emotional lability and has underlying anxiety, depression, chronic alcoholism. See my attached note for the details of the same. SOCIAL HISTORY: History of prior alcohol use, not drinking at the present time. History of tobacco use. He has smoked heavily in the past and he just quit a few days ago, had a hiatus for 7 years ago when he did not smoke, started smoking at age 15. FAMILY HISTORY: Positive for heart problems. Mother had heart trouble. Father committed suicide in his mid 30s. PHYSICAL EXAMINATION: GENERAL: He is alert, awake, oriented and was having significant shortness of breath; 175 cm and 119 kilograms, BMI 38.9. VITAL SIGNS: Heart rate of 130, blood pressure 130/80. Respirations were 20. HEENT: Unremarkable. NECK: JVD discernible. No definite carotid bruits. CHEST: Thick chest wall. LUNGS: Poor air entry bilaterally. HEART: Sounds S1, S2 were showing tachycardia and no murmurs were audible. ABDOMEN: Protuberant abdomen. Liver enlarged about 3 fingerbreadths below the right costal margin, early ascites cannot be excluded. EXTREMITIES: 3+ leg edema. Bhaskar complexion of both lower extremities and distal pulses obscured due to significant edema. Has a history of DVT by ultrasound in the past, history of pulmonary emboli. He has had COVID few months ago, not vaccinated at the present time. LABORATORY DATA: Showed normal CBC, 16 grams hemoglobin and his chemistry showed a 1.6 magnesium, potassium 4, BUN 18, creatinine 1.3, 112 glucose and ProBNP was 22,013. TSH was 5.87. COVID serology was negative. Chest x-ray: Cardiomegaly. EK:1 flutter, ventricular response of 130. IMPRESSION: Acute on chronic systolic heart failure, nonischemic dilated cardiomyopathy, atrial flutter with 2:1 conduction with a ventricular rate of 130. PLAN: At this time, admit the patient, IV amiodarone infusion with full heparinization and attempt DC cardioversion once rate controlled and fully heparinized and is a candidate for spironolactone and Entresto along with carvedilol [] in longitudinal float operator and reassess his ejection fraction after regular rhythm is restored to assess improvement because of the rapid rate could result in false estimation of ejection fraction. Further management depending on the clinical course. Serg Ortiz MD DR: ROSALVA/ALYSSA/JENNIFER TID: [id number] RECEIPT: [id number]
--- NOTE | 2021-12-21 06:40 | NUR ---
REPORT TO ONCOMING SHIFT. PT CARE RELINQUISHED.
[2021-12-21] MEDS: ALDACTONE PO SCH (08:44)
[2021-12-21] MEDS: NICOTINE 21MG PATCH TD SCH (08:44)
[2021-12-21] MEDS: FARXIGA PO SCH (08:44)
[2021-12-21] MEDS: COREG PO SCH ×2 (08:44→20:41)
[2021-12-21] MEDS: KLOR-CON 10 PO SCH (08:45)
[2021-12-21] MEDS: DEMADEX PO SCH (08:46)
[2021-12-21] MEDS ORDERED: POTASSIUM CHLORIDE PO SCH (09:00)
[2021-12-21] MEDS ORDERED: CORDARONE PO SCH (09:00)
[2021-12-21] MEDS ORDERED: KLOR-CON 10 PO SCH (09:00)
[2021-12-21] MEDS: NEXTERONE 360 MG/200 ML BAG 200 ML IV SCH (09:13)
[2021-12-21] MEDS ORDERED: NS 1000ML 1,000 ML ONE (09:28)
[2021-12-21] MEDS ORDERED: ROMAZICON IV ONE (09:29)
[2021-12-21] MEDS ORDERED: LANOXIN ONE (09:29)
[2021-12-21] MEDS ORDERED: HEPARIN ONE (09:29)
[2021-12-21] MEDS ORDERED: ZOFRAN ONE (09:29)
[2021-12-21] MEDS ORDERED: SUBLIMAZE ONE (09:30)
[2021-12-21] MEDS ORDERED: ATROPINE SULFATE ONE (09:31)
[2021-12-21] MEDS ORDERED: CORDARONE ONE (09:31)
[2021-12-21] MEDS ORDERED: MORPHINE SULFATE ONE (09:31)
[2021-12-21] MEDS ORDERED: VERSED ONE (09:32)
[2021-12-21] MEDS ORDERED: CALAN ONE (09:33)
[2021-12-21] MEDS ORDERED: HEPARIN IV STA (09:46)
[2021-12-21] MEDS ORDERED: LANOXIN IV STA ×2 (09:46→10:01)
--- NOTE | 2021-12-21 10:22 | NUR ---
DISCHARGE PLANNING-CHART REVIEW-30DAY READMISSION CM VISITED WITH PATIENT PRIOR ADMISSION ABOUT DISCHARGE PLANS AND NEEDS. PATIENT STATED PRIOR VISIT ON 12/14/21-12/17/21 THAT HE LIVED IN HIS TRUCK AND IS IND OF ADL'S. THE ADDRESS ON FILE IS HIS STEPFATHERS ADDRESS AND IS USED FOR MAIL ONLY. PT DOES ODDS AND END JOBS TO MAKE A LITTLE BIT OF MONEY THAT PAYS FOR FOOD. HE HAS NO DME IN PLACE. PATIENT ORDERED A LIFE VEST IN A PRIOR VISIT AND HE STATED HE TURNED IT BACK IN AND HE DID NOT NEED IT. PATIENT DOES NOT HAVE A PCP, PROVIDER LIST GIVEN. PATIENT STATED HE HAS APPLIED FOR DISABILITY. PATIENT WAS GIVEN A PACKET WITH INFORMATION ON [facility] FOR FOLLOW UP CARE, COMMUNITY RESOURCES LIST AND [employer] $4.00 MEDICATION LIST. ALL RESOURCE INFORMATION WAS PROVIDED ON PRIOR VISIT 12/14/21. CM ALSO DISCUSSED PATIENT APPLYING FOR [employer] ONLINE AND PROVIDED LINK TO APPLY TO [facility] [facility]- WHO IS SUPPORTIVE AND ASSISTS. DISCHARGE PLAN IS FOR PATIENT TO D/C BACK TO TRUCK.
[2021-12-21 10:47] LABS: CARBON DIOXIDE 26.3 mmol/L (20.0-32)
[2021-12-21] MEDS: HEPARIN-D5W 20,000 UNIT/500 ML 500 ML IV SCH (12:58)
--- NOTE | 2021-12-21 18:40 | NUR ---
TELEPHONE ORDER PER DR DIAMOND: START ELIQUIS 5MG PO BID. ADMIN ELIQUIS TONIGHT AND STOP HEPARIN GTT AFTER ONE HOUR. ADMIN AM DOSE OF ELIQUIS @ 0700. PT TO HAVE A VERY LIGHT BREAKFAST TO PREP FOR CARDIOVERSION AROUND 1000 TOMORROW TELEPHONE ORDERS RBAV
--- NOTE | 2021-12-21 18:43 | NUR ---
REPORT RECEIVED FROM SHELLY MENDOZA. ASSUMED PT CARE.
[2021-12-21] MEDS: ELIQUIS PO SCH ×2 (18:52→21:00)
[2021-12-21] MEDS: CORDARONE PO SCH (20:41)
[2021-12-22] VITALS (93 sets, daily range): BP systolic 84–194; BP diastolic 45–94
--- NOTE | 2021-12-22 06:37 | NUR ---
REPORT TO ONCOMING SHIFT. PT CARE RELINQUISHED.
[2021-12-22] MEDS: ELIQUIS PO SCH ×2 (07:20→20:40)
--- NOTE | 2021-12-22 07:20 | NUR ---
ELIQUIS ELIQUIS 5MG PO BID ADMIN PER ORDER FROM DR DIAMOND TO ADMIN ELIQUIS AT 0700 DUE TO CARDIOVERSION AT 1000. PT EDUCATED ON PURPOSE AND SIDE EFFECTS OF ELIQUIS. VERBALIZED UNDERSTANDING.
[2021-12-22] MEDS: KLOR-CON 10 PO SCH (08:07)
[2021-12-22] MEDS: DEMADEX PO SCH (08:07)
[2021-12-22] MEDS: FARXIGA PO SCH (08:08)
[2021-12-22] MEDS: ENTRESTO 24 MG-26 MG TABLET PO SCH ×3 (08:08→20:39)
[2021-12-22] MEDS: COREG PO SCH ×2 (08:08→20:41)
[2021-12-22] MEDS: ALDACTONE PO SCH (08:08)
[2021-12-22] MEDS: NICOTINE 21MG PATCH TD SCH ×2 (08:09→09:00)
[2021-12-22] MEDS: CORDARONE PO SCH ×2 (08:09→20:40)
[2021-12-22] MEDS ORDERED: LANOXIN ONE ×2 (08:30→09:02)
[2021-12-22] MEDS ORDERED: ROMAZICON IV ONE (08:30)
[2021-12-22] MEDS ORDERED: ZOFRAN ONE (08:30)
[2021-12-22] MEDS ORDERED: VERSED ONE ×2 (08:31→08:33)
[2021-12-22] MEDS ORDERED: MORPHINE SULFATE ONE (08:32)
[2021-12-22] MEDS ORDERED: CORDARONE ONE (08:32)
[2021-12-22] MEDS ORDERED: ATROPINE SULFATE ONE (08:32)
[2021-12-22] MEDS ORDERED: SUBLIMAZE ONE (08:32)
[2021-12-22] MEDS ORDERED: NS 1000ML 1,000 ML ONE (08:33)
[2021-12-22] MEDS ORDERED: HEPARIN ONE (10:07)
--- NOTE | 2021-12-22 10:44 | PCM.EKG ---
[facility] Test Date: 2021-12-22 Test Time: 10:26:07 Pat Name: DANAY [employer] Department: Room: ICU1 A Gender: M Sack Sewer Machine: : [id number] Requested By: DAVID DIAMOND Order Number: [id number] Reading MD: Measurements Intervals [place]onet Rate: 77 P: 112 AL: 155 QRS: 14 QRSD: 97 T: 175 QT: 413 QTc: 468 Interpretive Statements Sinus rhythm Probable left atrial enlargement Low voltage, extremity leads Repol abnrm suggests ischemia, anterolateral Compared to ECG 12/14/2021 10:43:18 Low QRS voltage now present Possible ischemia now present Atrial fibrillation no longer present Right-axis deviation no longer present Please click the below link to view image of tracing.
--- NOTE | 2021-12-22 11:09 | NUR ---
CARDIOVERSION DR DIAMOND TO PT ROOM AT 1010 PT AWAKE AND ALERT NO S/S OF DISTRESS PT ON RA 1014 HEPARIN 5000 UNITS IV, VERSED 3MG IV 1015 FENTANYL 50MCG IV, VERSED 2MG IV 1019 FENTANYL 25 MCG 1020 200 J SYNCHRONIZED SHOCK GIVEN BY DR DIAMOND, PT RHYTHM EXHIBITS SINUS RHYTHM 80S. 1021 ROMAZICON 0.4MG IV NO S/S OF DISTRESS NOTED, PT ALERT AND ORIENTED X3, V/S STABLE. ORDER RECEIVED FROM DR DIAMOND FOR 12 LEAD EKG. WILL CONT WITH PLAN OF CARE.
[2021-12-22] MEDS: VERQUVO PO SCH (11:27)
[2021-12-22] MEDS ORDERED: DECADRON IM ONE (12:00)
--- NOTE | 2021-12-22 13:58 | PRM.CONS ---
CONSULTATION Scheduled Apixaban (Eliquis), 5 MG PO BID Diltiazem Hcl (Cardizem), 60 MG PO TID Furosemide (Furosemide), 40 MG PO DAILY Omeprazole Magnesium (Prilosec Otc), 1 TAB PO QD Potassium Chloride (Potassium Chloride), 20 MEQ PO DAILY24 Sotalol Hcl (Sotalol), 0.5 TAB PO BID Discontinued Medications Lisinopril (Lisinopril), 20 MG PO DAILY Discontinued Reason: HOLD Warfarin Sodium (Warfarin Sodium), 10 MG PO DAILY24 Discontinued Reason: No Longer Taking VTE VTE Risk Total Score: >5 VTE Risk Score VTE Risk: Score 0-1 = Low Risk (Aggressive mobilization; early ambulation; no VTE prophylaxis required) Score 2: Moderate Risk (Intermittent/Pneumatic Compression Device OR Lovenox/Heparin/Coumadin) Score 3-4: High Risk (Intermittent/Pneumatic Compression Device AND Lovenox/Heparin/Coumadin) Score > or =5: Highest Risk (Intermittent/Pneumatic Compression Device AND Lovenox/Heparin/Coumadin) Antico:Hep/LMWH/Coum/Xarelto: Yes RICHARD JACKMAN DO Dec 22, 2021 13:58
--- NOTE | 2021-12-22 14:55 | NUR ---
DISCHARGE PLAN - [facility] ORIANA IN ICU CONTACTED CM AND INFORMED CM THAT PER DR DIAMOND - PATIENT COULD RECEIVE LIFE VEST AND DISCHARGE TOMORROW OR WANTING TO KNOW IF PATIENT'S [facility] WOULD COVER ICD ON SATURDAY. CM CONTACTED JONEL REED AND PER JONEL - [facility] WOULD COVER PATIENT'S CARE, BUT DOES NOT COVER DEVICE OR PHYSICIAN SERVICES. PATIENT HAS BEEN SET UP WITH A [facility] APPLICATION AND SET UP WITH [facility] - REP [phone]. KETAN IN [place] SPOKE W/DR DIAMOND YESTERDAY AND THIS INFORMATION WAS GIVEN TO HIM. CM@BEDSIDE AND SPOKE WITH PATIENT AND PATIENT REPORTS THAT HE FILLED OUT THE PAPERS FOR [facility] AND HE WAS SUPPOSE TO GO SIGN THEM ON SATURDAY, BUT WAS ADMITTED TO HOSPITAL ON SATURDAY. AGREEABLE FOR CM TO CONTACT [facility] TO ASSIST WITH ANY INFORMATION. CM CONTACTED [facility] AND PER [facility] - DR DIAMOND IS WANTING PATIENT TO HAVE A LIFE VEST AND THEY BROUGHT HIS PAPERWORK FOR PATIENT ASSISTANCE PROGRAM TO THE HOSPITAL FROM DR MILLER AND PATIENT DID NOT FEEL THEM OUT DUE TO SWITCHING PROVIDERS. CM CONTACTED [email or web address] AND PER LAURE - SWETA KELSEY THE ONLY THING THEY ARE WAITING ON FOR THE LIFEVEST IS PATIENT TO FILL OUT THE PATIENT ASSISTANCE PROGRAM AND ORDER FOR LIFE VEST IS UNDER DR MILLER FOR A HOME FIT. CM CONTACTED DR MILLER TO SEE IF HE WAS AGREEABLE TO CONTINUE WITH LIFE VEST ORDER. CM INFORMED@THAT TIME PER DR MILLER THAT PATIENT HAD TRANSFERRED ALL OF HIS CARE TO DR Michelle DIAMOND AND HIS OFFICE HAS SENT ALL OF THE RECORDS OVER TO DR DIAMOND. DR DIAMOND WOULD NEED TO FILL OUT THE ORDER FOR THE LIFEVEST. CM CONTACTED DR DIAMOND AND INFORMED HIM THAT HE WOULD HAVE TO FILL OUT THE ORDER FOR PATIENT TO HAVE LIFEVEST AND WOULD NEED PROGRESS NOTE WITH SAME DX. DR DIAMOND REPORTS THAT HE WILL COME IN TOMORROW AND SIGN THE ORDER. CM@BEDSIDE AND GAVE PATIENT LIFE VEST PATIENT ASSISTANCE PROGRAM AND HE FILLED THEM OUT AND GAVE THEM TO ORIANA, PATIENT'S NURSE. CM RECIEVED PATIENT'S W2 FORM FROM [facility] TO SEND IN W/PAPERWORK FOR APPROVAL. CM GAVE COPY OF ORDER FOR DR DIAMOND TO FILL OUT TOMORROW AND FAX COVER SHEET W/ACCEPTED DX AND INSTRUCTIONS TO FAX NEW ORDER AND PROGRESS NOTE TO [facility] W/PATIENT'S FORM FOR PATIENT ASSITANCE PROGRAM AND FINANCIAL INFORMATION.
--- NOTE | 2021-12-22 18:40 | NUR ---
REPORT RECEIVED FROM ORIANA BRAVO. ASSUMED PT CARE.
--- NOTE | 2021-12-22 19:30 | NUR ---
PAIN MED REQUEST: PT REQUESTING PRN PAIN MED IF NEEDED OVERNIGHT. PT DENIES PAIN LEVEL AT THIS TIME. DR DIAMOND NOTIFIED. TELEPHONE ORDER GIVEN FOR TRAMADOL 50MG PO TID PRN FOR PAIN 4-6. TELEPHONE ORDER RBAV.
[2021-12-22] MEDS ORDERED: ULTRAM PO PRN (20:00)
[2021-12-23] VITALS (54 sets, daily range): BP systolic 87–141; BP diastolic 44–98
[2021-12-23] MEDS: LEVOTHYROXINE SODIUM PO SCH (05:40)
--- NOTE | 2021-12-23 06:41 | NUR ---
REPORT TO ONCOMING SHIFT. PT CARE RELINQUISHED.
[2021-12-23] MEDS: NICOTINE 21MG PATCH TD SCH (09:00)
--- NOTE | 2021-12-23 09:18 | DIET.OP ---
Nutrition Asmt/Malnutrit 2-17 Actual Date of Review: Dec 23, 2021 Actual Time Reviewed Asmt: 09:13 Nutritional Screening: Malnutr/Diet Consult Diagnosis: Heart Failure Pertinent Medical Hx/Surgical: GERD, Sleep Apnea, Hyperlipidemia, HTN, Anxiety, Depression, Hx alcoholism, CHF Subjective Information: 41 yo m, presented SOB Current Diet Order/Nutrition S: Cardiac Patient /S.O: Not Indicated Pertinent Meds Coreg, Demadex, Aldactone, Levothyroxine, Ultram Pertinent Labs Hgb 160, Hct 148.9, Na+ 139, K+ 3.7, BUN 16, Glu 127H, Ca 8.5, Alb 2.8L, TP 6.0L Height (Inches): 69 Current Weight: 258 %IBW: 161 Recent Weight Change: Yes (8# loss x 3/days, 3%, 6/4 wt 276 18# decreased x 1/wk, 6.5%, significant) Weight Status: Morbid Obese Cultural/Ethnic/Restorationism Judith: unknown Usual Diet at Home: unable to obtain Skin Integrity/Comment: Yes (skin intact) Current %PO: Good(75-100%) (100% x 8 meals) Calories/Kcals/K-14 Kcals Calculated: 0246-9658 Protein: Use Current Weight Protein g/k.0-1.3 Protein Calculated: 117-152 Fluid: ml: 4538-9350 or per MD order current 1500 ml fluid restriction Nutritional Problem: Nutr. Problems Present Problems: Overweight/Obesity Etiology: Excessive Energy Intake Signs/Symptoms: BMI above normative for age gender, morbid obesity 38 Interpretation of Weight Loss: 1-2% in 1 week (8# decrease x 3/days, 3%. significant, 18# x 1 week, 6.5%, significant) Fluid Accumulation (Severe): Mod to Severe Retention Protein-Calorie Malnutrition: N/A Is there a minimum of two crit: Yes Malnutrition related to morbid: BMI>or equal to 40 Malnutrition Related to Morbid: No RD Comments: Significant wt loss @ 1 week (6.5%) and significant wt loss X 3 days (3%), PO intake good, (100%). Edema present, Demadex medications contributing to wt loss. Expected Outcomes stable w/adequate hydration, labs WNL, skin integrity, nutrition needs met within 3/days. Serum Albumin g/dl: 2.4-3.0 Moderate) Malnutrtion/Nutrition Risk Edu: No low nutrition risk, po intake good RD Follow-Up Date: Dec 30, 2021 Notificiation Needed?: No CHEPE HILLMAN Dec 23, 2021 09:18
[2021-12-23] MEDS: DEMADEX PO SCH (09:26)
[2021-12-23] MEDS: CORDARONE PO SCH ×2 (09:27→21:38)
[2021-12-23] MEDS: ELIQUIS PO SCH ×2 (09:27→21:38)
[2021-12-23] MEDS: FARXIGA PO SCH (09:28)
[2021-12-23] MEDS: KLOR-CON 10 PO SCH (09:28)
[2021-12-23] MEDS: ALDACTONE PO SCH (09:28)
[2021-12-23] MEDS: ENTRESTO 24 MG-26 MG TABLET PO SCH ×2 (09:28→21:38)
[2021-12-23] MEDS: COREG PO SCH ×2 (09:28→21:38)
[2021-12-23] MEDS: VERQUVO PO SCH (09:29)
--- NOTE | 2021-12-23 11:05 | PNH ---
DATE: 12/22/2021 DICTATOR NAME: Serg Ortiz MD SUBJECTIVE: The patient finished his IV amiodarone drip and is in 2:1 atrial flutter with a rate of 120 and his blood pressure is 130/70, respirations 18 and afebrile status. He is breathing well, has a pain in his left foot on the dorsum aspect, possibility of gout is a consideration and under conscious sedation with 5 mg of Versed and 25 mcg of fentanyl IV along with 150 mg amiodarone IV loading before the procedure, 200 joules biphasic shock was given and the patient reverted back into regular sinus rhythm with a rate of 70 with a narrow QRS complex and a 12-lead EKG is acceptable. He is breathing well. OBJECTIVE: VITAL SIGNS: Stable. NECK: No JVD. LUNGS: Clear. HEART: Sounds normal. At the present time, [] Verquvo on 2.5 mg once a day and initiated Entresto 24/ one tablet [], Farxiga 10 mg once a day, and continue torsemide 20 mg once a day along with Coreg 6.25 mg twice a day and Eliquis 5 mg []. We will repeat echo to assess his ejection fraction. IMPRESSION: Nonischemic dilated cardiomyopathy, 2:1 atrial flutter reverted back into regular sinus rhythm, post-cardioversion, acute on chronic systolic heart failure, hypertension, hypertensive heart disease, may have obstructive sleep apnea, deep venous thrombosis both legs in the past. PLAN: At this time, continue same optimized medical therapy. If restoring the regular sinus rhythm, improve his ejection fraction and optimum medical therapy has been tried before the ICD can be replaced, his ejection fraction under the effect of 2:1 atrial flutter was decreased to almost 20%. I am sure it will improve at the present time and will make a decision in the next 1 or 2 days whether he needs an ICD and [] there is improvement in ejection fraction, then one probably needs to wait for optimum medical therapy since it is a nonischemic dilated cardiomyopathy. According to the data, nonischemic dilated cardiomyopathy has to be an optimal medical therapy and he has to be given a chance of at least from the recent data 9 months of optimum medical therapy. Therefore, one decides to put an ICD if the ejection fraction is still lower than 35%. Serg Ortiz MD DR: ROSALVA/DELVIS/ELMER TID: [id number] RECEIPT: [id number]
--- NOTE | 2021-12-23 15:05 | NUR ---
TRANSFER PT TRANSFERRED TO [place] VIA W/C TO ROOM 329, NO S/S OF DISTRESS NOTED. REPORT GIVEN TO ESTELA ELLISON, RELINQUISHED CARE OF PT.
--- NOTE | 2021-12-23 19:42 | DSH ---
DATE OF DISCHARGE: 12/23/2021 DICTATOR NAME: Serg Ortiz MD FINAL DIAGNOSES: Dpehg-oa-gzewvwt systolic heart failure, nonischemic dilated cardiomyopathy, ejection fraction 20%, 2:1 atrial flutter, for cardioversion chemically after loading with IV amiodarone, right foot gout, obesity, no flow obstructive coronary artery disease. The patient is a candidate for ICD or at least a LifeVest until optimal medical therapy is given for a long enough duration to assess if candidate for an ICD. Please refer to my history and physical to the point of impression. HOSPITAL COURSE: The patient is a 41-year-old white male who has nonischemic dilated cardiomyopathy. He saw Dr. Anna. Ejection fraction 20% and he was in 2:1 flutter, was admitted on 12/14/2021 and was sent home. The rate was not controlled, placed on Cardizem and sotalol and his rate was still 130, 2:1 flutter was noted and he was symptomatic with 2 episodes of syncope, having blacked out and a LifeVest was to be given to him, but because of his syncope and 2:1 flutter, unstable rhythm, he was admitted in the hospital and was optimized on a CHF therapy and IV amiodarone loading dose given by over 24 hours and subsequently DC cardioversion under conscious sedation with 5 mg of Versed and 75 mcg of fentanyl was done with biphasic shock with 200 joules and the patient converted back into regular sinus rhythm. His ejection fraction post-conversion is still 20%. It is too early because of electrical stability does not achieve mechanical improvement right away and therapy has to be optimized. He, at the present time, will be dismissed on Coreg 6.25 mg twice a day, Entresto one tablet twice a day, Verquvo 2.5 mg once a day, torsemide 20 mg once a day, Aldactone 25 mg once a day and he is on Levothroid 25 mcg once a day; TSH was mildly elevated, Eliquis 5 mg twice a day, amiodarone 200 mg twice a day and weight reduction. He got a shot of steroid for his left foot gout. We will put him on allopurinol 300 mg once a day and can take Celebrex 200 mg on a p.r.n. basis for his left foot pain and could use Ultram 50 mg 3 times a day on p.r.n. basis for more severe pain and he does not require oxygen, but he definitely requires a LifeVest because his ejection fraction is 20%. We will see him in the office in 2 [address] Serg [address] MD [address]: ROSALVA/JOHAN TID: [id number] RECEIPT: [id number]
--- NOTE | 2021-12-23 23:58 | PNH ---
DATE: 12/22/2021 DICTATOR NAME: Serg Ortiz MD SUBJECTIVE: The patient has nonischemic dilated cardiomyopathy, 20% ejection fraction with 2:1 flutter and DC cardioversion with 200 joules was done and he reverted back into regular sinus rhythm, still had a 20% ejection fraction, on optimal medical therapy on Entresto, Verquvo, carvedilol and Aldactone. He definitely needs LifeVest if he needs an ICD after maximal optimal medical therapy over the time period has been established. His ejection fraction has been 20% for very long period of time, probably we will give him another 30-60 days before putting an ICD, hence we will do a LifeVest in the interim period. Serg Ortiz MD DR: ROSALVA/ALICIA TID: [id number] RECEIPT: [id number]
[2021-12-24 04:11] VITALS: BP 119/75
--- NOTE | 2021-12-24 04:55 | PNH ---
DATE: 12/21/2021 DICTATOR NAME: Serg Ortiz MD SUBJECTIVE: The patient is doing much better. He is breathing easier. He has had an aggressive diuresis. At the present time, his heart rate is about [], 2:1 atrial flutter is noted with a blood pressure 120/80 and he tolerated his Coreg along with Aldactone and torsemide and he took lisinopril at 8:00. Tomorrow, we will wait for 48 hours and initiate Entresto from 12/22/2021. He is on IV heparinization. Subtherapeutic PTT. We will increase the dose of heparin and give him 2000 units heparin bolus and repeat his PTT. Cardioversion on 12/22/2021. OBJECTIVE: VITAL SIGNS: Showing still a rate of [] with atrial flutter. LUNGS: Clear. HEART: Sounds are normal. Saturation 96%. IMPRESSION: 2:1 atrial flutter, recurrent syncope, unstable cardiac rhythm and acute on chronic systolic heart failure, nonischemic dilated cardiomyopathy, history of hypertension, hypertensive heart disease, history of deep venous thrombosis in both legs. PLAN: At this time, cardioversion in the morning. Achieve a therapeutic PTT before that and give him Lanoxin 0.25 mg IV today and continue present management and initiate Entresto tomorrow. Serg Ortiz MD DR: ROSALVA/AMY/MIKAL TID: [id number] RECEIPT: [id number]
[2021-12-24] MEDS: LEVOTHYROXINE SODIUM PO SCH (06:42)
[2021-12-24 08:00] VITALS: BP 110/70
[2021-12-24] MEDS: FARXIGA PO SCH (09:25)
[2021-12-24] MEDS: ALDACTONE PO SCH (09:25)
[2021-12-24] MEDS: KLOR-CON 10 PO SCH (09:25)
[2021-12-24] MEDS: ENTRESTO 24 MG-26 MG TABLET PO SCH ×2 (09:25→20:55)
[2021-12-24] MEDS: COREG PO SCH ×2 (09:26→20:54)
[2021-12-24] MEDS: CORDARONE PO SCH ×2 (09:26→20:54)
[2021-12-24] MEDS: VERQUVO PO SCH (09:26)
[2021-12-24] MEDS: ELIQUIS PO SCH ×2 (09:26→20:55)
[2021-12-24] MEDS: NICOTINE 21MG PATCH TD SCH (09:26)
[2021-12-24] MEDS: DEMADEX PO SCH (09:26)
[2021-12-24] MEDS ORDERED: PEPCID PO STA (12:32)
[2021-12-24] MEDS: PROTONIX PO SCH (12:42)
[2021-12-24 18:03] VITALS: BP 118/72
[2021-12-24 19:35] VITALS: BP 114/72
[2021-12-25] VITALS (7 sets, daily range): BP systolic 96–131; BP diastolic 57–86
[2021-12-25 04:40] LABS: BASOPHIL # 0.1 10^3/uL (0.0-0.1); BASOPHIL % 0.8 % (0.0-0.2); EOSINOPHIL # 0.1 10^3/uL (0.0-0.2); EOSINOPHIL % 1.9 % (0.0-5.0); LYMPHOCYTES # 2.29 10^3/uL1 (1.0-4.8); LYMPHOCYTES % 30.6 % (24.0-44.0); MEAN CORP HGB 32.1 pg (26-34); MONOCYTES # 1.1 10^3/uL (0.3-0.8); MONOCYTES % 14.7 % (5.0-12.0); NEUTROPHIL # 3.9 10^3/uL (1.8-7.7); NEUTROPHILS % 51.7 % (41.0-85.0); PLATELET COUNT 207 10^3/uL (150-400); RED CELL DISTRIBUTION WIDTH 15.3 % (11.5-14.5)
[2021-12-25 04:55] LABS: CARBON DIOXIDE 25.1 mmol/L (20.0-32)
[2021-12-25] MEDS: LEVOTHYROXINE SODIUM PO SCH (06:04)
[2021-12-25] MEDS: FARXIGA PO SCH (08:59)
[2021-12-25] MEDS: CORDARONE PO SCH (08:59)
[2021-12-25] MEDS: ELIQUIS PO SCH (08:59)
[2021-12-25] MEDS: KLOR-CON 10 PO SCH (08:59)
[2021-12-25] MEDS: VERQUVO PO SCH ×2 (09:00→09:24)
[2021-12-25] MEDS: ALDACTONE PO SCH (09:00)
[2021-12-25] MEDS: COREG PO SCH (09:00)
[2021-12-25] MEDS: PROTONIX PO SCH (09:00)
[2021-12-25] MEDS: DEMADEX PO SCH (09:00)
[2021-12-25] MEDS: ENTRESTO 24 MG-26 MG TABLET PO SCH (09:00)
[2021-12-25] MEDS: NICOTINE 21MG PATCH TD SCH (09:02)
[2021-12-25] MEDS ORDERED: SPIR25TA PO (09:59)
[2021-12-25] MEDS ORDERED: TORS20TA2 PO (09:59)
[2021-12-25] MEDS ORDERED: VERI2.5T PO (09:59)
[2021-12-25] MEDS ORDERED: AMIO200T55 PO (09:59)
[2021-12-25] MEDS ORDERED: SACU1TAB PO (09:59)
[2021-12-25] MEDS ORDERED: CARV6.252 PO (09:59)
[2021-12-25] MEDS ORDERED: LEVO25TA4 PO (09:59)
[2021-12-25] MEDS ORDERED: DAPA10TA PO (09:59)
[2021-12-25] MEDS ORDERED: PANT40TA3 PO (09:59)
--- NOTE | 2021-12-25 13:18 | NUR ---
DISCHARGE PLAN - LIFE VEST CM CONTACTED LAURE [email or web address] THIS AM@8:55 AND MESSAGE LEFT FOR RETURN CALL TO CM AND UPDATE. CM RECEIVED PHONE CALL FROM LAURE [email or web address]@9:53 AND INFORMED @THAT TIME THAT THEY DO FIT THE LIFE VEST ON THE WEEKEND, BUT DUE TO REQUEST FOR THE PATIENT ASSISTANCE PROGRAM - THE FINANCIAL ASSISTANCE PROGRAM DOES NOT WORK ON THE WEEKEND. CM UPDATED CORETTA RUIZ OF UPDATE. CM RECEIVED PHONE CALL FROM LAURE ERAZO@11:05 AND INFORMED@THAT TIME THAT THEY WERE WORKING ON THE FINANCIAL ASSISTANCE@THAT TIME AND IT SHOULDN'T BE MUCH LONGER. CM CONTACTED LAURE ERAZO@1:18 AND INFORMED HER@THAT TIME THAT PATIENT IS READY FOR DISCHARGE AND INFORMED PER LAURE ERAZO THAT IT SHOULDN'T BE MUCH LONGER AND SHE HAS SOMEONE ON STANDBY TO COME UP TO THE HOSPITAL TO SET UP THE LIFEVEST SOON THE FINANCIAL ISSUES ARE COMPLETED.
--- NOTE | 2021-12-25 13:47 | DSH ---
DATE OF DISCHARGE: 12/25/2021 DICTATOR NAME: Serg Ortiz MD FINAL DIAGNOSES: 2:1 atrial flutter, post-cardioversion reverted back into regular sinus rhythm after giving a loading dose of IV amiodarone and 200 joules biphasic shock, acute on chronic systolic heart failure, nonischemic dilated cardiomyopathy, ejection fraction is 20%, obesity. Please refer to my history and physical to the point of my impression. HOSPITAL COURSE: The patient is a 41-year-old white male who came in with 2:1 atrial flutter and was being treated with Cardizem and sotalol and his rate was very high and he had collapsed twice and apparently he was brought to ICU and started on IV amiodarone drip and followed by 200 joules biphasic shock under full anticoagulation and he reverted back into regular sinus rhythm and his CHF therapy was optimized and he will be sent home on LifeVest and his creatinine has gone up to 1.48. We will follow the creatinine in the office in two weeks and he will be on amiodarone 200 mg twice a day, Coreg 6.25 mg twice a day, Farxiga 10 mg once a day, Levothroid 25 mcg once a day because of his mild elevation of TSH due to amiodarone, Entresto 24 one tablet twice a day, Aldactone 25 mg once a day, torsemide 20 mg once a day and Verquvo 2.5 mg daily and I stopped his Cardizem, Lasix, omeprazole, sotalol and given Protonix 40 mg once a day, see him back in the office in two weeks. Serg Ortiz MD DR: ROSALVA/MOHIT TID: [id number] RECEIPT: [id number]
--- NOTE | 2021-12-25 15:32 | NUR ---
DISCHARGE PLAN - [facility] CHARLES RECEIVED VM FROM LAURE [email or web address] AND FORM FOR PATIENT ASSISTANCE PROGRAM CAN NOT HAVE A PATIENT STICKER FOR THE NAME AND DUE TO DATE OF SCRATCHED OUT - PATIENT WILL HAVE TO FILL OUT NEW FORM. LAURE [email or web address] EMAILED CHARLES NEW FORM, BUT CM HAS NOT RECEIVED NEW FORM@THIS TIME. CHARLES CONTACTED LAURE ERAZO AND SHE IS FAXING NEW FORM TO CM@THIS TIME AND MED SURG. AWAITING FOR NEW FORM@THIS TIME. Addendum: 12/25/21 at 1604 by Amalia Velasco RN,Case Managemen RN CM INFORMED @THIS TIME PER LAURE [email or web address] - FORM HAS TO BE ORIGINATED @[employer] FOR FINANCIAL ASSISTANCE AND SENT FOR PATIENT TO COMPLETE. PREFILLED FORM COMPLETED@THIS TIME AND FAXED INTO [employer]@[phone]. FAX CONFIRMATION CONFIRMED COMPLETE. AWAITING UPDATE FROM [employer]@THIS TIME.
--- NOTE | 2021-12-25 17:04 | NUR ---
DISCHARGE PLAN - LIFEVEST WILL FIT@HOME CM RECEIVED INFORMATION FROM LAURE [email or web address] AND INFORMED THAT THEY WERE CONTINUING TO WORK ON THE LIFEVEST AND SHE WOULD HAVE TO SCHEDULE A FITTER OUT OF [employer] SINCE THE LIFEVEST FITTER IN [place] WAS OFF@4PM TODAY. PATIENT WOULD HAVE TO HAVE DEPOSIT OF $299 WITH $250 REFUNDABLE WHEN THE UNIT WAS TURNED BACK IN. CM SPOKE WITH PATIENT AND INFORMED HIM OF [employer] WILL BE CALLING HIM TO SET UP FINANCIAL ARRANGEMENTS. PATIENT REPORTS THAT HE DOESN'T HAVE THE DEPOSIT AND "I REFUSE TO ASK FOR ANYONE TO HELP ME IN THIS TIME." CM CONTACTED DR DIAMOND AND SPOKE WITH HIM AND DR DIAMOND OK WITH PATIENT BEING DISCHARGED AND MAY DISCHARGE HOME WITH LIFEVEST FOLLOWING UP WITH PATIENT OUTPATIENT. DR DIAMOND SAID THAT PATIENT HAS F/U APPT IN 2 WEEKS WITH HIM AND HE HAS PROVIDED PATIENT WITH ALL THE MEDICATIONS AND IS SETTING UP A VID[employer] TO COVER THE ICD AND PLANS TO HAVE THAT DONE SHORTLY. CM CONTACTED LAURE [email or web address] AND THEY WILL CONTINUE TO FOLLOW UP WITH PATIENT ON AN OUTPATIENT BASIS. CM @[employer] AND UPDATED PATIENT ON PLAN OF [employer] FOLLOWING UP WITH PATIENT ON OUTPATIENT BASIS. PATIENT AGREEABLE AND REPORTS THAT HE IS READY TO DISCHARGE TODAY. PATIENT VERBALIZED UNDERSTANDING THAT [employer] WOULD F/U WITH PATIENT ON AN OUTPATIENT BASIS AND CONTINUE TO LIVE IN HIS VEHICLE. DENIES ANY FURTHER CM NEEDS.
--- NOTE | 2021-12-25 17:45 | NUR ---
[facility] CALLED TO [facility] AND PT INFORMED. PT VOICED UNDERSTANDING
--- NOTE | 2021-12-25 17:50 | NUR ---
discharge instructions given expressed understanding, pt ambulated to personal vehicle with friend
--- NOTE | 2021-12-28 04:26 | ECHO ---
DATE OF SERVICE: 12/22/2021 DICTATOR NAME: Serg Ortiz MD ECHOCARDIOGRAPHY REPORT INDICATION: A 41-year-old male, 2:1 atrial flutter, post-cardioversion, nonischemic dilated cardiomyopathy, acute on chronic systolic heart failure, assess LV function. Post-conversion into regular sinus rhythm. PRIMARY PHYSICIAN: Dr. Ortiz. FINDINGS: Mitral valve shows mitral regurgitation 2.5 meters velocity, normal E to A ratio and aorta is normal with aortic incompetence with a pressure halftime of 730 milliseconds and adequate aortic valve opening. Abnormal EPSS is noted on mitral valve. M-mode echo - tricuspid regurgitation is 2.3 meters. The right ventricular systolic pressure is 31 mm and pulmonary incompetence with a pressure halftime of 360 milliseconds consistent with 2+ pulmonary incompetence with marked right ventricular enlargement of 4.36 cm. Right atrial enlargement in 4-chamber view to 5.7 cm. Left atrium is enlarged in 4-chamber view longitudinally to 6.59 cm. Left ventricle is enlarged to 5.91 cm, end-diastole dimension 5.26 cm, end-systolic dimension with abnormal EPSS and severe global hypokinesis, 20% ejection fraction, and increased end-diastolic volume to 187 mL, IVC is top normal size. Hence, picture consistent with global hypokinesis of the left ventricle with enlargement of the left ventricle without any thrombus and a severe nonischemic dilated cardiomyopathy with ejection fraction of 20%. Biatrial enlargement, significant right ventricular enlargement and pulmonary incompetence due to pulmonary hypertension and mild aortic incompetence and low cardiac output state. The patient was converted electrically and mechanical improvement, will require optimum medical therapy and hence reassess him after 3 [address]. Serg Ortiz MD DR: ROSALVA/DELVIS/JAMES TID: [id number] RECEIPT: [id number]
== END 2021-12-25 17:50 | disposition home or self-care (01) | DRG 291 ==
LOC: ICU 15:23 → UNDODISIN 12-22 18:09 → MS 12-23 15:05 → EDPENDDISTM 12-25 17:12
PROVIDERS: ADMIT Specialist; ATTEND Specialist
DX: I11.0 Hypertensive heart disease with heart failure (principal); I50.43 Acute on chronic combined systolic (congestive) and diastolic (congestive) heart failure; I45.89 Other specified conduction disorders; I48.92 Unspecified atrial flutter; E66.9 Obesity, unspecified; I42.0 Dilated cardiomyopathy; I48.91 Unspecified atrial fibrillation; M10.9 Gout, unspecified; G47.33 Obstructive sleep apnea (adult) (pediatric); F10.20 Alcohol dependence, uncomplicated; F32.A Depression, unspecified; F41.9 Anxiety disorder, unspecified; Z79.01 Long term (current) use of anticoagulants; Z79.890 Hormone replacement therapy; Z79.899 Other long term (current) drug therapy; Z86.718 Personal history of other venous thrombosis and embolism; Z87.891 Personal history of nicotine dependence; Z68.38 Body mass index [BMI] 38.0-38.9, adult
CPT/HCPCS: 36415; 71046; 80053; 83735; 83880; 84443; 84484; 85025; 85379; 85610; 85730; 87637; 93005; 93306; G0378; J0282; J0461; J1100; J1160; J1644; J2250; J2270; J2405; J3010; J3475; J3490; J7030; J7050; J7060

== ENCOUNTER → 2022-01-08 | Outpatient (CLI) | payer SELFPAY ==
[~2022-01-08] MED LIST changes: +CARV6.252 PO; +DAPA10TA PO; +LEVO25TA4 PO; +PANT40TA3 PO; +SACU1TAB PO; +SPIR25TA PO; +TORS20TA2 PO; +VERI2.5T PO
[2022-01-08 16:07] LABS: MEAN CORP HGB 31.3 pg (26-34); RED CELL DISTRIBUTION WIDTH 14.9 % (11.5-14.5)
== END | disposition home or self-care (01) ==
LOC: LAB 15:51
PROVIDERS: ATTEND Nurse Practitioner Family
DX: I50.9 Heart failure, unspecified (principal)
CPT/HCPCS: 36415; 80053; 83735; 85027

== ENCOUNTER → 2022-01-11 | Outpatient (CLI) | payer SELFPAY ==
--- NOTE | 2022-01-18 00:43 | ECHO ---
DATE OF SERVICE: 01/11/2022 DICTATOR NAME: Serg Ortiz MD ECHOCARDIOGRAPHY REPORT INDICATIONS: A 41-year-old male, cardiomyopathy, chronic systolic heart failure, post-cardioversion of atrial fibrillation. Echo to assess improvement in LV ejection fraction following optimization of medical therapy. Echo was done in [facility]. PRIMARY PHYSICIAN: Dr. Ortiz FINDINGS: Mitral valve shows reversal of E to A ratio. The patient is now in regular sinus rhythm and has an A wave and grade 1 diastolic dysfunction noted. Aorta is normal with normal aortic valve opening of 3.56 square cm and mild aortic incompetence with a pressure halftime of 619 milliseconds. Tricuspid valve shows minimal tricuspid regurgitation. Right ventricular systolic pressure is only 13 mm. Right ventricle is enlarged to 3.62 cm, which is accurate reduction in the size compared to the previous echo. Right atrium on 4-chamber longitudinal dimension is 5.6 cm. Left atrium is 5.6 cm. Left ventricle is markedly reduced in size from the previous echo to 5.65 cm, although it is mildly enlarged, this is end diastolic dimension; end systolic dimension is 4.48 cm. There is septal thickening. Mild global hypokinesis with an ejection fraction of 41-42%, significantly improved compared to the previous ejection fraction of 20% and no pericardial effusion is noted, hence marked improvement in the LV systolic function following the optimization on medical therapy and conversion of rapid atrial flutter back into regular sinus rhythm with grade 1 diastolic dysfunction with global hypokinesis and reduction in LV size. No thrombus in any other cardiac chambers. Serg Ortiz MD DR: ROSALVA/DELVIS/ELMER TID: [id number] RECEIPT: [id number]
== END | disposition home or self-care (01) ==
LOC: RAD 14:00
PROVIDERS: ATTEND Specialist
DX: I50.22 Chronic systolic (congestive) heart failure (principal); I42.9 Cardiomyopathy, unspecified
CPT/HCPCS: 93306

== ENCOUNTER → 2022-01-24 | Outpatient (CLI) | payer SELFPAY ==
[2022-01-24 14:24] LABS: MEAN CORP HGB 30.6 pg (26-34); RED CELL DISTRIBUTION WIDTH 15.6 % (11.5-14.5)
== END | disposition home or self-care (01) ==
LOC: LAB 14:10
PROVIDERS: ATTEND Specialist
DX: I10 Essential (primary) hypertension (principal); E78.00 Pure hypercholesterolemia, unspecified
CPT/HCPCS: 36415; 80053; 80061; 83735; 84443; 85027

== ENCOUNTER 2022-02-12 12:17 | Inpatient (IN) | payer SELFPAY ==
[~2022-02-12] VITALS: Ht 175.3 cm; Wt 102.5 kg
[2022-02-12 12:34] VITALS: BP 116/53
--- NOTE | 2022-02-12 12:34 | PCM.EKG ---
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
[2022-02-12 12:39] LABS: BASOPHIL % 0.3 % (0.0-0.2); EOSINOPHIL % 0.5 % (0.0-5.0); LYMPHOCYTES # 1.9 10^3/uL1 (1.0-4.8); LYMPHOCYTES % 31.9 % (24.0-44.0); MEAN CORP HGB 30.4 pg (26-34); MONOCYTES # 0.6 10^3/uL (0.3-0.8); MONOCYTES % 10.6 % (5.0-12.0); NEUTROPHIL # 3.4 10^3/uL (1.8-7.7); NEUTROPHILS % 56.5 % (41.0-85.0); RED CELL DISTRIBUTION WIDTH 16.8 % (11.5-14.5)
--- NOTE | 2022-02-12 12:47 | DIREP ---
PROCEDURE:CHEST 1 VIEW COMPARISON:[facility], CR, XRAY CHEST 2 VWS, 12/20/2021, 03:47 PM. INDICATIONS:sob FINDINGS: LUNGS/PLEURA:No significant pulmonary parenchymal abnormalities. No effusions. VASCULATURE:Normal. Unremarkable pulmonary vasculature. CARDIAC:Normal. No cardiac silhouette abnormality or cardiomegaly. MEDIASTINUM:Normal. No visible mass or adenopathy. BONES:Normal. No fracture or visible bony lesion. OTHER:Negative. CONCLUSION:No acute pulmonary process. Dictated by: Joe Santos M.D. on 02/12/2022 at 12:45 PM
[2022-02-12] MEDS ORDERED: CARDIZEM IV ONE ×2 (12:50→12:51)
[2022-02-12 13:01] LABS: CARBON DIOXIDE 21.1 mmol/L (20.0-32)
[2022-02-12] MEDS ORDERED: NS 1000ML 1,000 ML STA ×2 (13:55→14:59)
[2022-02-12] MEDS ORDERED: NS 1000ML 1,000 ML ONE ×2 (13:59→15:10)
[2022-02-12 14:47] LABS: BILIRUBIN,URINE NEGATIVE (NEGATIVE); UROBILINOGEN,URINE 0.2 E.U./dL (0.2)
[2022-02-12 14:58] VITALS: BP 85/48
--- NOTE | 2022-02-12 15:06 | ER.PDOC ---
General Chief Complaint: Syncope Stated Complaint: PASSING OUT Time seen by MD: 12:30 Source: patient Exam Limitations: no limitations History of Present Illness Initial Comments 41-year-old male with a history of cardiomyopathy decreased ejection fraction, he states that he has been feeling weak for the last couple of days. He describes near syncopal episodes multiple times, fading to black, feeling sweaty. Currently has no chest pain, no shortness of breath. No leg edema or pain. No fever or chills. He states he does work outside in the heat. Timing/Prior Episodes: multiple episodes today Symptoms Prior to Episode: blurred vision Precipitating Factors: standing Loss of Consciousness: Brief (Seconds) Location of Injury: None Allergies: Coded Allergies: No Known Allergies (Unverified , 06/30/16) Home Meds Active Scripts Levothyroxine Sodium (LEVOTHYROXINE SODIUM) 25 Mcg Tablet, 25 MCG PO ACB for 30 Days, TAB Prov:DAVID DIAMOND MD 12/25/21 Dapagliflozin Propanediol (Farxiga) 10 Mg Tablet, 10 MG PO DAILY for 30 Days, TAB Prov:DAVID DIAMOND MD 12/25/21 Pantoprazole Sodium (PROTONIX) 40 Mg Tablet.dr, 40 MG PO DAILY for 30 Days Prov:DAVID DIAMOND MD 12/25/21 Torsemide (TORSEMIDE) 20 Mg Tablet, 20 MG PO DAILY for 30 Days, TAB Prov:DAVID DIAMOND MD 12/25/21 Vericiguat (Verquvo) 2.5 Mg Tablet, 2.5 MG PO DAILY for 30 Days, TAB Prov:DAVID DIAMOND MD 12/25/21 Spironolactone 25MG (ALDACTONE 25MG) 25 Mg Tablet, 25 MG PO DAILY for 30 Days, TAB Prov:DAVID DIAMOND MD 12/25/21 Sacubitril/Valsartan (Entresto 24 mg-26 mg Tablet) 1 Each Tablet, 1 EACH PO BID for 30 Days, TAB Prov:DAVID DIAMOND MD 12/25/21 Carvedilol (CARVEDILOL) 6.25 Mg Tablet, 6.25 MG PO BID for 30 Days, TAB Prov:DAVID DIAMOND MD 12/25/21 Amiodarone Hcl (CORDARONE) 200 Mg Tablet, 200 MG PO BID for 30 Days, TAB Prov:DAVID DIAMOND MD 12/25/21 Potassium Chloride (POTASSIUM CHLORIDE) 20 Meq Tab.er.prt, 20 MEQ PO DAILY24 for 30 Days, #30 Prov:TANIA JOSHUA MD 12/17/21 Apixaban (Eliquis) 5 Mg Tablet, 5 MG PO BID for 30 Days, TAB Prov:TANIA JOSHUA MD 12/17/21 Past Medical History Medical History: hypertension Surgical History: cardiac cath Social History Alcohol Use: none Drug Use: none Review of Systems All Other Systems: Reviewed and Negative Physical Exam General Appearance: No Apparent Distress HEENT: Other (Dry oral mucosa) Neck: Normal Inspection Cardiovascular/Respiratory: Regular Rate, Rhythm, Normal Peripheral Pulses, Normal Breath Sounds, No Respiratory Distress Gastrointestinal: Non Tender, Soft Extremities: Normal Inspection, No Pedal Edema Psychiatric: Alert, Oriented x 3 Motor/Sensory: No Motor Deficit, No Sensory Deficit Skin: Normal Color Lymphatic: No Adenopathy Results/Orders Results/Orders Orders - CHAN MCGRATH MD Cbc With Auto Diff (02/12/22 12:25) Comprehensive Metabolic Panel (02/12/22 12:25) Probnp B-Type Roofing Laborer (02/12/22 12:25) PT (02/12/22 12:25) Xr Chest 1v (02/12/22 12:25) Ekg-Routine (02/12/22 12:25) Troponin I High Sensitivity (02/12/22 12:25) Covid19 Antigen Sia Mckenna (02/12/22 12:29) Diltiazem Hcl (Cardizem) (02/12/22 12:50) Diltiazem Hcl (Cardizem) (02/12/22 12:51) Urinalysis (02/12/22 13:10) Drug Scrn Med W Confirmation (02/12/22 13:10) 0.9 % Sodium Chloride (Ns 1000ml) (02/12/22 13:55) 0.9 % Sodium Chloride (Ns 1000ml) (02/12/22 13:59) 0.9 % Sodium Chloride (Ns 1000ml) (02/12/22 14:59) Vital Signs Date Time Temp Pulse Resp B/P (MAP) Pulse Ox O2 Delivery O2 Flow Rate FiO2 02/12/22 14:58 98.4 57 18 85/48 (60) 96 Room Air* 0 21 02/12/22 12:34 98.4 78 18 116/53 (74) 96 Room Air* 0 21 02/12/22 12:34 98.4 78 18 02/12/22 12:34 98.4 78 18 96 12/25/21 09:00 70 Administered Medications Medications (Trade) Dose Ordered Sig/Emre Route PRN Reason Start Time Stop Time Status Last Admin Dose Admin Sodium Chloride 1,000 ml @ 0 mls/hr Q0M STAT IV 02/12/22 13:55 02/12/22 13:56 DC 02/12/22 14:03 1,200 MLS/HR Laboratory Tests Test 02/12/22 00:00 02/12/22 12:30 02/12/22 12:39 Urine Collection Type RANDOM Urine Color YELLOW Urine Appearance CLEAR Urine Bilirubin NEGATIVE (NEGATIVE) Urine Ketones NEGATIVE (NEGATIVE) Urine Specific [place] 1.010 (1.005-1.030) Urine pH 5.0 (4.5-8.0) Urine Protein NEGATIVE (NEGATIVE) Urine Urobilinogen 0.2 E.U./dL (0.2) Urine Nitrate NEGATIVE (NEGATIVE) Urine Leukocyte Esterase NEGATIVE (NEGATIVE) Urine Glucose (Auto)(UA) 100 mg/dL (NEGATIVE) H Urine Blood NEGATIVE (NEGATIVE) Urine Opiates Screen NEGATIVE (c/o300ng/mL) Urine Methadone Screen NEGATIVE (c/o300ng/mL) Urine Barbiturates Screen NEGATIVE (c/o200ng/mL) Urine Phencyclidine Screen NEGATIVE (c/o 25ng/mL) Ur Amphetamine/Methamphetamine NEGATIVE (ne4777at/mL) Urine MDMA Screen (Ecstasy) NEGATIVE (c/o300ng/mL) Urine Benzodiazepines Screen NEGATIVE (c/o200ng/mL) Urine Cocaine Metabolite Screen NEGATIVE (c/o300ng/mL) Ur Tetrahydrocannabinol (THC) Scrn NEGATIVE (c/o 50ng/mL) White Blood Count 6.0 10^3/uL (4.5-11.0) Red Blood Count 5.73 10^6/uL (4.50-5.90) Hemoglobin 17.4 g/dL (13.9-16.3) H Hematocrit 50.2 % (37.0-53.0) Mean Corpuscular Volume 87.6 fL (78-100) Mean Corpuscular Hemoglobin 30.4 pg (26-34) Mean Corpuscular Hemoglobin Concent 34.7 g/dL (33-36.5) Red Cell Distribution Width 16.8 % (11.5-14.5) H Platelet Count 194 10^3/uL (150-400) Mean Platelet Volume 9.1 fL (7.8-11.0) Neutrophils (%) (Auto) 56.5 % (41.0-85.0) Lymphocytes (%) (Auto) 31.9 % (24.0-44.0) Monocytes (%) (Auto) 10.6 % (5.0-12.0) Neutrophils # (Auto) 3.4 10^3/uL (1.8-7.7) Lymphocytes # (Auto) 1.90 10^3/uL1 (1.0-4.8) Monocytes # (Auto) 0.6 10^3/uL (0.3-0.8) Absolute Immature Granulocyte (auto 0.01 10^3 u/L (0-2) Absolute Eosinophils (auto) 0.0 10^3/uL (0.0-0.2) Immature Granulocytes % 0.20 % (0.00-0.50) Eosinophils % 0.5 % (0.0-5.0) Basophils % 0.3 % (0.0-0.2) H Basophils # 0.0 10^3/uL (0.0-0.1) Prothrombin Time 11.4 SEC (9.1-11.5) Prothrombin Time INR (Non-Therap) 1.1 Sodium Level 126 mmol/L (132-145) #L Potassium Level 4.6 mmol/L (3.6-5.2) Chloride Level 89.0 mmol/L (96-109) L Carbon Dioxide Level 21.1 mmol/L (20.0-32) Anion Gap 20.5 Blood Urea Nitrogen 115 mg/dL (7-18) *H Creatinine 4.11 mg/dL (0.59-1.40) *H Estimated GFR () 19.5 (>/=60) Est GFR (CKD-EPI)(Non-Afr [place] Citizen) 16.1 (>/=60) BUN/Creatinine Ratio 27.0 Glucose Level 143 mg/dL (70-110) H Calcium Level 10.1 mg/dL (8.4-10.5) Total Bilirubin 2.8 mg/dL (0.2-1.0) H Aspartate Amino Transferase (AST) 76 U/L (0-35) H Alanine Aminotransferase (ALT) 42 U/L (12-78) Alkaline Phosphatase 149 U/L (50-136) H Troponin I High Sensitivity 17 ng/L (0-75) Pro-B-Type Natriuretic Peptide 271 pg/mL (0-125) H Total Protein 8.9 g/dL (6.4-8.2) H Albumin 4.3 g/dL (3.4-5.0) Globulin 4.6 Albumin/Globulin Ratio 0.934 SARS-CoV-2 Antigen (Rapid) NEGATIVE (NEGATIVE) Progress Progress EKG shows sinus rhythm, rate of 73, normal axis, normal ST segment He has elevated creatinine at 4, BUN of 115, potassium normal, normal EKG. This that he is profoundly dehydrated. Started IV fluid resuscitation. Admit for KUN EKG/XRAY/CT/US EKG: NSR ER DEPARTURE Departure Time of Disposition: 15:05 Disposition: 09 ADMITTED INPATIENT Impression: Primary Impression: KUN (acute kidney injury) Condition: Stable Referrals: PCP,UNKNOWN (PCP) PRIMARY CARE PROVIDER Duration or Time Spent with Pa: 10m Justification of Admit/Observ Is this patient coming directl: No *Level of Care/Services Provid: ER Admit Criteria Met: YES Justification Content JUSTIFICATION FOR ADMISSION Instructions 1. Open link in [employer]. Browser. [email or web address] 2. Copy and paste data needed to meet the Admit Criteria. 3. Modify and document the needful data to meet the Admit Criteria. CHAN MCGRATH MD Feb 12, 2022 15:06
[2022-02-12 15:31] VITALS: BP 81/46
[2022-02-12 15:45] VITALS: BP 92/45
[2022-02-12 15:52] VITALS: BP 109/61
[2022-02-12] MEDS ORDERED: NS 1000ML 1,000 ML IV ONE (16:00)
[2022-02-12] MEDS ORDERED: ZOFRAN IV PRN (16:00)
[2022-02-12 20:00] VITALS: BP 100/59
[2022-02-12] MEDS ORDERED: ATOR40TA PO (20:00)
[2022-02-12 21:13] LABS: BASOPHIL % 0.5 % (0.0-0.2); EOSINOPHIL % 0.2 % (0.0-5.0); LYMPHOCYTES % 32.9 % (24.0-44.0); MEAN CORP HGB 30.2 pg (26-34); MONOCYTES # 0.6 10^3/uL (0.3-0.8); MONOCYTES % 12.9 % (5.0-12.0); NEUTROPHIL # 2.3 10^3/uL (1.8-7.7); NEUTROPHILS % 53.5 % (41.0-85.0); PLATELET COUNT 153 10^3/uL (150-400); RED CELL DISTRIBUTION WIDTH 16.3 % (11.5-14.5)
--- NOTE | 2022-02-12 21:21 | HPH ---
ADMIT DATE: 02/12/2022 DICTATOR NAME: Serg Ortiz MD CHIEF COMPLAINT: Syncope, collapse, passed out, marked weakness, low blood pressure. HISTORY OF PRESENT ILLNESS: The patient is a 41-year-old white male with known history of nonischemic dilated cardiomyopathy, chronic systolic heart failure, on optimal medical therapy. He had atrial fibrillation, was cardioverted electrically and consequently with hinduism of regular sinus rhythm and optimization of CHF therapy. 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 Hence, he was admitted for IV hydration and stopping his medications and reassessing his kidney status. ALLERGIES: None known. MEDICATIONS: Entresto 49/51 mg one tablet twice a day, amiodarone 200 mg once a day, Levothroid 25 mcg once a day, torsemide 20 mg once a day, potassium 10 mEq once a day, Coreg 6.25 mg twice a day, Aldactone 25 mg once a day, Eliquis 5 mg twice a day, Farxiga 10 mg once a day, Verquvo 2.5 mg once a day, Farxiga 10 mg once a day, and Protonix 40 mg once a day. PAST MEDICAL HISTORY: History of chronic systolic heart failure, nonischemic dilated cardiomyopathy, atrial fibrillation, anxiety, depression, obesity, hyperlipidemia, TESSIE. He was in the hospital, had atrial fibrillation several weeks ago. No history of any cancer. Has had pneumonia in the past. No COVID vaccine. Claims he has not had any COVID, has history of DVT and pulmonary emboli in 2020. SOCIAL HISTORY: Prior history of severe alcoholism, heavy smoker and has significant history of smoking, but he says he has cut down at the present time. FAMILY HISTORY: Positive for COPD. Father had COPD and heart problems in the family and grandparents of massive AR. REVIEW OF SYSTEMS: Reveals that the dizziness, lightheadedness, weak spells, passing out and decreased urination. PHYSICAL EXAMINATION: GENERAL: I saw him alert, awake, oriented, height 175 cm and weight was 102 kg. VITAL SIGNS: His pulse was 90, blood pressure 80/50, respirations 18-20. HEENT: Unremarkable. NECK: No JVD, no carotid bruits. Scattered rhonchi noted bilaterally. CARDIOVASCULAR: Heart sounds S1, S2 normal. ABDOMEN: Rounded, no organomegaly. EXTREMITIES: Distal pulses poorly felt because of hypotension and hypovolemia. No dependent edema was noted. NEUROLOGIC: Intact. LABORATORY DATA: Showed 6000 white count, 17.4 hemoglobin secondary polycythemia due to heavy smoking. BUN is 115, creatinine 4.1 with a significant rise from his previous chemistries and his bilirubin is up to 2.8 and SGOT 76, alkaline phosphatase is 149. ProBNP is 271 and TSH was 3.4. Sodium is 126, probably depletion and dehydration. COVID serology is negative. Chest x-ray was unremarkable. EKG was showing regular sinus rhythm, nonspecific ST-T wave changes. IMPRESSION: Acute kidney injury, syncope, collapse, hypotension, hypovolemia, may be related to dehydration due to diuretics and being exposed to excessive heat, history of nonischemic dilated cardiomyopathy, chronic systolic heart failure, on optimal medical therapy. PLAN: At this time, admit the patient, hold all his medications, fluid bolus and IV fluids and clinical followup and further management depending on the clinical course. Serg Ortiz MD DR: CAROLYNN TID: [id number] RECEIPT: [id number]
[2022-02-12 21:24] LABS: CARBON DIOXIDE 18.4 mmol/L (20.0-32)
[2022-02-12] MEDS: NS 1000ML 1,000 ML IV SCH (22:54)
[2022-02-13] VITALS: BP 104/60
[2022-02-13 04:00] VITALS: BP 102/62
[2022-02-13] MEDS: LEVOTHYROXINE SODIUM PO SCH (06:16)
[2022-02-13] MEDS: NS 1000ML 1,000 ML IV SCH ×4 (08:00→23:48)
[2022-02-13] MEDS: PROTONIX PO SCH (09:00)
[2022-02-13 10:10] VITALS: BP 114/64
[2022-02-13 13:11] LABS: BILIRUBIN,URINE NEGATIVE (NEGATIVE); UROBILINOGEN,URINE 0.2 E.U./dL (0.2)
--- NOTE | 2022-02-13 13:54 | DIREP ---
PROCEDURE:US KIDNEYS-BILAT COMPARISON:[facility], CT, CT ABD/PELVIS W/O, 12/11/2016, 07:31 AM. INDICATIONS:RENAL FUNCTION - CREATINE AND BUN LEVELS TECHNIQUE:Ultrasound examination was performed of the kidneys and bladder. FINDINGS: RIGHT KIDNEY:10.4 x 5.5 x 6.0 cm. Cortex: 2.3 cm LEFT KIDNEY: 12.0 x 5.4 x 6.0 cm. Cortex: 1.7 cm BLADDER (pre-void):5.8 x 5.8 x 5.9 cm. Volume 103.9 ml BLADDER (post-void): 2.3 x 2.1 x 2.7 cm. Volume 6.8 ml MICTURATED VOLUME: 97.1 ml RIGHT KIDNEY: There is no hydronephrosis or suspicious cortical lesion. LEFT KIDNEY: There is no hydronephrosis or suspicious cortical lesion. BLADDER:Bilateral ureteral jets are visualized. No visible wall thickening, mass, or calculus. OTHER:Negative. CONCLUSION:No abnormality noted. Dictated by: [facility] Phys[facility] on 02/13/2022 at 01:39 PM [email or web address]
[2022-02-13 18:08] VITALS: BP 120/68
[2022-02-13 19:52] VITALS: BP 103/64
[2022-02-13] MEDS ORDERED: LOVENOX SQ SCH (21:00)
[2022-02-13 23:48] VITALS: BP 102/66
[2022-02-14 04:00] VITALS: BP 114/74
[2022-02-14 05:21] LABS: CARBON DIOXIDE 21.4 mmol/L (20.0-32)
[2022-02-14] MEDS: LEVOTHYROXINE SODIUM PO SCH (05:39)
[2022-02-14 07:13] VITALS: BP 93/41
--- NOTE | 2022-02-14 07:28 | PNH ---
DATE: 02/13/2022 DICTATOR NAME: Serg Ortiz MD SUBJECTIVE: The patient is urinating. He had no urine for 2 days and came in acute renal failure, dehydration worsened by Farxiga and he had oliguria with underlying polycythemia with a hemoglobin of 17.4, probably related to hemoconcentration where it has improved to 14.7 today, not real polycythemia and his BUN was 115, is down to 109 and a creatinine of 4.08, but this was done yesterday, it should have been done this morning and this morning labs are not done so will be done tomorrow and ER physician has written an order on Lovenox 1 mg subcutaneous b.i.d., which should not have been given with the renal failure and there is no need to do Lovenox at the present time. He is in acute renal failure. We will do a renal sonogram and UA and repeat renal profile in the morning. IMPRESSION: Acute renal failure, dehydration, history of cardiomyopathy, atrial fibrillation, hypertension and hypertensive heart disease. PLAN: At this time continue same optimized medical therapy with IV fluids and all medications have been held at the present time. Serg Ortiz MD DR: ROSALVA/RENETTA/SAM TID: [id number] RECEIPT: [id number]
[2022-02-14] MEDS: NS 1000ML 1,000 ML IV SCH ×4 (08:26→23:39)
[2022-02-14] MEDS: PROTONIX PO SCH (08:26)
[2022-02-14 11:28] VITALS: BP 111/64
[2022-02-14 15:46] VITALS: BP 103/57
[2022-02-14 19:40] VITALS: BP 109/71
[2022-02-14 23:47] VITALS: BP 141/88
[2022-02-15 05:25] VITALS: BP 130/89
[2022-02-15] MEDS: LEVOTHYROXINE SODIUM PO SCH (05:44)
[2022-02-15] MEDS: NS 1000ML 1,000 ML IV SCH (07:41)
[2022-02-15 08:49] VITALS: BP 121/77
[2022-02-15] MEDS: PROTONIX PO SCH (09:13)
[2022-02-15 11:16] VITALS: BP 134/63
[2022-02-15 12:29] VITALS: BP 134/63
--- NOTE | 2022-02-15 15:41 | DSH ---
DATE OF DISCHARGE: 02/15/2022 DICTATOR NAME: Serg Ortiz MD FINAL DIAGNOSES: Syncope, hypotension, acute renal failure, prerenal azotemia, dehydration, hypovolemia and nonischemic dilated cardiomyopathy, chronic systolic heart failure, paroxysmal atrial fibrillation, obesity, hypothyroidism. Please refer to my history and physical to the point of my impression. HOSPITAL COURSE: The patient is a 41-year-old white male with known history of nonischemic dilated cardiomyopathy. He had a 20% ejection fraction and was in atrial fibrillation with rapid ventricular response and about 7-8 weeks ago, was cardioverted after optimization of medical therapy and he returned back into regular sinus rhythm and has done well. EF went up to 40% and he has been working very hard outdoors and he had decreased urine output for 2 days and went into acute renal failure with very severe oliguria and he was hemoconcentrated with a hemoglobin of 17.4, which came down to 14.7. His chemistry showed 115 BUN with a creatinine of 4.11, which has come down to 39 BUN and 1.7 creatinine, and his urine was unremarkable, and renal sonogram showed normal-sized kidneys. COVID test was negative ;and at the present time, I have held several of his medications and will come to the clinic next week for a followup renal profile and he is on Eliquis 5 mg twice a day, Coreg 6.25 mg twice a day, Levothroid 25 mcg once a day, Protonix 40 mg once a day, Verquvo 2.5 mg once a day. I stopped his amiodarone at this time, Lipitor 40 mg once a day. And stopped his Farxiga, potassium, Entresto, Aldactone, torsemide and we will gradually resume all his medications once his kidney function has improved to normal. Serg Ortiz MD DR: ROSALVA/LUCITA/GUY TID: [id number] RECEIPT: [id number]
--- NOTE | 2022-02-15 15:53 | DIET.OP ---
Nutrition Asmt/Malnutrit 2-17 Actual Date of Review: Feb 15, 2022 Actual Time Reviewed Asmt: 15:46 Nutritional Screening: Malnutr/Diet Consult Diagnosis: Acute Renal Failure, chornic systolic HF Pertinent Medical Hx/Surgical: GERD, Sleep Apnea, Hyperlipidemia, HTN, Anxiety, Depression, Hx alcoholism, CHF Subjective Information: 41 yo m, presented syncope, collapsed, passed out. 01/03 weight 258#, current wt 226#, 32# decrease x 2 months, 12%, significant. Current Diet Order/Nutrition S: Cardiac Patient /S.O: Not Indicated Pertinent Meds Zofran, Levothyroxine, Protonix Pertinent Labs Hgb 14.7, Hct 43.6, BUN 39H, Cr 1.07H, Na+ 134, K+ 4.3, Glu 98, Ca+ 8.3 Height (Inches): 69 Current Weight: 226 %IBW: 140 Recent Weight Change: Yes (32# loss x 2 months, 12%, significant) Weight Status: Obese GI Symptoms: None Cultural/Ethnic/[place] Judith: unknown Usual Diet at Home: unable to obtain Skin Integrity/Comment: Yes (skin intact) Current %PO: Good(75-100%) (100% x 7 meals) Calories/Kcals/K-14 Kcals Calculated: 7489-4044 Protein: Use Current Weight Protein g/k.0-1.3 Protein Calculated: 113-133 Fluid: ml: [id number] or per MD order Nutritional Problem: Nutr. Problems Present Problems: Overweight/Obesity Etiology: Excessive Energy Intake Signs/Symptoms: BMI above normative for age gender, obesity 33 Interpretation of Weight Loss: Up to 7.5% in 3 Months (12% x 2 months, 32# loss) Fluid Accumulation (N/A): N/A Reduced Bat Person Strength (N/A): N/A Protein-Calorie Malnutrition: N/A Is there a minimum of two crit: No Malnutrition Related to Morbid: No RD Comments: Wt loss significant x 2 months, PO intake 100%, patient being discharged today. Expected Outcomes stable w/adequate hydration, skin intgegrity, labs WNL, nutrition needs met within 3 days. Malnutrtion/Nutrition Risk Edu: No low nutrition risk RD Follow-Up Date: Feb 22, 2022 Notificiation Needed?: No CHEPE HILLMAN Feb 15, 2022 15:53
--- NOTE | 2022-02-16 01:14 | PNH ---
DATE: 02/14/2022 DICTATOR NAME: Serg Ortiz MD SUBJECTIVE: The patient is doing well. His appetite is improved. Overall, he is doing well. OBJECTIVE: VITAL SIGNS: Stable. Temperature 98.9, pulse 62, respirations 18, and blood pressure 111/64, 98% saturation on room air. He has had fairly good urine output, almost 3550, came with acute renal failure. I think he is on a diuretic phase at the present time, probably this was related to dehydration along with Farxiga. Has history of nonischemic dilated cardiomyopathy, chronic systolic heart failure, which was 20% with atrial fibrillation after cardioversion, went into regular sinus rhythm and AV synchrony restored and his LV ejection fraction improved to 40-44%, but he was on polytherapy and he has been working outside, which have lead to prerenal azotemia and dehydration and acute renal failure. His creatinine has come down from 4.11-2.11 and BUN is down from 115-63. Electrolytes are normal. Repeat labs will be done in the morning. All medications have been held. IMPRESSION: Acute renal failure, improved status; kidney size is normal on sonogram; nonischemic dilated cardiomyopathy; chronic systolic heart failure; atrial fibrillation. PLAN: At this time, continue same optimized medical therapy. Discharge planning on 02/15/2022. Serg Ortiz MD DR: ROSALVA/DELVIS/JAMES TID: [id number] RECEIPT: [id number]
== END 2022-02-15 12:00 | disposition home or self-care (01) | DRG 683 ==
LOC: ER 12:17 → MS 15:00
PROVIDERS: ADMIT Specialist; ATTEND Specialist
DX: N17.9 Acute kidney failure, unspecified (principal); I42.0 Dilated cardiomyopathy; I50.22 Chronic systolic (congestive) heart failure; I95.9 Hypotension, unspecified; R55 Syncope and collapse; E86.1 Hypovolemia; D75.1 Secondary polycythemia; E03.9 Hypothyroidism, unspecified; E66.9 Obesity, unspecified; E78.5 Hyperlipidemia, unspecified; E86.0 Dehydration; I11.0 Hypertensive heart disease with heart failure; I48.0 Paroxysmal atrial fibrillation; Z20.822 Contact with and (suspected) exposure to COVID-19; F10.20 Alcohol dependence, uncomplicated; F32.A Depression, unspecified; F41.9 Anxiety disorder, unspecified; G47.33 Obstructive sleep apnea (adult) (pediatric); R79.89 Other specified abnormal findings of blood chemistry; Z87.01 Personal history of pneumonia (recurrent); Z82.5 Family history of asthma and other chronic lower respiratory diseases; Z79.899 Other long term (current) drug therapy; Z79.01 Long term (current) use of anticoagulants; Z68.33 Body mass index [BMI] 33.0-33.9, adult; Z87.891 Personal history of nicotine dependence
CPT/HCPCS: 36415; 71045; 80053; 80307; 81003; 83880; 84443; 84484; 85025; 85610; 87426; 93005; 99285; G0378; J3490; J7030; 76770

== ENCOUNTER → 2022-02-22 | Outpatient (CLI) | payer SELFPAY ==
[2022-02-22 16:58] LABS: CARBON DIOXIDE 27.1 mmol/L (20.0-32)
== END | disposition home or self-care (01) ==
LOC: NPLAB 16:23
PROVIDERS: ATTEND Specialist
DX: I13.0 Hypertensive heart and chronic kidney disease with heart failure and stage 1 through stage 4 chronic kidney disease, or unspecified chronic kidney disease (principal); I50.22 Chronic systolic (congestive) heart failure; N18.9 Chronic kidney disease, unspecified; I42.9 Cardiomyopathy, unspecified
CPT/HCPCS: 36415; 80053; 83735

== ENCOUNTER 2023-01-30 12:29 | Emergency (ER) | payer SELFPAY ==
[~2023-01-30] VITALS: Ht 177.8 cm; Wt 102.1 kg
[2023-01-30 12:32] VITALS: BP 161/95
[2023-01-30] MEDS ORDERED: TORADOL IM STA (12:44)
[2023-01-30] MEDS ORDERED: TORADOL ONE (12:47)
--- NOTE | 2023-01-30 12:47 | ER.PDOC ---
General Chief Complaint: Extremities Stated Complaint: RIGHT ARM INJURY Time seen by MD: 12:46 Source: patient Exam Limitations: no limitations History of Present Illness Initial Comments Right elbow pain for several weeks worse today. No fever or chills. He denies injury. Pain is worse with movement. Severity: moderate Exacerbated By: movement of Relieved By: nothing Quality: pain, tenderness Allergies: Coded Allergies: No Known Allergies (Unverified , 06/30/16) Home Meds Active Scripts Levothyroxine Sodium (LEVOTHYROXINE SODIUM) 25 Mcg Tablet, 25 MCG PO ACB for 30 Days, TAB Prov:DAVID DIAMOND MD 12/25/21 Pantoprazole Sodium (PROTONIX) 40 Mg Tablet.dr, 40 MG PO DAILY for 30 Days Prov:DAVID DIAMOND MD 12/25/21 Vericiguat (Verquvo) 2.5 Mg Tablet, 2.5 MG PO DAILY for 30 Days, TAB Prov:DAVID DIAMOND MD 12/25/21 Carvedilol (CARVEDILOL) 6.25 Mg Tablet, 6.25 MG PO BID for 30 Days, TAB Prov:DAVID DIAMOND MD 12/25/21 Apixaban (Eliquis) 5 Mg Tablet, 5 MG PO BID for 30 Days, TAB Prov:TANIA JOSHUA MD 12/17/21 Past Medical History Medical History: arrhythmia, cardiac problems, hypertension, vascular disease Surgical History: no surgical history Family History Significant Family History: no pertinent family hx Social History Smoking: non-smoker Alcohol Use: none Drug Use: none Review of Systems Constitutional: no symptoms reported EENTM: no symptoms reported Respiratory: no symptoms reported Cardiovascular: no symptoms reported Gastrointestinal: no symptoms reported Musculoskeletal: see HPI All Other Systems: Reviewed and Negative Physical Exam General Appearance: alert, no distress Upper Extremity: tenderness (Right elbow without swelling. No redness or erythema. Not warm to touch.) Skin: color nml, warm/dry Vascular: no vascular compromise Neuro/Psych: sensation nml, motor nml Central Exam: oriented X3, CN's nml as tested, nml speech, nml cognition, nml mood/affect EENT: eyes nml inspection Neck/Back: nml inspection Respiratory: no resp distress, breath sounds nml CVS: reg rate & rhythm, heart sounds nml Abdomen: non-tender, no organomegaly, nml bowels sounds Results/Orders Results/Orders Orders - JONY STATON MD Xr Elbow Rt (01/30/23 12:44) Cbc With Auto Diff (01/30/23 12:44) Basic Metabolic Panel (01/30/23 12:44) Erythrocyte Sedimentation Rate (01/30/23 12:44) C-Reactive Protein (01/30/23 12:44) Procalcitonin (01/30/23 12:44) Uric Acid (01/30/23 12:44) Ketorolac Tromethamine (Toradol) (01/30/23 12:44) Ketorolac Tromethamine (Toradol) (01/30/23 12:47) Triamcinolone Acetonide (Kenalog-40) (01/30/23 14:29) Potassium Chloride (Klor-Con 10) (01/30/23 14:29) Vital Signs Date Time Temp Pulse Resp B/P (MAP) Pulse Ox O2 Delivery O2 Flow Rate FiO2 01/30/23 12:32 98.2 89 20 01/30/23 12:32 98.2 89 20 161/95 (117) 100 Room Air* 0 21 01/30/23 12:32 98.2 89 20 100 Administered Medications Medications (Trade) Dose Ordered Sig/Emre Route PRN Reason Start Time Stop Time Status Last Admin Dose Admin Ketorolac Tromethamine (Toradol) 60 mg STAT STAT IM 01/30/23 12:44 01/30/23 12:47 DC 01/30/23 12:50 60 MG Laboratory Tests Test 01/30/23 13:25 White Blood Count 14.1 10^3/uL (4.5-11.0) H Red Blood Count 5.32 10^6/uL (4.50-5.90) Hemoglobin 17.0 g/dL (13.9-16.3) H Hematocrit 49.9 % (37.0-53.0) Mean Corpuscular Volume 93.8 fL (78-100) Mean Corpuscular Hemoglobin 32.0 pg (26-34) Mean Corpuscular Hemoglobin Concent 34.1 g/dL (33-36.5) Red Cell Distribution Width 13.0 % (11.5-14.5) Platelet Count 300 10^3/uL (150-400) Mean Platelet Volume 9.3 fL (7.8-11.0) Neutrophils (%) (Auto) 65.9 % (41.0-85.0) Lymphocytes (%) (Auto) 24.3 % (24.0-44.0) Monocytes (%) (Auto) 8.0 % (5.0-12.0) Neutrophils # (Auto) 9.3 10^3/uL (1.8-7.7) H Lymphocytes # (Auto) 3.43 10^3/uL1 (1.0-4.8) Monocytes # (Auto) 1.1 10^3/uL (0.3-0.8) H Absolute Immature Granulocyte (auto 0.02 10^3 u/L (0-2) Absolute Eosinophils (auto) 0.2 10^3/uL (0.0-0.2) Immature Granulocytes % 0.10 % (0.00-0.50) Eosinophils % 1.3 % (0.0-5.0) Basophils % 0.4 % (0.0-0.2) H Basophils # 0.1 10^3/uL (0.0-0.1) Erythrocyte Sedimentation Rate 4 mm/hr (0-20) Sodium Level 138 mmol/L (132-145) Potassium Level 2.9 mmol/L (3.6-5.2) L Chloride Level 103.0 mmol/L (96-109) Carbon Dioxide Level 22.2 mmol/L (20.0-32) Glucose Level 114 mg/dL (74-106) H Blood Urea Nitrogen 10 mg/dL (7-18) Creatinine 1.19 mg/dL (0.59-1.40) Calcium Level 9.6 mg/dL (8.4-10.5) Anion Gap 15.7 Estimated GFR () 81.1 (>/=60) Est GFR (CKD-EPI)(Non-Afr Japanese) 67.0 (>/=60) BUN/Creatinine Ratio 8.0 (10.0-20.0) L Uric Acid 6.5 mg/dL (3.5-7.2) C-Reactive Protein 0.49 mg/dL (0.00-5.00) Procalcitonin < 0.05 ng/mL (0.05-0.5) L Progress Progress X rays right elbow: Small joint effusion which may reflect radiographically occult fracture in the setting of trauma. WBC: 14.1, ESR normal, CRP normal, Procalcitonin normal, Potassium: 2.9 Patient received Toradol, Kenalog and Potassium. He is feeling better. I consulted Dr. Haines. He said patient should go home with an arm sling and steroid. Antibiotic added since WBC is high even though inflammatory markers and Procal are normal. Patient given a sling. Patient told me that he has Potassium at home but stopped taking it. ER DEPART Departure Time of Disposition: 14:40 Disposition: 01 HOME / SELF CARE / HOMELESS Impression: Primary Impression: Elbow pain, right Additional Impressions: Tendonitis of elbow, right Hypokalemia Condition: Improved Referrals: PCP,UNKNOWN (PCP) PRIMARY CARE PROVIDER Additional Instructions: Prednisone Bactrim DS Continue with your Potassium at home F/U with Dr. Haines on 02/01/23. Call for appointment Return to ED if worsening or concerns Duration or Time Spent with Pa: 30 min Problem Qualifiers JONY STATON MD Jan 30, 2023 12:47
--- NOTE | 2023-01-30 13:14 | DIREP ---
PROCEDURE:XRAY ELBOW [id number] COMPARISON:None. INDICATIONS:pain FINDINGS: No acute displaced fracture or dislocation. Small joint effusion. CONCLUSION: Small joint effusion which may reflect radiographically occult fracture in the setting of trauma. Dictated by: Chris Schumacher DO on 01/30/2023 at 01:08 PM
[2023-01-30 13:37] LABS: BASOPHIL # 0.1 10^3/uL (0.0-0.1); BASOPHIL % 0.4 % (0.0-0.2); EOSINOPHIL # 0.2 10^3/uL (0.0-0.2); EOSINOPHIL % 1.3 % (0.0-5.0); LYMPHOCYTES # 3.43 10^3/uL1 (1.0-4.8); LYMPHOCYTES % 24.3 % (24.0-44.0); MONOCYTES # 1.1 10^3/uL (0.3-0.8); NEUTROPHIL # 9.3 10^3/uL (1.8-7.7); NEUTROPHILS % 65.9 % (41.0-85.0); PLATELET COUNT 300 10^3/uL (150-400)
[2023-01-30 13:50] LABS: CARBON DIOXIDE 22.2 mmol/L (20.0-32)
[2023-01-30] MEDS ORDERED: KENALOG-40 IM STA (14:29)
[2023-01-30] MEDS ORDERED: KLOR-CON 10 PO STA (14:29)
[2023-01-30] MEDS ORDERED: KLOR-CON 10 PO ONE (15:06)
[2023-01-30] MEDS ORDERED: KENALOG-40 ONE (15:06)
== END 2023-01-30 15:17 | disposition home or self-care (01) ==
LOC: ER 12:29
DX: M25.521 Pain in right elbow (principal); M77.9 Enthesopathy, unspecified; E87.6 Hypokalemia; I10 Essential (primary) hypertension
CPT/HCPCS: 99284; 96372; 73070; 85025; 36415; 80048; 84145; 84550; 85651; 86140; J3301; J3490; J1885